=== PATIENT | male | born 2000 | race Caucasian/White ===

== ENCOUNTER 2020-05-10 04:38 | Emergency (ER) | payer SELFPAY ==
--- NOTE | ~2020-05-10 | XR_ITS ---
EXAMINATION: XR chest 2V 05/10/2020 06:08 INDICATION: Chest wall pain PROCEDURE: AP and lateral views of the chest COMPARISON: 11/05/2018 FINDINGS: The lungs are clear. The cardiomediastinal silhouette is within normal limits. There are no pleural effusions. There is no pneumothorax suspected. IMPRESSION: 1: NO ACUTE CARDIOPULMONARY DISEASE. Reviewed, dictated and finalized at location A.
--- NOTE | ~2020-05-10 | CT_ITS ---
EXAMINATION: CT brain wo con DATE: 05/10/2020 05:13 INDICATION: Sided weakness TECHNIQUE: Computed tomography (CT) of the head was performed without intravenous contrast. The dose- length product was 605.33 mGy-cm. The mA was adjusted according to patient size. Iterative reconstruc tion technique was employed. COMPARISON: None FINDINGS: Mild generalized atrophy. No acute intracranial hemorrhage, infarction, mass or mass effect . There are scattered mild periventricular and subcortical white matter changes, most likely related to small vessel ischemic disease (microangiopathy). No ventriculomegaly or midline shift. Mild mucosa l thickening of the ethmoid and right sphenoid sinus. Mastoids are pneumatized. IMPRESSION: 1. No acute intracranial abnormality. Reviewed, dictated and finalized at location A.
[2020-05-10 04:44] VITALS: BP 124/73; PULSE 86; RESP 16
--- NOTE | 2020-05-10 04:44 | ECG_ITS ---
Measurements Intervals [place] Rate: 90 P: 74 VA: 145 QRS: 177 QRSD: 120 T: 24 QT: 385 QTc: 473 Interpretive Statements SINUS RHYTHM RIGHT BUNDLE BRANCH BLOCK LEFT POSTERIOR FASCICULAR BLOCK CANNOT RULE OUT SEPTAL INFARCT, AGE INDETERMINATE BASELINE ARTIFACT- II, III, AVR, AVL, AVF, V3 ABNORMAL ECG Electronically Signed On 05-13-2020 15:54:20 CDT by Maged Sneed D.O.
--- NOTE | 2020-05-10 04:51 | ED.NEUROSD ---
HPI - Neuro Symptoms/Deficit General Chief Complaint: Neuro Symptoms/Deficit Stated Complaint: No feeling on R side Time Seen by Provider: 05/10/20 04:47 History of Present Illness HPI Narrative: Sudden onset of pain in the right chest wall, and numbness and weakness in the RUE. He has never had this before. He has a h/o hypoplastic left heart. Related Data Allergies Allergy/AdvReac Type Severity Reaction Status Date / Time No Known Drug Allergies Allergy Unknown Verified 11/05/18 11:07 Review of Systems Review of Systems: All systems reviewed & are unremarkable except as noted in HPI and below Constitutional: Constitutional: Denies fever(s) and Reports weakness Cardiovascular: Cardiovascular: Reports chest pain and Reports radiating jaw, neck or arm pain Respiratory: Respiratory: Denies dyspnea Musculoskeletal: Musculoskeletal: Denies back pain Neurologic: Reports dizziness, Reports numbness and Reports weakness PMFSH Past Medical History Medical History (Updated 05/11/20 @ 00:00 by Adriel Gibson) Hypoplastic left heart Social History Social History (Updated 05/10/20 @ 05:43 by Victor Manuel Moyer MD) Gender identity (if verbalized by the patient): Male Sexual Orientation (if Verbalized by the Patient): Straight or Heterosexual Exam Const: General: no acute distress and alert Orientation/consciousness: patient oriented x3 HENMT: Head: normal to inspection Chest: Other: Tenderness adjacent to the sternotomy scar on the right. No erythema or swelling Resp: Effort & Inspection: normal respiratory effort Auscultation: clear to auscultation bilaterally Cardio: Rate: regular rate Rhythm: regular rhythm GI: GI Palp: Yes Soft to palpation and No Tenderness to palpation present (GI) Skin: General skin exam: normal color Neuro: General: patient oriented x3, moves all extremities and CN's II-XI intact bilaterally Speech: normal speech Gait exam (Neuro): Normal gait present Other: Motor and sensory grossly intact. refusing to fully abduct right shoulder or make a fist with right hand. When the hand and arm are placed in any position he will hold it there. Says that he cannot feel his arm, but he can feel when you touch it. It is not clear what he means by this Extrem: General: normal to inspection Course Vital Signs Vital signs: Vital Signs Pulse Rate 86 05/10/20 04:44 Respiratory Rate 16 05/10/20 04:44 Blood Pressure 124/73 05/10/20 04:44 Pulse Rate 71 05/10/20 06:55 Respiratory Rate 16 05/10/20 06:55 Blood Pressure 117/79 05/10/20 06:55 Pulse Oximetry 98 05/10/20 06:55 MDM - Neuro Symptoms/Deficit MDM Narrative Medical decision making narrative: His compalints and exam do not seem to be concerning for any particular disease process. Medical Records Attestation: I reviewed the patient's medical records. Lab Data Attestation: I reviewed the patient's lab results. Result diagrams: 05/10/20 05:03 05/10/20 05:03 Labs: Lab Results 05/10/20 05/10/20 05/10/20 Range/Units 05:03 05:03 05:03 WBC 7.4 (4.5-10.0) K/mm3 RBC 5.71 (4.6-6.20) M/mm3 Hgb 17.1 (14.0-18.0) g/dL Hct 49.9 (42.0-52.0) % MCV 87.4 (80-100) fl MCH 29.9 (26-34) pg MCHC 34.3 (32-36) g/dl RDW 13.2 (11.5-14.5) % Plt Count 182 (150-375) k/mm3 MPV 12.0 H (7.4-10.4) fl Immature Gran % (Auto) 0.3 (0-0.5) % Neut % (Auto) 60.8 (45.5-73.1) % Lymph % (Auto) 28.0 (18.3-44.2) % Tripp % (Auto) 8.5 (2.6-8.5) % Eos % (Auto) 1.2 (0-4.4) % Baso % (Auto) 1.2 (0.2-1.2) % Lymph # (Auto) 2.08 (0.9-3.2) K/mm3 Tripp # (Auto) 0.6 (0.1-0.6) K/mm3 Eos # (Auto) 0.1 (0-0.3) K/mm3 Baso # (Auto) 0.1 (0.0-0.1) K/mm3 Abs Immat Gran (auto) 0.02 (0.00-0.031) K/mm3 Absolute Neuts (auto) 4.5 (1.3-6.7) K/mm3 Absolute Nucleated RBC 0.0 (0.0-0.012) K/mm3 Nucleated RBC % 0.0 (0.0-0.2
[2020-05-10 05:14] LABS: Basophils Absolute Auto 0.1 K/mm3 (0.0-0.1); Basophils Percent Auto 1.2 % (0.2-1.2); Eosinophils Absolute Auto 0.1 K/mm3 (0-0.3); Eosinophils Percent Auto 1.2 % (0-4.4); Hematocrit 49.9 % (42.0-52.0); Hemoglobin 17.1 g/dL (14.0-18.0); Immature Granulocyte Absolute 0.02 K/mm3 (0.00-0.031); Immature Granulocyte Percent A 0.3 % (0-0.5); Lymphocytes Absolute Auto 2.08 K/mm3 (0.9-3.2); Mean Corpuscular HGB Conc 34.3 g/dl (32-36); Mean Corpuscular Hemoglobin 29.9 pg (26-34); Mean Corpuscular Volume 87.4 fl (80-100); Monocytes Absolute Auto 0.6 K/mm3 (0.1-0.6); Monocytes Percent Auto 8.5 % (2.6-8.5); Neutrophils Absolute Auto 4.5 K/mm3 (1.3-6.7); Neutrophils Percent Auto 60.8 % (45.5-73.1); Platelet Count Result 182 k/mm3 (150-375); Red Blood Count 5.71 M/mm3 (4.6-6.20); Red Cell Distribution Width 13.2 % (11.5-14.5); White Blood Count 7.4 K/mm3 (4.5-10.0)
[2020-05-10 05:42] LABS: Anion Gap 12 mmol/L (8-16); Blood Urea Nitrogen 9 mg/dL (8-21); Calcium 9.8 mg/dL (8.9-10.7); Carbon Dioxide 26 mmol/L (22-30); Chloride 104 mmol/L (98-107); Estimated CRCL calculation 108 ml/min; Estimated Glomerular Filt Rate > 60; Glucose 86 mg/dL (75-110); Potassium 3.8 mmol/L (3.4-5.0); Sodium 142 mmol/L (134-143)
[2020-05-10 05:47] LABS: Troponin I < 0.012 ng/mL (0.000-0.034)
[2020-05-10 05:48] LABS: NT Pro B Type Natriuretic Pept 159 PG/ML (5-100)
[2020-05-10 06:08] VITALS: BP 118/74; PULSE 74; RESP 16; O2SAT 94
--- NOTE | 2020-05-10 06:37 | PC.NURSE ---
Patient continues to report numbness/unable to move right arm/shoulder and still having right sided pain---Dr Moyer aware
[2020-05-10] MEDS: KETOROLAC 30 MG/ML VIAL (*BKC) IV PUSH (06:49)
[2020-05-10 06:55] VITALS: BP 117/79; PULSE 71; RESP 16; O2SAT 98
== END 2020-05-10 06:55 | disposition home or self-care (01) ==
PROVIDERS: Emergency Provider Emergency Medicine
DX: R07.89 Other chest pain (principal); R20.2 Paresthesia of skin; Q23.4 Hypoplastic left heart syndrome; I45.2 Bifascicular block; R94.31 Abnormal electrocardiogram [ECG] [EKG]
CPT/HCPCS: 36415; 70450; 71046; 80048; 83880; 84484; 85025; 93005; 96374; 99284; J1885

== ENCOUNTER 2021-05-15 22:31 | Emergency (ER) | payer SELFPAY ==
--- NOTE | ~2021-05-15 | XR_ITS ---
XR shoulder LT min 2V 05/15/2021 22:58 INDICATION: Left shoulder pain post injury PROCEDURE: 4 views left shoulder COMPARISON: No prior studies for comparison. FINDINGS: Fracture, dislocation or subluxation is not identified. The soft tissues appear within norm al limits. No foreign bodies are identified. IMPRESSION: 1: NO ACUTE BONE OR JOINT ABNORMALITY IDENTIFIED. Reviewed, dictated and finalized at location A.
[2021-05-15 22:37] VITALS: BP 136/61; PULSE 100; RESP 18; TEMP 36.7; O2SAT 96
[2021-05-16 01:11] VITALS: BP 109/61; PULSE 84; RESP 16; O2SAT 99
--- NOTE | 2021-05-16 01:16 | ED.UPPEXIN ---
HPI - Extremity Injury (Upper) General Chief Complaint: Extremity Injury, Upper Stated Complaint: left shoulder dislocation Time Seen by Provider: 05/16/21 00:47 Source: patient and RN notes reviewed Mode of arrival: ambulatory Limitations: no limitations History of Present Illness HPI narrative: This is a 20 year old right hand dominant male who presents for evaluation of left shoulder pain. Patient states he was lifting a dresser when he felt of pop in his left shoulder. He has pain with movement. Someone thought his shoulder pain be dislocated. He has not taken any thing for pain. He states his entire all feels numb. Related Data Home Medications Medication Instructions Recorded Confirmed No Home Medications 05/15/21 05/15/21 Allergies Allergy/AdvReac Type Severity Reaction Status Date / Time No Known Drug Allergies Allergy Unknown Other Verified 05/16/21 01:42 Review of Systems Review of Systems: All systems reviewed & are unremarkable except as noted in HPI and below PMFSH Past Medical History Medical History (Updated 05/16/21 @ 01:21 by Nemo Rice MD) Hypoplastic left heart Surgical History Surgical History (Updated 05/16/21 @ 01:18 by Nemo Rice MD) H/O heart surgery Social History Social History (Updated 05/10/20 @ 05:43 by Victor Manuel Moyer MD) Gender identity (if verbalized by the patient): Male Sexual Orientation (if Verbalized by the Patient): Straight or Heterosexual Exam Const: General: alert Nutritional Appearance: thin Orientation/consciousness: patient oriented x3 Eyes: EOM: EOMs intact bilaterally Resp: Effort & Inspection: normal respiratory effort and no retractions Auscultation: clear to auscultation bilaterally Cardio: Rate: regular rate Heart sounds: no murmurs Skin: General skin exam: normal color Rashes: no rashes Neuro: General: patient oriented x3, moves all extremities and CN's II-XI intact bilaterally Extrem: Other: pain with abduction at left shoulder , full passive ROM. No deformity , no swelling, strong left radial pulse Psych: Mental Status: mental status grossly normal Affect: normal affect Course Reevaluation(s) Reevaluation #1: I Discussed wih patient that preliminary xray does not show fracture of dislocation. He will be given sling for comfort with ibuprofen. I have discussed discharge plan Date: 05/16/21 Time: 01:19 Vital Signs Vital signs: Vital Signs Temperature 98.1 F 05/15/21 22:37 Pulse Rate 100 05/15/21 22:37 Respiratory Rate 18 05/15/21 22:37 Blood Pressure 136/61 05/15/21 22:37 Pulse Oximetry 96 05/15/21 22:37 Temperature 98.1 F 05/15/21 22:37 Pulse Rate 85 05/16/21 01:36 Respiratory Rate 16 05/16/21 01:36 Blood Pressure 115/58 L 05/16/21 01:36 Pulse Oximetry 92 05/16/21 01:36 MDM - Extremity Injury (Upper) Imaging Data Attestation: I personally reviewed and interpreted this imaging study as follows: My impression: left shoulder xray- no dislocation, no fracture Discharge Plan Discharge Clinical Impression: Sprain of left shoulder Qualifiers: Encounter type: initial encounter Patient Disposition: Home, Self-Care Condition: Stable Instructions: How to Use a Sling (ED), Shoulder Sprain (ED), Shoulder Pain (ED) Additional Instructions: Take ibuprofen or aleve for your shoulder pain. wear sling for comfort. Follow up with your primary care physician if your pain does not resolve in 1 week. Prescriptions: No Action No Home Medications RF: 0 Follow-up/Referrals: UNKNOWN,DOCTOR [Primary Care Provider] -
[2021-05-16 01:36] VITALS: BP 115/58; PULSE 85; RESP 16; O2SAT 92
[2021-05-16] MEDS: IBUPROFEN 400 MG TABLET PO (01:43)
== END 2021-05-16 02:16 | disposition home or self-care (01) ==
PROVIDERS: Emergency Provider General Practice
DX: S43.402A Unspecified sprain of left shoulder joint, initial encounter (principal); X50.0XXA Overexertion from strenuous movement or load, initial encounter
CPT/HCPCS: 73030; 99283; A4565; A9270

== ENCOUNTER 2023-10-08 19:11 | Emergency (ER) | payer OTHER, SELFPAY ==
--- NOTE | ~2023-10-08 | XR_ITS ---
EXAMINATION: XR forearm LT 2V DATE: 10/08/2023 19:29 INDICATION: Left forearm pain. TECHNIQUE: 2 views of left forearm were obtained. COMPARISON: None. FINDINGS: Bone alignment is normal. No fracture. Joint spaces are normal. No elbow joint effusion. IMPRESSION: 1. No fracture. Reviewed, dictated and finalized at location E. IMPRESSION: 1. No fracture.
--- NOTE | 2023-10-08 19:17 | ED.GENADULT ---
HPI - General Adult General Chief complaint: Extremity Injury, Upper Stated complaint: Left Leg and L arm injury Time Seen by Provider: 10/08/23 19:14 History of Present Illness HPI narrative: Simba is a 23M with a PMH of hypoplastic left heart that presented to the ED with pain in his left arm. It started hurting after a motor cycle fell on it while he was working on it. He has no other injuries or concerns. Related Data Home Medications Medication Instructions Recorded Confirmed aspirin 81 mg tablet,delayed 81 mg PO DAILY 10/08/23 10/08/23 release digoxin 125 mcg (0.125 mg) tablet 125 mcg PO DAILY 10/08/23 10/08/23 enalapril maleate 10 mg tablet 10 mg PO DAILY 10/08/23 10/08/23 Allergies Allergy/AdvReac Type Severity Reaction Status Date / Time No Known Drug Allergies Allergy Unknown Other Verified 05/16/21 01:42 Review of Systems Review of Systems: All systems reviewed & are unremarkable except as noted in HPI and below [facility] Past Medical History Medical History Hypoplastic left heart Surgical History Surgical History H/O heart surgery Social History Social History Gender identity (if verbalized by the patient): Male Sexual Orientation (if Verbalized by the Patient): Straight or Heterosexual Exam Const: General: cooperative, healthy appearing, comfortable, no acute distress, well developed, alert, awake and Physically active Orientation/consciousness: oriented to person, oriented to place and oriented to time Other: Simba was laying in bed comfortably holding his left arm HENMT: Head: normal to inspection, normocephalic and atraumatic Ears: hearing grossly normal bilaterally and external ears normal Face/Nose/Sinus: Normal external nose present Eyes: General: appearance normal, both eyes and all related structures Periorbital: periorbital findings normal Sclera: sclerae normal Pupils: Equal, round and reactive pupils present Neck: Neck: normal visual inspection Chest: Chest palpation & inspection: normal inspection of the chest Resp: Effort & Inspection: normal respiratory effort, able to speak in complete sentences and no respiratory distress Cardio: Jugular venous distension: no JVD Skin: General skin exam: normal color and no rashes or lesions noted Neuro: General: oriented to person, oriented to place and oriented to time Cranial nerves: Yes Equal, round and reactive pupils present Extrem: General: normal to inspection Other: Able to move all finger of left hand, strong peripheral pulses. TTP and swelling from the mid forearm to the left elbow Course Course Emergency Course: Given toradol for the pain. EXAMINATION: XR forearm LT 2V DATE: 10/08/2023 19:29 INDICATION: Left forearm pain. TECHNIQUE: 2 views of left forearm were obtained. COMPARISON: None. FINDINGS: Bone alignment is normal. No fracture. Joint spaces are normal. No elbow joint effusion. IMPRESSION: 1. No fracture. Given normal radiographs it is likely just a contusion. Discharge Plan Discharge Clinical Impression: Contusion Patient Disposition: Home, Self-Care Condition: Stable Instructions: Contusion in Adults (ED) Prescriptions: No Action enalapril maleate 10 mg tablet 10 mg PO DAILY aspirin 81 mg Tablet,Delayed Release (Dr/Ec) 81 mg PO DAILY digoxin 125 mcg (0.125 mg) tablet 125 mcg PO DAILY Follow-up/Referrals: UNKNOWN,DOCTOR [Primary Care Provider] -
[2023-10-08 19:26] VITALS: BP 135/73; PULSE 91; RESP 18; TEMP 37.3; O2SAT 91
[2023-10-08] MEDS: KETOROLAC 30 MG/ML VIAL (*BKC) IM (19:38)
[2023-10-08 19:55] VITALS: BP 113/75; PULSE 85; RESP 18; O2SAT 98
== END 2023-10-08 19:55 | disposition home or self-care (01) ==
PROVIDERS: Emergency Provider Family Medicine
DX: S40.022A Contusion of left upper arm, initial encounter (principal); Z79.899 Other long term (current) drug therapy; W20.8XXA Other cause of strike by thrown, projected or falling object, initial encounter
CPT/HCPCS: 73090; 96372; 99283; J1885

== ENCOUNTER 2024-02-16 00:41 | Emergency (ER) | payer OTHER, SELFPAY ==
[2024-02-16] VITALS (10 sets, daily range): BP systolic 108–136; BP diastolic 60–81; PULSE 89–112; RESP 14–24; TEMP 36.4; O2SAT 89–94
--- NOTE | ~2024-02-16 | XR_ITS ---
Portable chest x-ray Comparison: 05/10/2020 Clinical History: Shortness of breath Findings: Lungs are clear, without focal consolidation or pleural effusion. Cardiomediastinal silho uette is stable. Surgical clips overlying the chest are unchanged. Bones and soft tissues are unremar kable. Impression: No acute abnormality. Reviewed, dictated and finalized at location . Impression: No acute abnormality.
--- NOTE | 2024-02-16 00:54 | PC.NURSE ---
xray at the bedside
--- NOTE | 2024-02-16 00:55 | ECG_ITS ---
Test Date: 2024-02-16 01:06:56 Measurements Intervals [place] Rate: 98 P: 58 MN: 210 QRS: 186 QRSD: 115 T: 19 QT: 383 QTc: 491 Interpretive Statements SINUS RHYTHM WITH FIRST DEGREE AV BLOCK LEFT ATRIAL ENLARGEMENT RIGHT BUNDLE BRANCH BLOCK LEFT POSTERIOR FASCICULAR BLOCK CANNOT R/O SEPTAL INFARCT, AGE INDETERMINATE ST-T WAVE ABNORMALITY IN ANTEROLATERAL LEADS- CONSIDER ISCHEMIA ABNORMAL ECG No previous ECG available for comparison Electronically Signed On 02-16-2024 05:59:45 CDT by Maged Sneed D.O.
--- NOTE | 2024-02-16 00:56 | ED.SOB ---
HPI - SOB/Dyspnea General Chief Complaint: Shortness of Breath/Dyspnea Stated Complaint: SOB Time Seen by Provider: 02/16/24 00:54 History of Present Illness HPI Narrative: 23-year-old white male presents with a history of hypoplastic left ventricle, reports multiple surgeries as an , reports several other surgeries or procedures as he was growing up, has been out of his medicines for the past year or 2 as he has not had the ability to drive to [facility] to any of his appointments. He did have some leftover medicines, and he has been taking his digoxin, his enalapril, but not the aspirin and not taking a 4th medication that he does not know the name. He restarted these because he started feeling tired, fatigued, and then over the past week or so he has been getting more and more short of breath, developing more dyspnea on exertion, but has not really noticed any swelling in his lower extremities. Denies any recent fever, chills, sinus drainage, sore throat, cough, chest pain, abdominal pain, nausea vomiting, diarrhea or constipation, dysuria urgency or frequency Related Data Home Medications Medication Instructions Recorded Confirmed aspirin 81 mg tablet,delayed 81 mg PO DAILY 10/08/23 02/16/24 release digoxin 125 mcg (0.125 mg) tablet 125 mcg PO DAILY 10/08/23 02/16/24 enalapril maleate 10 mg tablet 10 mg PO DAILY 10/08/23 02/16/24 albuterol sulfate 90 mcg/actuation 2 inh inhalation Q4H PRN Shortness 02/16/24 02/16/24 aerosol inhaler (Proventil HFA) Of Breath Or Wheezing Allergies Allergy/AdvReac Type Severity Reaction Status Date / Time No Known Drug Allergies Allergy Unknown Other Verified 05/16/21 01:42 Review of Systems Review of Systems: All systems reviewed & are unremarkable except as noted in HPI and below PMFSH Past Medical History Medical History Hypoplastic left heart Surgical History Surgical History H/O heart surgery Social History Social History Gender identity (if verbalized by the patient): Male Sexual Orientation (if Verbalized by the Patient): Straight or Heterosexual Exam Const: General: no acute distress, alert and well nourished Nutritional Appearance: well nourished Orientation/consciousness: patient oriented x3 Limitations: no limitations Other: slender, poor dentition, awake, alert, well oriented, pleasant, fair to good historian no acute distress, has mild tachypnea HENMT: Head: normal to inspection Ears: external ears normal Face/Nose/Sinus: Normal external nose present and normal facial exam Face and sinus: normal facial exam Mouth: Yes Normal oral and palatal mucosa present Teeth and gingiva: dentition normal Throat: posterior oropharynx normal Eyes: Conjunctivae: conjunctivae normal Pupils: Equal, round and reactive pupils present EOM: EOMs intact bilaterally Neck: Neck: normal visual inspection and no meningeal signs Chest: Chest palpation & inspection: normal inspection of the chest Resp: Effort & Inspection: normal respiratory effort Auscultation: clear to auscultation bilaterally Cardio: Rate: regular rate Rhythm: regular rhythm Heart sounds: Murmur heart sound present Other: patient has multiple murmurs KELI systolic and diastolic GI: GI Palp: Yes Soft to palpation and Yes Tenderness to palpation present (GI) Auscultation: normal bowel sounds Other: No mass, no organomegaly, no percussion or rebound tenderness : General: Yes bladder normal to palpation Skin: General skin exam: normal color Rashes: no rashes Wounds: no wounds Neuro: General: patient oriented x3, moves all extremities, no meningeal signs, no focal motor deficits and CN's II-XI intact bilaterally Cranial nerves: Yes Equal, round and reactive pupils present and Yes Nystagmus not present
--- NOTE | 2024-02-16 01:00 | PC.NURSE ---
see downtime paperwork for charting and medications.
[2024-02-16 01:07] LABS: Basophils Absolute Auto 0.08 K/mm3 (0.00-0.10); Eosinophils Absolute Auto 0.09 K/mm3 (0.02-0.50); Eosinophils Percent Auto 1.1 % (1.0-6.0); Hematocrit 49.6 % (40.0-54.0); Hemoglobin 16.8 g/dL (14.0-18.0); Immature Granulocyte Absolute 0.02 K/mm3 (0.00-0.00); Immature Granulocyte Percent A 0.2 % (0.0-0.0); Lymphocytes Absolute Auto 1.74 K/mm3 (1.10-4.50); Lymphocytes Percent Auto 21.7 % (18.0-42.0); Mean Corpuscular HGB Conc 33.9 g/dL (32-36); Mean Corpuscular Volume 85.5 fL (78.0-102.0); Mean Platelet Volume 10.7 fl (8.7-11.0); Monocytes Absolute Auto 0.69 K/mm3 (0.10-0.90); Monocytes Percent Auto 8.6 % (2.0-11.0); Neutrophils Absolute Auto 5.39 K/mm3 (1.70-7.20); Neutrophils Percent Auto 67.4 % (50.0-70.0); Platelet Count Result 218 K/mm3 (150-420); Red Cell Distribution Width 13.1 % (11.6-14.4)
[2024-02-16] MEDS: ALBUTEROL SULFATE NEB 2.5 MG/3 ML INH 5 MG INHALATION (01:07)
[2024-02-16] MEDS: methylPREDNISolone SOD SUCC 125 MG VIAL (01:22)
--- NOTE | 2024-02-16 03:16 | PC.NURSE ---
patient resting on stretcher. awaiting second trop draw at approx 0400. currently denies any needs. call light in reach
[2024-02-16 03:40] LABS: Appearance Urine Clear (Clear); Color Urine Yellow (Yellow); pH Urine 6.5 (5.0-8.0)
[2024-02-16 03:41] LABS: Add Urine Microscopic? YES; Bilirubin Urine Negative (Negative); Blood Urine Negative (Negative); Glucose Urine UA Negative (Negative); Ketones Urine Negative (Negative); Leukocyte Esterase Ur Negative LEU/UL (Negative); Nitrate Urine Negative (Negative); Protein Urine Negative (Negative); Specific Grav Ur <= 1.005 (1.010-1.020)
[2024-02-16 03:42] LABS: RBC Urine 0-2 /hpf (0-2); WBC Urine 0-3 /hpf (0-3)
[2024-02-16 03:42] LABS: Anion Gap 13 mmol/L (4-12); Blood Urea Nitrogen 10 mg/dL (7-18); Carbon Dioxide 26 mmol/L (21-32); Chloride 100 mmol/L (98-108); Estimated CRCL calculation 98 ml/min; Estimated Glomerular Filt Rate > 60; Glucose 106 mg/dL (70-99); Magnesium 2.1 mg/dL (1.8-2.4); Osmolality Calculated 287 mOsm/kg (285-295); Potassium 3.4 mmol/L (3.5-5.1); Sodium 139 mmol/L (136-145)
[2024-02-16 03:43] LABS: Alanine Aminotransferase 36 U/L (16-63); Albumin Level 4.7 g/dL (3.4-5.0); Alkaline Phosphatase 87 U/L (46-116); Aspartate Amino Transferase 27 U/L (15-37); Bilirubin,Total 2.3 mg/dL (0.00-1.00); NT Pro B Type Natriuretic Pept 132 pg/mL (0-125); Total Protein 7.9 g/dL (6.4-8.2)
--- NOTE | 2024-02-16 03:57 | PC.NURSE ---
lab at the bedside to draw second trop
[2024-02-16 03:59] LABS: Amphetamine Screen Urine Negative (Negative); Barbiturate Screen Urine Negative (Negative); Benzodiazepines Screen Urine Negative (Negative); Cannabinoid Screen Urine Negative (Negative); Cocaine Screen Urine Negative (Negative); Methadone Screen Urine Negative (Negative); Opiate Screen Urine Negative (Negative); Phencyclidine Screen Urine Negative (Negative)
--- NOTE | 2024-02-16 04:02 | PC.NURSE ---
resting on stretcher. waiting on second trop result. denies any needs. call light in reach
[2024-02-16 04:23] LABS: Troponin I 11.6 ng/L (0.00-60.4)
--- NOTE | 2024-02-16 04:30 | PC.NURSE ---
notified patient that blood work has resulted. patient asked for water to drink. given. asked patient if he needed second breathing treatment that was ordered. patient states no i am good. i am breathing much better now . call light in reach
--- NOTE | 2024-02-16 05:22 | PC.NURSE ---
asked patient if he had a spacer at home for his albuterol inhaler. patient reports that he does not have one. One was given to patient. Education was completed on how to use spacer. Patient did a return demonstration on how inhaler would be used with the spacer and how to breath in the medication from the spacer.
== END 2024-02-16 05:24 | disposition home or self-care (01) ==
PROVIDERS: Emergency Provider Emergency Medicine
DX: R06.02 Shortness of breath (principal); J98.01 Acute bronchospasm; Z79.899 Other long term (current) drug therapy; Z79.82 Long term (current) use of aspirin
CPT/HCPCS: 36415; 71045; 80053; 80307; 81001; 83735; 83880; 84484; 85025; 93005; 96374; 99284; J2919

== ENCOUNTER 2024-05-21 12:34 | Emergency (ER) | payer OTHER, SELFPAY ==
--- NOTE | ~2024-05-21 | XR_ITS ---
EXAMINATION: XR shoulder LT min 2V DATE: 05/21/2024 13:08 INDICATION: Left shoulder pain. TECHNIQUE: 4 views of left shoulder were obtained. COMPARISON: Left shoulder radiographs 05/15/2021 FINDINGS: Alignment is normal. No fracture. Joint spaces are normal. IMPRESSION: 1. Normal left shoulder. Reviewed, dictated and finalized at location A. IMPRESSION: 1. Normal left shoulder.
[2024-05-21 12:35] VITALS: BP 129/72; PULSE 116; RESP 16; TEMP 36.9; O2SAT 91
--- NOTE | 2024-05-21 12:57 | ED.UPPEXIN ---
HPI - Extremity Injury (Upper) General Chief Complaint: Extremity Injury, Upper Stated Complaint: SHOULDER INJURY, LEFT Time Seen by Provider: 05/21/24 12:57 Source: patient History of Present Illness HPI narrative: PATIENT WAKE UP WITH PAIN AT THE LEFT SHOULDER AFTER LIFTING TREE STUMPS LAST NIGHT BEFORE GOING TO BED. HE DENIES OTHER INJURIES. WORSE WITH MOVEMENT AND CERTAIN POSITIONS, Related Data Home Medications Medication Instructions Recorded Confirmed aspirin 81 mg tablet,delayed 81 mg PO DAILY 10/08/23 05/21/24 release digoxin 125 mcg (0.125 mg) tablet 125 mcg PO DAILY 10/08/23 05/21/24 enalapril maleate 10 mg tablet 10 mg PO DAILY 10/08/23 05/21/24 albuterol sulfate 90 mcg/actuation 2 inh inhalation Q4H PRN Shortness 02/16/24 05/21/24 aerosol inhaler (Proventil HFA) Of Breath Or Wheezing Allergies Allergy/AdvReac Type Severity Reaction Status Date / Time No Known Drug Allergies Allergy Unknown Other Verified 05/21/24 12:40 Review of Systems Review of Systems: All systems reviewed & are unremarkable except as noted in HPI and below PMFSH Past Medical History Medical History Hypoplastic left heart Surgical History Surgical History H/O heart surgery Social History Social History Gender identity (if verbalized by the patient): Male Sexual Orientation (if Verbalized by the Patient): Straight or Heterosexual Exam Narrative: GENERAL APPEARANCE: WELL-DEVELOPED, WELL-NOURISHED SKIN: NORMAL COLOR HEAD: NORMOCEPHALIC, NONTRAUMATIC EYES: CLEAR CONJUNCTIVA CHEST AND RESPIRATORY: AIRWAY PATENT, NO RESPIRATORY DISTRESS, NO ACCESSORY MUSCLE USE HEART: REGULAR RATE/RHYTHM VASCULAR: NORMAL PERIPHERAL PULSES, NORMAL CAPILLARY REFILL. MUSCULOSKELETAL: LEFT SHOULDER EXAMINATION SHOWED DIFFUSE TENDERNESS, NO DEFORMITY, SLIGHT LIMITED RANGE OF MOTION BECAUSE OF PAIN, NO SWELLING, NO BRUISES NEUROLOGIC: ALERT AND ORIENTED ?3, INSTRUCTOR EXTENSION WORK IS NORMAL TESTED, NO GROSS MOTOR DEFICIT Course Vital Signs Vital signs: Vital Signs Temperature 36.9 C 05/21/24 12:35 Pulse Rate 116 H 05/21/24 12:35 Respiratory Rate 16 05/21/24 12:35 Blood Pressure 129/72 05/21/24 12:35 Pulse Oximetry 91 05/21/24 12:35 Oxygen Delivery Room Air 05/21/24 12:35 Temperature 36.9 C 05/21/24 12:35 Pulse Rate 116 H 05/21/24 12:35 Respiratory Rate 16 05/21/24 12:35 Blood Pressure 129/72 05/21/24 12:35 Pulse Oximetry 91 05/21/24 12:35 Oxygen Delivery Room Air 05/21/24 12:35 MDM - Extremity Injury (Upper) Imaging Data Radiologist's impression: X-RAY LEFT SHOULDER SHOWED NO ACUTE OSSEOUS ABNORMALITY Discharge Plan Discharge Clinical Impression: Acute pain of left shoulder Patient Disposition: Home, Self-Care Condition: Stable Instructions: Shoulder Sprain (ED) Additional Instructions: RETURN IF SYMPTOMS ARE WORSENING , CALL YOUR FAMILY PHYSICIAN FOR APPOINTMENT, TAKE TYLENOL NEEDED FOR ACHES AND PAIN, CONTINUE HOME MEDICATIONS. Prescriptions: New naproxen [Naprosyn] 500 mg tablet 500 mg PO BID PRN (Reason: pain) Qty: 14 0RF cyclobenzaprine 10 mg tablet 10 mg PO TID PRN (Reason: muscle spasm) Qty: 14 0RF No Action enalapril maleate 10 mg tablet 10 mg PO DAILY aspirin 81 mg Tablet,Delayed Release (Dr/Ec) 81 mg PO DAILY digoxin 125 mcg (0.125 mg) tablet 125 mcg PO DAILY albuterol sulfate [Proventil HFA] 90 mcg/actuation HFA aerosol inhaler 2 inh INHALATION Q4H PRN (Reason: Shortness Of B
[2024-05-21] MEDS: IBUPROFEN 600 MG TABLET PO (13:17)
[2024-05-21] MEDS: ACETAMINOPHEN 500 MG TABLET 1000 MG PO (13:18)
[2024-05-21 13:38] VITALS: BP 125/75; PULSE 100; RESP 16; TEMP 36.7; O2SAT 92
== END 2024-05-21 13:38 | disposition home or self-care (01) ==
PROVIDERS: Emergency Provider Emergency Medicine
DX: M25.512 Pain in left shoulder (principal); Z79.899 Other long term (current) drug therapy; Z79.82 Long term (current) use of aspirin; X50.0XXA Overexertion from strenuous movement or load, initial encounter
CPT/HCPCS: 73030; 99283; A9270

== ENCOUNTER 2024-05-22 09:16 | Emergency (ER) | payer OTHER, SELFPAY ==
--- NOTE | ~2024-05-22 | CT_ITS ---
EXAMINATION: CT shoulder LT wo con DATE: 05/22/2024 10:10 INDICATION: Left shoulder injury and pain. TECHNIQUE: Computed tomography (CT) of the left shoulder was performed without intravenous contrast. Automated exposure control and iterative reconstruction technique were employed. The dose-length prod uct was 104.32 mGy-cm. COMPARISON: Left shoulder radiographs 05/21/2024 FINDINGS: Alignment is normal. No fracture. Joint spaces are normal. IMPRESSION: 1. Normal left shoulder. Reviewed, dictated and finalized at location A. IMPRESSION: 1. Normal left shoulder.
[2024-05-22 09:21] VITALS: BP 152/84; PULSE 107; RESP 17; TEMP 36.4; O2SAT 94
--- NOTE | 2024-05-22 09:48 | ED.UPPEXIN ---
HPI - Extremity Injury (Upper) General Chief Complaint: Extremity Injury, Upper Stated Complaint: left shoulder pain Time Seen by Provider: 05/22/24 09:19 Source: patient Mode of arrival: ambulatory Limitations: no limitations History of Present Illness HPI narrative: this is a 23-year-old male that presents to the emergency department for left shoulder pain. Reports he was lifting tree stumps prior to it starting. Was evaluated for this at another ER yesterday. Had negative x-rays. Is still having pain which prompted him to be seen. Denies decreased range of motion or numbness. Related Data Home Medications Medication Instructions Recorded Confirmed aspirin 81 mg tablet,delayed 81 mg PO DAILY 10/08/23 05/21/24 release digoxin 125 mcg (0.125 mg) tablet 125 mcg PO DAILY 10/08/23 05/21/24 enalapril maleate 10 mg tablet 10 mg PO DAILY 10/08/23 05/21/24 albuterol sulfate 90 mcg/actuation 2 inh inhalation Q4H PRN Shortness 02/16/24 05/21/24 aerosol inhaler (Proventil HFA) Of Breath Or Wheezing Allergies Allergy/AdvReac Type Severity Reaction Status Date / Time No Known Drug Allergies Allergy Unknown Other Verified 05/22/24 09:25 Review of Systems Review of Systems: CONSTITUTIONAL: Denies fever MUSCULOSKELETAL: Reports joint pain, and myalgia. NEUROLOGIC: Denies numbness, or weakness. All systems reviewed & are unremarkable except as noted in HPI and below PMFSH Past Medical History Medical History Hypoplastic left heart Surgical History Surgical History H/O heart surgery Social History Social History (Updated 05/22/24 @ 09:49 by Adri Brown PA-C) Substance use: never Gender identity (if verbalized by the patient): Male Sexual Orientation (if Verbalized by the Patient): Straight or Heterosexual Exam Narrative: GENERAL: Well-appearing, well-nourished, and in no acute distress. HEAD: Normocephalic, atraumatic. EYES: EOMI. CHEST: No respiratory distress. No wheezes rales or rhonchi HEART: Regular rate and rhythm. Normal peripheral pulses. EXTREMITIES: Normal range of motion. No edema or obvious deformity. Normal radial pulse. Normal sensation SKIN: Warm, dry, no rash. NEURO: No focal deficits. Alert and oriented x3. PSYCH: Normal mood and affect Course Vital Signs Vital signs: Vital Signs Temperature 97.6 F 05/22/24 09:21 Pulse Rate 107 H 05/22/24 09:21 Respiratory Rate 17 05/22/24 09:21 Blood Pressure 152/84 H 05/22/24 09:21 Pulse Oximetry 94 05/22/24 09:21 Oxygen Delivery Room Air 05/22/24 09:21 Temperature 97.6 F 05/22/24 09:21 Pulse Rate 107 H 05/22/24 09:21 Respiratory Rate 17 05/22/24 09:21 Blood Pressure 152/84 H 05/22/24 09:21 Pulse Oximetry 94 05/22/24 09:21 Oxygen Delivery Room Air 05/22/24 09:21 MDM - Extremity Injury (Upper) MDM Narrative Medical decision making narrative: Patient presents to the emergency department for left shoulder pain after a lifting injury. Patient is neurovascularly intact. X-rays yesterday were negative for acute findings. Patient presents today for further evaluation. CT obtained which is also without acute findings. Patient was updated on his workup, instructed on continue care of muscle strain. He is to follow up with primary provider. He was given warnings to return to the ER Differential Diagnosis Differential diagnosis: Likely dislocation of shoulder, fracture of clavicle and other (AC separation) Imaging Data Radiologist's impression: ITS Impressions Shoulder CT 05/22/24 10:13 IMPRESSION: 1. Normal left shoulder. Critical Care Time Critical Care Time Critical Care Time: No Discharge Plan Discharge Clinical Impression: Acute pain of left shoulder Patient Disposition: Home, Self-Care Condition: Stable Instructions: Shoulder Sprain (ED) Additional Instructions: Return to the ER if you experience fever, redness and swelling of your arm, weakness, numbness, or any other symptoms that are concerning to you Rest, use ice/heat, take anti-inflammatories (Aleve, Ibuprofen, Naproxen, etc) or Tylenol as needed for pain as well as muscle relaxer (Flexeril) as needed for pain. Muscle relaxers can make you drowsy, do not drive if you take this. Wear sling as needed for comfort. Do come out of the sling and of range of motion exercises so you don't get stiff Follow up with your primary care doctor Prescriptions: No Action enalapril maleate 10 mg tablet 10 mg PO DAILY aspirin 81 mg Tablet,Delayed Release (Dr/Ec) 81 mg PO DAILY digoxin 125 mcg (0.125 mg) tablet 125 mcg PO DAILY naproxen [Naprosyn] 500 mg tablet 500 mg PO BID PRN (Reason: pain) Qty: 14 0RF cyclobenzaprine 10 mg tablet 10 mg PO TID PRN (Reason: muscle spasm) Qty: 14 0RF albuterol sulfate [Proventil HFA] 90 mcg/actuation HFA aerosol inhaler 2 inh INHALATION Q4H PRN (Reason: Shortness Of Breath Or Wheezing) albuterol sulfate 90 mcg/actuation HFA aerosol inhaler 2 puff inhalation Q4-6H PRN (Reason: shortness of breath or wheezing) Qty: 18 0RF Follow-up/Referrals: Eddie Hughes MD [Physician] - UNKNOWN,DOCTOR [Primary Care Provider] -
[2024-05-22] MEDS: ACETAMINOPHEN 500 MG TABLET 1000 MG PO (09:53)
[2024-05-22] MEDS: KETOROLAC 30 MG/ML VIAL (*BKC) IM (09:54)
[2024-05-22 10:31] VITALS: BP 124/77; PULSE 99; RESP 14; O2SAT 95
[2024-05-22] MEDS: LIDOCAINE 5% PATCH 1 PATCH TRANSDERM (10:37)
== END 2024-05-22 10:56 | disposition home or self-care (01) ==
PROVIDERS: Emergency Provider Physician Assistant
DX: M25.512 Pain in left shoulder (principal); X50.0XXA Overexertion from strenuous movement or load, initial encounter; Z79.82 Long term (current) use of aspirin
CPT/HCPCS: 73200; 96372; 99284; A4565; A9270; J1885

== ENCOUNTER 2024-06-22 01:29 | Emergency (ER) | payer OTHER, SELFPAY ==
[2024-06-22] VITALS (46 sets, daily range): BP systolic 90–155; BP diastolic 39–87; PULSE 95–119; RESP 13–24; TEMP 36.3; O2SAT 83–95
--- NOTE | ~2024-06-22 | CT_ITS ---
EXAMINATION: CT abdomen pelvis w con DATE: 06/22/2024 04:37 INDICATION: 4-5 days of left lower quadrant abdominal pain TECHNIQUE: Computed tomography (CT) of the abdomen and pelvis was performed with 100 mL Omnipaque-350 intravenous contrast. Automated exposure control and iterative reconstruction technique were employe d. The dose-length product was 192.58 mGy-cm. COMPARISON: None FINDINGS: Lung bases are clear. Heart size is normal. No pericardial or pleural effusion. Diffuse mild intrahep atic ductal or ductal dilation. There is a nodular liver surface consistent with cirrhosis. Gallbladd er is normal. Common bile duct measures up to 6 mm diameter which remains within normal limits. Splee n, pancreas, bilateral adrenal glands and right kidney are normal. 5 mm left renal cyst. Bowels inclu ding the appendix are normal. Bladder is normal. No free intraperitoneal gas or fluid. No pathologica lly enlarged abdominal or pelvic lymphadenopathy. The bilateral external and common iliac veins are s mall in caliber, tortuous and with multiple pelvic collaterals. There is a fractured median sternotom y wire at the caudal-most aspect of the sternum. Mild thoracolumbar dextrocurvature. IMPRESSION: 1. Cirrhosis with mild diffuse intrahepatic biliary ductal dilation with normal caliber common bile d uct. Could consider further evaluation MRCP as clinically indicated. Reviewed, dictated and finalized at location A. GER TECHNICAL SUPPORT IMPRESSION: 1. Cirrhosis with mild diffuse intrahepatic biliary ductal dilation with normal caliber common bile duct. Could consider further evaluation MRCP as clinically indicated.
--- NOTE | ~2024-06-22 | XR_ITS ---
EXAMINATION: XR chest 1V portable DATE: 06/22/2024 01:56 INDICATION: Left-sided chest pain. Hypoplastic left heart. TECHNIQUE: frontal view of the chest was obtained. COMPARISON: Chest radiograph dated 02/16/2024 FINDINGS: The lungs remain clear with no focal airspace opacities, pulmonary edema, pleural effusion or pneumot horax. Heart size is normal. Postoperative change including fractured medial sternotomy wires at the caudal-most sternal and surgical clips and likely embolization coils projecting over the right-sided the superior mediastinum and right apex. Mild to moderate upper thoracic levoscoliosis. IMPRESSION: 1. No acute cardiopulmonary disease. Reviewed, dictated and finalized at location A. ATRIC UROLOGIST
--- NOTE | 2024-06-22 01:40 | ED_ITS ---
HPI - General Adult General Chief complaint: Chest Pain Stated complaint: chest pain Time Seen by Provider: 06/22/24 01:40 Source: patient and family Mode of arrival: ambulatory Limitations: no limitations History of Present Illness HPI narrative: 24-year-old white male with history of heart disease complaint of chest pain started 5 days ago. Patient has a history of hypoplastic left heart and has had many heart surgeries heart catheterizations and stents. He says he might have a history of congestive heart failure and liver failure. He says his doctors think he might need a liver transplant down the line . He has never had any myocardial infarction. Year ago he was seen for chest pain and shortne ss of breath was sent to [facility] he had weakness on 1 side and then he was transferred to [facility] where they said he did not have a stroke or a heart attack. Evidently he did not have a stroke or heart attack. He has had strokes in the past. He has not seen a doctor in the office for over a year. Was recently seen by doctor a month ago with some shoulder pain. His left chest pain started 5 days ago it has been constant it is worse now 03/09. He says it radiates to the left side of his abdomen. He is not taking anything for pain and he has also started having shortness of breath. 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 His fiancee says he can barely sit up in bed but he was able to go to his friend's house and have 2 or 3 beers and smoke marijuana cigarettes tonight. Had a little bit of nausea no vomiting no diaphoresis or diarrhea he is eating and drinking voiding and stooling fine without fever cough runny nose sore throat. Short of breath with walking. Denies any rash or itching bleeding or bruising swelling lumps or bumps. Complains of generalized weakness and fatigue he has no focal weakness numbness or tingling. His fiancee says he is feels warm but she has not checked it with a thermometer. Related Data Home Medications Medication Instructions Recorded Confirmed aspirin 81 mg tablet,delayed 81 mg PO DAILY 10/08/23 06/22/24 release digoxin 125 mcg (0.125 mg) tablet 125 mcg PO DAILY 10/08/23 06/22/24 enalapril maleate 10 mg tablet 10 mg PO DAILY 10/08/23 06/22/24 cyclobenzaprine 10 mg tablet 10 mg PO PRN 06/22/24 06/22/24 spironolactone 50 mg PO DAILY 06/22/24 06/22/24 Allergies Allergy/AdvReac Type Severity Reaction Status Date / Time No Known Drug Allergies Allergy Unknown Other Verified 05/22/24 09:25 Review of Systems Review of Systems: All systems reviewed & are unremarkable except as noted in HPI and below [facility] Past Medical History Medical History Hypoplastic left heart Surgical History Surgical History H/O heart surgery Social History Social History (Updated 05/22/24 @ 09:49 by Adri Brown PA-C) Substance use: never Gender identity (if verbalized by the patient): Male Sexual Orientation (if Verbalized by the Patient): Straight or Heterosexual Exam Narrative: White male patient with no apparent distress.? Head normocephalic, atraumatic.? Eyes conjunctiva pink sclera nonicteric.? Extraocular movements are intact.? Ears externally normal.? Oropharynx is clear with moist mucous membranes without exudates.? Neck is supple nontender no lymphadenopathy.? Back is nontender.? Lungs are clear.? Heart is regular With a tachycardic rate and normal rhythm without gallops or rubs.? he has a harsh 3/6 systolic murmur across the precordium. Chest wall Is tender across the left chest reproducing patient's chest pain. Abdomen is soft and nontender no hepatosplenomegaly or masses no CVA tenderness no abdominal bruits.? Extremities no cyanosis clubbing or edema.? Skin is warm and dry without rashes or lesions.? Neurological patient is alert and oriented x4.? Motor and sensory grossly intact.? Gait is normal. Course Vital Signs Vital signs: Vital Signs Pulse Rate 114 H 06/22/24 01:29 Oxygen Delivery Room Air 06/22/24 01:29 Temperature 36.3 C L 06/22/24 01:38 Pulse Rate 104 H 06/22/24 03:45 Respiratory Rate 18 06/22/24 03:45 Blood Pressure 117/59 L 06/22/24 03:45 Pulse Oximetry 94 06/22/24 03:45 Oxygen Delivery Nasal Cannula 06/22/24 03:45 Oxygen Flow Rate 2 06/22/24 03:45 Medical Decision Making [facility] Narrative Medical decision making narrative: ?Patient placed in room: 6 With his ankita Gruber ? History and physical was performed. chest x-ray showed no active disease as independently interpreted by me. CT abdomen and pelvis with IV contrast showed mildly distended loops of small bowel containing air and fluid level may be related to ileus nonspecific enteritis is not excluded normal appendix liver is enlarged is some periportal edema is noted within the liver WBCs 14.4 rest of CBC was normal. Coags were normal CMP: Sodium 133 chloride 97 Osmo 278, total bilirubin 1.2 rest of his CMP was normal. Normal troponin, lactic acid, and D-dimer, COVID flu RSV and alcohol, and urine drug screen. 2 hour troponin was normal. Magnesium 1.6, proBNP 161, digoxin 0.5 5:18 a.m. chest pain is gone will repeat EKG Independent Historian: ankita External Source Review: ED visit from month ago left shoulder injury lifting tree stumps Differential Dx includes but not limited to: acute coronary syndrome, PE Medications were Reviewed: home meds reviewed Medications given: 324 chewable aspirin, Zofran 4 mg IV morphine 2 mg IV, 2 mg morphine 2nd dose, magnesium 2 g IV Independently Interpreted by me: EKG shows sinus tachycardia at 1:18 a.m. left atrial enlargement right bundle branch block ST depressions in leads V3 through V6 T-wave inversion in lead V2 and 3 left posterior fascicular block septal infarction age undetermined with Q-waves in V1 and V2 impression : abnormal EKG Suggesting anterior lateral ischemia as independently interpreted by me. EKG done per 2 done at 5:23 a.m. shows sinus rhythm left atrial enlargement right axis deviation right bundle-branch block septal infarct age undetermined T-wave inversions in V 2 through V3 changes from previous EKG. Impression abnormal EKG as independently interpreted by me. Shared decision Making: evaluation was discussed all questions were asked and answered patient agreed with the plan. Social Situation Impacting Patients Care: patient has not followed up with his test engineer nuclear equipment in over a year Discussed with Dr. LIMA DIAGNOSIS: history of hypoplastic left heart, chest pain, hypomagnesemia, abdominal pain DISPOSITION : discharge home CONDITION AT DISCHARGE: stable Vital Signs Vital Signs: Vital Signs Pulse Rate 114 H 06/22/24 01:29 Oxygen Delivery Room Air 06/22/24 01:29 Temperature 36.3 C L 06/22/24 01:38 Pulse Rate 104 H 06/22/24 03:45 Respiratory Rate 18 06/22/24 03:45 Blood Pressure 117/59 L 06/22/24 03:45 Pulse Oximetry 94 06/22/24 03:45 Oxygen Delivery Nasal Cannula 06/22/24 03:45 Oxygen Flow Rate 2 06/22/24 03:45 Lab Data 06/22/24 01:56 06/22/24 01:56 Labs: Lab Results 06/22/24 06/22/24 06/22/24 Range/Units 01:56 02:39 04:06 WBC 14.4 H (4.8-10.8) K/mm3 RBC 5.96 (4.70-6.10) M/mm3 Hgb 17.6 (14.0-18.0) g/dL Hct 49.5 (40.0-54.0) % MCV 83.1 (78.0-102.0) fL MCH 29.5 (27.0-31.0) pg MCHC 35.6 (32-36) g/dL RDW 12.9 (11.6-14.4) % Plt Count 285 (150-420) K/mm3 MPV 10.1 (8.7-11.0) fl PT 12.3 H (9.50-12.1) Seconds INR 1.1 APTT 25.2 (23.9-30.70) Sec D-Dimer 0.19 (0.19-0.50) mg/L Sodium 133 L (136-145) mmol/L Potassium 4.1 (3.5-5.1) mmol/L Chloride 97 L (98-108) mmol/L Carbon Dioxide 27 (21-32) mmol/L Anion Gap 9 (4-12) mmol/L BUN 15 (7-18) mg/dL Creatinine 0.76 (0.70-1.30) mg/dL Estim Creat Clear Calc 102 ml/min Estimated GFR > 60 (59 - ) Glucose 130 H (70-99) mg/dL Calculated Osmolality 278 L (285-295) mOsm/kg Lactic Acid 1.8 (0.4-2.0) mmol/L Calcium 9.4 (8.5-10.1) mg/dL Magnesium 1.6 L (1.8-2.4) mg/dL Total Bilirubin 1.2 H (0.00-1.00) mg/dL AST 15 (15-37) U/L ALT 39 (16-63) U/L Alkaline Phosphatase 84 (46-116) U/L Troponin I 12.0 13.9 (0.00-60.4) ng/L NT-Pro-B Natriuret Pep 161 H (0-125) pg/mL Total Protein 7.5 (6.4-8.2) g/dL Albumin 4.4 (3.4-5.0) g/dL Digoxin 0.5 L (0.9-2.0) ng/mL Urine Opiates Screen Negative (Negative) Urine Methadone Screen Negative (Negative) Ur Barbiturates Screen Negative (Negative) Ur Phencyclidine Scrn Negative (Negative) Ur Amphetamine Screen Negative (Negative) U Benzodiazepines Scrn Negative (Negative) Urine Cocaine Screen Negative (Negative) U Cannabinoids Screen Negative (Negative) Ethyl Alcohol 4 (0-6) mg/dL Influenza A (RT-PCR) Negative (Negative) Influenza B (RT-PCR) Negative (Negative) RSV (RT-PCR) Negative (Negative) SARS-CoV-2 RNA (RT-PCR) Negative (Negative) Discharge Plan Discharge Clinical Impression: Atypical chest pain, History of hypoplastic left heart syndrome, Hypomagnesemia Abdominal pain Qualifiers: Abdominal location: left upper quadrant Qualified Code(s): R10.12 - Left upper quadrant pain Patient Disposition: Home, Self-Care Condition: Stable Instructions: Chest Pain (ED), Abdominal Pain (ED), Chest Wall Pain (ED) Additional Instructions: Tylenol as needed for pain. Mag-Ox 400 mg twice a day. With your primary care provider next week to have him recheck your magnesium again and follow-up with test engineer nuclear equipment as well Dr. Rodriguez at [facility] To discuss further evaluation treatment. Return if you get worse or develops any new symptoms. Prescriptions: New magnesium oxide 400 mg magnesium capsule 400 mg PO BID Qty: 20 0RF No Action enalapril maleate 10 mg tablet 10 mg PO DAILY aspirin 81 mg Tablet,Delayed Release (Dr/Ec) 81 mg PO DAILY digoxin 125 mcg (0.125 mg) tablet 125 mcg PO DAILY cyclobenzaprine 10 mg tablet 10 mg PO PRN spironolactone 50 mg PO DAILY Follow-up/Referrals: UNKNOWN,DOCTOR [Primary Care Provider] - Time of Disposition: 05:45
--- NOTE | 2024-06-22 01:41 | ECG_ITS ---
Test Date: 2024-06-22 01:36:13 Measurements Intervals [place] Rate: 118 P: 55 ND: 133 QRS: 178 QRSD: 112 T: 40 QT: 330 QTc: 463 Interpretive Statements SINUS TACHYCARDIA POSSIBLE LEFT ATRIAL ENLARGEMENT RIGHT BUNDLE BRANCH BLOCK LEFT POSTERIOR FASCICULAR BLOCK CANNOT R/O SEPTAL INFARCT, AGE INDETERMINATE ABNORMAL ECG Compared to ECG 02/16/2024 01:06:56 HEART RATE HAS INCREASED POSSIBLE ISCHEMIA NO LONGER PRESENT Electronically Signed On 06-22-2024 07:46:10 PLUMBING HARDWARE ASSEMBLER by Maged Sneed D.O.
[2024-06-22 02:00] LABS: Hematocrit 49.5 % (40.0-54.0); Hemoglobin 17.6 g/dL (14.0-18.0); Mean Corpuscular HGB Conc 35.6 g/dL (32-36); Mean Corpuscular Hemoglobin 29.5 pg (27.0-31.0); Mean Corpuscular Volume 83.1 fL (78.0-102.0); Mean Platelet Volume 10.1 fl (8.7-11.0); Platelet Count Result 285 K/mm3 (150-420); Red Blood Count 5.96 M/mm3 (4.70-6.10); Red Cell Distribution Width 12.9 % (11.6-14.4); White Blood Count 14.4 K/mm3 (4.8-10.8)
[2024-06-22 02:13] LABS: INR 1.1; Partial Thromboplastin Time 25.2 Sec (23.9-30.70); Prothrombin Time 12.3 Seconds (9.50-12.1)
[2024-06-22 02:16] LABS: D Dimer 0.19 mg/L (0.19-0.50)
[2024-06-22 02:20] LABS: Lactic Acid Reflex 1.8 mmol/L (0.4-2.0)
[2024-06-22 02:24] LABS: Alanine Aminotransferase 39 U/L (16-63); Albumin Level 4.4 g/dL (3.4-5.0); Alkaline Phosphatase 84 U/L (46-116); Anion Gap 9 mmol/L (4-12); Aspartate Amino Transferase 15 U/L (15-37); Bilirubin,Total 1.2 mg/dL (0.00-1.00); Blood Urea Nitrogen 15 mg/dL (7-18); Calcium 9.4 mg/dL (8.5-10.1); Carbon Dioxide 27 mmol/L (21-32); Chloride 97 mmol/L (98-108); Estimated CRCL calculation 102 ml/min; Estimated Glomerular Filt Rate > 60; Glucose 130 mg/dL (70-99); Osmolality Calculated 278 mOsm/kg (285-295); Potassium 4.1 mmol/L (3.5-5.1); Sodium 133 mmol/L (136-145); Total Protein 7.5 g/dL (6.4-8.2)
[2024-06-22 02:26] LABS: Magnesium 1.6 mg/dL (1.8-2.4)
[2024-06-22 02:27] LABS: NT Pro B Type Natriuretic Pept 161 pg/mL (0-125)
[2024-06-22] MEDS: ASPIRIN 81 MG CHEWABLE TABLET 324 MG PO (02:31)
[2024-06-22] MEDS: ONDANSETRON INJ 4 MG/2 ML VIAL IV PUSH (02:31)
[2024-06-22] MEDS: MORPHINE SULFATE (*CRX) 2 MG/ML INJ IV PUSH ×2 (02:32→04:08)
[2024-06-22 02:37] LABS: Influenza A QL RT-PCR Negative (Negative); Influenza B QL RT-PCR Negative (Negative); RSV RNA, RT-PCR Negative (Negative); SARS-CoV-2 RNA PCR Negative (Negative)
[2024-06-22 02:38] LABS: Ethanol 4 mg/dL (0-6)
[2024-06-22 02:49] LABS: Amphetamine Screen Urine Negative (Negative); Barbiturate Screen Urine Negative (Negative); Benzodiazepines Screen Urine Negative (Negative); Cannabinoid Screen Urine Negative (Negative); Cocaine Screen Urine Negative (Negative); Methadone Screen Urine Negative (Negative); Opiate Screen Urine Negative (Negative); Phencyclidine Screen Urine Negative (Negative)
[2024-06-22 02:51] LABS: Digoxin 0.5 ng/mL (0.9-2.0)
[2024-06-22] MEDS: MAGNESIUM SULF 2 GM/WATER 50ML 2 GM/50 ML BAG IVPB (04:08)
[2024-06-22 04:36] LABS: Troponin I 13.9 ng/L (0.00-60.4)
--- NOTE | 2024-06-22 05:16 | ECG_ITS ---
Test Date: 2024-06-22 05:23:01 Measurements Intervals [place] Rate: 97 P: 52 [place]: 154 QRS: 198 QRSD: 111 T: 24 QT: 374 QTc: 476 Interpretive Statements SINUS RHYTHM POSSIBLE LEFT ATRIAL ENLARGEMENT RIGHT BUNDLE BRANCH BLOCK LEFT POSTERIOR FASCICULAR BLOCK CANNOT R/O SEPTAL INFARCT, AGE INDETERMINATE BORDERLINE ST ABNORMALITY- LATERAL LEADS ABNORMAL ECG Compared to ECG 06/22/2024 01:36:13 HEART RATE HAS DECREASED Electronically Signed On 06-22-2024 07:47:45 AWNING CRAFTSPERSON by Maged Sneed D.O.
== END 2024-06-22 06:36 | disposition home or self-care (01) ==
PROVIDERS: Emergency Provider Emergency Medicine
DX: R07.89 Other chest pain (principal); Q23.4 Hypoplastic left heart syndrome; E83.42 Hypomagnesemia; R10.12 Left upper quadrant pain; Z20.822 Contact with and (suspected) exposure to COVID-19
CPT/HCPCS: 36415; 71045; 74177; 80053; 80162; 80307; 82077; 83605; 83735; 83880; 84484; 85027; 85380; 85610; 85730; 87637; 93005; 96365; 96366; 96375; 96376; 99284; A9270; J2270; J2405; J3475; Q9967

== ENCOUNTER 2024-10-06 13:57 | Emergency (ER) | payer OTHER, SELFPAY ==
--- NOTE | ~2024-10-06 | XR_ITS ---
EXAM: XR wrist RT w scaphoid DATE: 10/06/2024 14:12 HISTORY: Rt. wrist pain after a car zheng fell on it. . COMPARISON: None available. FINDINGS: Normal mineralization. No fracture or dislocation. No lytic or blastic lesion. Joint space s are maintained. No erosion or periosteal change. Soft tissues within normal limits. IMPRESSION: No acute osseous finding in the right wrist. Reviewed, dictated and finalized at location K.
[2024-10-06 13:57] VITALS: BP 129/75; PULSE 105; RESP 18; TEMP 36.7; O2SAT 90
--- OUTSIDE RECORDS SUMMARY | 2024-10-06 13:59 | XMS_ITS | Patient Health Summary ---
Author Organization [facility] [employer] Address [address] [place] [address] Care Team Providers Care Edge Burnisher Name Role Phone Nicolas Puentes MD Primary Care Provider [phone] [facility] [place],non-owned Affiliates and Associated Physician Practices is amultiple site organization consisting of ambulatory clinics and hospital sitesin [place], [place], [place] and [place]. This disclosure is being madepursuant to the Care Everywhere program and may not contain all information available regarding this patient. Last updated 18.[facility] [employer] Allergies No known active allergies Medications * Be aware that medications may not be up to date on this document. Alwaysverify current medications with the patient. * aspirin (Aspirin) 81 MG chew tablet(Started 12/02/2022) Take 1 (one) tablet by mouth once daily Reasons: hypoplastic left heart 3 refills by 12/02/2023 * triple antibiotic (Neosporin) 5-400-5000 ointment(Started 12/15/2022) Apply to wounds with dressing changes. May take triple antibiotic tube home with patient. * spironolactone (Aldactone) 50 MG tablet(Started 02/13/2023) Take 1 (one) tablet by mouth once daily 3 refills by 02/13/2024 * albuterol HFA (ProAir HFA) 108 (90 Base) MCG/ACT inhaler(Started 06/16/2023) Inhale 2 (two) puffs by mouth every 6 hours as needed for Shortness of Breath, Wheezing or Cough 5 refills by 06/15/2024 * enalapril (Vasotec) 10 MG tablet(Started 10/31/2023) Take 1 (one) tablet by mouth 2 times daily 3 refills by 10/30/2024 * digoxin (Lanoxin) 0.125 MG tablet(Started 10/31/2023) Take 1 (one) tablet by mouth once daily 3 refills by 10/30/2024 Active Problems Problem Noted Date Diagnosed Date 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 History of transient ischemic attack (TIA) 10/07 History of repair of coarctation of aorta 2021 VSD (ventricular septal defect and aortic arch h ypoplasia 10/07/2021 Aortic stenosis 10/07/2021 Head pain 10/07/2021 Blurred vision 10/07/2021 Weakness 10/06/2021 Left-sided weakness 10/06/2021 Chest pain 05/11/2020 Chest pain 12/18/2019 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 Airway obstruction 08/18/2017 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 Fatigue 07/17/2017 Prophylactic antibiotic for dental procedure indicated due to prior joint replacement 04/17/2017 Exercise intolerance 04/07/2017 Well child check 01/23/2015 Short stature 05/09/2013 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 GERD (gastroesophageal reflux disease) 2 Resolved Problems Problem Noted Date Diagnosed Date Resolved Date 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 18 Finger injury 04/17/2017 05/11/2020 Constipation 06/04/2014 05/28/2015 Constipation 06/04/2014 05/28/2015 Wound infection 04/30/2014 04/08/2017 Rt groin pain 03/13/2014 04/08/2017 Dizziness 03/13/2014 04/08/2017 H/O concussion 10/30/2012 05/11/2020 Emesis 08/21/2012 04/08/2017 Rectal bleeding 02/21/2011 04/08/2017 Oxygen desaturation 05/18/2010 02/27/20 12 Immunizations * DTaP VACCINE IM (6wk-6yrs)(Given 10/10/2010, 12/01/2005, 08/28/2001, 2000, 2000) * HEP A PEDS 2 DOSE(Given 01/23/2015, 03/21/2013) * HEP B VACCINE, PED/ADOL(Given 2000, 2000, 2000) * HIB-PRP-T 4 DOSE(Given 08/28/2001, 2000, 2000, 2000) * Human Papilloma Virus Quadrivalent Vaccine(Given 01/23/2015, 03/21/2013, 02/08/2012) * INFLUENZA VACCINE(Given 05/28/2013) * INFLUENZA VACCINE, QUADR. (FLUZONE; FLULAVAL; FLUARIX; AFLURIA QUADRIVALENT; 6MO+), 0.5 ML (IIV4)(Given 06/16/2017, 05/26/2015, 05/12/2014) * MENINGOCOCCAL CONJUGATE (MCV4P)(Given 06/16/2017, 02/08/2012) * MMR(Given 12/01/2005, 05/28/2001) * Meningococcal B Recombinant 2 Dose, IM(Given 06/16/2017) * POLIO IPV(Given 12/01/2005, 08/28/2001, 2000, 2000) * TDAP (7yrs+)(Given 02/08/2012) * VARICELLA(Given 03/21/2013, 05/28/2001) Social History Tobacco Use Types Packs/Day Years Used Date Smoking Tobacco: Never Passive Smoke Exposure: Yes Smokeless Tobacco: Current Chew Tobacco Cessation:Ready to Q uit: Not Asked; Counseling Given: Not Answered Comments: working on quitting Alcohol Use Standard Drinks/Week Comments Yes 0 (1 standard drink = 0.6 oz pur e alcohol) 1-2 beers 2x a week AUDIT-C Answer Date Recorded Q1: How often do you have a drink containing alc ohol? 2-4 times a month 09/25/2022 Q2: How many drinks containi ng alcohol do you have on a typical day when you are drinking? 1 or 2 09/25/2022 Q3: How often do you have si x or more drinks on one occasion? Less than monthly 09/25/2022 Overall Financial Resource Strain (CARDIA) Answe r Date Recorded How hard is it for you to pa y for the very basics like food, housing, medical care, and heating? Not hard at all 05/11/2020 PRAPARE - Transportation Answer Date Re corded In the past 12 months, has l ack of transportation kept you from medical appointments or from getting medications? Patient declined 05/11/2020 In the past 12 months, has l ack of transportation kept you from meetings, work, or from getting things needed for daily living? Patient declined 05/11/2020 Sex and Gender Information Value Date Recorded Sex Assigned at Not on file Gender Identity Not on file Sexual Orientation Not on file Last Filed Vital Signs Vital Sign Reading Time Taken Comments Blood Pressure 120/60 06/16/2023 9:48 AM [employer] Pulse 110 06/16/2023 9:48 AM [employer] Temperature 36.1 C (97 F) 12/15/2022 3:15 PM CDT Respiratory Rate 20 06/16/2023 9:48 AM [employer] Oxygen Saturation 85% 06/16/2023 9:48 AM [employer] Inhaled Oxygen Concentration - - Weight 55.2 kg (121 lb 11.1 oz) 06/16/2023 9:48 AM [employer] Height 168 cm (5' 6.14 ) 06/16/2023 9:48 AM [employer] Body Mass Index 19.56 06/16/2023 9:48 AM [employer] Medical Devices Implanted Type Area Fur Tinter Device Identifier Shelf Expiration Date Model / Serial / Lot Stent - Vascular-05/18 Implanted:04/30 (Quantity not on file) Stent - Vascular [id number] / / Procedures * HOLTER MONITOR(Performed 07/05/2023) Performed for HLHS (hypoplastic left heart syndrome) (HCC) * PULMONARY/RESPIRATORY REPORT ORDER(Performed 06/19/2023) * HEPATITIS A ANTIBODY(Performed 06/16/2023) Performed for Liver disease after Fontan procedure * HEPATITIS B CORE ANTIBODY TOTAL(Performed 06/16/2023) Performed for Liver disease after Fontan procedure * HEPATITIS B SURFACE ANTIBODY(Performed 06/16/2023) Performed for Liver disease after Fontan procedure * HEPATITIS B SURFACE ANTIGEN W RFLX CONFIRMATION(Performed 06/16/2023) Performed for Liver disease after Fontan procedure * HEPATITIS C ANTIBODY(Performed 06/16/2023) Performed for Liver disease after Fontan procedure * CBC W/O DIFFERENTIAL(Performed 06/16/2023) Performed for Liver disease after Fontan procedure * ALPHA FETOPROTEIN BLOOD TUMOR MARKER(Performed 06/16/2023) Performed for Liver disease after Fontan procedure * BASIC METABOLIC PANEL (CALCIUM TOTAL)(Performed 06/16/2023) Performed for Liver disease after Fontan procedure * HEPATIC FUNCTION PANEL(Performed 06/16/2023) Performed for Liver disease after Fontan procedure * GGT(Performed 06/16/2023) 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) * CYSTATIN C LEVEL(Performed 06/16/2023) 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) * VITAMIN D 25-HYDROXY(Performed 06/16/2023) 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) * T4 FREE(Performed 06/16/2023) 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) * TSH REFLEX FREE T4(Performed 06/16/2023) 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) * PT-INR SLH(Performed 06/16/2023) 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) * US ABDOMEN LTD W COMP DOPPLER(Performed 06/16/2023) 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) * XR CHEST 2VW(Performed 06/16/2023) 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) * EKG 12-LEAD(Performed 02/09/2023) 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) * CARDIAC PROCEDURE ORDER(Performed 12/22/2022) * CARDIAC CATH CONSULT(Performed 12/15/2022) Performed for S/P Fontan procedure * PREPARE RBC LEUKOREDUCED UNIT(Performed 12/15/2022) Performed for S/P Fontan procedure * CARDIAC CATH(Performed 12/15/2022) Performed for S/P Fontan procedure * BLOOD GAS COOX ART POC NOTIFICATION(Performed 12/15/2022) Performed for S/P Fontan procedure * CCL LEFT AND RIGHT HEART CATH(Performed 12/15/2022) Performed for HLHS (hypoplastic left heart syndrome) (HCC), S/P Fontan procedure * ISTAT ACT-C(Performed 12/15/2022) * ISTAT ACT-C(Performed 12/15/2022) * BLOOD GAS+COOX+LYTES+METAB ARTERIAL POCT(Performed 12/15/2022) * BLOOD GASES LEVY+COOX POCT(Performed 12/15/2022) * BLOOD GASES LEVY+COOX POCT(Performed 12/15/2022) * BLOOD GASES LEVY+COOX POCT(Performed 12/15/2022) * BLOOD GASES LEVY+COOX POCT(Performed 12/15/2022) * BLOOD GASES LEVY+COOX POCT(Performed 12/15/2022) * BLOOD GASES LEVY+COOX POCT(Performed 12/15/2022) * BLOOD GASES LEVY+COOX POCT(Performed 12/15/2022) * BLOOD GAS+COOX+LYTES+METAB ARTERIAL POCT(Performed 12/15/2022) * PERIPHERAL IV NOTE(Performed 12/15/2022) * ENDOTRACHEAL TUBE NOTE(Performed 12/15/2022) * CBC W AUTO DIFFERENTIAL(Performed 12/15/2022) Performed for S/P Fontan procedure * COMPREHENSIVE METABOLIC PANEL(Performed 12/15/2022) Performed for S/P Fontan procedure * VITAMIN D 25-HYDROXY(Performed 12/15/2022) Performed for S/P Fontan procedure * CYSTATIN C LEVEL(Performed 12/15/2022) Performed for S/P Fontan procedure * GGT(Performed 12/15/2022) Performed for S/P Fontan procedure * TYPE + SCREEN PANEL(Performed 12/15/2022) Performed for S/P Fontan procedure * CARDIAC STRESS TEST ORDER(Performed 12/06/2022) * PULMONARY/RESPIRATORY REPORT ORDER(Performed 12/06/2022) * ECHO CONGENITAL COMPLETE COLOR FLOW AND DOPPLER(Performed 12/02/2022) 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) * STRESS TEST TREADMILL (NO IMAGING)(Performed 12/02/2022) 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) * CARDIAC EKG ORDER(Performed 09/27/2022) * CBC W/O DIFFERENTIAL(Performed 09/26/2022) * BASIC METABOLIC PANEL (CALCIUM TOTAL)(Performed 09/26/2022) * MRI BRAIN WO CONTRAST(Performed 09/26/2022) Performed for Weakness * B-TYPE NATRIURETIC PEPTIDE(Performed 09/25/2022) * XR CHEST 1VW PORTABLE(Performed 09/25/2022) Performed for SOB (shortness of breath) * TROPONIN-I HIGH SENSITIVE REFLEX 1HOUR(Performed 09/25/2022) * EKG 12-LEAD(Performed 09/25/2022) Performed for Weakness * TYPE + SCREEN PANEL(Performed 09/25/2022) * HEMOGLOBIN A1C(Performed 09/25/2022) * LIPID PROFILE(Performed 09/25/2022) * TROPONIN-I HIGH SENSITIVE BASELINE + 1HR(Performed 09/25/2022) * PT-INR SLH(Performed 09/25/2022) * COMPREHENSIVE METABOLIC PANEL(Performed 09/25/2022) * CBC W AUTO DIFFERENTIAL(Performed 09/25/2022) * CT ANGIO AORTA FOR DISSECTION(Performed 09/25/2022) Performed for Weakness * CT ANGIO BRAIN NECK STROKE(Performed 09/25/2022) Performed for Weakness * PT EVAL AND TREAT(Performed 09/25/2022) * OT EVAL AND TREAT(Performed 09/25/2022) * INR WHOLE BLOOD - POINT OF CARE (IP) STROKE(Performed 09/25/2022) * CT BRAIN STROKE(Performed 09/25/2022) Performed for Weakness * GLUCOSE - POINT OF CARE(Performed 09/25/2022) * URINALYSIS W/MICROSCOPIC NO CULTURE(Performed 09/25/2022) * URINE DRUG SCREEN IMMUNOASSAY(Performed 09/25/2022) * ALCOHOL ETHYL BLOOD(Performed 09/25/2022) * PHOSPHORUS BLOOD(Performed 09/25/2022) * MAGNESIUM BLOOD(Performed 09/25/2022) * B-TYPE NATRIURETIC PEPTIDE(Performed 09/25/2022) * TROPONIN-I HIGH SENSITIVE(Performed 09/25/2022) * D-DIMER(Performed 09/25/2022) * PTT SLH(Performed 09/25/2022) * PT-INR SLH(Performed 09/25/2022) * COMPREHENSIVE METABOLIC PANEL(Performed 09/25/2022) * CBC W AUTO DIFFERENTIAL(Performed 09/25/2022) * CT HEAD WO CONTRAST(Performed 09/25/2022) Performed for Weakness * XR CHEST 2VW(Performed 09/25/2022) Performed for Chest pain, unspecified type * EKG 15-LEAD(Performed 09/25/2022) Performed for Chest pain, unspecified type * ED CRITICAL CARE(Performed 09/25/2022) Performed for Chest pain, unspecified type, Weakness * CARDIAC PROCEDURE ORDER(Performed 08/09/2022) * MRI ANGIO CHEST W CONTRAST(Performed 01/26/2022) Performed for S/P Fontan procedure * MRI CARDIAC STUDY WWO CONTRAST(Performed 01/26/2022) Performed for S/P Fontan procedure * HOLTER MONITOR(Performed 10/15/2021) Performed for Left-sided weakness * CARDIAC EKG ORDER(Performed 10/09/2021) * MRI BRAIN WO CONTRAST(Performed 10/07/2021) Performed for Weakness * TSH REFLEX FREE T4(Performed 10/07/2021) Performed for Left-sided weakness * PHOSPHORUS BLOOD(Performed 10/07/2021) Performed for Left-sided weakness * MAGNESIUM BLOOD(Performed 10/07/2021) Performed for Left-sided weakness * CBC W/O DIFFERENTIAL(Performed 10/07/2021) Performed for Left-sided weakness * BASIC METABOLIC PANEL (CALCIUM TOTAL)(Performed 10/07/2021) Performed for Left-sided weakness * TROPONIN I(Performed 10/06/2021) Performed for Chest pain, unspecified type * LIPID PROFILE(Performed 10/06/2021) Performed for Left-sided weakness * HEMOGLOBIN A1C(Performed 10/06/2021) Performed for Left-sided weakness * BLOOD TYPE VERIFICATION(Performed 10/06/2021) * EKG 12-LEAD(Performed 10/06/2021) Performed for Weakness * URINE DRUG SCREEN IMMUNOASSAY(Performed 10/06/2021) * URINALYSIS REFLEX TO MICROSCOPIC NO CULTURE(Performed 10/06/2021) * TYPE + SCREEN PANEL(Performed 10/06/2021) * TROPONIN I(Performed 10/06/2021) * PT-INR SLH(Performed 10/06/2021) * COMPREHENSIVE METABOLIC PANEL(Performed 10/06/2021) * CT ANGIO BRAIN NECK STROKE(Performed 10/06/2021) Performed for Weakness * INR WHOLE BLOOD - POINT OF CARE (IP) STROKE(Performed 10/06/2021) * CBC W AUTO DIFFERENTIAL(Performed 10/06/2021) * CREATININE - POCT INTERFACED(Performed 10/06/2021) * CT BRAIN STROKE(Performed 10/06/2021) Performed for Weakness * GLUCOSE - POINT OF CARE(Performed 10/06/2021) * CT HEAD WO CONTRAST(Performed 10/06/2021) Performed for Chest pain, unspecified type * XR CHEST 2VW(Performed 10/06/2021) Performed for Chest pain, unspecified type * D-DIMER(Performed 10/06/2021) * B-TYPE NATRIURETIC PEPTIDE(Performed 10/06/2021) * PTT SLH(Performed 10/06/2021) * PT-INR SLH(Performed 10/06/2021) * COMPREHENSIVE METABOLIC PANEL(Performed 10/06/2021) * CBC W AUTO DIFFERENTIAL(Performed 10/06/2021) * TROPONIN I(Performed 10/06/2021) * EKG 15-LEAD(Performed 10/06/2021) Performed for Chest pain, unspecified type * ECHO CONSULT - PEDIATRIC(Performed 08/06/2021) 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), S/P Fontan procedure * XR CHEST 2VW(Performed 07/28/2021) Performed for Chest pain, unspecified type * B-TYPE NATRIURETIC PEPTIDE(Performed 07/28/2021) * D-DIMER(Performed 07/28/2021) * TROPONIN I(Performed 07/28/2021) * COMPREHENSIVE METABOLIC PANEL(Performed 07/28/2021) * CBC W AUTO DIFFERENTIAL(Performed 07/28/2021) * EKG 15-LEAD(Performed 07/28/2021) Performed for Chest pain, unspecified type * MRI ANGIO NECK W CONTRAST(Performed 05/11/2020) Performed for Other chest pain * MRI ANGIO BRAIN ARTERIAL WO CONT(Performed 05/11/2020) Performed for Other chest pain * MRI BRAIN WO CONTRAST(Performed 05/11/2020) Performed for Other chest pain * ECHO CONSULT - PEDIATRIC(Performed 05/11/2020) * D-DIMER(Performed 05/11/2020) * SARS-COV-2 (COVID-19) IN HOUSE(Performed 05/11/2020) * EKG 15-LEAD(Performed 05/11/2020) Performed for Other chest pain * URINALYSIS W/MICROSCOPIC REFLEX TO CULTURE(Performed 05/11/2020) * ERYTHROCYTE SEDIMENTATION RATE(Performed 05/11/2020) * C-REACTIVE PROTEIN(Performed 05/11/2020) * TROPONIN I(Performed 05/11/2020) * PT-INR(Performed 05/11/2020) * LIPASE BLOOD(Performed 05/11/2020) * COMPREHENSIVE METABOLIC PANEL(Performed 05/11/2020) * CBC W AUTO DIFFERENTIAL(Performed 05/11/2020) * CT HEAD WO CONTRAST(Performed 05/10/2020) Performed for Other chest pain * XR CHEST 2VW(Performed 05/10/2020) Performed for Other chest pain * XR RIBS BILAT 3VW(Performed 12/17/2019) Performed for Chest pain, unspecified type * SARS-COV-2 (COVID-19) IN HOUSE(Performed 12/17/2019) Performed for Fever, unspecified fever cause * DIFFERENTIAL MANUAL(Performed 03/01/2019) 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) * GGT(Performed 03/01/2019) 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) * CBC W AUTO DIFFERENTIAL(Performed 03/01/2019) 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) * COMPREHENSIVE METABOLIC PANEL(Performed 03/01/2019) 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) * ECHO CONSULT - PEDIATRIC(Performed 03/01/2019) 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) * US ABDOMEN LIMITED(Performed 02/14/2019) 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) * METABOLIC STUDY(Performed 01/16/2019) Performed for S/P Fontan procedure * STRESS TEST TREADMILL (NO IMAGING)(Performed 01/16/2019) 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) * XR CHEST 2VW(Performed 07/05/2018) Performed for Chest pain, unspecified type * ECHO CONSULT - PEDIATRIC(Performed 07/05/2018) 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) * ERYTHROCYTE SEDIMENTATION RATE(Performed 05/15/2018) Performed for Rectal bleeding * C-REACTIVE PROTEIN(Performed 05/15/2018) Performed for Rectal bleeding * COMPREHENSIVE METABOLIC PANEL(Performed 05/15/2018) Performed for Rectal bleeding * CBC W AUTO DIFFERENTIAL(Performed 05/15/2018) Performed for Rectal bleeding * ME LARYNGOSCOPY,FLEX FIBER,DIAGNOSTIC(Performed 05/13/2018) Performed for Hoarseness * ECHO CONSULT - PEDIATRIC(Performed 02/27/2018) 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) * PATHOLOGY TISSUE EXAM (STL)(Performed 10/25/2017) Performed for Arytenoid anomaly, Airway obstruction, Unilateral vocal cord paralysis * LARYNGOSCOPY DIRECT WITH ARYTENOIDECTOMY(Performed 10/25/2017) Performed for Arytenoid anomaly, Airway obstruction, Unilateral vocal cord paralysis * LARYNGOSCOPY BRONCHOSCOPY(Performed 10/25/2017) Performed for Arytenoid anomaly, Airway obstruction, Unilateral vocal cord paralysis * LARYNGOSCOPY BRONCHOSCOPY(Performed 09/18/2017) Performed for Acquired subglottic stenosis in * CT HEAD WWO CONTRAST(Performed 09/15/2017) 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) * REDUCED MULTIPLE SLEEP LATENCY TEST(Performed 08/02/2017) Performed for ANJEL (obstructive sleep apnea), Hypersomnolence * HOLTER MONITOR(Performed 07/18/2017) Performed for Lethargy * TSH(Performed 06/29/2017) * ECHO CONSULT - PEDIATRIC(Performed 06/29/2017) Performed for Lethargy * DIFFERENTIAL MANUAL(Performed 06/29/2017) * HEPATIC FUNCTION PANEL(Performed 06/29/2017) * DIGOXIN LEVEL(Performed 06/29/2017) * MONONUCLEOSIS SCREEN(Performed 06/29/2017) * TROPONIN I(Performed 06/29/2017) * B-TYPE NATRIURETIC PEPTIDE(Performed 06/29/2017) * BASIC METABOLIC PANEL (CALCIUM TOTAL)(Performed 06/29/2017) * CBC W AUTO DIFFERENTIAL(Performed 06/29/2017) * EKG 15-LEAD(Performed 06/29/2017) Performed for Lethargy * XR CHEST 2VW(Performed 06/29/2017) Performed for Lethargy * IMAGING/RADIOLOGY/XRAY RESULTS ORDER(Performed 04/28/2017) * XR HAND RIGHT 2VW(Performed 04/17/2017) Performed for Finger injury, right, initial encounter * LAB RESULTS ORDER(Performed 04/04/2017) * CARDIAC PROCEDURE ORDER(Performed 04/04/2017) * CARDIAC CATH(Performed 03/31/2017) 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) * TYPE + SCREEN PANEL(Performed 03/31/2017) 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) * DIFFERENTIAL MANUAL(Performed 03/31/2017) 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) * BASIC METABOLIC PANEL (CALCIUM TOTAL)(Performed 03/31/2017) 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) * CBC W AUTO DIFFERENTIAL(Performed 03/31/2017) 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) * PREPARE RBC LEUKOREDUCED UNIT(Performed 03/31/2017) 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) * CATHETERIZATION CARDIAC (RIGHT/LEFT HEART)(Performed 03/31/2017) Performed for Coarctation of aorta (HCC) * XR CHEST 2VW(Performed 02/17/2017) 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) * ECHO CONSULT - PEDIATRIC(Performed 02/17/2017) 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) * ECHO CONSULT - PEDIATRIC(Performed 01/29/2016) 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) * OCCULT BLOOD FECES 1-3 DIAG IMMUNOASSAY(Performed 08/10/2015) * OCCULT BLOOD FECES 1-3 DIAG IMMUNOASSAY(Performed 08/07/2015) * OCCULT BLOOD FECES 1-3 DIAG IMMUNOASSAY(Performed 08/05/2015) * ECHO CONSULT - PEDIATRIC(Performed 11/24/2014) Performed for Chest pain * EKG 15-LEAD(Performed 11/24/2014) Performed for Chest pain * US LOWER EXT LEFT VENOUS DOPPL(Performed 11/24/2014) Performed for Chest pain * XR CHEST 2VW(Performed 11/24/2014) Performed for Chest pain * DIGOXIN LEVEL(Performed 11/24/2014) * TROPONIN I(Performed 11/24/2014) * CK + CKMB PANEL(Performed 11/24/2014) * BASIC METABOLIC PANEL (CALCIUM TOTAL)(Performed 11/24/2014) * CBC W AUTO DIFFERENTIAL(Performed 11/24/2014) * PT PTT PANEL(Performed 11/24/2014) * XR BONE AGE STUDY(Performed 09/18/2014) Performed for Short stature * ECHO CONSULT - PEDIATRIC(Performed 08/29/2014) 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) * CULTURE STOOL+ E COLI SHIGA-LIKE TOXIN(Performed 05/27/2014) * OCCULT BLOOD FECES(Performed 05/27/2014) * CBC W AUTO DIFFERENTIAL(Performed 05/27/2014) * PT PTT PANEL(Performed 05/27/2014) * OCCULT BLOOD FECES(Performed 05/27/2014) * XR ABD OBSTRUCTION SERIES 2VW(Performed 05/26/2014) Performed for Abdominal Pain, Left Lower Quadrant * US ABDOMEN LIMITED(Performed 03/14/2014) Performed for Rt groin pain * US LOWER EXT RIGHT VENOUS DOPPL(Performed 03/14/2014) Performed for Rt groin pain * ECHO CONSULT - PEDIATRIC(Performed 03/07/2014) 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) * DRUG ABUSE URINE PANEL(Performed 01/03/2014) * URINALYSIS REFLEX TO MICROSCOPIC NO CULTURE(Performed 01/03/2014) * URINE MICROSCOPIC ONLY(Performed 01/03/2014) * EKG 15-LEAD(Performed 01/03/2014) Performed for Trauma * CT FACIAL BONES WO CONTRAST(Performed 01/03/2014) Performed for Trauma * CT HEAD CERV SPINE WO CONTRAST(Performed 01/03/2014) Performed for Trauma * XR PELVIS 1 OR 2VW(Performed 01/03/2014) Performed for Trauma * XR SHOULDER LEFT 2VW OR MORE(Performed 01/03/2014) Performed for Trauma * XR CHEST 1VW(Performed 01/03/2014) Performed for Trauma * PT PTT PANEL(Performed 01/03/2014) * LIPASE BLOOD(Performed 01/03/2014) * AMYLASE BLOOD(Performed 01/03/2014) * COMPREHENSIVE METABOLIC PANEL(Performed 01/03/2014) * CBC W AUTO DIFFERENTIAL(Performed 01/03/2014) * DIFFERENTIAL MANUAL(Performed 01/03/2014) * IMAGING/RADIOLOGY/XRAY RESULTS ORDER(Performed 12/06/2013) * XR SHOULDER LEFT 2VW OR MORE(Performed 12/03/2013) Performed for Shoulder pain * EKG 15-LEAD(Performed 12/03/2013) Performed for Shoulder pain * ECHO CONSULT - PEDIATRIC(Performed 08/30/2013) 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) * IGF BINDING PROTEIN 3(Performed 07/25/2013) Performed for Pituitary dwarfism (HCC) * CARDIAC CATH CONSULT(Performed 05/31/2013) Performed for Rectal bleeding, GERD (gastroesophageal reflux disease), Hypoplastic left heart syndrome (HCC), Emesis, H/O concussion, Short stature * LAB RESULTS ORDER(Performed 05/29/2013) * CARDIAC PROCEDURE ORDER(Performed 05/29/2013) * GROWTH HORMONE TIMED OTHER(Performed 05/28/2013) Performed for Short stature * GROWTH HORMONE TIMED OTHER(Performed 05/28/2013) Performed for Short stature * GROWTH HORMONE 120 MINUTES(Performed 05/28/2013) Performed for Short stature * GROWTH HORMONE 90 MINUTES(Performed 05/28/2013) Performed for Short stature * GROWTH HORMONE 60 MINUTES(Performed 05/28/2013) Performed for Short stature * GROWTH HORMONE TIMED OTHER(Performed 05/28/2013) Performed for Short stature * GROWTH HORMONE TIMED OTHER(Performed 05/28/2013) Performed for Short stature * GROWTH HORMONE 0 MINUTES(Performed 05/28/2013) Performed for Short stature * ECHO CONSULT - PEDIATRIC(Performed 05/28/2013) 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) * XR CHEST 2VW(Performed 05/28/2013) 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) * CROSSMATCH RBC LEUKOREDUCED(Performed 05/27/2013) Performed for Rectal bleeding, GERD (gastroesophageal reflux disease), Hypoplastic left heart syndrome (HCC), Emesis, H/O concussion, Short stature * BASIC METABOLIC PANEL (CALCIUM TOTAL)(Performed 05/27/2013) Performed for Rectal bleeding, GERD (gastroesophageal reflux disease), Hypoplastic left heart syndrome (HCC), Emesis, H/O concussion, Short stature * CBC W AUTO DIFFERENTIAL(Performed 05/27/2013) Performed for Rectal bleeding, GERD (gastroesophageal reflux disease), Hypoplastic left heart syndrome (HCC), Emesis, H/O concussion, Short stature * ANTIBODY SCREEN(Performed 05/27/2013) Performed for Rectal bleeding, GERD (gastroesophageal reflux disease), Hypoplastic left heart syndrome (HCC), Emesis, H/O concussion, Short stature * BLOOD TYPE ABO+ RH PANEL(Performed 05/27/2013) Performed for Rectal bleeding, GERD (gastroesophageal reflux disease), Hypoplastic left heart syndrome (HCC), Emesis, H/O concussion, Short stature * DIFFERENTIAL MANUAL(Performed 05/27/2013) Performed for Rectal bleeding, GERD (gastroesophageal reflux disease), Hypoplastic left heart syndrome (HCC), Emesis, H/O concussion, Short stature * CATHETERIZATION CARDIAC (RIGHT/LEFT HEART)(Performed 05/27/2013) Performed for Coarctation Of Aorta * TISSUE TRANSGLUTAMINASE AB IGA(Performed 05/09/2013) Performed for Short stature * ERYTHROCYTE SEDIMENTATION RATE(Performed 05/09/2013) Performed for Short stature * IGA BLOOD(Performed 05/09/2013) Performed for Short stature * SOMATOMEDIN C (IGF-1)(Performed 05/09/2013) Performed for Short stature * T4 FREE DIRECT DIALYSIS(Performed 05/09/2013) Performed for Short stature * TSH(Performed 05/09/2013) Performed for Short stature * URINE MICROSCOPIC ONLY(Performed 05/09/2013) Performed for Short stature * URINALYSIS REFLEX TO MICROSCOPIC NO CULTURE(Performed 05/09/2013) Performed for Short stature * EKG 15-LEAD(Performed 04/19/2013) 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) * ECHO CONSULT - PEDIATRIC(Performed 04/19/2013) 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) * XR BONE AGE STUDY(Performed 03/21/2013) Performed for Small stature, Routine or child health check * ECHO CONSULT - PEDIATRIC(Performed 03/30/2012) 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) * CBC W/O DIFFERENTIAL(Performed 02/08/2012) 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) * XR CHEST 2VW(Performed 01/28/2011) Performed for HLHS (hypoplastic left heart syndrome) (HCC) * ECHO CONSULT - PEDIATRIC(Performed 01/28/2011) Performed for HLHS (hypoplastic left heart syndrome) (HCC) * EKG 15-LEAD(Performed 01/28/2011) Performed for HLHS (hypoplastic left heart syndrome) (HCC) * CT CHEST WWO CONTRAST(Performed 08/02/2010) Performed for Unspecified congenital anomaly of heart (HCC) * PEDIATRIC DIAGNOSTIC POLYSOMNOGRAM(Performed 07/27/2010) Performed for Hypoxia, Snoring * EKG 15-LEAD(Performed 07/07/2010) 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) * XR CHEST 2VW(Performed 07/06/2010) 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) * ECHO CONSULT - PEDIATRIC(Performed 07/06/2010) 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) * CARDIAC PROCEDURE ORDER(Performed 05/21/2010) * CARDIAC PROCEDURE ORDER(Performed 05/20/2010) * ECHO CONSULT - PEDIATRIC(Performed 05/19/2010) Performed for HLHS (hypoplastic left heart syndrome) (HCC), Coarctation of aorta, congenital (HCC) * XR CHEST 2VW(Performed 05/19/2010) Performed for HLHS (hypoplastic left heart syndrome) (HCC), Coarctation of aorta, congenital (HCC) * TYPE SCRN XMATCH RBC X1(Performed 05/18/2010) Performed for HLHS (hypoplastic left heart syndrome) (HCC) * DIFFERENTIAL MANUAL(Performed 05/18/2010) * CBC W AUTO DIFFERENTIAL(Performed 05/18/2010) Performed for [facility] (hypoplastic left heart syndrome) ([facility]) * BASIC METABOLIC PANEL (CALCIUM TOTAL)(Performed 05/18/2010) Performed for [facility] (hypoplastic left heart syndrome) ([facility]) * CARDIAC CATH CONSULT(Performed 05/18/2010) Performed for [facility]HS (hypoplastic left heart syndrome) ([facility]) * CARDIAC CATH ORDER(Performed 05/18/2010) * ECHO CONSULT - PEDIATRIC(Performed 04/16/2010) * AUDIOLOGY/TYMPANOMETRY ORDER(Performed 02/19/2010) * PT PTT PANEL(Performed 02/17/2010) * COMPREHENSIVE METABOLIC PANEL(Performed 02/17/2010) * CBC W AUTO DIFFERENTIAL(Performed 02/17/2010) * OCCULT BLOOD FECES(Performed 02/17/2010) * ECHO CONSULT - PEDIATRIC(Performed 10/23/2009) * DIGOXIN LEVEL(Performed 08/22/2009) * COMPREHENSIVE METABOLIC PANEL(Performed 08/22/2009) * BLOOD GASES ART + COOX PANEL(Performed 08/22/2009) * CALCIUM IONIZED BLOOD(Performed 08/22/2009) * CBC W MANUAL DIFFERENTIAL(Performed 08/22/2009) * GROSS + MICRO EXAM(Performed 07/28/2008) * GROSS + MICRO EXAM(Performed 01/21/2008) * GROSS EXAM PATHOLOGY(Performed 2000) * GROSS + MICRO EXAM(Performed 2000) Results * HOLTER MONITOR (07/05/2023 3:58 PM [employer]) Only the most recent of3 resultswithin the time period is included. Narrative Sharron Mendez MD - 07/05/2023 3:58 PM [employer] Sharron Mendez MD 07/05/2023 4:17 PM Attending Physician: No current attending provider for patient encounter.Office Phone: N/A Patient name: Simba Guerrero : 2000 Date of Holter: 06/16/2023 Duration of Holter: 24 hours Holter Interpretation: The predominant rhythm is sinus. The mean heart rate is normal for age (87 bpm). The heart rate range is normal for age (63-134 bpm); normal heart rate variability. The QRS morphology is normal. There are no abnormal pauses > 2.5 seconds. There is no AV block. There are rare supraventricular ectopic beats (<0.1%). There are no atrial couplets and no supraventricular tachycardia. There are rare ventricular ectopic beats (<0.1%). There are 4 ventricular couplets, and no ventricular tachycardia. The quality of the holter was good. There were 3 button pushes, correlating with NSR and a PAC. Summary: Normal Holter. Rhythm is sinus. Rare PACs (<0.1%). Rare PVCs (<0.1%). No sustained arrhythmias. Sharron Mendez MD Congenital Interventional Cardiology Tapan Esparza MD CARDIAC SERVICES ORD ERABLES * PULMONARY/RESPIRATORY REPORT ORDER (06/19/2023 6:59 PM [employer]) Narrative 06/19/2023 6:59 PM [employer] Ordered by an unspecified provider. Scanned Document RESPIRATORY THERAPY ORDERABLES * (ABNORMAL) PT-INR [facility] (06/16/2023 12:27 PM [employer]) Only the most recent of5 resultswithin the time period is included. PT 15.6(H) 12.1 - 14.8 Seconds 06/16/2023 1:11 PM [employer] [facility] INR 1.3 See Comment 06/16/2023 1:11 PM [employer] [facility] Comment:The suggested therap eutic range for standard coumadin (warfarin) therapy is an INR of 2.0-3.0. For high-risk patients (Mechanical Mitral Valve Prosthesis, etc.), the suggested prophylactic therapeutic range is an INR of 2.5-3.5. Blood BLOOD SPECIMEN / Unknown Lab Venipuncture / Unknown 06/16/2023 12:27 PM [employer] 06/16/2023 12:45 PM [employer] Tapan Esparza MD LAB - COAGULATION OR DERABLES [facility] [address] [place] [address], [facility] [phone] * CYSTATIN C LEVEL (06/16/2023 12:27 PM [employer]) Only the most recent of2 resultswithin the time period is included. Pathologist [facility] Cystatin C 0.63 0.60 - 1.00 mg/L 06/20/2023 6:10 AM [employer] [facility] ([facility]) Blood BLOOD SPECIMEN / Unknown Lab Venipuncture / Unknown 06/16/2023 12:27 PM [employer] 06/16/2023 12:35 PM [employer] Narrative [facility] ([facility]) - 06/20/2023 6:10 AM [employer] Performed at: 01 - [address] [id number] Property And Equipment Clerk: Stefano Godoy MD, Phone: [phone] Catherine White PA-C LAB - CHEMISTRY ALIDA GALLOWAY Performing Organization Address City/[facility]/ZIP Co de Phone Number [facility] ([facility]) [address] [place] [address] * TSH REFLEX FREE T4 (06/16/2023 12:27 PM [employer]) Only the most recent of2 resultswithin the time period is included. [facility] TSH 1.540 0.350 - 4.940 uIU/mL 06/16/2023 1:39 PM [employer] [facility] Blood BLOOD SPECIMEN / Unknown Lab Venipuncture / Unknown 06/16/2023 12:27 PM [employer] 06/16/2023 12:44 PM [employer] Tapan Esparza MD LAB - CHEMISTRY ALIDA GALLOWAY [address] [address] [phone] * (ABNORMAL) VITAMIN D (25-HYDROXY) (06/16/2023 12:27 PM [employer]) Only the most recent of2 resultswithin the time period is included. [facility] Vitamin D, 25 Hydroxy 19.0(L) 30.0 - 80.0 ng/mL 06/16/2023 1:39 PM [employer] [facility] Comment: The recommendations for 25-Hydroxy Vitamin D clinical decision points are as follows: Deficient: <20.0 ng/mL Insufficient: 20.0 - 29.9 ng/mL Sufficient: 30.0 - 100.0 ng/mL Potential Toxicity: >100 ng/mL Reference: The Endocrine Society Clinical Practice Guidelines. 2011 If the 25-Hydroxy Vitamin D results are inconsitent with clinical evidence, it is recommended that follow-up testing using a method such as LC/MS/MS be performed to confirm the result. Blood BLOOD SPECIMEN / Unknown Lab Venipuncture / Unknown 06/16/2023 12:27 PM [employer] 06/16/2023 12:44 PM [employer] Catherine White PA-C LAB - CHEMISTRY ALIDA GALLOWAY Performing Organization Address [facility]/ZIP Co de Phone Number [address] [address], [facility] [phone] * ALPHA FETOPROTEIN BLOOD TUMOR MARKER (06/16/2023 12:27 PM [employer]) Pathologist [facility] Alpha-Fetoprote in Tumor Marker 2.3 <=8.3 ng/mL 06/16/2023 1:54 PM [employer] [facility] Comment: AFP values will vary depending on testing procedure used. Results are not comparable across different methods. AFP values obtained by [facility] using an [employer] Alinity Immunoassay. Blood BLOOD SPECIMEN / Unknown Lab Venipuncture / Unknown 06/16/2023 12:27 PM [employer] 06/16/2023 12:45 PM [employer] Jaime Galvez MD LAB - CHEMISTRY ALDIA GALLOWAY Performing Organization Address City/[facility]/ZIP Co de Phone Number [address] [address], [place] [phone] * (ABNORMAL) CBC W/O DIFFERENTIAL (06/16/2023 12:27 PM [employer]) Only the most recent of4 resultswithin the time period is included. Pathologist [facility] WBC 6.5 3.5 - 10.5 10 3/uL 06/16/2023 12:55 PM [employer] [facility] RBC 5.75(H) 4.30 - 5.70 10 6/uL 06/16/2023 12:55 PM [facility] Hemoglobin 16.9 12.0 - 17.6 g/dL 06/16/2023 12:55 PM [facility] Hematocrit 49.6 35.2 - 51.7 % 06/16/2023 12:55 PM [facility] MCV 86.3 80.7 - 98.3 fL 06/16/2023 12:55 PM [facility] MCH 29.4 26.7 - 34.0 pg 06/16/2023 12:55 PM [facility] MCHC 34.1 30.8 - 35.9 g/dL 06/16/2023 12:55 PM [facility] RDW-SD 40.3 36.0 - 50.0 fL 06/16/2023 12:55 PM [facility] RDW-CV 13.0 11.2 - 14.8 % 06/16/2023 12:55 PM [facility] Platelet Count 210 150 - 400 10 3/uL 06/16/2023 12:55 PM [facility] MPV 11.3 9.4 - 12.9 fL 06/16/2023 12:55 PM [facility] nRBC Absolute 0.00 0 10 3/uL 06/16/2023 12:55 PM [facility] nRBC Auto 0.0 0 /100 WBC 06/16/2023 12:55 PM [facility] Blood BLOOD SPECIMEN / Unknown Lab Venipuncture / Unknown 06/16/2023 12:27 PM [employer] 06/16/2023 12:44 PM [employer] Jaime Galvez MD LAB - HEMATOLOGY ORD ERABLES [facility] [address] [place] [address], [facility] [phone] * (ABNORMAL) BASIC METABOLIC PANEL (CALCIUM TOTAL) (06/16/2023 12:27 PM [employer]) Only the most recent of8 resultswithin the time period is included. BUN 12 7 - 26 mg/dL 06/16/2023 1:27 PM [facility] Creatinine 0.68(L) 0.71 - 1.16 mg/dL 06/16/2023 1:27 PM [facility] Sodium 138 136 - 145 mmol/L 06/16/2023 1:27 PM [facility] Potassium 4.1 3.5 - 4.5 mmol/L 06/16/2023 1:27 PM [facility] Chloride 108(H) 98 - 107 mmol/L 06/16/2023 1:27 PM [facility] CO2 19(L) 22 - 29 mmol/L 06/16/2023 1:27 PM [facility] Glucose 68(L) 70 - 115 mg/dL 06/16/2023 1:27 PM [facility] Calcium 9.2 8.4 - 10.2 mg/dL 06/16/2023 1:27 PM [facility] Anion Gap 11 6 - 16 06/16/2023 1:27 PM [facility] BUN/Creatinine Ratio 18 7 - 23 06/16/2023 1:27 PM [facility] Osmolality Calculated 284 275 - 295 mOsm/kg 06/16/2023 1:27 PM [facility] eGFR by CKD-EPI >90 >=90 mL/min/1.7 3 m2 06/16/2023 1:27 PM [facility] Blood BLOOD SPECIMEN / Unknown Lab Venipuncture / Unknown 06/16/2023 12:27 PM [employer] 06/16/2023 12:44 PM [employer] Jaime Galvez MD LAB - CHEMISTRY ALIDA GALLOWAY [facility] Organization Address City/State/[facility] Co de Phone Number [address] [address], [facility] [phone] * HEPATIC FUNCTION PANEL (06/16/2023 12:27 PM [employer]) Only the most recent of2 resultswithin the time period is included. Protein Total 7.7 6.0 - 8.3 g/dL 023 1:38 PM [facility] Albumin 4.5 3.4 - 5.0 g/dL 06/16/2023 1:38 PM [facility] Bilirubin Total 1.1 0.2 - 1.2 mg/dL 05/31 1:38 PM [facility] Bilirubin Conjugated 0.4 0.1 - 0.5 mg/dL 06/16/2023 1:38 PM [facility] Bilirubin Unconjugated 0.7 Unconjugated Bilirubin is a calculated value: Reference ranges have not been established. mg/dL 06/16/2023 1:38 PM [facility] Alkaline Phosphatase 65 40 - 150 U/L 06/16/2023 1:38 PM [facility] ALT 31 5 - 55 U/L 06/16/2023 1:38 PM [facility] AST 26 5 - 34 U/L 06/16/2023 1:38 PM [facility] Albumin/Globulin Ratio 1.4 1.1 - 2.3 06/16/2023 1:38 PM [facility] Blood BLOOD SPECIMEN / Unknown Lab Venipuncture / Unknown 06/16/2023 12:27 PM [employer] 06/16/2023 12:44 PM [facility] Jaime Galvez MD LAB - CHEMISTRY ORDE [facility] Organization Address City/State/ZIP Co de Phone Number [address] [address], [facility] [phone] * HEPATITIS B SURFACE ANTIBODY (06/16/2023 12:27 PM [facility]) Hepatitis B Virus Surface Antibody Non-react matthew Non-react matthew 06/16/2023 1:18 PM [facility] Comment: < 8 mIU/mL Hepatitis B surface Antibody (HBsAb). Nonreactive for HBsAb - individual is considered not immune to Hepatitis B Virus infection. Hepatitis B Surface Antibody Quantitative 0.4 <8.0 mIU/mL 06/16/2023 1:18 PM [facility] Comment: Hepatitis B Surface Antibody Numeric Result Interpretation: Nonreactive: <8.0 mIU/mL Indeterminate: 8.0 - 12.0 mIU/mL Reactive: >12.0 mIU/mL Blood BLOOD SPECIMEN / Unknown Lab Venipuncture / Unknown 06/16/2023 12:27 PM [employer] 06/16/2023 12:35 PM [employer] Jaime Galvez MD LAB - CHEMISTRY ALIDA GALLOWAY Performing Organization Address City/[facility]/ZIP Co de Phone Number [address] [address], [place] [phone] * HEPATITIS B CORE ANTIBODY TOTAL (06/16/2023 12:27 PM [employer]) HBc Antibody Total Non-reacti ve Non-reacti ve 06/16/2023 1:18 PM [employer] [facility] Blood BLOOD SPECIMEN / Unknown Lab Venipuncture / Unknown 06/16/2023 12:27 PM [employer] 06/16/2023 12:35 PM [employer] Jaime Galvez MD LAB - CHEMISTRY ALIDA GALLOWAY Performing Organization Address City/[facility] Co de Phone Number [address] [address], [place] [phone] * HEPATITIS B SURFACE ANTIGEN W RFLX CONFIRMATION (06/16/2023 12:27 PM [employer]) Hepatitis B Virus Surface Antigen Non-reacti ve Non-reacti ve 06/16/2023 1:18 PM [employer] [facility] Blood BLOOD SPECIMEN / Unknown Lab Venipuncture / Unknown 06/16/2023 12:27 PM [employer] 06/16/2023 12:35 PM [employer] Jaime Galvez MD LAB - CHEMISTRY ALIDA GALLOWAY [address] [address], [place] [phone] * (ABNORMAL) GGT (06/16/2023 12:27 PM [employer]) Only the most recent of3 resultswithin the time period is included. GGT 92(H) 9 - 64 Units/L 06/16/2023 1:27 PM [employer] [facility] Blood BLOOD SPECIMEN / Unknown Lab Venipuncture / Unknown 06/16/2023 12:27 PM [employer] 06/16/2023 12:44 PM [employer] Catherine White PA-C LAB - CHEMISTRY ALIDA GALLOWAY [address] [address], [place] [phone] * T4 FREE (06/16/2023 12:27 PM [employer]) [facility] T4 Free 1.1 0.7 - 1.5 ng/dL 06/16/2023 1:39 PM [employer] [facility] Blood BLOOD SPECIMEN / Unknown Lab Venipuncture / Unknown 06/16/2023 12:27 PM [employer] 06/16/2023 12:44 PM [employer] Tapan Esparza MD LAB - CHEMISTRY ALIDA GALLOWAY Performing Organization Address [facility] Co de Phone Number [address] [address], [place] [phone] * HEPATITIS C ANTIBODY (06/16/2023 12:27 PM [employer]) [facility] Hepatitis C Antibody Non-react matthew Non-reac tive 06/16/2023 1:18 PM [employer] [facility] Comment:Hepatitis C Antibody screen indicates no serologic evidence of past or current infection with Hepatitis C Virus. Patients with unexplained liver disease who are immunocompromised or suspected of having acute Hepatitis C infection may benefit from Nucleic Acid Test (CROW) for Hepatitis C Viral RNA to confirm Hepatitis C status. Blood BLOOD SPECIMEN / Unknown Lab Venipuncture / Unknown 06/16/2023 12:27 PM [employer] 06/16/2023 12:35 PM [employer] Jaime Galvez MD LAB - CHEMISTRY ALIDA GALLOWAY [address] [address], [place] [phone] * (ABNORMAL) HEPATITIS A ANTIBODY (06/16/2023 12:27 PM [employer]) [facility] Hepatitis A Virus Antibody Total Positive( A) Negative 06/17/2023 6:36 PM [employer] [place] ([facility]) Comment: The positive anti-HAV is consistent with recent or remote Hepatitis A infection or antibody response to HAV vaccination. False positive anti-HAV can occur. Performed By: [facility] [address] [place] [address] Track Repair Supervisor: Niraj Haji MD, PhD CLIA Number: [id number] Blood BLOOD SPECIMEN / Unknown Lab Venipuncture / Unknown 06/16/2023 12:27 PM [employer] 06/16/2023 12:35 PM [employer] Jaime Galvez MD LAB - CHEMISTRY ORDE NILESH [place] ([facility]) [address] [place] [address], [facility] * US LIVER W DOPPLER (06/16/2023 9:45 AM [employer]) Anatomical Region Laterality Modality Abdomen Ultrasound 06/16/2023 10:4 4 AM [employer] Impressions 06/16/2023 10:51 AM [employer] IMPRESSION: Diffusely coarsened micronodular appearance of the liver again consistent with diffuse fibrosis/hepatocellular disease. Similar mild right central pelviectasis. Normal Doppler assessment. > Interpreting Provider: David Arroyo MD on 06/16/2023 10:51 AM Narrative 06/16/2023 10:51 AM [employer] PROCEDURE: US ABDOMEN LTD W COMP DOPPLER DATE/TIME OF EXAM: 06/16/2023 9:46 AM CLINICAL INFORMATION: None relevant/not provided if blank. 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 FINDINGS: Liver: Liver parenchyma is diffusely coarse with micronodular contour. No focal lesion is seen. No intrahepatic biliary ductal dilation is seen. Portal venous flow is hepatopetal. Gallbladder: Nonshadowing sludge in the lumen without wall thickening. There is no dilation of the common bile duct. Pancreas: The echotexture of the head and body are normal; the tail is obscured by bowel contents. No ductal dilation or peripancreatic fluid is seen. Spleen: The spleen is normal in size and echotexture. Kidneys: The right kidney is 11.6 cm. The cortical thickness and echotexture are normal. Mild central pelviectasis is again present and measures 1 cm in diameter. Vascular: Splenic artery and vein are patent with normal directionality and waveforms. Portal venous flow is hepatopedal. Velocity 34.5 cm/s. Main hepatic artery is patent with low resistance flow and peak systolic velocity 59 cm/s. Intrahepatic arteries and portal veins are patent and low resistance as seen. Hepatic veins are patent. Peak systolic aortic velocity is 172.3 cm/s. Aorta and IVC are normal as seen. Other: No fluid or mass is present. Procedure Note David Arroyo MD - 06/16/2023 PROCEDURE: US ABDOMEN LTD W COMP DOPPLER DATE/TIME OF EXAM: 06/16/2023 9:46 AM CLINICAL INFORMATION: None relevant/not provided if blank. 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 FINDINGS: Liver: Liver parenchyma is diffusely coarse with micronodular contour.No focal lesion is seen. No intrahepatic biliary ductal dilation is seen. Portal venous flow is hepatopetal. Gallbladder: Nonshadowing sludge in the lumen without wall thickening. There is no dilation of the common bile duct. Pancreas: The echotexture of the head and body are normal; the tail is obscured by bowel contents. No ductal dilation or peripancreatic fluidis seen. Spleen: The spleen is normal in size and echotexture. Kidneys: The right kidney is 11.6 cm. The cortical thickness and echotexture are normal. Mild central pelviectasis is again present and measures 1 cm in diameter. Vascular: Splenic artery and vein are patent with normal directionalityand waveforms. Portal venous flow is hepatopedal. Velocity 34.5 cm/s. Main hepaticartery is patent with low resistance flow and peak systolic velocity 59 cm/s. Intrahepatic arteries and portal veins are patent and low resistance as seen. Hepatic veins are patent. Peak systolic aortic velocity is 172.3 cm/s. Aorta and IVC are normal as seen. Other: No fluid or mass is present. IMPRESSION: Diffusely coarsened micronodular appearance of the liver againconsistent with diffuse fibrosis/hepatocellular disease. Similar mild right central pelviectasis. Normal Doppler assessment. > Interpreting Provider: David Arroyo MD on 06/16/2023 10:51 AM Tapan Esparza MD US ORDERABLES * XR CHEST 2VW (06/16/2023 8:57 AM [employer]) Only the most recent of13 resultswithin the time period is included. Anatomical Region Laterality Modality Chest Radiographic Deann ging 06/16/2023 8:40 AM [employer] Impressions 06/16/2023 10:21 AM [employer] Stable appearance of postsurgical changes of the chest. No acute cardiopulmonary findings. Reading Radiologist: Adri Burroughs on 06/16/2023 at 10:21 AM Narrative 06/16/2023 10:21 AM [employer] INDICATION: Hypoplastic left heart syndrome COMPARISON: 09/25/2022 TECHNIQUE: Frontal and lateral radiographs of the chest. FINDINGS: Stable appearance of postsurgical changes of the chest/mediastinum. The heart is unchanged in size and configuration. The lungs are clear. There is no pneumothorax or pleural effusion. The upper abdomen is normal. No acute osseous abnormality is seen. Procedure Note Adri Burroughs MD - 06/16/2023 INDICATION: Hypoplastic left heart syndrome COMPARISON: 09/25/2022 TECHNIQUE: Frontal and lateral radiographs of the chest. FINDINGS: Stable appearance of postsurgical changes of the chest/mediastinum. The heart is unchanged in size and configuration. The lungs are clear. There is no pneumothorax or pleural effusion. The upper abdomen is normal. No acute osseous abnormality is seen. IMPRESSION Stable appearance of postsurgical changes of the chest. No acutecardiopulmonary findings. Reading Radiologist: Adri Burroughs on 06/16/2023 at 10:21 AM Tapan Esparza MD DIAGNOSTIC IMAGING O RDERABLES * EKG 12-LEAD (02/09/2023 11:55 AM CDT) Only the most recent of3 resultswithin the time period is included. Ventricular Rate 85 BPM [facility] Atrial Rate 85 BPM [facility] P-R Interval 134 ms [facility] QRS Duration ms 110 ms [facility] Q-T Interval ms 410 ms [facility] QTC Calculation (Bezet) 487 ms [facility] Calculated P Minto 54 degrees [facility] Calculated R Minto -172 degrees [facility] Calculated T Minto 1 degrees [facility] Interpretation EKG NORMAL SINUS RHYTHM INCOMPLETE RIGHT BUNDLE BRANCH BLOCK RIGHT VENTRICULAR HYPERTROPHY ABNORMAL RIGHT SUPERIOR AXIS DEVIATION NONSPECIFIC ST AND T WAVE ABNORMALITY ABNORMAL ECG WHEN COMPARED WITH ECG OF 25-SEP-2022 22:06, NO SIGNIFICANT CHANGE WAS FOUND Confirmed by fellow JOHN BERGMAN MD ([id number]) on 08/22/2023 1:35:15 PM Confirmed by JACINTO BARBOSA MD ([id number]) on 08/26/2023 12:14:08 PM [facility] 02/09/2023 11:5 5 AM CDT 08/26/2023 12:14 PM [employer] Felicity Brennan MD ECG ORDERABLES [facility] * CARDIAC PROCEDURE ORDER (12/22/2022 12:55 AM CDT) Only the most recent of6 resultswithin the time period is included. Narrative 12/22/2022 12:55 AM CDT Ordered by an unspecified provider. Scanned Document CARDIAC SERVICES ORD ERABLES * CARDIAC CATH CONSULT - For Epic Reporting (12/15/2022 3:55 PM CDT) Only the most recent of2 resultswithin the time period is included. 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 He developed recoarctation of the aorta which is status post stenting with a Roxanne stent on 05/18/2010, s/p repeat dilation in 2012. He is extremely symptomatic with chest pain, shortness of breath and dizziness and a recent stress test demonstrating severe decreased VO2 and desaturation to 81% during exercise. Echocardiogram demonstrates possible reversal of flow in the RPA and a small atrial septal communication in the setting of a restrictive VSD. He presents for cardiac catheterization and possible intervention. Description of Procedure: The procedure included a left and right heart catheterization with oximetry and hemodynamics. Interventional components included N/A. Simba was brought to the cardiac catheterization lab. After all consents were checked and the hold points completed, he was placed in the usual position and was placed under general anethesia by the anesthesia team. The access site was prepared in the usual sterile manner. Vascular ultrasound imaging was utilized to define selected vessel patency. Real-time imaging was used during vascular access attempts, including visualization of needle passage into the vessel lumen, due to need minimize vascular complications. Ultrasound imaging was captured and placed in the medical record. Access was obtained using the Seldinger technique in the right internal jugular vein with a 6 Kitt[place] sheath and the left femoral artery with a 4 Kitt[place] sheath. After access was obtained and sheaths were placed, a 6 Kitt[place] wedge catheter and a 4F pigtail catheter were utilized to perform hemodynamic measurements. Power angiograms were then obtained in the right ventricle, aortic root and thoracic aorta with the 4F pigtail, and in the IVC, hepatic vein, Fontan conduit/PA and SVC. There was no evidence of any significant stenoses or collaterals (venous or arterial), so the procedure was then completed. After completion of the procedure, local anesthesia was given at the access site. The RIJ sheath was removed and hemostasis was obtained; the arterial access site was exchanged for a 5F radial sheath (4F external diameter) and closed with a 5F MynxGrip device. Simba was awakened/extubated and transferred to the [facility] in stable condition. The estimated blood loss was 5 mL. The total fluoroscopy was DAP 64.1 Gycm2 and Air Kerma 368.88 mgy. 117 ml of contrast were given in total. A total of 5000 units of IV heparin were given throughout the case. There were no complications. Catheterization Findings: Baseline Qp = 2.40 L/min (1.49 L/min/m ) Qs = 2.98 L/min (1.85 L/min/m ) Rp = 1.67 units (2.68 units x m ) Rs = 16.12 units (25.95 units x m ) Qp/Qs = 0.81 : 1 Rp/Rs = 0.10 Heart Rate: 60 bpm VO2: 115 ml/min/m Hemoglobin: 16.0 gm/dL Inspired O2: 21% pH: 7.41 pCO2: 34.0 pO2: 58.0 HCO3: 21.6 Angiography 1. Aortic root (4F Wiggins, AP/Lat Projections): Siting hand angiogram in the [place] aortic root. 2. Right ventricle (4F Pigtail, AP/Lat projections): There is trace tricuspid regurgitation. Mildly dilated right ventricular size with normal systolic function. No RVOT obstruction with unobstructed flow across the neoaortic valve. Patent DKS without aneurysm or dilation of the ascending aorta. The coronaries are not well visualized. 3. [place] aortic root (4F Pigtail, AP/Lat projections): There is no [place] aortic insufficiency. The [place] aortic valve is stenotic with restricted movement of the valve leaflets. The coronary artery origins are normal with a prominent conal branch; there is no stenosis or bridging. There is left dominant coronary circulation. 4. Thoracic aorta (4F Pigtail, AP/Lat projections): The transverse aortic arch is dilated. There is a patent aortic isthmus stent with unobstructed flow. There is a stent fracture noted.There are no significant aortopulmonary collaterals. 5. Hepatic vein (6F Ruiz, AP/Lat projections): A large right sided hepatic vein is draining unobstructed to the IVC. 6. IVC (6F Ruiz, AP/Lat projections): There is an unobstructed suprarenal IVC draining to the Fontan conduit. 7. Fontan conduit (6F Ruiz, AP/Lat projections): There is an unobstructed Fontan conduit with equal flow into the branch pulmonary arteries. There is no Fontan fenestration. There are no venovenous collaterals. 8. SVC (6F Ruiz, AP/Lat projections): There is an unobstructed Oswald anastamosis with unobstructed flow to the bilateral branch pulmonary arteries with normal arborization bilaterally. There is normal pulmonary venous return during the levophase with normal left ventricle systolic function. There is left to right shunting of contrast across the atrial septum. 9. IVC (4F Wiggins, AP/Lat projections): There is occlusion of the IVC just distal to the iliac bifurcation. 10. RIJ (6F Sheath, AP/Lat projections): The RIJ drains unobstructed to the SVC. There is retrograde flow of contrast into the hemiazygous system, which drains via paracervical veins in to the RIJ. 11. Left SVC (18G Left forearm IV, AP projection only): The L subclavian vein drains to the L SVC which drains directly to the right atrium via a dilated coronary sinus. Impression: Simba Guerrero is a 22 year old male with: Cardiac Diagnoses: 1. 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 [place] procedure with 3.5 mm right BTT shunt, atrial septectomy, PDA ligation (2000, Fernando) 2. Removal of protruding sternal wires (05/01/2001, Fernando) 3. Bidirectional Oswald with patch arterioplasty of right and left pulmonary arteries (2000, Fernando) 4. Cardiac catheterization with coil embolization of the BLADIMIR (05/17/2004, Ann) 5. Extracardiac fenestrated Fontan with 20 mm conduit and 6 mm [place] tube fenestration (12/22/2004, Fernando) 6. Sternotomy with ligation of chylous leak (01/17/2005, Fernando) 7. Right thoracotomy with thoracic duct ligation and chemical/mechanical pleurodeisis 8. Cardiac catheterization with stenting of aortic coarctation with a 21 mm Roxanne (05/18/2010, Ann) 9. Cardiac catheterization with aortic stent dilation with 14 mm XXL balloon (05/31/2013, Ann) 10. Diagnostic cardiac catheterization (04/09/2017Ann) Noncardiac Diagnoses: 1. GERD 2. Noncardiac chest pain 3. Subglottic stenosis 4. 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 Occluded L innominate vein 7. Occluded L internal jugular vein 8. Suspected TIA 05/11/2020 Today 1. High normal RVEDP (10 mmHg) 2. Normal mean Fontan pressure (13-14 mmHg) and PVR (1.67 MORAN) 3. Severely decreased cardiac index (1.85 L/min/m2) 4. Qp/Qs: 0.81:1 5. No significant AP or venovenous collaterals 6. Patent coarctation stent with stent fracture but no gradient Sharron Mendez MD Congenital Interventional Cardiology Sharron Mendez MD ECHO OR DERABLES * PREPARE (CROSSMATCH) RBC UNIT(S), 4 Units (12/15/2022 3:48 PM CDT) Only the most recent of2 resultswithin the time period is included. Unit Description AS1 LR PRBC IRR [facility] B[facility] Unit ABO A [facility] B[facility] Unit POS [facility] Product Number R04 [facility] B LOOD BANK LAB Unit Donor # [id number] [facility] Unit Status [facility] Product [facility] [id number] [facility] OD [facility] Blood Type Barcode 6200 [facility] Expiration Date [id number] S BLOOD BANK LAB Unit Description AS1 LR PRBC IRR [facility] B[facility] Unit ABO A [facility] Unit Rh POS [facility] Product Number R04 [facility] B LOOD BANK LAB Unit Donor # [id number] [facility] B[facility] Unit Status released [facility] BLOO D BANK LAB Product Code [id number] [facility] OD BANK LAB Blood Type Barcode 6200 [facility] B[facility] Expiration Date [id number] S BLOOD BANK LAB Unit Description AS1 LR PRBC IRR [facility] B[facility] Unit ABO A [facility] Unit Rh POS [facility] Product Number R04 [facility] B LOOD BANK LAB Unit Donor # [id number] [facility] B[facility]OD [facility] Unit Status released [facility] BLOO D BANK LAB Product Code [id number] [facility] BLO OD BANK LAB Blood Type Barcode 6200 [facility] B[facility] Expiration Date [id number] S BLOOD BANK LAB Unit Description AS1 LR PRBC IRR [facility] Unit ABO A [facility] Unit Rh POS [facility] B[facility] Product [facility] R04 [facility] B LOOD BANK LAB Unit Donor # [id number] [facility] B[facility]OD [facility] Unit Status released [facility] BLOO D BANK LAB Product Code [id number] [facility] BLO OD BANK LAB Blood Type Barcode 6200 [facility] B[facility] LAB Expiration Date S BLOOD BANK LAB Blood Bank BLOOD SPECIMEN / Unknown 12/15/2022 10:10 AM CDT Sharron Mendez MD LAB - B LOOD BANK ORDERABLES [facility] [address] [place] [address], [facility] [phone] * CARDIAC CATH - For Physician Documentation (12/15/2022 2:51 PM CDT) Only the most recent of2 resultswithin the time period is included. Narrative [facility] - 12/15/2022 2:51 PM CDT Sharron Mendez MD 12/15/2022 2:54 PM PRELIMINARY CARDIAC CATHETERIZATION REPORT (Final report to follow) Name: Simba Guerrero Date Performed: 12/15/2022 Attending: Sharron Mendez MD Windows Laptop Technician(s): April Porter RN Procedure: R/LHC, Angiography Access: RIJ: 6F, LFA: 4F upgraded to 5F Indications: Shone's complex, HLHS s/p Fontan with cyanosis and severe exercise intolerance Consent: This procedure has been fully reviewed with the patient and written informed consent has been obtained. Procedure: Please see complete catheterization report. Right and retrograde left heart catheterization. Angiography of Fontan, IVC, SVC, RV and aorta. Limited findings: See cath diagram and report for details. No significant venovenous collaterals or aortopulmonary collaterals. Patent coarctation stent without gradient. Complications: None. EBL: 5 ml Disposition: Transfer to recovery for observation. Patient will be discharged home after 2 hour bedrest if he is doing well. Further follow up with me in 4 weeks. Continue home medications. Patient will be discussed at cardiac cath conference on Monday. Sharron Mendez MD 12/15/2022 2:51 PM Sharron Mendez MD CARDIAC SERVICES ORDERABLES [facility] * BLOOD GAS COOX ART POC NOTIFICATION (12/15/2022 2:37 PM CDT) Comment Notification Label Only - See Separate Report 12/15/2022 4:01 PM CDT [facility] Other MISCELLANEOUS SAMPLES / Unknown Collection / Unknown 12/15/2022 2:37 PM CDT 12/15/2022 2:37 PM CDT Sharron Mendez MD LAB - B LOOD GASES ORDERABLES Performing Organization Address City/[facility]/ZIP Co de Phone Number [facility] [address] [place] [phone] * CCL LEFT AND RIGHT HEART CATH (12/15/2022 2:34 PM CDT) Anatomical Region Laterality Modality X-Ray Angiograph y Narrative 12/19/2022 7:37 AM CDT Please see procedure note under the notes tab for complete details. Procedure Details Estimated Blood Loss: 5 mL Sharron Mendez MD CV CARD IAC CATH CUPID PROCS * (ABNORMAL) ISTAT ACT-C (12/15/2022 2:28 PM CDT) Only the most recent of2 resultswithin the time period is included. ACT-C iSTAT 250(H) 74 - 125 sec 12/15/2022 2:34 PM CDT [facility] Site Art Line 12/15/2022 2:34 PM CDT [facility] Sample iSTAT ART 12/15/2022 2:34 PM CDT [facility] Blood BLOOD SPECIMEN / Unknown 12/15/2022 2:28 PM CDT 12/15/2022 2:34 PM CDT Sharron Purnima Mendez MD LAB - P OINT OF CARE ORDERABLES [facility] [address] [place], [place] [id number] * (ABNORMAL) BLOOD GAS+COOX+LYTES+METAB ARTERIAL POCT (12/15/2022 2:09 PM CDT) Only the most recent of2 resultswithin the time period is included. pH Arterial 7.31(L) 7.35 - 7.45 pH 12/15/2022 2:09 PM [facility] pO2 Arterial 58(L) 80 - 100 mmHg 12/15/2022 2:09 PM T [facility] pCO2 Arterial 39 35 - 45 mmHg 2:09 PM [facility] HCO3 Arterial 19.6(L) 20.0 - 30.0 mmol/L 12/15/2022 2:09 PM [facility] BE Arterial -6.2(L) -2.0 - 2.0 mmol/L 12/15/2022 2:09 PM [facility] Oxyhemoglobin Arterial 85.8 % 12/15/2022 2:09 PM T [facility] Dexoyhemoglobin (HHB) % 11.6 % 12/15/2022 2:09 PM T [facility] Methemoglobin 1.2 0.0 - 2.0 % 12/15/2022 2:09 PM T [facility] Carboxyhemoglobin 1.4 0.0 - 2.0 % 2022 2:09 PM [facility] Comment:Carboxyhemoglobin No rmal Concentration: Non-smokers: 0-2%; Smokers: 0- 9%; Toxic: >20% O2 Content Arterial 17.1 Interpret within clinical context ml/dL 12/15/2022 2:09 PM [facility] Hemoglobin by COOX 14.2 12.0 - 17.6 g/dL 12/15/2022 2:09 PM CDT [facility] O2 Saturation Arterial 88(L) 90 - 100 % 12/15/2022 2:09 PM CDT [facility] Sodium Whole Blood 127(L) 135 - 145 mmol/L 12/15/2022 2:09 PM CDT [facility] Potassium Whole Blood 3.9 3.5 - 5.5 mmol/L 12/15/2022 2:09 PM CDT [facility] Chloride WB 90(L) 101 - 111 mmol/L 12/15/2022 2:09 PM CDT [facility] Calcium Ionized 1.15 mmol/L 2:09 PM T [facility] Ionized Calcium pH Adjusted 1.11(L) 1.19 - 1.34 mmol/L 12/15/2022 2:09 PM T [facility] Anion Gap (AG) Arterial 21(H) 8 - 18 mmol/L 12/15/2022 2:09 PM CDT [facility] Glucose WB 230(H) 70 - 105 mg/dL 12/15/2022 2:09 PM T [facility] Lactic Acid Whole Blood 0.6 <=2.0 mmol/L 12/15/2022 2:09 PM T [facility] Blood, arterial ARTERIAL BLOOD SPECIMEN / Unknown 12/15/2022 2:09 PM CDT 12/15/2022 2:10 PM CDT Narrative [facility] - 12/15/2022 2:09 PM CDT DSAO Sharron Mendez MD LAB - P OINT OF CARE ORDERABLES [facility] [address] [place] [address] * (ABNORMAL) BLOOD GASES LEVY+COOX POCT (12/15/2022 1:44 PM CDT) Only the most recent of7 resultswithin the time period is included. pH Venous 7.38 7.32 - 7.42 pH 12/15/2022 1:44 PM CDT [facility] pO2 Venous 52(H) 35 - 40 mmHg 12/15/2022 1:44 PM CDT [facility] pCO2 Venous 37(L) 40 - 50 mmHg 12/15/2022 1:44 PM CDT [facility] HCO3 Venous 21.9 20 - 30 mmol/L 12/15/2022 1:44 PM CDT [facility] Base Excess Venous -2.8(L) -2.0 - 2.0 mmol/L 12/15/2022 1:44 PM CDT [facility] Oxyhemoglobin Venous 82.5 % 11/28 1:44 PM CDT [facility] Deoxyhemoglobin (HHB) Venous % 15.2 % 12/15/2022 1:44 PM CDT [facility] Methemoglobin <0.8 0.0 - 2.0 % 12/15/2022 1:44 PM CDT [facility] Carboxyhemoglobin 1.6 0.0 - 2.0 % 2022 1:44 PM CDT [facility] Comment:Carboxyhemoglobin No rmal Concentration: Non-smokers: 0-2%; Smokers: 0- 9%; Toxic: >20% O2 Content Venous 16.8 Interpret within clinical context ml/dL 12/15/2022 1:44 PM CDT [facility] Hemoglobin by COOX 14.5 12.0 - 17.6 g/dL 12/15/2022 1:44 PM CDT [facility] O2 Saturation Venous 84 >=70 % 11/28 1:44 PM CDT [facility] Blood BLOOD SPECIMEN / Unknown 12/15/2022 1:44 PM CDT 12/16/2022 6:40 AM CDT Narrative [facility] - 12/15/2022 1:44 PM CDT RV Sharron Mendez MD LAB - P OINT OF CARE ORDERABLES [facility] [address] [place] [address] * IV PLACEMENT PERFORMABLE (12/15/2022 12:34 PM CDT) Pina Bryant Anes Asst - 12/15/2022 12:34 PM CDT Pina Morrison Anes Asst 12/15/2022 12:34 PM Peripheral IV Line Placement: Patient Location: OR Procedure: IV start ([id number]). Procedure Section: Orientation: right Location: forearm Catheter Gauge: 16 Number of Attempts: 2. Procedure Tolerance: performed while patient under general anesthesia. Procedure Start Time: 12/15/2022 11:58 AM. Staff Section Anesthesia Provider: Amanda Crockett MD, Performed the procedure Amanda Crockett MD GENERAL ANESTHESIA ORDERABLES * ETT LINE PERFORMABLE (12/15/2022 12:33 PM CDT) Narrative Pina Morrison Anes Asst - 12/15/2022 12:33 PM CDT Pina Morrison Anes Asst 12/15/2022 12:34 PM Endotracheal Tube Placement: Patient Location: OR. Intubation Event Date/Time: 12/15/2022 11:54 AM Procedure: intubation ([id number]). Procedure Section: Sedation: under general anesthesia. Indications for Airway Management: anesthesia Induction: standard IV Patient Position: supine and sniffing Mask Ventilation: easy. Blade Type: Ramirez Blade Size: 2 Laryngoscopy View: grade 1 (full cords) Tube: endotracheal tube Placement: oral Tube type: cuff - inflated Tube Size (MM): 6.5 Depth of Insertion (CM): 21 Measured From: gums Cuff volume (mL): 4 Cuff Inflated With: air Number of Attempts: 1. Ventilation between attempts: No. Placement Verified By: direct visualization, bilateral breath sounds, chest auscultation and CO2 monitor CXR Findings: ETT in proper place. Tube secured with: adhesive tape. Dentition unchanged? Yes Difficult Airway? No. Procedure Start Time: 12/15/2022 11:54 AM. Staff Section Anesthesia Provider: Pina Morrison Anes Asst, Performed the procedure Amanda Crockett MD GENERAL ANESTHESIA ORDERABLES * (ABNORMAL) CBC W AUTO DIFFERENTIAL (12/15/2022 9:49 AM CDT) Only the most recent of17 resultswithin the time period is included. WBC 6.1 3.5 - 10.5 10 3/uL 12/15/2022 10:12 AM [facility] RBC 5.56 4.30 - 5.70 10 6/uL 12/15/2022 10:12 AM [facility] Hemoglobin 16.0 12.0 - 17.6 g/dL 12/15/2022 10:12 AM [facility] Hematocrit 46.6 35.2 - 51.7 % 12/15/2022 10:12 AM [facility] MCV 83.8 80.7 - 98.3 fL 12/15/2022 10:12 AM [facility] MCH 28.8 26.7 - 34.0 pg 12/15/2022 10:12 AM [facility] MCHC 34.3 30.8 - 35.9 g/dL 12/15/2022 10:12 AM [facility] RDW-SD 40.4 36.0 - 50.0 fL 12/15/2022 10:12 AM [facility] RDW-CV 13.2 11.2 - 14.8 % 12/15/2022 10:12 AM [facility] Platelet Count 181 150 - 400 10 3/uL 12/15/2022 10:12 AM [facility] MPV 11.2 9.4 - 12.9 fL 12/15/2022 10:12 AM [facility] nRBC Absolute 0.00 0 10 3/uL 12/15/2022 10:12 AM [facility] nRBC Auto 0.0 0 /100 WBC 12/15/2022 10:12 AM [facility] Neutrophils % 73.5(H) 35.0 - 70.0 % 12/15/2022 10:12 AM [facility] Lymphocytes % 17.8(L) 20.0 - 43.0 % 12/15/2022 10:12 AM [facility] Monocytes % 6.1 5.0 - 13.0 % 12/15/2022 10:12 AM [facility] Eosinophils % 0.8 0.0 - 6.0 % 12/15/2022 10:12 AM [facility] Basophil % 1.5 0.0 - 2.0 % 12/15/2022 10:12 AM [facility] Neutrophils Absolute 4.47 1.60 - 7.00 10 3/uL 12/15/2022 10:12 AM [facility] Lymphocyte Absolute 1.08(L) 1.10 - 3.90 10 3/uL 12/15/2022 10:12 AM [facility] Monocytes Absolute 0.37 0.26 - 1.07 10 3/uL 12/15/2022 10:12 AM [facility] Eosinophils Absolute 0.05 0.00 - 0.47 10 3/uL 12/15/2022 10:12 AM [facility] Basophils Absolute 0.09(H) 0.00 - 0.08 10 3/uL 12/15/2022 10:12 AM [facility] Immature Granulocytes % 0.3 0.0 - 1.0 % 12/15/2022 10:12 AM [facility] Immature Granulocytes Absolute 0.02 12/15/2022 10:12 AM [facility] Blood BLOOD SPECIMEN / Unknown Venipuncture / Unknown 12/15/2022 9:49 AM CDT 12/15/2022 10:08 AM CDT Sharron Mendez MD LAB - H EMATOLOGY ORDERABLES [facility] [address] [place] [address], [facility] [phone] * (ABNORMAL) COMPREHENSIVE METABOLIC PANEL (12/15/2022 9:49 AM CDT) Only the most recent of12 resultswithin the time period is included. BUN 12 7 - 26 mg/dL 12/15/2022 10:38 AM [facility] Creatinine 0.78 0.71 - 1.16 mg/dL 12/15/2022 10:38 AM [facility] Sodium 137 136 - 145 mmol/L 12/15/2022 10:38 AM [facility] Potassium 4.3 3.5 - 4.5 mmol/L 12/15/2022 10:38 AM [facility] Chloride 108(H) 98 - 107 mmol/L 12/15/2022 10:38 AM [facility] CO2 18(L) 22 - 29 mmol/L 12/15/2022 10:38 AM [facility] Glucose 82 70 - 115 mg/dL 12/15/2022 10:38 AM [facility] Calcium 9.3 8.4 - 10.2 mg/dL 12/15/2022 10:38 AM [facility] Protein Total 6.8 6.0 - 8.3 g/dL 12/15/2022 10:38 AM [facility] Albumin 4.2 3.4 - 5.0 g/dL 12/15/2022 10:38 AM [facility] Bilirubin Total 0.9 0.2 - 1.2 mg/dL 12/15/2022 10:38 AM [facility] Alkaline Phosphatase 65 40 - 150 U/L 12/15/2022 10:38 AM [facility] ALT 16 5 - 55 U/L 12/15/2022 10:38 AM [facility] AST 18 5 - 34 U/L 12/15/2022 10:38 AM [facility] Anion Gap 15 8 - 18 12/15/2022 10:38 AM [facility] BUN/Creatinine Ratio 15 7 - 23 12/15/2022 10:38 AM [facility] Osmolality Calculated 283 270 - 300 mOsm/kg 12/15/2022 10:38 AM [facility] Albumin/Globulin Ratio 1.6 1.1 - 2.3 12/15/2022 10:38 AM [facility] eGFR by CKD-EPI >90 >=90 mL/min/1.7 3 m2 12/15/2022 10:38 AM [facility] Blood BLOOD SPECIMEN / Unknown Venipuncture / Unknown 12/15/2022 9:49 AM [facility] 12/15/2022 10:23 AM [facility] Sharron Mendez MD LAB - C HEMISTRY ORDERABLES [facility] [address] [place] [address], [facility] [phone] * TYPE + SCREEN PANEL (12/15/2022 9:45 AM CDT) Only the most recent of4 resultswithin the time period is included. Pathologist [facility] Antibody Screen NEG 11:22 AM CDT [facility] ABO Rh A POS 12/15/2022 11:22 AM CDT [facility] Blood Bank BLOOD SPECIMEN / Unknown Venipuncture / Unknown 12/15/2022 9:45 AM CDT 12/15/2022 10:10 AM CDT Sharron Mendez MD LAB - B LOOD BANK ORDERABLES [facility] [address] [place] [address], [facility] [phone] * PULMONARY/RESPIRATORY REPORT ORDER (12/06/2022 12:45 PM CDT) Narrative 12/06/2022 12:45 PM CDT Ordered by an unspecified provider. Scanned Document RESPIRATORY THERAPY ORDERABLES * CARDIAC STRESS TEST ORDER (12/06/2022 12:45 PM CDT) Narrative 12/06/2022 12:45 PM CDT Ordered by an unspecified provider. Scanned Document CARDIAC SERVICES ORD ERABLES * ECHO CONGENITAL COMPLETE COLOR FLOW AND DOPPLER (12/02/2022 1:38 PM CDT) Pathologist [facility] MV VTI 21.611 cm [facility] CV FUJ I PACS DESCAOPEAKVEL 197.415 cm/s [facility] CV FUJI PACS MV mn grad 2.732 mmHg [facility] CV FU JI PACS Anatomical Region Laterality Modality Ultrasound 12/02/2022 1:08 PM CDT Narrative 12/04/2022 3:53 PM CDT Patient Exam Info Name: Simba Guerrero Age: 22 years Gender: Male BSA: 1.56 m2 BP: 124 / 62 mmHg Exam Date/Time: 12/02/2022 1:08 PM Admit Date: 12/02/2022 Site: [facility] Patient Status: O/P 2000 Ht: 163.0 cm Study Info Technical Quality: Diagnostic quality Study Type: ECHO CONGENITAL COMPLETE COLOR FLOW AND DOPPLER 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 * Patent Fontan with unobstructed flow. There is no fenestration. * Patent right Oswald with unobstructed flow demonstrated into bilateral branch pulmonary arteries. * The right pulmonary artery is normal in diameter. There appears to be reversal of flow in the RPA. * The left pulmonary artery is not well visualized in 2D. There is flow proximally with Color Doppler. * Madhuri-aortic valve with no significant stenosis and no insufficiency. * The aortic arch is s/p stent. There is no residual coarctation of the aorta. * Physiologic tricuspid regurgitation. * Normal right ventricular systolic function. * Small atrial septal communication with restrictive left to right shunting by Color Doppler. Anatomic Relationships Abdominal situs solitus. Levocardia. Atrial situs solitus. Atrioventricular concordance. Ventriculoarterial concordance. D-ventricular looping. Great vessel relationship is normal (solitus). Systemic Veins Oswald anastomosis appears widely patent. Fontan pathway appears widely patent. No fenestration is seen in the Fontan conduit. Pulmonary Veins Pulmonary venous return not well visualized. Right Atrium The right atrium is normal in size. Left Atrium The left atrium is normal in size. Atrial Septum Small atrial septal communication with restrictive left to right shunting by Color Doppler. Tricuspid Valve The tricuspid valve is structurally normal. There is normal tricuspid inflow. There is physiologic tricuspid regurgitation. Mitral Valve The mitral valve is mildly hypoplastic. There is no mitral stenosis. There is no mitral regurgitation. Outflow Tracts The right ventricular outflow tract is normal. The left ventricular outflow tract is normal. Ventricular Septum The septal motion is with systolic flattening. There is a small perimembranous defect. There is bidirectional shunting. Left Ventricle Left ventricular chamber is normal in size. Left ventricular wall thickness is moderately increased. Left ventricular systolic function is normal. Right Ventricle Right ventricular chamber is normal in size. Right ventricular wall thickness is mildly increased. Right ventricular systolic function is normal. Pulmonary Valve The pulmonary valve is now the neoaortic valve. There is no neoaortic valve stenosis. There is no neoaortic valve regurgitation. Aortic Valve The aortic valve is not well visualized. There is no forward flow across the aortic valve. Pulmonary Arteries The main pulmonary artery is oversewn. The right pulmonary artery is normal in diameter. There appears to be reversal of flow in the RPA. The left pulmonary artery is not well visualized in 2D. There is flow proximally with Color Doppler. Aorta The ascending aorta is s/p DKS. The aortic arch is s/p stent. There is no residual coarctation of the aorta. Arch sidedness is not well visualized. Coronary Arteries Coronaries are not well visualized. Pericardial/Pleural Effusion No pericardial effusion. Doppler Measurements Mitral Valve Name Value Normal Z-Score Percentile Forward Flow MV Mean Gradient 3 mmHg Aorta Name Value Normal Z-Score Percentile Aorta Desc Ao Peak Velocity 1.97 m/s Desc Ao Peak Gradient 16 mmHg Report Signatures Finalized by Sharron Mendez MD on 12/04/2022 03:52 PM Procedure Note Sharron Mendez MD - 12/04/2022 Patient Exam Info Name: Simba Guerrero Age: 22 years Gender: Male BSA: 1.56 m2 BP: 124 / 62 mmHg Exam Date/Time: 12/02/2022 1:08 PM Admit Date: 12/02/2022 Site: [facility] Patient Status: O/P 2000 Ht: 163.0 cm Study Info Technical Quality: Diagnostic quality Study Type: ECHO CONGENITAL COMPLETE COLOR FLOW AND DOPPLER 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 * Patent Fontan with unobstructed flow. There is no fenestration. * Patent right Oswald with unobstructed flow demonstrated intobilateral branch pulmonary arteries. * The right pulmonary artery is normal in diameter. There appears stewart reversal of flow in the RPA. * The left pulmonary artery is not well visualized in 2D. There isflow proximally with Color Doppler. * Madhuri-aortic valve with no significant stenosis and no insufficiency. * The aortic arch is s/p stent. There is no residual coarctation ofthe aorta. * Physiologic tricuspid regurgitation. * Normal right ventricular systolic function. * Small atrial septal communication with restrictive left to rightshunting by Color Doppler. Anatomic Relationships Abdominal situs solitus. Levocardia. Atrial situs solitus.Atrioventricular concordance. Ventriculoarterial concordance. D-ventricular looping.Great vessel relationship is normal (solitus). Systemic Veins Oswald anastomosis appears widely patent. Fontan pathway appears widely patent. No fenestration is seen in the Fontan conduit. Pulmonary Veins Pulmonary venous return not well visualized. Right Atrium The right atrium is normal in size. Left Atrium The left atrium is normal in size. Atrial Septum Small atrial septal communication with restrictive left to rightshunting by Color Doppler. Tricuspid Valve The tricuspid valve is structurally normal. There is normal tricuspid inflow. There is physiologic tricuspid regurgitation. Mitral Valve The mitral valve is mildly hypoplastic. There is no mitral stenosis.There is no mitral regurgitation. Outflow Tracts The right ventricular outflow tract is normal. The left ventricularoutflow tract is normal. Ventricular Septum The septal motion is with systolic flattening. There is a small perimembranous defect. There is bidirectional shunting. Left Ventricle Left ventricular chamber is normal in size. Left ventricular wallthickness is moderately increased. Left ventricular systolic function is normal. Right Ventricle Right ventricular chamber is normal in size. Right ventricular wall thickness is mildly increased. Right ventricular systolic function isnormal. Pulmonary Valve The pulmonary valve is now the neoaortic valve. There is no neoaorticvalve stenosis. There is no neoaortic valve regurgitation. Aortic Valve The aortic valve is not well visualized. There is no forward flow acrossthe aortic valve. Pulmonary Arteries The main pulmonary artery is oversewn. The right pulmonary artery isnormal in diameter. There appears to be reversal of flow in the RPA. The left pulmonary artery is not well visualized in 2D. There is flow proximallywith Color Doppler. Aorta The ascending aorta is s/p DKS. The aortic arch is s/p stent. There isno residual coarctation of the aorta. Arch sidedness is not wellvisualized. Coronary Arteries Coronaries are not well visualized. Pericardial/Pleural Effusion No pericardial effusion. Doppler Measurements Mitral Valve Name Value Normal Z-ScorePercentile Forward Flow MV Mean Gradient 3 mmHg Aorta Name Value Normal Z-ScorePercentile Aorta Desc Ao Peak Velocity 1.97 m/s Desc Ao Peak Gradient 16 mmHg Report Signatures Finalized by Sharron Mendez MD on 12/04/2022 03:52 PM Sharron Mendez MD ECHO CU PID * STRESS TEST TREADMILL (NO IMAGING) (12/02/2022 11:19 AM CDT) Only the most recent of2 resultswithin the time period is included. 12/02/2022 11:1 9 AM CDT Narrative Procedure Note Sharron Mendez MD - 12/02/2022 1:33 PM CDT PROCEDURE DATE: 12/02/22 PROCEDURE: Exercise stress test with metabolics. MEDICATIONS: Current Outpatient Medications on File Prior to Encounter Medication Sig Dispense Refill acetaminophen (TYLENOL) 500 MG tablet Take 1 tablet by mouth every 4hours as needed for Fever or Pain Maximum allowable Acetaminophen amount =4 Grams (4000 mg) / 24 hours. 30 tablet 0 aspirin (ASPIRIN) 81 MG chew tablet Take 1 (one) tablet by mouth oncedaily Reasons: hypoplastic left heart digoxin (LANOXIN) 0.125 MG tablet Take 1 (one) tablet by mouth oncedaily 90 tablet 3 enalapril (VASOTEC) 10 MG tablet Take 1 (one) tablet by mouth once daily90 tablet 3 hydrOXYzine hcl (ATARAX) 10 MG tablet Take 1 tablet by mouth 3 timesdaily as needed for Itching (Patient not taking: Reported on 01/26/2022) 90tablet 2 No current facility-administered medications on file prior to encounter. REASON FOR EXERCISE STRESS TEST: HLHS status post Fontan palliation FINDINGS: After consent was signed, the patient underwent 20 ramp protocolbicycle testing with metabolics. The patient's resting ECG showed sinus rhythm with RBBB and resting bloodpressure was 135/85. 20 ramp protocol bicycle testing was then performed. The patient completed4 minutes and 37 seconds. The peak heart rate was 123 bpm (62% predicted). The peak blood pressure was 152/70. The baseline rhythm was sinus which appropriately progressed to sinustachycardia. Max VO2: 17.5 ml/kg/min (37% predicted) O2 pulse: 81 ml/beat (69% predicted) VE/VCO2: 38 RR: 1.03 FVC 3.47 liters (80% predicted) FEV1 2.83 liters (76% predicted) FEV1/FVC 82% QGT31-47% 2.79 L/sec (66% predicted) There were no sustained arrhythmias or signs of ischemia. The test wasstopped due to leg fatigue IMPRESSION: 1. Sub-maximal exercise test based upon RER and heart rate. 2. Severely decreased functional capacity with maximal VO2 index of 17.5ml/kg/minute, 37% of predicted. 3. Blunted heart rate and blood pressure response to exercise, likely dueto poor exercise tolerance. 4. Decreased oxygen pulse suggestive of decreased cardiac function. 5. RER of 1.03 at peak exercise indicative of poor to marginal effort. 6. Significant pulmonary restriction to exercise. 7. No sustained arrhythmias or ST segment changes. SHARRON MENDEZ MD Sharron Mendez MD CARDIAC SERVICES ORDERABLES [facility] STRESS * CARDIAC EKG ORDER (09/27/2022 12:55 PM [employer]) Only the most recent of2 resultswithin the time period is included. Narrative 09/27/2022 12:55 PM [employer] Ordered by an unspecified provider. Scanned Document CARDIAC SERVICES ORD ERABLES * MRI BRAIN WO CONTRAST (09/26/2022 12:53 AM [employer]) Only the most recent of3 resultswithin the time period is included. Anatomical Region Laterality Modality Head Magnetic Resonan ce 09/26/2022 9:06 AM [employer] Impressions 09/26/2022 9:49 AM [employer] IMPRESSION: 1. No evidence of restricted diffusion to suggest an acute infarction. The report was drafted by Otis Lama MD (president/gm production & live experiences) IPeter MD have personally reviewed and interpreted this examination/study. > Interpreting Provider: Peter Fuller MD on 09/26/2022 9:49 AM Narrative 09/26/2022 9:49 AM [employer] PROCEDURE: MRI BRAIN WO CONTRAST, DATE/TIME OF EXAM: 09/26/2022 12:54 AM, LOCATION [facility] INDICATION: R53.1: Weakness ADDITIONAL CLINICAL INFORMATION: Ordering Provider Reason For Exam: Stroke Technologist Note: None. Additional: None. EXAMINATION: Magnetic resonance imaging (MRI) of the brain without contrast TECHNIQUE: MRI of the brain was performed without contrast according to standard protocol. COMPARISON: MRI of the brain from 10/07/2021. CT of the head and CT angiogram of the head and neck from 09/25/2022. FINDINGS: There is a small focus of susceptibility artifacts in the medial parasagittal left parietal lobe, (series 7, image 20), likely representing prior microhemorrhage and appears grossly unchanged compared to the prior study from 10/07/2021. Otherwise, no evidence of acute or chronic hemorrhage is identified. No evidence of acute cerebral infarction is seen. There is mild cerebral volume loss with associated ex vacuo ventricular dilatation. No mass effect or midline shift is seen. Mild periventricular white matter FLAIR hyperintensities are nonspecific, but can be seen in the setting of chronic small vessel ischemic disease. The corpus callosum and sella appear grossly stable. The posterior fossa, brainstem, and craniocervical junction appear grossly stable. The visualized portions of the orbits appear grossly unremarkable. There are mild calcifications in the left maxillary sinus. Minimal mucosal thickening in the ethmoid air cells. The imaged mastoid air cells appear grossly clear. Normal flow voids are demonstrated in the carotid arteries and basilar artery. The calvarium and visualized cervical spine appear grossly unremarkable. Procedure Note Peter Fuller MD - 09/26/2022 PROCEDURE: MRI BRAIN WO CONTRAST, DATE/TIME OF EXAM: 09/26/2022 12:54AM, LOCATION [facility] INDICATION: R53.1: Weakness ADDITIONAL CLINICAL INFORMATION: Ordering Provider Reason For Exam: Stroke Technologist Note: None. Additional: None. EXAMINATION: Magnetic resonance imaging (MRI) of the brain withoutcontrast TECHNIQUE: MRI of the brain was performed without contrast according to standard protocol. COMPARISON: MRI of the brain from 10/07/2021. CT of the head and CT angiogram of the head and neck from 09/25/2022. FINDINGS: There is a small focus of susceptibility artifacts in the medial parasagittal left parietal lobe, (series 7, image 20), likelyrepresenting prior microhemorrhage and appears grossly unchanged compared to theprior study from 10/07/2021. Otherwise, no evidence of acute or chronichemorrhage is identified. No evidence of acute cerebral infarction is seen. Thereis mild cerebral volume loss with associated ex vacuo ventriculardilatation. No mass effect or midline shift is seen. Mild periventricular whitematter FLAIR hyperintensities are nonspecific, but can be seen in the settingof chronic small vessel ischemic disease. The corpus callosum and sellaappear grossly stable. The posterior fossa, brainstem, and craniocervicaljunction appear grossly stable. The visualized portions of the orbits appear grossly unremarkable. There are mild calcifications in the left maxillary sinus. Minimal mucosal thickening in the ethmoid air cells. The imaged mastoid air cells appear grossly clear. Normal flow voids are demonstrated in the carotidarteries and basilar artery. The calvarium and visualized cervical spine appear grossly unremarkable. IMPRESSION: 1. No evidence of restricted diffusion to suggest an acute infarction. The report was drafted by Otis Lama MD (president/gm production & live experiences) I, Peter Fuller MD have personally reviewed and interpretedthis examination/study. > Interpreting Provider: Peter Fuller MD on 09/26/2022 9:49 AM Jamee Roberts MD MR ORDERABLES * B-TYPE NATRIURETIC PEPTIDE (09/25/2022 11:59 PM [employer]) Only the most recent of5 resultswithin the time period is included. BNP 11 <100 pg/mL 09/26/2022 12:49 AM [employer] [facility] Comment: A decision threshold of 100 pg/mL has been demonstrated to provide the maximal combination of sensitivity, specificity and predictive value for the diagnosis of congestive heart failure (CHF). Virtually all patients with no evidence of CHF have BNP values less than 100 pg/mL. A BNP value greater than 100 pg/mL is consistent with the diagnosis of CHF in the appropriate clinical setting. In a study of 693 patients (male and female) with diagnosed CHF, the following values were determined based on the NYHA functional classification system: NYHA Functional Class Mean Valule (pg/mL) % >100 pg/mL I 320 58.1 II 432 73.0 III 656 79.0 IV 1635 98.3 Blood BLOOD SPECIMEN / Unknown Venipuncture / Unknown 09/25/2022 11:59 PM [employer] 09/26/2022 12:04 AM [employer] Jamee Roberts MD LAB - CHEMISTRY [facility] [place] [address] [place] [address], [facility] [phone] * XR CHEST 1VW PORTABLE (09/25/2022 11:20 PM [employer]) Anatomical Region Laterality Modality Chest Radiographic Deann ging 09/25/2022 11:4 4 PM [employer] Narrative 09/26/2022 4:07 PM [employer] PROCEDURE: XR CHEST 1VW PORTABLE, DATE/TIME OF EXAM: 09/25/2022 11:20 PM, LOCATION [facility] INDICATION: R06.02: SOB (shortness of breath) ADDITIONAL CLINICAL INFORMATION: Ordering Provider Reason For Exam: hypoxic COMPARISON: None. FINDINGS/IMPRESSION: Multiple radiopaque clips and wires are seen superimposing the right upper lung and the heart. There is no focal consolidation, pleural effusion, or pneumothorax. The heart size is normal. Mediastinal widening corresponds to congenital heart disease further delineated on concurrent CT and prior MRI. The visible bony thorax is intact. Levoscoliosis is seen. Report dictated by Jose Roberto Ambrose MD, (radiology services manager). Elva Sanon MD have personally reviewed and interpreted this examination/study. > Interpreting Provider: Elva Weston MD on 09/26/2022 4:07 PM Procedure Note Elva Weston MD - 09/26/2022 PROCEDURE: XR CHEST 1VW PORTABLE, DATE/TIME OF EXAM: 09/25/2022 11:20PM, LOCATION [facility] INDICATION: R06.02: SOB (shortness of breath) ADDITIONAL CLINICAL INFORMATION: Ordering Provider Reason For Exam: hypoxic COMPARISON: None. FINDINGS/IMPRESSION: Multiple radiopaque clips and wires are seen superimposing the rightupper lung and the heart. There is no focal consolidation, pleural effusion, or pneumothorax. The heart size is normal. Mediastinal widening corresponds to congenitalheart disease further delineated on concurrent CT and prior MRI. The visiblebony thorax is intact. Levoscoliosis is seen. Report dictated by Jose Roberto Ambrose MD, (radiology services manager). Elva Sanon MD have personally reviewed and interpreted this examination/study. > Interpreting Provider: Elva Weston MD on 09/26/2022 4:07 PM Jamee Roberts MD DIAGNOSTIC IMAGING O RDERABLES * TROPONIN-I HIGH SENSITIVE REFLEX 1HOUR (09/25/2022 11:02 PM [employer]) Pathologist [facility] Troponin I High Sensitive 5 <=35 ng/L 09/25/2022 11:36 PM [employer] [facility] Delta Troponin I HS 1 <6 ng/L 09/25/2022 11:36 PM [employer] [facility] Blood BLOOD SPECIMEN / Unknown Venipuncture / Unknown 09/25/2022 11:02 PM [employer] 09/25/2022 11:06 PM [employer] Jamee Roberts MD LAB - CHEMISTRY [place] [address] [address], [facility] [phone] * TROPONIN-I HIGH SENSITIVE BASELINE + 1HR (09/25/2022 10:02 PM [employer]) [facility] Troponin I High Sensitive 4 <=35 ng/L 09/25/2022 10:43 PM [employer] [facility] Blood BLOOD SPECIMEN / Unknown Venipuncture / Unknown 09/25/2022 10:02 PM [employer] 09/25/2022 10:08 PM [employer] Jamee Roberts MD LAB - CHEMISTRY [place] [address] [address], [facility] [phone] * (ABNORMAL) HEMOGLOBIN A1C (09/25/2022 10:02 PM [employer]) Only the most recent of2 resultswithin the time period is included. Hemoglobin A1c 5.7(H) <=5.6 % 09/26/2022 12:33 PM [facility] Estimated Average Glucose 117 mg/dL 09/26/2022 12:33 PM [facility] Comment: HbA1c Interpretation: Normal : < 5.7% Pre-diabetes: 5.7-6.4% Diabetes: Equal to or greater than 6.5% Test results diagnostic of diabetes should be repeated for confirmation. Treatment target values recommended by ADA and other clinical organizations should be used to evaluate metabolic control in patients. Reference: [place] [employer], Standards of Care in Diabetes -2020 In patients 70 years and older consider HbA1c target range of 7.0-7.5% (Reference: Salvatore Otero et al. JESSIEDA. 2012) The Sebia assay for the measurement of HbA1c is a National Glycohemoglobin Standardization Program (NGSP) certified method. Blood BLOOD SPECIMEN / Unknown Venipuncture / Unknown 09/25/2022 10:02 PM [employer] 09/25/2022 10:08 PM [facility] Jamee Roberts MD LAB - CHEMISTRY [place] [address] [address], [facility] [phone] * (ABNORMAL) LIPID PROFILE (09/25/2022 10:02 PM [facility]) Only the most recent of2 resultswithin the time period is included. Cholesterol Total 92 <200 mg/dL 09/25/2022 10:38 PM [facility] HDL 39(L) >40 mg/dL 09/25/2022 10:38 PM [facility] Comment: ATP III Classification of HDL Cholesterol: <40 mg/dL: Considered a major risk factor. >60 mg/dL: Considered a negative risk factor. LDL Calculated 45 <100 mg/dL 09/25/2022 10:38 PM [facility] Comment: ATP III Classification of LDL Cholesterol: <100 mg/dL: Optimal 100 - 129 mg/dL: Near Optimal/Above Optimal 130 - 159 mg/dL: Borderline High 160 - 189 mg/dL: High >190 mg/dL: Very High Triglycerides 38 <150 mg/dL 09/25/2022 10:38 PM [facility] Comment: ATP III Classification of Triglycerides: <150 mg/dL: Normal 150 - 199 mg/dL: Borderline High 200 - 400 mg/dL: High >500 mg/dL: Very High Blood BLOOD SPECIMEN / Unknown Venipuncture / Unknown 09/25/2022 10:02 PM [employer] 09/25/2022 10:08 PM [employer] Jamee Roberts MD LAB - CHEMISTRY [place] [facility] [address] [place] [address], [facility] [phone] * CT ANGIO BRAIN NECK STROKE (09/25/2022 9:20 PM [employer]) Only the most recent of2 resultswithin the time period is included. Anatomical Region Laterality Modality Head Computed Tomogra phy 09/25/2022 9:34 PM [employer] Impressions 09/25/2022 11:03 PM [employer] IMPRESSION: 1. No occlusion, hemodynamically significant stenosis, or aneurysm of the major intracranial arteries. 2. No occlusion, hemodynamically significant stenosis, or dissection of the major neck arteries. > Dictated by Jose Roberto Ambrose MD (president/gm production & live experiences) I, Stephen Aguilar MD have personally reviewed and interpreted this examination/study. > Interpreting Provider: Stephen Aguilar MD on 09/25/2022 11:03 PM Narrative 09/25/2022 11:03 PM [employer] PROCEDURE: CT ANGIO BRAIN NECK STROKE, DATE/TIME OF EXAM: 09/25/2022 9:13 PM, LOCATION [facility] INDICATION: Code Stroke COMPARISON: CTA head and neck dated 10/06/2021 EXAMINATION: CT angiogram images of the head and neck acquired with intravenous contrast. Multiplanar reformations acquired. TECHNIQUE: CT angiography of the head and neck was obtained after administration of intravenous contrast. Three dimensional postprocessing was performed by the technologist and sent to the workstation for review. NASCET criteria was utilized for evaluation of carotid stenosis. CT dose reduction technique was used, including Automated Exposure Control. CONTRAST: 100 mL of Isovue-370 FINDINGS: Congenital aortic abnormality partially visualized, with a partially visualized stent in the descending aorta. Subclavian arteries are unremarkable. The common and cervical internal carotid arteries are unremarkable. The right vertebral artery is dominant. The cervical vertebral arteries are unremarkable. Intracranial internal carotid arteries are normal. Anterior and middle cerebral arteries are normal. Intracranial vertebral, basilar, and posterior cerebral arteries are unremarkable. No cerebral aneurysm is seen. Partially imaged lung apices are clear. No neck mass or suspicious lymph nodes. Bones demonstrate no significant abnormality. . Procedure Note Stephen Aguilar MD - 09/25/2022 PROCEDURE: CT ANGIO BRAIN NECK STROKE, DATE/TIME OF EXAM: 39:13 PM, LOCATION [facility] INDICATION: Code Stroke COMPARISON: CTA head and neck dated 10/06/2021 EXAMINATION: CT angiogram images of the head and neck acquired with intravenous contrast. Multiplanar reformations acquired. TECHNIQUE: CT angiography of the head and neck was obtained after administration of intravenous contrast. Three dimensional postprocessing was performed by the technologist and sent to the workstation forNascent Surgical. NASCET criteria was utilized for evaluation of carotid stenosis. CT dose reduction technique was used, including Automated Exposure Control. CONTRAST: 100 mL of Isovue-370 FINDINGS: Congenital aortic abnormality partially visualized, with a partially visualized stent in the descending aorta. Subclavian arteries are unremarkable. The common and cervical internal carotid arteries are unremarkable. The right vertebral artery is dominant. The cervical vertebral arteries are unremarkable. Intracranial internal carotidarteries are normal. Anterior and middle cerebral arteries are normal.Intracranial vertebral, basilar, and posterior cerebral arteries are unremarkable. No cerebral aneurysm is seen. Partially imaged lung apices are clear. No neck mass or suspicious lymph nodes. Bones demonstrate no significant abnormality. . IMPRESSION: 1. No occlusion, hemodynamically significant stenosis, or aneurysm ofthe major intracranial arteries. 2. No occlusion, hemodynamically significant stenosis, or dissection ofthe major neck arteries. > Dictated by Jose Roberto Ambrose MD (president/gm production & live experiences) I, Stephen Aguilar MD have personally reviewed and interpreted this examination/study. > Interpreting Provider: Stephen Aguilar MD on 09/25/2022 11:03 PM Jamee Roberst MD CT ORDERABLES * CT ANGIO AORTA FOR DISSECTION (09/25/2022 9:20 PM [employer]) Anatomical Region Laterality Modality Abdomen Computed Tomogra phy 09/25/2022 9:34 PM [employer] Impressions 09/26/2022 9:48 AM [employer] Impression: 1.No aortic dissection. 2.Congenital heart disease with post operative changes, better evaluated on prior cardiac MRI. 3.Heterogeneous enhancement pattern of the liver, consistent with hepatic venous congestion secondary to heart disease. > Dictated by Mari Benoit DO (radiology services manager). Maura Sanon MD have personally reviewed and interpreted this examination/study. > Interpreting Provider: Maura Unger MD on 09/26/2022 9:48 AM Narrative 09/26/2022 9:48 AM [employer] PROCEDURE: CT ANGIO AORTA FOR DISSECTION, DATE/TIME OF EXAM: 09/25/2022 9:13 PM, LOCATION [facility] INDICATION: R53.1: Weakness ADDITIONAL CLINICAL INFORMATION: Ordering Provider Reason For Exam: chest pain, s/p fontan COMPARISON: MRI cardiac exam dated 01/28/2022. TECHNIQUE: CT of the chest, abdomen, and pelvis was performed prior to and following the uneventful administration of 100 mL of Isovue 370 intravenous contrast according to an angiogram dissection protocol. Three dimensional postprocessing was performed by the technologist and sent to the workstation for review. Findings: Chest: Postoperative changes for hypoplastic left heart syndrome are seen, including s/p [place], s/p Oswald, and s/p nonfenestrated Fontan. The heart position is levocardiac. Also s/p aortic stent for recoarctation of the aorta. The aortic arch is left-sided. There is post stent dilation of the aortic arch/ascending aorta, grossly similar to prior outside cardiac MRI. An atrial septal defect is present. The thoracic aorta is small in caliber but patent without evidence of dissection. The right heart is enlarged with increased trabeculations. No acute findings in the lungs which are clear. No pleural effusion or pneumothorax. No lymphadenopathy. Abdomen/pelvis: There is no aortic dissection. All branches of the abdominal aorta are patent. Liver: Diffuse nutmeg appearance of the liver likely secondary to venous congestion. Gallbladder and Bile Ducts: Normal. Spleen: Normal. Pancreas: Normal. Adrenals: Normal. Kidneys: The kidneys are normal. A linear filling defect in the left renal vein (image 133, series 8) is likely secondary to flow artifact. Gastrointestinal: The stomach and visualized loops of large and small bowel are unremarkable. Mesentery/Peritoneum/Retroperitoneum: No free intraperitoneal air. No free fluid in the abdomen or pelvis. Bladder: Normal. Reproductive Organs: The prostate is normal. Bones: Scoliosis is present. Soft tissues: Normal. Procedure Note Allison Unger MD - 09/26/2022 PROCEDURE: CT ANGIO AORTA FOR DISSECTION, DATE/TIME OF EXAM: 09/25/2022 9:13 PM, LOCATION [facility] INDICATION: R53.1: Weakness ADDITIONAL CLINICAL INFORMATION: Ordering Provider Reason For Exam: chest pain, s/p fontan COMPARISON: MRI cardiac exam dated 01/28/2022. TECHNIQUE: CT of the chest, abdomen, and pelvis was performed prior toand following the uneventful administration of 100 mL of Isovue 370intravenous contrast according to an angiogram dissection protocol. Threedimensional postprocessing was performed by the technologist and sent to the workstation for review. 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 Theheart position is levocardiac. Also s/p aortic stent for recoarctation of the aorta. The aortic arch is left-sided. There is post stent dilation ofthe aortic arch/ascending aorta, grossly similar to prior outside cardiacMRI. An atrial septal defect is present. The thoracic aorta is small incaliber but patent without evidence of dissection. The right heart is enlargedwith increased trabeculations. No acute findings in the lungs which are clear. No pleural effusion or pneumothorax. No lymphadenopathy. Abdomen/pelvis: There is no aortic dissection. All branches of the abdominal aorta are patent. Liver: Diffuse nutmeg appearance of the liver likely secondary to venous congestion. Gallbladder and Bile Ducts: Normal. Spleen: Normal. Pancreas: Normal. Adrenals: Normal. Kidneys: The kidneys are normal. A linear filling defect in the left renal vein (image 133, series 8) is likely secondary to flow artifact. Gastrointestinal: The stomach and visualized loops of large and small bowel areunremarkable. Mesentery/Peritoneum/Retroperitoneum: No free intraperitoneal air. No free fluid in the abdomen or pelvis. Bladder: Normal. Reproductive Organs: The prostate is normal. Bones: Scoliosis is present. Soft tissues: Normal. Impression: 1.No aortic dissection. 2.Congenital heart disease with post operative changes, better evaluatedon prior cardiac MRI. 3.Heterogeneous enhancement pattern of the liver, consistent withhepatic venous congestion secondary to heart disease. > Dictated by Mari Benoit DO (radiology services manager). IMaura MD have personally reviewed and interpreted this examination/study. > Interpreting Provider: Maura Unger MD on 09/26/2022 9:48 AM Jamee Roberts MD CT ORDERABLES * INR WHOLE BLOOD - POINT OF CARE (IP) STROKE (09/25/2022 9:12 PM [employer]) Only the most recent of2 resultswithin the time period is included. INR 1.2 0.9 - 1.2 09/25/2022 9:17 PM [employer] [facility] Device [id number] 09/25/2022 9:17 PM [employer] [facility] Scrap Drop Operator ID [id number] 09/25/2022 9:17 PM [employer] [facility] Blood BLOOD SPECIMEN / Unknown 09/25/2022 9:12 PM [employer] 09/25/2022 9:16 PM [employer] Jamee Roberts MD LAB - POINT OF CARE ORDERABLES [facility] [address] [place] [id number], [facility] [phone] * CT BRAIN - Stroke (09/25/2022 9:07 PM [employer]) Only the most recent of2 resultswithin the time period is included. Anatomical Region Laterality Modality Head Computed Tomogra phy 09/25/2022 9:10 PM [employer] Impressions 09/25/2022 10:07 PM [employer] IMPRESSION: No intracranial hemorrhage or other acute intracranial abnormality by CT Results of this exam were verbally discussed by Dr. Ambrose with Dr. Lorenz on 09/25/2022 9:11 PM for a Critical Stroke Protocol with readback confirmation and verification. The images were reviewed by attending physician Dr. Stephen Aguilar prior to this communication. IStephen MD have personally reviewed and interpreted this examination/study. > Interpreting Provider: Stephen Aguilar MD on 09/25/2022 10:07 PM Narrative 09/25/2022 10:07 PM [employer] PROCEDURE: CT BRAIN STROKE, DATE/TIME OF EXAM: 09/25/2022 9:13 PM, LOCATION [facility] INDICATION: Code Stroke EXAMINATION: CT scan of the head without intravenous contrast TECHNIQUE: CT of the head was performed without intravenous contrast according to standard protocol. CT dose reduction technique was used, including Automated Exposure Control. COMPARISON: CT head dated 10/06/2021 MRI brain without contrast dated 10/07/2021 FINDINGS: BRAIN PARENCHYMA: No acute hemorrhage, large vascular territory infarct, or mass effect. Mild cerebral volume loss, greater than expected for age. VENTRICLES/EXTRA-AXIAL SPACES: No ventriculomegaly or extra-axial collection. EXTRACRANIAL STRUCTURES: There is polypoid mucosal thickening in the left maxillary sinus. Normal bones and soft tissues. Visualized mastoids demonstrate no significant abnormality. Procedure Note Stephen Aguilar MD - 09/25/2022 PROCEDURE: CT BRAIN STROKE, DATE/TIME OF EXAM: 09/25/2022 9:13 PM, LOCATION [facility] INDICATION: Code Stroke EXAMINATION: CT scan of the head without intravenous contrast TECHNIQUE: CT of the head was performed without intravenous contrast according to standard protocol. CT dose reduction technique was used, including Automated Exposure Control. COMPARISON: CT head dated 10/06/2021 MRI brain without contrast dated 10/07/2021 FINDINGS: BRAIN PARENCHYMA: No acute hemorrhage, large vascular territory infarct,or mass effect. Mild cerebral volume loss, greater than expected for age. VENTRICLES/EXTRA-AXIAL SPACES: No ventriculomegaly or extra-axial collection. EXTRACRANIAL STRUCTURES: There is polypoid mucosal thickening in theleft maxillary sinus. Normal bones and soft tissues. Visualized mastoids demonstrate no significant abnormality. IMPRESSION: No intracranial hemorrhage or other acute intracranial abnormality by CT Results of this exam were verbally discussed by Dr. Ambrose with Dr. Lorenz on 09/25/2022 9:11 PM for a Critical Stroke Protocol with readback confirmation and verification. The images were reviewed by attending physician Dr. Stephen Aguilar prior to this communication. IStephen MD have personally reviewed and interpreted this examination/study. > Interpreting Provider: Stephen Aguilar MD on 09/25/2022 10:07 PM Jamee C Bitter MD CT ORDERABLES * GLUCOSE - POINT OF CARE (09/25/2022 9:06 PM [employer]) Only the most recent of2 resultswithin the time period is included. Glucose WB/POC 90 70 - 115 mg/dL 09/25/2022 9:07 PM [facility] Specimen Type Venous 09/25/2022 9:07 PM [facility] Blood BLOOD SPECIMEN / Unknown 09/25/2022 9:06 PM [employer] 09/25/2022 9:07 PM [employer] Provider Unknown LAB - POINT OF CARE ORDERABLES [address] [address], [facility] [phone] * (ABNORMAL) URINALYSIS W/MICROSCOPIC NO CULTURE (09/25/2022 6:17 PM [employer]) Color UA Yellow Straw, Yellow 09/25/2022 6:34 PM [facility] Clarity UA Clear Clear 09/25/2022 6:34 PM [facility] Specific [place] UA 1.018 1.005 - 1.030 09/25/2022 6:34 PM [facility] pH UA 6.0 5.0 - 8.0 pH 09/25/2022 6:34 PM [facility] Protein UA Negative Negative 09/25/2022 6:34 PM [facility] Glucose UA Negative Negative 09/25/2022 6:34 PM [facility] Ketone UA Negative Negative 09/25/2022 6:34 PM [facility] Bilirubin UA Negative Negative 09/25/2022 6:34 PM [facility] Blood UA Negative Negative 09/25/2022 6:34 PM [facility] Nitrite UA Negative Negative 09/25/2022 6:34 PM [facility] Leukocyte Esterase Negative Negative 09/25/2022 6:34 PM [facility] Urobilinogen UA 4.0(A) Negative mg/dL 09/25/2022 6:34 PM [facility] RBC UA 0-2 None Seen, 0-2, 3-5 /HPF 09/25/2022 6:34 PM [facility] WBC UA 0-5 None Seen, 0-5 /HPF 09/25/2022 6:34 PM [facility] Squamous Epithelial Cells UA 0-2 None Seen, 0-2, 3-5 /HPF 09/25/2022 6:34 PM [facility] Urine URINE SPECIMEN OBTAINED BY CLEAN CATCH PROCEDURE / Unknown Collection / Unknown 09/25/2022 6:17 PM [employer] 09/25/2022 6:22 PM [employer] [place] - 09/25/2022 6:34 PM [employer] Danica Arriaza MD LAB - URINALYSI S ORDERABLES [facility] [address] [place] [phone], [facility] [phone] * URINE DRUG SCREEN IMMUNOASSAY (09/25/2022 6:17 PM [employer]) Only the most recent of2 resultswithin the time period is included. Pathologist [facility] Amphetamines Screen Urine Negative Negative: < 1000 ng/mL 09/25/2022 6:48 PM [facility] Barbiturates Screen Urine Negative Negative: < 200 ng/mL 09/25/2022 6:48 PM [facility] Benzodiazepine Screen Urine Negative Negative: < 200 ng/mL 09/25/2022 6:48 PM [facility] Opiates Urine Negative Negative: < 300 ng/mL 09/25/2022 6:48 PM [facility] Cocaine Metabolites Urine Negative Negative: < 300 ng/mL 09/25/2022 6:48 PM [facility] Phencyclidine Screen Urine Negative Negative: < 25 ng/ml 09/25/2022 6:48 PM [facility] Cannabinoids Screen Urine Negative Negative: <50 ng/mL 09/25/2022 6:48 PM [facility] Methadone Screen Urine Negative Negative: < 300 ng/mL 09/25/2022 6:48 PM [facility] Fentanyl Screen Urine Negative Negative: <1.5 ng/mL 09/25/2022 6:48 PM [facility] Urine URINE / Unknown Collection / Unknown 09/25/2022 6:17 PM [employer] 09/25/2022 6:22 PM [employer] Narrative [facility] - 09/25/2022 6:48 PM [employer] The Urine Toxicology Screening Panel does not screen for Propoxyphene, Meprobamate, Carisoprodol, Trazodone, [id number] medications and/or volatiles (Acetone, Isopropanol, Methanol or Ethylene Glycol). Ethanol, Salicylate, Acetaminophen, Tricyclic Antidepressants and several therapeutic drugs may be individually assayed in serum or plasma specimen. Toxicology testing by the [facility] is an aid to medical diagnosis and treatment of patients. No documented chain of custody was maintained. Results are intended to be used for clinical purposes only. Danica Arriaza MD LAB - URINE ROBB BALA ORDERABLES Performing Organization Address City/[facility]/ZIP Co de Phone Number [address] [address], [facility] [phone] * TROPONIN-I HIGH SENSITIVE (09/25/2022 5:46 PM [employer]) Troponin I High Sensitive 3 <=35 ng/L 09/25/2022 6:27 PM [employer] [facility] Blood BLOOD SPECIMEN / Unknown Venipuncture / Unknown 09/25/2022 5:46 PM [employer] 09/25/2022 5:57 PM [employer] Danica Arriaza MD LAB - CHEMISTRY ORDERABLES Performing Organization Address City/[facility]/ZIP Co de Phone Number [address] [address], [facility] [phone] * PTT [facility] (09/25/2022 5:46 PM [employer]) Only the most recent of2 resultswithin the time period is included. APTT 30.7 23.0 - 38.4 Seconds 09/25/2022 6:10 PM [facility] Comment:Suggested therapeuti c range for full dose I.V. unfractionated heparin therapy for venous thromboembolism is 71 to 109 seconds. Blood BLOOD SPECIMEN / Unknown Venipuncture / Unknown 09/25/2022 5:46 PM [employer] 09/25/2022 6:00 PM [employer] Danica Arriaza MD LAB - COAGULATI ON ORDERABLES [facility] [address] [place] [address], [facility] [phone] * D-DIMER (09/25/2022 5:46 PM [employer]) Only the most recent of4 resultswithin the time period is included. D-Dimer Quantitative <0.27 <=0.50 mcg/mL FEU 09/25/2022 6:12 PM [employer] [facility] Comment: In the absence of clinical symptoms, a value less than or equal to 0.5 mcg/mL FEU significantly decreases the probability of PE/DVT (negative predictive value >95%). 1 mcg/mL FEU = 1 Fibrinogen Equivalent Unit (approximates 0.5 mcg/ml of D- Dimer). ISTH DIAGNOSTIC SCORING SYSTEM FOR DIC Score 0 1 2 3 Platelet Count(x10^3/uL) > 100 < 100 < 50 N/A PT Prolongation above upper limit of normal 0-3 3-6 > 6 N/A range (seconds) Fibrinogen (mg/dL) > 100 < 100 N/A N/A D-Dimer (mcg/mL FEU) < 0.50 N/A 0.50-5.0 > 5 Calculate Cumulative Score: > or = 5 :compatible with overt DIC < 5 :suggestive for non-overt DIC N/A = Non applicable Reference: Br. J. Haematol. 145:24-33,2009. Blood BLOOD SPECIMEN / Unknown Venipuncture / Unknown 09/25/2022 5:46 PM [employer] 09/25/2022 6:00 PM [employer] Danica Arriaza MD LAB - COAGULATI ON ORDERABLES Performing Organization Address City/[facility]/ZIP Co de Phone Number [address] [address], [facility] [phone] * PHOSPHORUS BLOOD (09/25/2022 5:46 PM [employer]) Only the most recent of2 resultswithin the time period is included. Phosphorus 2.9 2.8 - 5.1 mg/dL 09/25/2022 6:14 PM [employer] [facility] Blood BLOOD SPECIMEN / Unknown Venipuncture / Unknown 09/25/2022 5:46 PM [employer] 09/25/2022 6:01 PM [employer] Danica Arriaza MD LAB - CHEMISTRY ORDERABLES [address] [address], [facility] [phone] * MAGNESIUM BLOOD (09/25/2022 5:46 PM [employer]) Only the most recent of2 resultswithin the time period is included. Magnesium 2.0 1.6 - 2.6 mg/dL 09/25/2022 6:14 PM [employer] [facility] Blood BLOOD SPECIMEN / Unknown Venipuncture / Unknown 09/25/2022 5:46 PM [employer] 09/25/2022 6:01 PM [employer] Danica Arriaza MD LAB - CHEMISTRY ORDERABLES Performing Organization Address [facility] Co de Phone Number [address] [address], [facility] [phone] * ALCOHOL ETHYL BLOOD (09/25/2022 5:46 PM [employer]) Ethanol (mg/dL) <10 <=10 mg/dL 6:14 PM [employer] [facility] Ethanol Calculated (g/dL) <0.010 <0.010 g/dL 09/25/2022 6:14 PM [facility] Blood BLOOD SPECIMEN / Unknown Venipuncture / Unknown 09/25/2022 5:46 PM [employer] 09/25/2022 6:01 PM [employer] Narrative [facility] - 09/25/2022 6:14 PM [employer] Ethanol Interp <10: None Detected. Depression of EMPLOYMENT SERVICE SPECIALIST: >100 mg/dl Potentially Critical: >250 mg/dl Potentially Fatal >400 mg/dl Ethanol in the patient's blood will contribute to the osmolar gap. Ethanol's contribution to the osmolar gap can be estimated by dividing the concentration of ethanol in mg/dL by 4.6. This test is for clinical use only and does not equal a FIDEL for legal purposes. Danica Arriaza MD LAB - CHEMISTRY ORDERABLES Performing Organization Address City/[facility]/ZIP Co de Phone Number [address] [address], [facility] [phone] * CT HEAD WO CONTRAST (09/25/2022 5:38 PM [employer]) Only the most recent of3 resultswithin the time period is included. Anatomical Region Laterality Modality Head Computed Tomogra phy 09/26/2022 7:25 AM [employer] Impressions 09/26/2022 8:26 AM [employer] IMPRESSION: Diffuse cerebral volume loss, increased since 10/06/2021. A small area of hyperdensity within the inferior right lobe is likely artifactual. Frothy secretions in the right sphenoid sinus and scattered mucous retention cyst and mild mucosal thickening, can be seen in setting of acute sinusitis in the appropriate clinical setting. Preliminary results by Dr. Tammy Mukherjee discussed with Dr. Mandy Arriaza on 09/25/2022 at 1810 hours. > Dictated by aSlomon Armas (Certified Energy Manager) 09/26/2022 7:37 AM I, Damaris Quezada MD have personally reviewed and interpreted this examination/study. > Interpreting Provider: Damaris Quezada MD on 09/26/2022 8:26 AM Narrative 09/26/2022 8:26 AM [employer] PROCEDURE: CT HEAD WO CONTRAST, DATE/TIME OF EXAM: 09/25/2022 5:38 PM, LOCATION [facility] INDICATION: R53.1: Weakness ADDITIONAL CLINICAL INFORMATION: Additional: Patient presents to ED with chest pain, LUE weakness, and numbness. Patient has extensive cardiac history. COMPARISON: CT head without contrast 10/06/2021. TECHNICAL: Contiguous axial images obtained through the head without the administration of IV contrast. Coronal and sagittal images were post processed. DOSE: CTDI: 80.37 mGy, DLP: 1613.01 mGy-cm The reported CTDIvol (mGy) and DLP (mGy-cm) values are generated from scan acquisition factors based on 32 cm (body) or 16 cm (head) phantoms and may underestimate or overestimate the actual patient dose based on patient size and other factors. FINDINGS: Prominence of the ventricles and sulci, increased since 10/06/2021, compatible with cerebral volume loss. There is a small area of hyperdensity within the inferior right frontal lobe (series 2 image 11) that is only seen on one axial slice and not at all on the sagittal or coronal images. There is no intracranial mass effect. The ventricles are normal in size and configuration. No extra-axial fluid collection is evident. There is a mucous retention cyst within the left maxillary sinus and frothy secretions within the right sphenoid sinus. The remaining paranasal sinuses and mastoids are well aerated. The orbits, calvarium and soft tissues of the scalp are grossly unremarkable. Procedure Note Damaris Quezada MD - 09/26/2022 PROCEDURE: CT HEAD WO CONTRAST, DATE/TIME OF EXAM: 09/25/2022 5:38 PM, LOCATION [facility] INDICATION: R53.1: Weakness ADDITIONAL CLINICAL INFORMATION: Additional: Patient presents to ED with chest pain, LUE weakness, and numbness. Patient has extensive cardiac history. COMPARISON: CT head without contrast 10/06/2021. TECHNICAL: Contiguous axial images obtained through the head without the administration of IV contrast. Coronal and sagittal images were post processed. DOSE: CTDI: 80.37 mGy, DLP: 1613.01 mGy-cm The reported CTDIvol (mGy) and DLP (mGy-cm) values are generated fromscan acquisition factors based on 32 cm (body) or 16 cm (head) phantoms andmay underestimate or overestimate the actual patient dose based on patientsize and other factors. FINDINGS: Prominence of the ventricles and sulci, increased since 10/06/2021, compatible with cerebral volume loss. There is a small area ofhyperdensity within the inferior right frontal lobe (series 2 image 11) that is only seen on one axial slice and not at all on the sagittal or coronalimages. There is no intracranial mass effect. The ventricles are normal in sizeand configuration. No extra-axial fluid collection is evident. There is a mucous retention cyst within the left maxillary sinus andfrothy secretions within the right sphenoid sinus. The remaining paranasalsinuses and mastoids are well aerated. The orbits, calvarium and soft tissues of the scalp are grossly unremarkable. IMPRESSION: Diffuse cerebral volume loss, increased since 10/06/2021. A small area of hyperdensity within the inferior right lobe is likely artifactual. Frothy secretions in the right sphenoid sinus and scattered mucous retention cyst and mild mucosal thickening, can be seen in setting ofacute sinusitis in the appropriate clinical setting. Preliminary results by Dr. Tammy Mukherjee discussed with Dr.Kate Arriaza on 09/25/2022 at 1810 hours. > Dictated by Salomon Armas (Certified Energy Manager) 09/26/2022 7:37 AM IDamaris MD have personally reviewed and interpreted this examination/study. > Interpreting Provider: Damaris Quezada MD on 09/26/2022 8:26 AM Danica Arriaza MD CT ORDERABLES * EKG 15-LEAD (09/25/2022 5:18 PM [employer]) Only the most recent of11 resultswithin the time period is included. Ventricular Rate 102 BPM CG MUSE Atrial Rate 102 BPM CG MUSE P-R Interval 128 ms CG MUSE QRS Duration ms 110 ms CG MUSE Q-T Interval ms 362 ms CG MUSE QTC Calculation (Bezet) 471 ms CG MUSE Calculated P Minto 45 degrees CG MUSE Calculated R Minto 179 degrees CG MUSE Calculated T Minto 14 degrees CG MUSE Interpretation EKG Sinus tachycardia Right axis deviation Right bundle branch block When compared with ECG of 06-OCT-2021 14:40, No significant change was found Confirmed by MD Ramón, [facility] ([id number]) on 09/27/2022 4:19:32 PM CG MUSE 09/25/2022 5:18 PM [employer] 09/27/2022 4:19 PM [employer] Danica Arriaza MD ECG ORDERABLES CG MUSE * Critical Care (09/25/2022 5:04 PM [employer]) Narrative Danica Arriaza MD - 09/25/2022 5:04 PM [employer] Danica Arriaza MD 09/25/2022 8:26 PM Critical Care Performed by: Danica Arriaza MD Authorized by: Danica Arriaza MD Critical care provider statement: Critical care time (minutes): 45 Critical care was necessary to treat or prevent imminent or life-threatening deterioration of the following conditions: stroke evaluation. Critical care was time spent personally by me on the following activities: Development of treatment plan with patient or surrogate, discussions with consultants, evaluation of patient's response to treatment, examination of patient, obtaining history from patient or surrogate, ordering and review of laboratory studies, ordering and performing treatments and interventions, ordering and review of radiographic studies, pulse oximetry, re-evaluation of patient's condition and review of old charts Danica Arriaza MD PROCEDURE/MINOR SURGICAL ORDERABLES * MRA CHEST WITH CONTRAST (01/26/2022 9:22 AM CDT) Anatomical Region Laterality Modality Chest Magnetic Resonan ce 01/28/2022 5:27 PM CDT Impressions 01/28/2022 5:40 PM CDT Impression 1. Hypoplastic left heart syndrome (mitral stenosis, aortic stenosis) s/p Odilon with DKS anastomosis, s/p Oswald, s/p nonfenestrated Fontan. S/p aortic stent for recoarctation of the aorta. 2. SVC-RPA anastomosis (Oswald shunt) is widely patent. 3. The left and right pulmonary artery measure normal in size. 4. Proximal inferior vena cava is dilated. The extracardiac Fontan conduit is patent (Proximal inferior vena cava: 31 x 32 mm) (Extracardiac nonfenestrated Fontan conduit: 16 x 17 mm) (Descending aorta at the diaphragm: 13 x 14 mm) 5. The neoaortic root is normal in size. The ascending aorta is mildly dilated. The aortic arch narrows at the stented area to 1.1 x 1.2 cm. The area distal to the stent measures 1.5 x 1.5 cm. 6. Unobstructed aortopulmonary anastomosis ([id number]-[id number]-Btadlqy). 7. Mild neoaortic insufficiency. 8. The left superior vena cava is narrowed at the entrance to the coronary sinus. There are collaterals off of the left superior vena cava that course towards the paravertebral arteries. 9. Normal right ventricular size with normal right ventricular systolic function (RVEDV: 120 mL, RVEDVi: 74.5 mL/m2, RVEF: 61%) 10. Hypoplastic left ventricle with normal left ventricular systolic function (LVEDV: 32 mL, LVEDVi: 20 mL/m2, LVEF: 71%) Study was reviewed by Bc Maher MD and Argenis Payton MD > Interpreting Provider: Argenis Payton on 01/28/2022 5:40 PM Narrative 01/28/2022 5:40 PM CDT PROCEDURE: MRI CARDIAC STUDY WWO CONTRAST, MRI ANGIO CHEST W CONTRAST, DATE/TIME OF EXAM: 01/26/2022 9:22 AM, LOCATION [facility] INDICATION: Z98.890: Other specified postprocedural states ADDITIONAL CLINICAL INFORMATION: Ordering Provider Reason For Exam: Technologist Note: Additional: COMPARISON: None. Date of Study: 01/26/22 Name: Simba Guerrero Date of : 00 Weight: 55.1 kg Height: 167 cm BSA: 1.61 m2 Type of examination Cardiac MRI morphology and function, Chest MRA with contrast, flow quantification, 3D rendering with interpretation and reporting of MRI, requiring image postprocessing on an independent workstation. Weight: 55.1 kg, Height: 167 cm, BSA: 1.61 m2 History: 21.7 year [age] male with history of hypoplastic left heart syndrome (mitral stenosis, aortic stenosis) s/p three stage palliation with Odilon, Oswald, and extracardiac non-fenestrated Fontan procedure. S/p a 21 mm Roxanne stent in the aorta for re-coarctation of the aorta. 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 He had a suspected TIA. Indication: MRI was performed to evaluate collateral vessels. Sedation: No sedation was required. There were no adverse reactions. Comparison: None Technique: Using a 8 channel body coil on a 1.5 T [employer], the following sequences were performed: Three plane localizer. Cine IR, 3D whole heart FGRE IR during diastole. SSFP single shot axial stack, SSFP cine: 2 chamber left, 4 chamber, left ventricular outflow tract, right ventricular outflow tract, sagittal. 170 mg of ferumoxytol (3.09 mg/kg) (8 mg/mL dilution, 21.25 mL total) was administered as a slow infusion over 15 minutes. MRA information was acquired afterwards, and MIP, MPR, and 3D surface rendering, post-processing techniques were performed later. Findings: The heart position is levocardic. The stomach is on the left. The liver is on the right. The right superior vena cava is connected to the Oswald anastomosis without obstruction. Left sided superior vena cava is narrowed at the entrance to the coronary sinus. There are collaterals off of the left superior vena cava that course towards the paravertebral arteries. The inferior vena cava is on the right. There is a patent Fontan conduit without a fenestration.The inferior vena cava measures 3.1 x 3.2 cm. The Fontan conduit measures 1.7 x 1.6 cm. The right superior vena cava measures 1.3 x 1.3 cm. There is a large secundum atrial septal defect. The right atrium is normal in size. The left atrium is small. The tricuspid valve is normal. The right ventricle is normal in size and function. Right ventricular outflow tract is widely patent. The neoaortic valve has mild neoaortic insufficiency. The neoaortic root is mildly dilated, measuring 3.1 x 3.2 x 3.3 cm in diameter. The ascending neoaorta proximal to the aortopulmonary anastomosis is mildly dilated, measuring 2.9 x 3.2 cm. The [place] aortic valve measures normal in size, and the [place] aortic root measures 2.7 x 2.7x 2.6 cm in diameter. The aortopulmonary anastomosis is widely patent. The ascending aorta distal to the aortopulmonary anastomosis is dilated 3.1 x 3.5 cm. There is metallic artifact that obscures part of the ascending aorta and first head and neck branch. The aortic arch is left-sided with normal branching. The distal transverse measures normal in size. The aortic arch isthmus is stented with a borderline small in-stent area of 1.1 x 1.2 cm (MRI can overestimate in-stent stenosis due to Faraday cage). There is post stent dilation measuring 1.5 x 1.5 cm. No aneurysm or dissection of the aortic arch is seen. Four pulmonary veins are seen. The pulmonary veins return to the left atrium. The left atrium is normal. The left ventricle is near apex forming and mild to moderately hypoplastic. There is normal left ventricular systolic function. The left ventricular outflow tract is narrowed. The coronary arteries have normal origins. Patent ductus arteriosus is not present. Pericardial effusion is not present. There is artifact present at the level of the innominate vein. There is scoliosis. Madhuri-aortic Root measurements: Sinus of Valsalva: 2.7 x 2.7 x 2.6cm (z-score: 0.3; normal range: 2.06 - 3.19 cm) ST Junction: 1.9 x 1.9cm (z-score: -1.4; normal range: 1.76 - 2.77 cm) Arch Measurements: Ascending aorta at the level of the branch pulmonary arteries: 3.1 x 3.5cm (z-score: 3.2; normal range: 1.83 - 2.94 cm) Distal Transverse Arch: 1.7 x 1.7cm (z-score: -1; normal range: 1.48 - 2.4 cm) In stent aortic arch: 1.1 x 1.2cm (z-score: -1.8; normal range: 1.06 - 2.08 cm) Descending aorta post stent: 1.5 x 1.5 cm Aorta at the diaphragm: 1.4 x 1.3cm Pulmonary Measurements: Neoaortic valve: 2.9 x 2.3cm (z-score: 2; normal range: 1.74 - 2.9 cm) Neoaortic ascending aorta prior to the DKS anastomosis: 2.9 x 3.2cm Left pulmonary artery: 1.5 x 1.3cm (z-score: 0.8; normal range: 0.89 - 1.76 cm) Right pulmonary artery: 1.4 x 1.3cm (z-score: 0; normal range: 0.99 - 1.83 cm) Atrioventricular Valve Measurements: Mitral annulus 2.2 cm (z-score: -1.1; normal range: 1.82 - 3.51 cm) Tricuspid annulus 3.3 cm (z-score: 1.4; normal range: 2.04 - 3.5 cm) Left Ventricular Functional Analysis: LV end diastolic volume: 32.16 mL LVEDV/BSA: 20 ml/m2 (z-score: -4.2, normal range: 53 - 112 ml/m2) LV end systolic volume: 9.4 mL LV end systolic volume/BSA: 5.8 mL/m2 LV Stroke volume: 22.8 mL LV ejection fraction:70.9% (normal: 55-73%) LV end diastolic mass: 78g LV Mass/BSA: 48.4 g/m2 (z-score: -1.8, normal range: 46 - 83 g/m2) Right Ventricular Functional Analysis: RV end diastolic volume: 120 mL RVEDV/BSA: 74.5 ml/m2 (z-score: -0.8, normal range: 58 - 114 ml/m2) RV end systolic volume: 47 mL RV end systolic volume/BSA: 29.2 mL/m2 RV Stroke volume: 73 mL Right Ventricular ejection fraction: 60.8% (normal: 48-63%) Phase Contrast: pulmonary valve Velocity: 1.3 m/s Net flow: 63 mL/beat Antegrade Flow: 70 mL/beat Retrograde Flow: 7 mL/beat Regurgitant Fraction: 10% Procedure Note Argenis Payton MD - 01/28/2022 PROCEDURE: MRI CARDIAC STUDY WWO CONTRAST, MRI ANGIO CHEST W CONTRAST, DATE/TIME OF EXAM: 01/26/2022 9:22 AM, [facility] INDICATION: Z98.890: Other specified postprocedural states ADDITIONAL CLINICAL INFORMATION: Ordering Provider Reason For Exam: Technologist Note: Additional: COMPARISON: None. Date of Study: 01/26/22 Name: Simba Guerrero Date of : 00 Weight: 55.1 kg Height: 167 cm BSA: 1.61 m2 Type of examination Cardiac MRI morphology and function, Chest MRA with contrast, flow quantification, 3D rendering with interpretation and reporting of MRI, requiring image postprocessing on an independent workstation. Weight: 55.1 kg, Height: 167 cm, BSA: 1.61 m2 History: 21.7 year old male with history of hypoplastic left heart syndrome(mitral stenosis, aortic stenosis) s/p three stage palliation with [place],Oswald, and extracardiac non-fenestrated Fontan procedure. S/p a 21 mm Roxanne stent in the aorta for re-coarctation of the aorta. 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 He had a suspected TIA. Indication: MRI was performed to evaluate collateral vessels. Sedation: No sedation was required. There were no adverse reactions. Comparison: None Technique: Using a 8 channel body coil on a 1.5 T [employer], the following sequences were performed: Three plane localizer. Cine IR, 3D whole heart FGRE IR during diastole. SSFP single shot axial stack, SSFP cine: 2 chamber left, 4 chamber, left ventricular outflow tract, right ventricularoutflow tract, sagittal. 170 mg of ferumoxytol (3.09 mg/kg) (8 mg/mL dilution, 21.25 mL total) was administered as a slow infusion over 15 minutes.MRA information was acquired afterwards, and MIP, MPR, and 3D surface rendering, post-processing techniques were performed later. Findings: The heart position is levocardic. The stomach is on the left. Theliver is on the right. The right superior vena cava is connected to theGlenn anastomosis without obstruction. Left sided superior vena cava isnarrowed at the entrance to the coronary sinus. There are collaterals off of the left superior vena cava that course towards the paravertebral arteries. The inferior vena cava is on the right. There is a patent Fontan conduit without a fenestration.The inferior vena cava measures 3.1 x 3.2 cm. The Fontan conduit measures 1.7 x 1.6 cm. The right superior vena cavameasures 1.3 x 1.3 cm. There is a large secundum atrial septal defect. The right atrium is normal in size. The left atrium is small. The tricuspid valveis normal. The right ventricle is normal in size and function. Right ventricular outflow tract is widely patent. The neoaortic valve has mild neoaortic insufficiency. The neoaorticroot is mildly dilated, measuring 3.1 x 3.2 x 3.3 cm in diameter. Theascending neoaorta proximal to the aortopulmonary anastomosis is mildly dilated, measuring 2.9 x 3.2 cm. The [place] aortic valve measures normal insize, and the [place] aortic root measures 2.7 x 2.7x 2.6 cm in diameter. The aortopulmonary anastomosis is widely patent. The ascending aorta distalto the aortopulmonary anastomosis is dilated 3.1 x 3.5 cm. There ismetallic artifact that obscures part of the ascending aorta and first head andneck branch. The aortic arch is left-sided with normal branching. The distal transverse measures normal in size. The aortic arch isthmus is stentedwith a borderline small in-stent area of 1.1 x 1.2 cm (MRI can overestimate in-stent stenosis due to Faraday cage). There is post stent dilation measuring 1.5 x 1.5 cm. No aneurysm or dissection of the aortic arch is seen. Four pulmonary veins are seen. The pulmonary veins return to the left atrium. The left atrium is normal. The left ventricle is near apex forming and mild to moderately hypoplastic. There is normal left ventricular systolic function. The left ventricular outflow tract is narrowed. The coronary arteries have normal origins. Patent ductus arteriosus is not present. Pericardial effusion is not present. Thereis artifact present at the level of the innominate vein. There is scoliosis. Madhuri-aortic Root measurements: Sinus of Valsalva: 2.7 x 2.7 x 2.6cm (z-score: 0.3; normal range:2.06 - 3.19 cm) ST Junction: 1.9 x 1.9cm (z-score: -1.4; normal range: 1.76 - 2.77cm) Arch Measurements: Ascending aorta at the level of the branch pulmonary arteries: 3.1 x 3.5cm (z-score: 3.2; normal range: 1.83 - 2.94 cm) Distal Transverse Arch: 1.7 x 1.7cm (z-score: -1; normal range: 1.48- 2.4 cm) In stent aortic arch: 1.1 x 1.2cm (z-score: -1.8; normal range: 1.06- 2.08 cm) Descending aorta post stent: 1.5 x 1.5 cm Aorta at the diaphragm: 1.4 x 1.3cm Pulmonary Measurements: Neoaortic valve: 2.9 x 2.3cm (z-score: 2; normal range: 1.74 - 2.9cm) Neoaortic ascending aorta prior to the DKS anastomosis: 2.9 x 3.2cm Left pulmonary artery: 1.5 x 1.3cm (z-score: 0.8; normal range: 0.89- 1.76 cm) Right pulmonary artery: 1.4 x 1.3cm (z-score: 0; normal range: 0.99- 1.83 cm) Atrioventricular Valve Measurements: Mitral annulus 2.2 cm (z-score: -1.1; normal range: 1.82 - 3.51 cm) Tricuspid annulus 3.3 cm (z-score: 1.4; normal range: 2.04 - 3.5cm) Left Ventricular Functional Analysis: LV end diastolic volume: 32.16 mL LVEDV/BSA: 20 ml/m2 (z-score: -4.2, normal range: 53 - 112 ml/m2) LV end systolic volume: 9.4 mL LV end systolic volume/BSA: 5.8 mL/m2 LV Stroke volume: 22.8 mL LV ejection fraction:70.9% (normal: 55-73%) LV end diastolic mass: 78g LV Mass/BSA: 48.4 g/m2 (z-score: -1.8, normal range: 46 - 83 g/m2) Right Ventricular Functional Analysis: RV end diastolic volume: 120 mL RVEDV/BSA: 74.5 ml/m2 (z-score: -0.8, normal range: 58 - 114 ml/m2) RV end systolic volume: 47 mL RV end systolic volume/BSA: 29.2 mL/m2 RV Stroke volume: 73 mL Right Ventricular ejection fraction: 60.8% (normal: 48-63%) Phase Contrast: pulmonary valve Velocity: 1.3 m/s Net flow: 63 mL/beat Antegrade Flow: 70 mL/beat Retrograde Flow: 7 mL/beat Regurgitant Fraction: 10% Impression 1. Hypoplastic left heart syndrome (mitral stenosis, aortic stenosis)s/p Odilon with DKS anastomosis, s/p Oswald, s/p nonfenestrated Fontan. S/p aortic stent for recoarctation of the aorta. 2. SVC-RPA anastomosis (Oswald shunt) is widely patent. 3. The left and right pulmonary artery measure normal in size. 4. Proximal inferior vena cava is dilated. The extracardiac Fontanconduit is patent (Proximal inferior vena cava: 31 x 32 mm) (Extracardiac nonfenestrated Fontan conduit: 16 x 17 mm) (Descending aorta at the diaphragm: 13 x 14 mm) 5. The neoaortic root is normal in size. The ascending aorta is mildly dilated. The aortic arch narrows at the stented area to 1.1 x 1.2 cm.The area distal to the stent measures 1.5 x 1.5 cm. 6. Unobstructed aortopulmonary anastomosis (Aenrq-Uvjq-Qhfzjmh). 7. Mild neoaortic insufficiency. 8. The left superior vena cava is narrowed at the entrance to thecoronary sinus. There are collaterals off of the left superior vena cava thatcourse towards the paravertebral arteries. 9. Normal right ventricular size with normal right ventricular systolic function (RVEDV: 120 mL, RVEDVi: 74.5 mL/m2, RVEF: 61%) 10. Hypoplastic left ventricle with normal left ventricular systolic function (LVEDV: 32 mL, LVEDVi: 20 mL/m2, LVEF: 71%) Study was reviewed by Bc Maher MD and Argenis Payton MD > Interpreting Provider: Argenis Payton on 01/28/2022 5:40 PM Sharron Mendez MD MR [facility] * MRI CARDIAC STUDY WWO CONTRAST (01/26/2022 9:21 AM CDT) Anatomical Region Laterality Modality Chest Magnetic Resonan ce 01/28/2022 5:27 PM CDT Impressions 01/28/2022 5:40 PM CDT Impression 1. Hypoplastic left heart syndrome (mitral stenosis, aortic stenosis) s/p Odilon with DKS anastomosis, s/p Oswald, s/p nonfenestrated Fontan. S/p aortic stent for recoarctation of the aorta. 2. SVC-RPA anastomosis (Oswald shunt) is widely patent. 3. The left and right pulmonary artery measure normal in size. 4. Proximal inferior vena cava is dilated. The extracardiac Fontan conduit is patent (Proximal inferior vena cava: 31 x 32 mm) (Extracardiac nonfenestrated Fontan conduit: 16 x 17 mm) (Descending aorta at the diaphragm: 13 x 14 mm) 5. The neoaortic root is normal in size. The ascending aorta is mildly dilated. The aortic arch narrows at the stented area to 1.1 x 1.2 cm. The area distal to the stent measures 1.5 x 1.5 cm. 6. Unobstructed aortopulmonary anastomosis (Smtae-Hixu-Xnudpqm). 7. Mild neoaortic insufficiency. 8. The left superior vena cava is narrowed at the entrance to the coronary sinus. There are collaterals off of the left superior vena cava that course towards the paravertebral arteries. 9. Normal right ventricular size with normal right ventricular systolic function (RVEDV: 120 mL, RVEDVi: 74.5 mL/m2, RVEF: 61%) 10. Hypoplastic left ventricle with normal left ventricular systolic function (LVEDV: 32 mL, LVEDVi: 20 mL/m2, LVEF: 71%) Study was reviewed by Bc Maher MD and Argenis Payton MD > Interpreting Provider: Argenis Payton on 01/28/2022 5:40 PM Narrative 01/28/2022 5:40 PM CDT PROCEDURE: MRI CARDIAC STUDY WWO CONTRAST, MRI ANGIO CHEST W CONTRAST, DATE/TIME OF EXAM: 01/26/2022 9:22 AM, LOCATION [facility] INDICATION: Z98.890: Other specified postprocedural states ADDITIONAL CLINICAL INFORMATION: Ordering Provider Reason For Exam: Technologist Note: Additional: COMPARISON: None. Date of Study: 01/26/22 Name: Simba Guerrero Date of : 00 Weight: 55.1 kg Height: 167 cm BSA: 1.61 m2 Type of examination Cardiac MRI morphology and function, Chest MRA with contrast, flow quantification, 3D rendering with interpretation and reporting of MRI, requiring image postprocessing on an independent workstation. Weight: 55.1 kg, Height: 167 cm, BSA: 1.61 m2 History: 21.7 year old male with history of hypoplastic left heart syndrome (mitral stenosis, aortic stenosis) s/p three stage palliation with Odilon, Oswald, and extracardiac non-fenestrated Fontan procedure. S/p a 21 mm Roxanne stent in the aorta for re-coarctation of the aorta. 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 He had a suspected TIA. Indication: MRI was performed to evaluate collateral vessels. Sedation: No sedation was required. There were no adverse reactions. Comparison: None Technique: Using a 8 channel body coil on a 1.5 T [employer], the following sequences were performed: Three plane localizer. Cine IR, 3D whole heart FGRE IR during diastole. SSFP single shot axial stack, SSFP cine: 2 chamber left, 4 chamber, left ventricular outflow tract, right ventricular outflow tract, sagittal. 170 mg of ferumoxytol (3.09 mg/kg) (8 mg/mL dilution, 21.25 mL total) was administered as a slow infusion over 15 minutes. MRA information was acquired afterwards, and MIP, MPR, and 3D surface rendering, post-processing techniques were performed later. Findings: The heart position is levocardic. The stomach is on the left. The liver is on the right. The right superior vena cava is connected to the Oswald anastomosis without obstruction. Left sided superior vena cava is narrowed at the entrance to the coronary sinus. There are collaterals off of the left superior vena cava that course towards the paravertebral arteries. The inferior vena cava is on the right. There is a patent Fontan conduit without a fenestration.The inferior vena cava measures 3.1 x 3.2 cm. The Fontan conduit measures 1.7 x 1.6 cm. The right superior vena cava measures 1.3 x 1.3 cm. There is a large secundum atrial septal defect. The right atrium is normal in size. The left atrium is small. The tricuspid valve is normal. The right ventricle is normal in size and function. Right ventricular outflow tract is widely patent. The neoaortic valve has mild neoaortic insufficiency. The neoaortic root is mildly dilated, measuring 3.1 x 3.2 x 3.3 cm in diameter. The ascending neoaorta proximal to the aortopulmonary anastomosis is mildly dilated, measuring 2.9 x 3.2 cm. The [place] nation aortic valve measures normal in size, and the [place] aortic root measures 2.7 x 2.7x 2.6 cm in diameter. The aortopulmonary anastomosis is widely patent. The ascending aorta distal to the aortopulmonary anastomosis is dilated 3.1 x 3.5 cm. There is metallic artifact that obscures part of the ascending aorta and first head and neck branch. The aortic arch is left-sided with normal branching. The distal transverse measures normal in size. The aortic arch isthmus is stented with a borderline small in-stent area of 1.1 x 1.2 cm (MRI can overestimate in-stent stenosis due to Faraday cage). There is post stent dilation measuring 1.5 x 1.5 cm. No aneurysm or dissection of the aortic arch is seen. Four pulmonary veins are seen. The pulmonary veins return to the left atrium. The left atrium is normal. The left ventricle is near apex forming and mild to moderately hypoplastic. There is normal left ventricular systolic function. The left ventricular outflow tract is narrowed. The coronary arteries have normal origins. Patent ductus arteriosus is not present. Pericardial effusion is not present. There is artifact present at the level of the innominate vein. There is scoliosis. Madhuri-aortic Root measurements: Sinus of Valsalva: 2.7 x 2.7 x 2.6cm (z-score: 0.3; normal range: 2.06 - 3.19 cm) ST Junction: 1.9 x 1.9cm (z-score: -1.4; normal range: 1.76 - 2.77 cm) Arch Measurements: Ascending aorta at the level of the branch pulmonary arteries: 3.1 x 3.5cm (z-score: 3.2; normal range: 1.83 - 2.94 cm) Distal Transverse Arch: 1.7 x 1.7cm (z-score: -1; normal range: 1.48 - 2.4 cm) In stent aortic arch: 1.1 x 1.2cm (z-score: -1.8; normal range: 1.06 - 2.08 cm) Descending aorta post stent: 1.5 x 1.5 cm Aorta at the diaphragm: 1.4 x 1.3cm Pulmonary Measurements: Neoaortic valve: 2.9 x 2.3cm (z-score: 2; normal range: 1.74 - 2.9 cm) Neoaortic ascending aorta prior to the DKS anastomosis: 2.9 x 3.2cm Left pulmonary artery: 1.5 x 1.3cm (z-score: 0.8; normal range: 0.89 - 1.76 cm) Right pulmonary artery: 1.4 x 1.3cm (z-score: 0; normal range: 0.99 - 1.83 cm) Atrioventricular Valve Measurements: Mitral annulus 2.2 cm (z-score: -1.1; normal range: 1.82 - 3.51 cm) Tricuspid annulus 3.3 cm (z-score: 1.4; normal range: 2.04 - 3.5 cm) Left Ventricular Functional Analysis: LV end diastolic volume: 32.16 mL LVEDV/BSA: 20 ml/m2 (z-score: -4.2, normal range: 53 - 112 ml/m2) LV end systolic volume: 9.4 mL LV end systolic volume/BSA: 5.8 mL/m2 LV Stroke volume: 22.8 mL LV ejection fraction:70.9% (normal: 55-73%) LV end diastolic mass: 78g LV Mass/BSA: 48.4 g/m2 (z-score: -1.8, normal range: 46 - 83 g/m2) Right Ventricular Functional Analysis: RV end diastolic volume: 120 mL RVEDV/BSA: 74.5 ml/m2 (z-score: -0.8, normal range: 58 - 114 ml/m2) RV end systolic volume: 47 mL RV end systolic volume/BSA: 29.2 mL/m2 RV Stroke volume: 73 mL Right Ventricular ejection fraction: 60.8% (normal: 48-63%) Phase Contrast: pulmonary valve Velocity: 1.3 m/s Net flow: 63 mL/beat Antegrade Flow: 70 mL/beat Retrograde Flow: 7 mL/beat Regurgitant Fraction: 10% Procedure Note Argenis Payton MD - 01/28/2022 PROCEDURE: MRI CARDIAC STUDY WWO CONTRAST, MRI ANGIO CHEST W CONTRAST, DATE/TIME OF EXAM: 01/26/2022 9:22 AM, LOCATION [facility] INDICATION: Z98.890: Other specified postprocedural states ADDITIONAL CLINICAL INFORMATION: Ordering Provider Reason For Exam: Technologist Note: Additional: COMPARISON: None. Date of Study: 01/26/22 Name: Simba Guerrero Date of : [birth year] Weight: 55.1 kg Height: 167 cm BSA: 1.61 m2 Type of examination Cardiac MRI morphology and function, Chest MRA with contrast, flow quantification, 3D rendering with interpretation and reporting of MRI, requiring image postprocessing on an independent workstation. Weight: 55.1 kg, Height: 167 cm, BSA: 1.61 m2 History: 21.7 year old male with history of hypoplastic left heart syndrome(mitral stenosis, aortic stenosis) s/p three stage palliation with [place],Oswald, and extracardiac non-fenestrated Fontan procedure. S/p a 21 mm Roxanne stent in the aorta for re-coarctation of the aorta. 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 He had a suspected TIA. Indication: MRI was performed to evaluate collateral vessels. Sedation: No sedation was required. There were no adverse reactions. Comparison: None Technique: Using a 8 channel body coil on a 1.5 T [employer], the following sequences were performed: Three plane localizer. Cine IR, 3D whole heart FGRE IR during diastole. SSFP single shot axial stack, SSFP cine: 2 chamber left, 4 chamber, left ventricular outflow tract, right ventricularoutflow tract, sagittal. 170 mg of ferumoxytol (3.09 mg/kg) (8 mg/mL dilution, 21.25 mL total) was administered as a slow infusion over 15 minutes.MRA information was acquired afterwards, and MIP, MPR, and 3D surface rendering, post-processing techniques were performed later. Findings: The heart position is levocardic. The stomach is on the left. Theliver is on the right. The right superior vena cava is connected to theGlenn anastomosis without obstruction. Left sided superior vena cava isnarrowed at the entrance to the coronary sinus. There are collaterals off of the left superior vena cava that course towards the paravertebral arteries. The inferior vena cava is on the right. There is a patent Fontan conduit without a fenestration.The inferior vena cava measures 3.1 x 3.2 cm. The Fontan conduit measures 1.7 x 1.6 cm. The right superior vena cavameasures 1.3 x 1.3 cm. There is a large secundum atrial septal defect. The right atrium is normal in size. The left atrium is small. The tricuspid valveis normal. The right ventricle is normal in size and function. Right ventricular outflow tract is widely patent. The neoaortic valve has mild neoaortic insufficiency. The neoaorticroot is mildly dilated, measuring 3.1 x 3.2 x 3.3 cm in diameter. Theascending neoaorta proximal to the aortopulmonary anastomosis is mildly dilated, measuring 2.9 x 3.2 cm. The [place] aortic valve measures normal insize, and the [place] aortic root measures 2.7 x 2.7x 2.6 cm in diameter. The aortopulmonary anastomosis is widely patent. The ascending aorta distalto the aortopulmonary anastomosis is dilated 3.1 x 3.5 cm. There ismetallic artifact that obscures part of the ascending aorta and first head andneck branch. The aortic arch is left-sided with normal branching. The distal transverse measures normal in size. The aortic arch isthmus is stentedwith a borderline small in-stent area of 1.1 x 1.2 cm (MRI can overestimate in-stent stenosis due to Faraday cage). There is post stent dilation measuring 1.5 x 1.5 cm. No aneurysm or dissection of the aortic arch is seen. Four pulmonary veins are seen. The pulmonary veins return to the left atrium. The left atrium is normal. The left ventricle is near apex forming and mild to moderately hypoplastic. There is normal left ventricular systolic function. The left ventricular outflow tract is narrowed. The coronary arteries have normal origins. Patent ductus arteriosus is not present. Pericardial effusion is not present. Thereis artifact present at the level of the innominate vein. There is scoliosis. Madhuri-aortic Root measurements: Sinus of Valsalva: 2.7 x 2.7 x 2.6cm (z-score: 0.3; normal range:2.06 - 3.19 cm) ST Junction: 1.9 x 1.9cm (z-score: -1.4; normal range: 1.76 - 2.77cm) Arch Measurements: Ascending aorta at the level of the branch pulmonary arteries: 3.1 x 3.5cm (z-score: 3.2; normal range: 1.83 - 2.94 cm) Distal Transverse Arch: 1.7 x 1.7cm (z-score: -1; normal range: 1.48- 2.4 cm) In stent aortic arch: 1.1 x 1.2cm (z-score: -1.8; normal range: 1.06- 2.08 cm) Descending aorta post stent: 1.5 x 1.5 cm Aorta at the diaphragm: 1.4 x 1.3cm Pulmonary Measurements: Neoaortic valve: 2.9 x 2.3cm (z-score: 2; normal range: 1.74 - 2.9cm) Neoaortic ascending aorta prior to the DKS anastomosis: 2.9 x 3.2cm Left pulmonary artery: 1.5 x 1.3cm (z-score: 0.8; normal range: 0.89- 1.76 cm) Right pulmonary artery: 1.4 x 1.3cm (z-score: 0; normal range: 0.99- 1.83 cm) Atrioventricular Valve Measurements: Mitral annulus 2.2 cm (z-score: -1.1; normal range: 1.82 - 3.51 cm) Tricuspid annulus 3.3 cm (z-score: 1.4; normal range: 2.04 - 3.5cm) Left Ventricular Functional Analysis: LV end diastolic volume: 32.16 mL LVEDV/BSA: 20 ml/m2 (z-score: -4.2, normal range: 53 - 112 ml/m2) LV end systolic volume: 9.4 mL LV end systolic volume/BSA: 5.8 mL/m2 LV Stroke volume: 22.8 mL LV ejection fraction:70.9% (normal: 55-73%) LV end diastolic mass: 78g LV Mass/BSA: 48.4 g/m2 (z-score: -1.8, normal range: 46 - 83 g/m2) Right Ventricular Functional Analysis: RV end diastolic volume: 120 mL RVEDV/BSA: 74.5 ml/m2 (z-score: -0.8, normal range: 58 - 114 ml/m2) RV end systolic volume: 47 mL RV end systolic volume/BSA: 29.2 mL/m2 RV Stroke volume: 73 mL Right Ventricular ejection fraction: 60.8% (normal: 48-63%) Phase Contrast: pulmonary valve Velocity: 1.3 m/s Net flow: 63 mL/beat Antegrade Flow: 70 mL/beat Retrograde Flow: 7 mL/beat Regurgitant Fraction: 10% Impression 1. 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 S/p aortic stent for recoarctation of the aorta. 2. SVC-RPA anastomosis (Oswald shunt) is widely patent. 3. The left and right pulmonary artery measure normal in size. 4. Proximal inferior vena cava is dilated. The extracardiac Fontanconduit is patent (Proximal inferior vena cava: 31 x 32 mm) (Extracardiac nonfenestrated Fontan conduit: 16 x 17 mm) (Descending aorta at the diaphragm: 13 x 14 mm) 5. The neoaortic root is normal in size. The ascending aorta is mildly dilated. The aortic arch narrows at the stented area to 1.1 x 1.2 cm.The area distal to the stent measures 1.5 x 1.5 cm. 6. Unobstructed aortopulmonary anastomosis ([place]). 7. Mild neoaortic insufficiency. 8. The left superior vena cava is narrowed at the entrance to thecoronary sinus. There are collaterals off of the left superior vena cava thatcourse towards the paravertebral arteries. 9. Normal right ventricular size with normal right ventricular systolic function (RVEDV: 120 mL, RVEDVi: 74.5 mL/m2, RVEF: 61%) 10. Hypoplastic left ventricle with normal left ventricular systolic function (LVEDV: 32 mL, LVEDVi: 20 mL/m2, LVEF: 71%) Study was reviewed by Bc Maher MD and Argenis Payton MD > Interpreting Provider: Argenis Payton on 01/28/2022 5:40 PM Sharron BLACKMON [facility] * TROPONIN I (10/06/2021 11:51 PM [employer]) Only the most recent of7 resultswithin the time period is included. Troponin I <0.010 <0.032 ng/mL 10/07/2021 2:01 AM [employer] [facility] Blood BLOOD SPECIMEN / Unknown Lab Venipuncture / Unknown 10/06/2021 11:51 PM [employer] 10/07/2021 1:32 AM [employer] Sarah Schaefer PA-C LAB - CHEMISTRY [facility] [address] [address], [facility] [phone] * BLOOD TYPE VERIFICATION (10/06/2021 5:18 PM [employer]) ABO Rh A POS 10/06/2021 6:4 3 PM [employer] [facility] Blood Bank BLOOD SPECIMEN / Unknown Lab Venipuncture / Unknown 10/06/2021 5:18 PM [employer] 10/06/2021 5:34 PM [employer] Provider Unknown LAB - BLOOD BANK ORD ERAGRACIELA [facility] [address] [place] [address], [facility] [phone] * (ABNORMAL) URINALYSIS REFLEX TO MICROSCOPIC NO CULTURE (10/06/2021 4:49 PM [employer]) Only the most recent of3 resultswithin the time period is included. Color UA Yellow Straw, Yellow 10/06/2021 5:08 PM [facility] Clarity UA Slt Cloudy(A) Clear 10/06/2021 5:08 PM [facility] Specific [place] UA 1.031(H) 1.005 - 1.030 10/06/2021 5:08 PM [facility] pH UA 7.0 5.0 - 8.0 pH 10/06/2021 5:08 PM [facility] Protein UA Negative Negative 10/06/2021 5:08 PM [facility] Glucose UA Negative Negative 10/06/2021 5:08 PM [facility] Ketone UA Negative Negative 10/06/2021 5:08 PM [facility] Bilirubin UA Negative Negative 10/06/2021 5:08 PM [facility] Blood UA Negative Negative 10/06/2021 5:08 PM [facility] Nitrite UA Negative Negative 10/06/2021 5:08 PM [facility] Leukocyte Esterase Negative Negative 10/06/2021 5:08 PM [facility] Urobilinogen UA 4.0(A) Negative mg/dL 10/06/2021 5:08 PM [facility] RBC UA 0-2 None Seen, 0-2, 3-5 /HPF 10/06/2021 5:08 PM [facility] WBC UA 0-5 None Seen, 0-5 /HPF 10/06/2021 5:08 PM [facility] Squamous Epithelial Cells UA None Seen None Seen, 0-2, 3-5 /HPF 10/06/2021 5:08 PM [facility] Mucus UA 1+ /LPF 10/06/2021 5:08 PM [facility] Urine URINE SPECIMEN OBTAINED BY CLEAN CATCH PROCEDURE / Unknown Collection / Unknown 10/06/2021 4:49 PM [employer] 10/06/2021 4:53 PM [employer] Narrative [facility] - 10/06/2021 5:08 PM [employer] Danny Goel MD LAB - URINALYSIS ORD ERABLES Performing Organization Address [facility]/ZIP Co de Phone Number [address] [address], [facility] [phone] * CREATININE - POCT INTERFACED (10/06/2021 4:13 PM [employer]) Creatinine POCT 0.90 0.30 - 1.30 mg/dL 10/07/2021 6:40 AM [employer] [facility] eGFR >90 >90 mL/min/1.7 3 m2 10/07/2021 6:40 AM [employer] [facility] Blood BLOOD SPECIMEN / Unknown 10/06/2021 4:13 PM [employer] 10/07/2021 6:40 AM [employer] Danny Goel MD LAB - POINT OF CARE ORDERABLES Performing Organization Address [facility] Co de Phone Number [address] [address], [facility] [phone] * ECHO CONSULT - PEDIATRIC (08/06/2021 2:27 PM [employer]) Only the most recent of19 resultswithin the time period is included. 08/06/2021 2:27 PM [employer] Narrative Procedure Note Sharron Mendez MD - 08/07/2021 [facility] [place] [address] Fax Congenital Transthoracic Report Pat.Name: ARTHUR SIMBAArias Bee.ID: [id number] St.Date: 08/06/2021 Refer.MD: Sharron Mendez Exam Time: 2:27:00 PM Study Type:Congenital TTE Height: 166.8cm Weight: 55.9kg BSA: 1.62 m2 Age: 10 2000,21Y Sex: MALE BP: 102/74 Sonogrphr: Jade Flores [facility] Pat. 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 Re-coarctation of the aorta s/p stenting. 1. Unobstructed IVC and Fontan conduit. 2. Central pulmonary artery patent. Superior vena cava, Oswald shunt, right pulmonary artery and left pulmonary artery were not well seen. 3. Small atrial septal defect with [id number] flow. 4. Small perimembranous VSD with jgub-kh-[id number] flow. 5. Narrowed [place] left ventricular outflow tract 6. No neoaortic stenosis or insufficiency. 7. Trace tricuspid insufficiency. 8. Hypertrophied right ventricle with normal right ventricular systolic function. 9. Mildly to moderately hypoplastic left ventricle with subjectively normal left ventricular systolic function. 10. No re-coarctation of the aorta Compared with prior exam from 05/11/2020, there has been no significant change. Findings: Anatomic Relationships: Abdominal situs solitus. There is levocardia. Atrial situs solitus. The AV alignment is concordant. The ventricular looping is D-looped. The VA connection is concordant. The arterial relationships are normal. Systemic Veins: Oswald shunt and branch pulmonary arteries not well visualized.. Patent Fontan conduit . Pulmonary Veins: At least two pulmonary veins drain to the left atrium. Right Atrium: The right atrial size is normal. Left Atrium: The left atrial size is normal. Atrial Septum: Small atrial septal defect. Left to right atrial shunt, mildly restrictive. Tricuspid Valve: The tricuspid valve is structurally normal. There is no stenosis. There is trivial regurgitation present. Mitral Valve: The mitral valve is mildly hypoplastic. There is antegrade flow across the valve. There is no regurgitation present. Right Ventricle: The cavity size is mildly dilated. The wall thickness is mildly increased. The systolic function is normal. RV Outflow Tract: The outflow tract is normal. Left Ventricle: The cavity size is mildly hypoplastic. Ventricular Septum: There is small perimembranous VSD defect with fjqt-[id number] flow shunting. Pulmonary Valve: This is the neoaortic valve and is structurally normal. There is no stenosis. There is no significant regurgitation present. Aortic Valve: The aortic valve is mildly hypoplastic. There is forward flow across the valve. There is no regurgitation present. Pulmonary Artery: The MPA is oversewn. The LPA is not well visualized. The RPA is not well visualized. Aorta: The aortic arch is s/p [place], stent in aorta. Normal Doppler velocities across the aortic arch. Coronary Arteries: Not visualized. Pericardium: No pericardial effusion. Signed 08/07/2021 07:16 PM Sharron Mendez MD Sharron Mendez MD [facility] [address] [phone] * MRI ANGIO NECK W CONTRAST (05/11/2020 4:15 PM CDT) Anatomical Region Laterality Modality Head Magnetic Resonan ce 05/12/2020 7:55 AM CDT Impressions 05/12/2020 10:41 AM CDT 1. No evidence of acute ischemia, hemorrhage, mass or midline shift. 2. A few punctate foci of T2/FLAIR hyperintensity of the left frontal lobe which are nonspecific but favored to represent tiny areas of gliosis from a prior insult. Punctate focus of gradient blooming within the left posterior frontal lobe likely represents hemosiderin deposition from a remote microhemorrhage. 3. Normal MRA of the head. 4. Normal MRA of the neck, where visualized. 5. These findings were discussed by Dr. Vazquez with Dr. Giordano at 5:53 PM on 05/11/2020. Dictated by Reddy Aguero on 05/12/2020 8:35 AM I, Ilia Reyes, have personally reviewed the images and I agree with this report. *Reading Radiologist: Ilia Reyes on 05/12/2020 at 10:41 AM Narrative 05/12/2020 10:41 AM CDT INDICATION: Weakness and numbness of the right upper and lower extremity. History of hypoplastic left heart status post repair. COMPARISON: Correlation with head CT dated 05/10/2020. TECHNIQUE: BRAIN MRI: Multiplanar, multisequence imaging of the brain was performed without IV contrast as per departmental protocol. HEAD MRA: A 3D time of flight MRA of the head was obtained. 3D reconstructions were performed of the anterior and posterior circulations using a separate workstation. NECK MRA: A 3D time of flight MRA of the neck was obtained. 3D reconstructions were performed using a separate workstation. FINDINGS: The brain parenchymal signal and morphology are normal. The myelination pattern is normal for patient age. Diffusion weighted imaging is normal. There is no intracranial mass or midline shift. There are a few tiny punctate foci of T2/FLAIR hyperintensity of the periventricular and subcortical white matter of the left frontal lobe (series 7 image 16). These demonstrate no additional signal abnormality. On GRE, there is a punctate area of gradient blooming artifact within the left posterior frontal lobe adjacent to the falx (series 9, image 16). On the prior CT, there are no abnormal calcifications or densities appreciated in this location. The corpus callosum is normal. The pineal and pituitary glands are normal. The posterior fossa is normal, including no tonsillar herniation. The ventricles and extra-axial spaces are normal in size and shape. The flow voids of the major intracranial vessels are patent. A time of flight MRA of the head demonstrates normal flow related enhancement within the major vessels of the [place]. Within limits of MRA, there is no evidence for aneurysm. The left A1 segment is hypoplastic with the right carotid artery providing dominant circulation the bilateral ACAs. Susceptibility artifact at the right lung apex and right lower neck obscures visualization of the origins of the right brachiocephalic artery, common carotid artery, subclavian artery and vertebral artery. The visualized portions of these vessels are patent and normal caliber. A time of flight MRA of the neck otherwise demonstrates normal flow related enhancement within the visualized major vessels. Within limits of MRA, there is no evidence for aneurysm or stenosis. The orbital structures are normal. There is mild scattered mucosal thickening/fluid signal within the paranasal sinuses. The middle ear cavities and mastoid air cells are clear. The imaged soft tissues of the face, neck and upper cervical spine are normal in signal and morphology. Procedure Note Ilia Reyes, DO - 05/12/2020 INDICATION: Weakness and numbness of the right upper and lower extremity. History of hypoplastic left heart status post repair. COMPARISON: Correlation with head CT dated 05/10/2020. TECHNIQUE: BRAIN MRI: Multiplanar, multisequence imaging of the brain was performed without IV contrast as per departmental protocol. HEAD MRA: A 3D time of flight MRA of the head was obtained. 3D reconstructions were performed of the anterior and posterior circulations using a separate workstation. NECK MRA: A 3D time of flight MRA of the neck was obtained. 3D reconstructions were performed using a separate workstation. FINDINGS: The brain parenchymal signal and morphology are normal. The myelination pattern is normal for patient age. Diffusion weighted imaging is normal. There is no intracranial mass or midline shift. There are a few tiny punctate foci of T2/FLAIR hyperintensity of the periventricular and subcortical white matter of the left frontal lobe (series 7 image 16). These demonstrate no additional signal abnormality. On GRE, there is a punctate area of gradient blooming artifact within the left posterior frontal lobe adjacent to the falx (series 9, image 16). On the prior CT, there are no abnormal calcifications or densities appreciated in this location. The corpus callosum is normal. The pineal and pituitary glands are normal. The posterior fossa is normal, including no tonsillar herniation. The ventricles and extra-axial spaces are normal in size and shape. The flow voids of the major intracranial vessels are patent. A time of flight MRA of the head demonstrates normal flow related enhancement within the major vessels of the [place]. Within limits of MRA, there is no evidence for aneurysm. The left A1 segment is hypoplastic with the right carotid artery providing dominant circulation the bilateral ACAs. Susceptibility artifact at the right lung apex and right lower neck obscures visualization of the origins of the right brachiocephalic artery, common carotid artery, subclavian artery and vertebral artery. The visualized portions of these vessels are patent and normal caliber. A time of flight MRA of the neck otherwise demonstrates normal flow related enhancement within the visualized major vessels. Within limits of MRA, there is no evidence for aneurysm or stenosis. The orbital structures are normal. There is mild scattered mucosal thickening/fluid signal within the paranasal sinuses. The middle ear cavities and mastoid air cells are clear. The imaged soft tissues of the face, neck and upper cervical spine are normal in signal and morphology. IMPRESSION 1. No evidence of acute ischemia, hemorrhage, mass or midline shift. 2. A few punctate foci of T2/FLAIR hyperintensity of the left frontal lobe which are nonspecific but favored to represent tiny areas of gliosis from a prior insult. Punctate focus of gradient blooming within the left posterior frontal lobe likely represents hemosiderin deposition from a remote microhemorrhage. 3. Normal MRA of the head. 4. Normal MRA of the neck, where visualized. 5. These findings were discussed by Dr. Vazquez with Dr. Giordano at 5:53 PM on 05/11/2020. Dictated by Reddy Aguero on 05/12/2020 8:35 AM I, Ilia Reyes, have personally reviewed the images and I agree with this report. *Reading Radiologist: Ilia Reyes on 05/12/2020 at 10:41 AM Noelle Wilburn MD MR ORDERABLES * MRI ANGIO BRAIN ARTERIAL WO CONT (05/11/2020 4:15 PM CDT) Anatomical Region Laterality Modality Head Magnetic Resonan ce 05/12/2020 7:55 AM CDT Impressions 05/12/2020 10:41 AM CDT 1. No evidence of acute ischemia, hemorrhage, mass or midline shift. 2. A few punctate foci of T2/FLAIR hyperintensity of the left frontal lobe which are nonspecific but favored to represent tiny areas of gliosis from a prior insult. Punctate focus of gradient blooming within the left posterior frontal lobe likely represents hemosiderin deposition from a remote microhemorrhage. 3. Normal MRA of the head. 4. Normal MRA of the neck, where visualized. 5. These findings were discussed by Dr. Vazquez with Dr. Giordano at 5:53 PM on 05/11/2020. Dictated by Reddy Aguero on 05/12/2020 8:35 AM I, Ilia Reyes, have personally reviewed the images and I agree with this report. *Reading Radiologist: Ilia Reyes on 05/12/2020 at 10:41 AM Narrative 05/12/2020 10:41 AM CDT INDICATION: Weakness and numbness of the right upper and lower extremity. History of hypoplastic left heart status post repair. COMPARISON: Correlation with head CT dated 05/10/2020. TECHNIQUE: BRAIN MRI: Multiplanar, multisequence imaging of the brain was performed without IV contrast as per departmental protocol. HEAD MRA: A 3D time of flight MRA of the head was obtained. 3D reconstructions were performed of the anterior and posterior circulations using a separate workstation. NECK MRA: A 3D time of flight MRA of the neck was obtained. 3D reconstructions were performed using a separate workstation. FINDINGS: The brain parenchymal signal and morphology are normal. The myelination pattern is normal for patient age. Diffusion weighted imaging is normal. There is no intracranial mass or midline shift. There are a few tiny punctate foci of T2/FLAIR hyperintensity of the periventricular and subcortical white matter of the left frontal lobe (series 7 image 16). These demonstrate no additional signal abnormality. On GRE, there is a punctate area of gradient blooming artifact within the left posterior frontal lobe adjacent to the falx (series 9, image 16). On the prior CT, there are no abnormal calcifications or densities appreciated in this location. The corpus callosum is normal. The pineal and pituitary glands are normal. The posterior fossa is normal, including no tonsillar herniation. The ventricles and extra-axial spaces are normal in size and shape. The flow voids of the major intracranial vessels are patent. A time of flight MRA of the head demonstrates normal flow related enhancement within the major vessels of the [place]. Within limits of MRA, there is no evidence for aneurysm. The left A1 segment is hypoplastic with the right carotid artery providing dominant circulation the bilateral ACAs. Susceptibility artifact at the right lung apex and right lower neck obscures visualization of the origins of the right brachiocephalic artery, common carotid artery, subclavian artery and vertebral artery. The visualized portions of these vessels are patent and normal caliber. A time of flight MRA of the neck otherwise demonstrates normal flow related enhancement within the visualized major vessels. Within limits of MRA, there is no evidence for aneurysm or stenosis. The orbital structures are normal. There is mild scattered mucosal thickening/fluid signal within the paranasal sinuses. The middle ear cavities and mastoid air cells are clear. The imaged soft tissues of the face, neck and upper cervical spine are normal in signal and morphology. Procedure Note Ilia Reyes, DO - 05/12/2020 INDICATION: Weakness and numbness of the right upper and lower extremity. History of hypoplastic left heart status post repair. COMPARISON: Correlation with head CT dated 05/10/2020. TECHNIQUE: BRAIN MRI: Multiplanar, multisequence imaging of the brain was performed without IV contrast as per departmental protocol. HEAD MRA: A 3D time of flight MRA of the head was obtained. 3D reconstructions were performed of the anterior and posterior circulations using a separate workstation. NECK MRA: A 3D time of flight MRA of the neck was obtained. 3D reconstructions were performed using a separate workstation. FINDINGS: The brain parenchymal signal and morphology are normal. The myelination pattern is normal for patient age. Diffusion weighted imaging is normal. There is no intracranial mass or midline shift. There are a few tiny punctate foci of T2/FLAIR hyperintensity of the periventricular and subcortical white matter of the left frontal lobe (series 7 image 16). These demonstrate no additional signal abnormality. On GRE, there is a punctate area of gradient blooming artifact within the left posterior frontal lobe adjacent to the falx (series 9, image 16). On the prior CT, there are no abnormal calcifications or densities appreciated in this location. The corpus callosum is normal. The pineal and pituitary glands are normal. The posterior fossa is normal, including no tonsillar herniation. The ventricles and extra-axial spaces are normal in size and shape. The flow voids of the major intracranial vessels are patent. A time of flight MRA of the head demonstrates normal flow related enhancement within the major vessels of the [place]. Within limits of MRA, there is no evidence for aneurysm. The left A1 segment is hypoplastic with the right carotid artery providing dominant circulation the bilateral ACAs. Susceptibility artifact at the right lung apex and right lower neck obscures visualization of the origins of the right brachiocephalic artery, common carotid artery, subclavian artery and vertebral artery. The visualized portions of these vessels are patent and normal caliber. A time of flight MRA of the neck otherwise demonstrates normal flow related enhancement within the visualized major vessels. Within limits of MRA, there is no evidence for aneurysm or stenosis. The orbital structures are normal. There is mild scattered mucosal thickening/fluid signal within the paranasal sinuses. The middle ear cavities and mastoid air cells are clear. The imaged soft tissues of the face, neck and upper cervical spine are normal in signal and morphology. IMPRESSION 1. No evidence of acute ischemia, hemorrhage, mass or midline shift. 2. A few punctate foci of T2/FLAIR hyperintensity of the left frontal lobe which are nonspecific but favored to represent tiny areas of gliosis from a prior insult. Punctate focus of gradient blooming within the left posterior frontal lobe likely represents hemosiderin deposition from a remote microhemorrhage. 3. Normal MRA of the head. 4. Normal MRA of the neck, where visualized. 5. These findings were discussed by Dr. Vazquez with Dr. Giordano at 5:53 PM on 05/11/2020. Dictated by Reddy Agueor on 05/12/2020 8:35 AM I, Ilia Reyes, have personally reviewed the images and I agree with this report. *Reading Radiologist: Ilia Reyes on 05/12/2020 at 10:41 AM Noelle Wilburn MD MR ORDERABLES * SARS-COV-2 (COVID-19) IN HOUSE (05/11/2020 12:09 AM CDT) Only the most recent of2 resultswithin the time period is included. COVID-19 PCR Not detected Not detected 05/11/2020 8:03 PM CDT [facility] Microbiology SPECIMEN FROM NASOPHARYNGEAL STRUCTURE / Unknown Collection / Unknown 05/11/2020 12:09 AM CDT 05/11/2020 12:14 AM CDT Narrative [facility] - 05/11/2020 8:03 PM CDT This nucleic acid amplification assay performance was validated by [facility]. This test has been authorized by the Food and Drug administration (FDA)under an Emergency Use Authorization (EUA). This test has been validated in accordance with the FDA's guidance document Policy for Diagnostic Testing in Laboratories Certified to perform High Complexity Testing under CLIA prior to Emergency Use Authorization for Coronavirus Disease-2019 during the Public Health Emergency issued on September 28, 2019. FDA independent review of this validation is pending. This test is only authorized for the duration of time the declaration that circumstances exist justifying the authorization of emergency use of in vitro diagnostic tests for detection of SARS-CoV-2 virus and/or diagnosis of COVID-19 infection under section 564(b)(1) of the Act, 21 U.S.C 360bbb-3 (b)(1), unless the authorization is terminated or revoked sooner. Fact Sheets for this EUA assay are available upon request. Galileo Rendon DO LAB - MICROBIOL OGY ORDERABLES [facility] [address] [place] [address], [facility] [phone] * (ABNORMAL) URINALYSIS W/MICROSCOPIC REFLEX TO CULTURE (05/11/2020 12:00 AM T) Color UA Yellow Straw, Yellow 05/11/2020 12:22 AM [facility] Clarity UA Clear Clear 05/11/2020 12:22 AM [facility] Glucose UA Negative Negative 05/11/2020 12:22 AM [facility] Bilirubin UA Negative Negative 05/11/2020 12:22 AM [facility] Ketone UA Negative Negative 05/11/2020 12:22 AM [facility] Specific [place] UA 1.012 1.005 - 1.030 05/11/2020 12:22 AM [facility] Blood UA 2+(A) Negative 05/11/2020 12:22 AM [facility] pH UA 5.0 5.0 - 8.0 pH 05/11/2020 12:22 AM [facility] Protein UA 2+(A) Negative 05/11/2020 12:22 AM [facility] Urobilinogen UA 2.0(A) Negative mg/dL 05/11/2020 12:22 AM [facility] Nitrite UA Negative Negative 05/11/2020 12:22 AM [facility] Leukocyte UA Negative Negative 05/11/2020 12:22 AM [facility] RBC UA 0-2 None Seen, 0-2, 3-5 # /hpf 05/11/2020 12:22 AM [facility] WBC UA 0-5 None Seen, 0-5 # /hpf 05/11/2020 12:22 AM [facility] Bacteria UA None Seen None Seen 05/11/2020 12:22 AM T [facility] Squamous Epithelial Cells None Seen None Seen, 0-2, 3-5 /hpf 05/11/2020 12:22 AM T [facility] Mucus UA 1+ /LPF 05/11/2020 12:22 AM T [facility] Reflex Status Culture not indicated 05/11/2020 12:22 AM T [facility] Urine URINE SPECIMEN OBTAINED BY CLEAN CATCH PROCEDURE / Unknown Collection / Unknown 05/11/2020 12:00 AM CDT 05/11/2020 12:08 AM CDT Narrative [facility] - 05/11/2020 12:22 AM CDT Kristin Nicholson DO LAB - URINALYSIS ORD ERABLES Performing Organization Address [facility] Co de Phone Number [facility] [address] [place] [phone] * C-REACTIVE PROTEIN (05/11/2020 12:00 AM CDT) Only the most recent of2 resultswithin the time period is included. C-Reactive Protein <0.20 <=0.50 mg/dL 05/11/2020 12:33 AM T [facility] Blood BLOOD SPECIMEN / Unknown Venipuncture / Unknown 05/11/2020 12:00 AM CDT 05/11/2020 12:08 AM CDT Galileo Rendon DO LAB - CHEMISTRY ORDERABLES Performing Organization Address [facility] de Phone Number [facility] [address] [place] [phone] * (ABNORMAL) PT-INR (05/11/2020 12:00 AM CDT) PT 15.5(H) 12.1 - 14.8 sec 05/11/2020 12:40 AM T [facility] INR 1.2(H) 0.9 - 1.1 05/11/2020 12:40 AM T [facility] Blood BLOOD SPECIMEN / Unknown Venipuncture / Unknown 05/11/2020 12:00 AM CDT 05/11/2020 12:08 AM CDT Narrative [facility] - 05/11/2020 12:40 AM CDT Conventional Warfarin Anticoagulant Therapy: INR Reference Range: 2.0-3.0 Intensive Warfarin Anticoagulant Therapy: INR Reference Range: 2.5-3.5 Galileo Rendon DO LAB - COAGULATI ON ORDERABLES Performing Organization Address City/[facility]/ZIP Co de Phone Number [facility] [address] [place] [phone] * ERYTHROCYTE SEDIMENTATION RATE (05/11/2020 12:00 AM CDT) Only the most recent of3 resultswithin the time period is included. Erythrocyte Sedimentation Rate Automated <1 0 - 15 MM/HR 05/11/2020 12:23 AM CDT [facility] Blood BLOOD SPECIMEN / Unknown Venipuncture / Unknown 05/11/2020 12:00 AM CDT 05/11/2020 12:08 AM CDT Galileo Rendon DO LAB - HEMATOLOG Y ORDERABLES Performing Organization Address [facility] Co de Phone Number [facility] [address] [place] [phone] * LIPASE BLOOD (05/11/2020 12:00 AM CDT) Only the most recent of2 resultswithin the time period is included. Lipase 14 10 - 220 U/L 05/11/2020 12:33 AM CDT [facility] Blood BLOOD SPECIMEN / Unknown Venipuncture / Unknown 05/11/2020 12:00 AM CDT 05/11/2020 12:08 AM CDT Galileo Rendon DO LAB - CHEMISTRY ORDERABLES Performing Organization Address [facility] Co de Phone Number [facility] [address] [place] [phone] * XR RIBS BILAT 3VW (12/17/2019 2:25 PM CDT) Anatomical Region Laterality Modality Chest Radiographic Deann ging 12/17/2019 2:34 PM CDT Impressions 12/17/2019 2:36 PM CDT No rib fractures are seen. *Reading Radiologist: Cristopher Pretty on 12/17/2019 at 2:36 PM Narrative 12/17/2019 2:36 PM CDT INDICATION: Pain COMPARISON: 05 July 2018 TECHNIQUE: Frontal and oblique views of the ribs FINDINGS: Postsurgical changes are again noted within the chest which are stable. No rib fractures are seen. A scoliotic curvature is again noted. Procedure Note Cristopher Pretty MD - 12/17/2019 INDICATION: Pain COMPARISON: 05 July 2018 TECHNIQUE: Frontal and oblique views of the ribs FINDINGS: Postsurgical changes are again noted within the chest which are stable. No rib fractures are seen. A scoliotic curvature is again noted. IMPRESSION No rib fractures are seen. *Reading Radiologist: Cristopher Pretty on 12/17/2019 at 2:36 PM Randal Gibson MD DIAGNOSTIC IMAGING O RDERABLES * (ABNORMAL) DIFFERENTIAL MANUAL (03/01/2019 10:37 AM CDT) Only the most recent of6 resultswithin the time period is included. WBC Auto 7.0 x10E9/L 03/01/2019 11:20 AM [facility] WBC Corrected 4.5 - 11.0 x10E9/L 03/01/2019 11:20 AM [facility] nRBC /100 WBC 03/01/2019 11:20 AM [facility] Neutrophil % Manual 71 31 - 78 % 03/01/2019 11:20 AM [facility] Lymphocytes % Manual 12(L) 13 - 54 % 03/01/2019 11:20 AM [facility] Monocytes % Manual 12 4 - 13 % 03/01/2019 11:20 AM [facility] Eosinophils % Manual 1 0 - 8 % 03/01/2019 11:20 AM [facility] Basophils % Manual 1 % 03/01/2019 11:20 AM [facility] Band % Manual 1 % 03/01/2019 11:20 AM [facility] Perry Manual 1(H) <=0 % 03/01/2019 11:20 AM CDT [facility] Myelocytes % Manual 1(H) <=0 % 03/01/2019 11:20 AM T [facility] Cells Counted 100 # cells 03/01/2019 11:20 AM CDT [facility] RBC Morphology Normal 03/01/2019 11:20 AM CDT [facility] WBC Morph Normal 03/01/2019 11:20 AM T [facility] Platelet Estimation Normal 03/01/2019 11:20 AM CDT [facility] Blood BLOOD SPECIMEN / Unknown Lab Venipuncture / Unknown 03/01/2019 10:37 AM CDT 03/01/2019 10:47 AM CDT Tavon Sandoval MD LAB - HEMATOLOG Y ORDERABLES Performing Organization Address City/State/[facility] Co de Phone Number [facility] [address] [place] [address] * US ABDOMEN LIMITED (02/14/2019 9:16 AM CDT) Only the most recent of2 resultswithin the time period is included. Anatomical Region Laterality Modality Abdomen Ultrasound Impressions 02/14/2019 10:15 AM CDT Coarsened hepatic echotexture with mild liver surface nodularity, consistent with hepatic fibrosis and cirrhosis. Mild pelviectasis in the right kidney. IFlorence, have personally reviewed the images and I agree with this report. 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 FINDINGS: The liver demonstrates coarsened echotexture with mild liver surface nodularity. No focal hepatic lesion is identified. There is no intrahepatic duct dilation. The gallbladder is normal in size without wall thickening, cholelithiasis, or pericholecystic fluid. The common duct measures 1 mm in diameter, which is within normal limits. The spleen is normal in appearance without focal lesion and measures 10.0 cm in length, normal in size. The visible portions of the pancreas are normal. The partially imaged right kidney measures 11.4 cm in length with mild pelviectasis. No ascites is present. The visible portions of the intrahepatic inferior vena cava and upper abdominal aorta are normal. Tavon Sandoval MD ORDERABLES * METABOLIC STUDY (01/16/2019 3:59 PM CDT) Narrative Taye Richardson MD - 01/16/2019 3:59 PM CDT Taye Richardson MD 03/12/2019 11:20 AM Attending Physician: Taye Richardson MD Office 01/16/2019 3:59 PM Pediatric Cardiology Exercise Test Report Patient Name: Simba Guerrero Patient : 2000 Primary or Referring Physician: Nicolas Puentes MD Primary Railway Signal Technician: Dr. Sandoval Supervising Railway Signal Technician: Taye Richardson MD Date of study: 01/16/2019 Height: Height: 165 cm Weight: Weight: 55.6 kg (122 lb 9.2 oz) Body surface area: Body surface area is 1.6 meters squared. BMI: Body mass index is 20.42 kg/(m^2). Diagnosis: HLHS s/p Fontan, spontaneous fenestration closure Indications: test of baseline exercise tolerance Medication(s): aspirin, tadalafil, digoxin, enalapril Technique: The patient was exercised on the cycle ergometer using a 10 watt ramp protocol. Quantitative data (note: percent predicted values obtained for a Fontan cohort as per Cocke et al, Pediatric Cardiology, 2015, 36:[id number]): Work: Total exercise time of 6:45 was acheived. Test was terminated due to test intolerance. A maximum of 65 herrera was achieved (52% predicted). Oxygen Consumption: 0.947 L/min (58% of predicted L/min) Anaerobic Threshold: not obtained Peak Respiratory Quotient: 1.09 O2 Pulse: 9.0 ml/beat (102% predicted) Heart rate and blood pressure response: Peak heart rate 105 bpm (55% maximum predicted value). Saturation data: Low oxygen saturation at peak exercise of 89% on room air. Electrocardiographic data: Sinus rhythm present throughout the study, with right axis deviation and incomplete right bundle branch block. No ectopy seen. No pathologic ST segement or T wave changes. ECG strips available in MUSE. Spirometry data: Pre exercise spirometry demonstrated low function with a FVC of 2.75 L (66% predicted), FEV1 of 2.47L (69% predicted) a FEV1/FVC of 0.89. Maximal voluntary ventillation was 52L (47% predicted). Ventilatory reserve at peak exercise 21. Symptoms: none Graphs: Impression: Submaximal exercise test terminated early by the subject. Low peak VO2 and peak work for a Fontan patient; however, this is difficult to interpret given submaximal test and anaerobic threshold not achieved. Desaturation noted with exercise, with a saturation of 89% at peak exercise. No ectopy or ischemic changes noted. Taye Richardson MD Pediatric Electrophysiology Tavon Sandoval MD [facility] ORDERABLES * ME LARYNGOSCOPY,FLEX FIBER,DIAGNOSTIC (05/13/2018 9:08 PM CDT) Narrative Jose Armando Yi MD - 05/13/2018 9:08 PM CDT Jose Armando Yi MD 05/13/2018 9:08 PM Procedure Note Endoscopy Type: Laryngoscopy without stroboscopy Endoscope: Flexible 4mm Scope Anesthesia: Lidocaine 2% and Neosynephrine 1/2% (nasal) Procedure Details: The patient was sitting upright in a chair with the head in a slightly anterior sniffing position. The topical anesthesia was administered and then adequate time was allowed for an anesthetic effect. The endoscope was passed thru the nasal cavity with the tongue retracted anteriorly. The tip of the endoscope was positioned in the oropharynx which allowed a complete view of the base of tongue, vallecula, pyriform recesses, epiglottis, bilateraltrue and false vocal folds, the interarytenoid and post cricoid region, and the immediate subglottis. Findings: left cord immobile, the arytenoid on the left has been excised, the left cord is immobile the right cord moves well, minimal webbing anteriorly, the right cord has a stiff cover with diminished mucosal wave. Condition: Stable. Patient tolerated procedure well. Complications: None I was present for the entirety of the procedure. Jose Armando Yi MD PROCEDURE/MINOR SURG ICAL ORDERABLES * GROSS + MICRO EXAM (STL) (10/25/2017 4:33 PM CDT) Case Report Surgical Pathology Report Case: [id number] Authorizing Provider: Lin Mcginnis V., Collected: 10/25/2017 04:33 PM Ordering Location: [facility] Received: 10/26/2017 07:23 AM Pathologist: Alexandra Montoya MD Specimen: Cartilage, laryngeal cartilage 10/27/2017 11:45 AM [facility] Final Diagnosis LARYNGEAL CARTILAGE FROM ARYTENOIDECTOMY. 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 At surgery the supraglottis was normal with a severely prolapsed and fixed left arytenoid and extensive scar tissue of posterior glottis and immediate subglottis Cartilage, fibrotic scar, and posterior cricoid musculature were removed. 10/27/2017 11:45 AM [facility] Gross Description Submitted fixed in formalin in one container for gross and microscopic examination labeled with the patient's name, Simba Guerrero, and laryngeal cartilage, are three irregularly-shaped fragments of purvis-johansen cartilage with an aggregate measurement of 1 x 0.3 x 0.3 cm. The specimen is submitted in toto as A1. (CT/me) 10/27/2017 11:45 AM [facility] Microscopic Description 1 HE Sections show mature cartilage and a small amount of adjacent connective tissue with no significant inflammation. 10/27/2017 11:45 AM [facility] Disclaimer The performance characteristics of all immunohistochemical and indirect immunofluorescence stains (if any) cited in this report were determined by the Histopathology Laboratory of [facility]. Some of these tests were developed by our own laboratory and have not been cleared or approved by the US Food and Drug Administration (FDA). The FDA does not require this test to go through premarket FDA review. These tests are used for clinical purposes. They should not be regarded as investigational or for research. This laboratory is certified under the Clinical Laboratory Improvement Amendments (CLIA) as qualified to perform high complexity clinical laboratory testing. This case has been personally reviewed and interpreted by the attending (teaching) pathologist. 10/27/2017 11:45 AM CDT [facility] Embedded Images 10/27/2017 11:45 AM CDT [facility] Pathology/Cytolo gy CARTILAGE SPECIMEN / Unknown 10/25/2017 4:33 PM CDT 10/26/2017 7:23 AM CDT Lin Mcginnis MD LAB - PATHOLOG Y/CYTOLOGY ORDERABLES [facility] [address] [place] [place] [address] * CT HEAD WWO CONTRAST (09/15/2017 8:39 AM [employer]) Anatomical Region Laterality Modality Head Computed Tomogra phy 09/15/2017 9:05 AM [employer] Impressions 09/15/2017 10:23 AM [employer] 1. No acute intracranial process or significant interval changes. 2. Suspected mild generalized cerebral atrophy for the patient's age and possible leukomalacia in the peritrigonal region. Low attenuating appearance of posterior limb of left internal capsule is suspected. However, these suspected changes are stable from the prior study and may not be contradictory to the presenting symptom of narcolepsy. Further evaluation with MRI of the brain without intravenous contrast is suggested. I, Morgan Christensen, have personally reviewed the images and I agree with this report. 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 FINDINGS: Comparison is made with a CT head study from January 03, 2014 which was obtained for trauma. No acute intra- or extra-axial fluid collections or hemorrhage are identified. There is no sequela of previous intracranial hemorrhage or contusion. The ventricles are of normal size, shape, and morphology. The basilar cisterns are patent. No mass, mass effect, midline shift or an enhancing lesion is seen. The purvis-white matter differentiation is normal. The sulci are mildly widened, similar to the previous examination and more than what is expected for the patient's age. Mild generalized cerebral atrophy is possibly present. Although the white matter in bilateral figueroa radiata and centrum semiovale has unremarkable density for a CT examination, there is possibly focal hypoattenuation of the posterior limb of left internal capsule, on axial image #19 of series 400, similar to the prior study. Leukomalacia in the peritrigonal region is not excluded, on each side. There are no ex vacuo changes of the ventricles. A small mucus retention cyst of the right maxillary sinus is borderline larger than before. The visualized portions of the intraorbital structures, the remainder of the paranasal sinuses, and mastoids appear normal. No acute fracture is identified. The visualized portions of internal carotid arteries, middle cerebral artery, anterior cerebral artery, vertebral arteries, basilar artery and posterior cerebral arteries as well as the dural sinuses are opacified and appear patent. No vascular malformation is identified. 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 FINDINGS: Comparison is made with a CT head study from January 03, 2014 which was obtained for trauma. No acute intra- or extra-axial fluid collections or hemorrhage are identified. There is no sequela of previous intracranial hemorrhage or contusion. The ventricles are of normal size, shape, and morphology. The basilar cisterns are patent. No mass, mass effect, midline shift or an enhancing lesion is seen. The purvis-white matter differentiation is normal. The sulci are mildly widened, similar to the previous examination and more than what is expected for the patient's age. Mild generalized cerebral atrophy is possibly present. Although the white matter in bilateral figueroa radiata and centrum semiovale has unremarkable density for a CT examination, there is possibly focal hypoattenuation of the posterior limb of left internal capsule, on axial image #19 of series 400, similar to the prior study. Leukomalacia in the peritrigonal region is not excluded, on each side. There are no ex vacuo changes of the ventricles. A small mucus retention cyst of the right maxillary sinus is borderline larger than before. The visualized portions of the intraorbital structures, the remainder of the paranasal sinuses, and mastoids appear normal. No acute fracture is identified. The visualized portions of internal carotid arteries, middle cerebral artery, anterior cerebral artery, vertebral arteries, basilar artery and posterior cerebral arteries as well as the dural sinuses are opacified and appear patent. No vascular malformation is identified. IMPRESSION 1. No acute intracranial process or significant interval changes. 2. Suspected mild generalized cerebral atrophy for the patient's age and possible leukomalacia in the peritrigonal region. Low attenuating appearance of posterior limb of left internal capsule is suspected. However, these suspected changes are stable from the prior study and may not be contradictory to the presenting symptom of narcolepsy. Further evaluation with MRI of the brain without intravenous contrast is suggested. I, Morgan Christensen, have personally reviewed the images and I agree with this report. Sussy Starks MD CT ORDERABLES * POLYSOMNOGRAM W/MULTIPLE SLEEP LATENCY TEST (08/02/2017) Linked Results See Linked Results SLEEP [facility]ENTER 08/02/2017 Bettina Ocasio MD SLEEP CENTER ORDERAB [facility] * TSH (06/29/2017 5:08 PM [employer]) Only the most recent of2 resultswithin the time period is included. TSH 1.23 0.35 - 4.95 uIU/mL 06/29/2017 6:26 PM [employer] [facility] Blood BLOOD SPECIMEN / Unknown Venipuncture / Unknown 06/29/2017 5:08 PM [employer] 06/29/2017 5:43 PM [employer] Trent Pearson MD LAB - MARZIPAN MOLDER RY ORDERABLES [facility] [place] [address] * MONONUCLEOSIS SCREEN (06/29/2017 3:01 PM [employer]) Pathologist [facility] Mononucleosis Screen Negative Negative 06/29/2017 3:28 PM [employer] [facility] Blood BLOOD SPECIMEN / Unknown Venipuncture / Unknown 06/29/2017 3:01 PM [employer] 06/29/2017 3:18 PM [employer] Trent Pearson MD LAB - MARZIPAN MOLDER RY ORDERABLES Performing Organization Address [facility] de Phone Number [facility] [address] [place] [phone] * (ABNORMAL) DIGOXIN LEVEL (06/29/2017 3:01 PM [employer]) Only the most recent of3 resultswithin the time period is included. [facility] Digoxin <0.3(L) 0.8 - 2.0 ng/mL 06/29/2017 4:12 PM [employer] [facility] Blood BLOOD SPECIMEN / Unknown Venipuncture / Unknown 06/29/2017 3:01 PM [employer] 06/29/2017 3:38 PM [employer] Trent Pearson MD LAB - MARZIPAN MOLDER RY ORDERABLES Performing Organization Address [facility] de Phone Number [facility] [address] [place] [phone] * IMAGING/RADIOLOGY/XRAY RESULTS ORDER (04/28/2017 5:49 PM CDT) Only the most recent of2 resultswithin the time period is included. Anatomical Region Laterality Modality Other Narrative 04/28/2017 5:49 PM CDT Ordered by an unspecified provider. Scanned Document IMAGING * XR HAND 2 VW RIGHT (04/17/2017 5:44 PM CDT) Anatomical Region Laterality Modality Wrist / Hand Radiographic Deann ging 04/18/2017 7:42 AM CDT Impressions 04/18/2017 7:44 AM CDT No evidence of fracture or dislocation. Premature closure of the medial portion of the distal radial physis. Narrative 04/18/2017 7:44 AM CDT Exam: Right hand, 2 views HISTORY: Injury COMPARISON: None FINDINGS: The osseous structures are intact and well aligned. The bone mineralization is normal. There appears to be premature closure of the medial aspect of the distal radial physis. Procedure Note Jovita Green MD - 04/18/2017 Exam: Right hand, 2 views HISTORY: Injury COMPARISON: None FINDINGS: The osseous structures are intact and well aligned. The bone mineralization is normal. There appears to be premature closure of the medial aspect of the distal radial physis. IMPRESSION No evidence of fracture or dislocation. Premature closure of the medial portion of the distal radial physis. Adriana Velazco MD DIAGNOSTIC IMAGING O RDERABLES * LAB RESULTS ORDER (04/04/2017 10:38 PM CDT) Only the most recent of2 resultswithin the time period is included. Narrative 04/04/2017 10:38 PM CDT Ordered by an unspecified provider. Scanned Document LAB - THERAPEUTIC DR ZAMARRIPA MONITORING ORDERABLES * OCCULT BLOOD FECES 1-3 DIAG IMMUNO (PO REF) (08/10/2015) Only the most recent of3 resultswithin the time period is included. Result [facility] Comment: FECAL GLOBIN BY IMMUNOCHEMISTRY MICRO NUMBER: [id number] TEST STATUS: FINAL SPECIMEN SOURCE: INSURE () FOBT TEST CARD SPECIMEN QUALITY: ADEQUATE RESULT: Not Detected REPORT COMMENT: DOC #2:08/15/15 Test Performed at: [facility] [address] [place] [address] JOHN CAUSEY DO,MPH 08/10/2015 08/19/2015 11: 46 PM [employer] Purnima Inman MD LAB - BODY FLUID ORD ERABLES [facility] [address] [place] [address] * US LEVY DOPPLER LOWER EXTR LTD LEFT (11/24/2014 3:08 PM CDT) Anatomical Region Laterality Modality Ultrasound 11/24/2014 3:13 PM CDT Impressions 11/24/2014 3:19 PM CDT Heterogeneous material present in the lateral lumen of the left external iliac vein most likely representing thrombus of indeterminate age. It may reflect a prior cardiac catheterizations the patient has undergone. Certainly no new perivascular fluid is identified surrounding left external iliac vein and the venous structures distal to this point are widely patent. These findings were discussed with Dr. TEIXEIRA at the time of this dictation. Narrative 11/24/2014 3:19 PM CDT Left lower extremity venous DOPPLER performed November 24, 2014. History: Chest pain. Left calf pain. Utilizing simultaneous real-time, pulse, and color-flow DOPPLER imaging the venous structures of the left lower extremity were evaluated. Heterogeneous predominantly hypoechoic but septated material is seen along the lateral aspect of the left external iliac vein at its junction with the left common femoral vein. There is no flow in the area of this material suggesting prior thrombus in this region. The lumen of the left external iliac vein medial to this tissue is widely patent. The left common femoral, superficial femoral, popliteal veins are widely patent, fully compressible, and free of intraluminal thrombus. Procedure Note Virginia Coronel MD - 11/24/2014 Left lower extremity venous DOPPLER performed November 24, 2014. History: Chest pain. Left calf pain. Utilizing simultaneous real-time, pulse, and color-flow DOPPLER imaging the venous structures of the left lower extremity were evaluated. Heterogeneous predominantly hypoechoic but septated material is seen along the lateral aspect of the left external iliac vein at its junction with the left common femoral vein. There is no flow in the area of this material suggesting prior thrombus in this region. The lumen of the left external iliac vein medial to this tissue is widely patent. The left common femoral, superficial femoral, popliteal veins are widely patent, fully compressible, and free of intraluminal thrombus. IMPRESSION Heterogeneous material present in the lateral lumen of the left external iliac vein most likely representing thrombus of indeterminate age. It may reflect a prior cardiac catheterizations the patient has undergone. Certainly no new perivascular fluid is identified surrounding left external iliac vein and the venous structures distal to this point are widely patent. These findings were discussed with Dr. TEIXEIRA at the time of this dictation. Allison Herrera MD US ORDERABLE S * (ABNORMAL) PT PTT PANEL (11/24/2014 2:36 PM CDT) Only the most recent of4 resultswithin the time period is included. PT 12.2(H) 9.5 - 11.6 sec 11/24/2014 3:07 PM CDT [facility] INR 1.2(H) 0.9 - 1.1 11/24/2014 3:07 PM CDT [facility] PTT 27.4 21.0 - 32.0 sec 11/24/2014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 IGF BINDING PROTEIN 3 (07/25/2013 2:43 PM [employer]) [facility] Insulin-Like Growth Factor Binding Protein 3 3890 2134 - 6598 ng/mL 07/27/2013 8:03 AM [employer] [facility] Comment: Kuldeep Stage Reference Intervals Kuldeep Stage Male Female I 3018-9510 ng/mL 2657-4206 ng/mL II 4912-6744 ng/mL 8247-6866 ng/mL III 8417-4721 ng/mL 4456-0033 ng/mL IV-V 9004-9233 ng/mL 2840-9024 ng/mL Blood specimen (specimen) BLOOD SPECIMEN / Unknown Lab Venipuncture / Unknown 07/25/2013 2:43 PM [employer] 07/25/2013 2:53 PM [employer] Theo Amos MD LAB - CHEMISTRY ALIDA GALLOWAY [facility] [address] [place] [address] * GROWTH HORMONE TIMED OTHER (05/28/2013 12:09 PM CDT) Only the most recent of4 resultswithin the time period is included. [facility] Growth Hormone Other 2.54 ng/mL 05/29/2013 7:00 PM CDT [facility] Comment: INTERPRETIVE INFORMATION: Growth Hormone, Other Growth Hormone Stimulation tests should induce a peak of greater than 5 ng/mL in children and greater than 4 ng/mL in adults; lower values suggest growth hormone deficiency. For children, some experts consider values of 5-8 ng/mL equivocal and only peak values of greater than 8 ng/mL truly normal. For suppression testing, normal subjects have growth hormone concentrations of less than 0.8 ng/mL within 2 hours of ingestion of a 75 or 100 gram glucose dose. Patients with acromegaly fail to show normal suppression. Growth Hormone Time 160 05/29/2013 7:00 PM CDT [id number] Blood specimen (specimen) BLOOD SPECIMEN / Unknown Venipuncture / Unknown 05/28/2013 12:09 PM CDT 05/28/2013 12:33 PM CDT Theo Amos MD LAB - CHEMISTRY ALIDA GALLOWAY Performing Organization Address [facility] de Phone Number [facility] [employer] [facility] [address] [place] [address] * GROWTH HORMONE 120 MINUTES (05/28/2013 11:27 AM CDT) Growth Hormone 120 Min 0.95 ng/mL 05/29/2013 7:00 PM CDT [facility] Comment: INTERPRETIVE INFORMATION: Growth Hormone 120 Minutes Growth Hormone Stimulation tests should induce a peak of greater than 5 ng/mL in children and greater than 4 ng/mL in adults; lower values suggest growth hormone deficiency. For children, some experts consider values of 5-8 ng/mL equivocal and only peak values of greater than 8 ng/mL as truly normal. For suppression testing, normal subjects have growth hormone concentrations of less than 0.8 ng/mL within 2 hours of ingestion of a 75 or 100 gram glucose dose. Patients with acromegaly fail to show normal suppression. Blood specimen (specimen) BLOOD SPECIMEN / Unknown Venipuncture / Unknown 05/28/2013 11:27 AM CDT 05/28/2013 12:33 PM CDT Theo Amos MD LAB - CHEMISTRY ALIDA GALLOWAY Performing Organization Address [facility] de Phone Number [facility] [employer] [address] [place] [address] * GROWTH HORMONE 90 MINUTES (05/28/2013 10:58 AM CDT) Growth Hormone 90 Min 3.21 ng/mL 05/29/2013 6:59 PM CDT [facility] Comment: INTERPRETIVE INFORMATION: Growth Hormone 90 Minutes Growth Hormone Stimulation tests should induce a peak of greater than 5 ng/mL in children and greater than 4 ng/mL in adults; lower values suggest growth hormone deficiency. For children, some experts consider values of 5-8 ng/mL equivocal and only peak values of greater than 8 ng/mL as truly normal. For suppression testing, normal subjects have growth hormone concentrations of less than 0.8 ng/mL within 2 hours of ingestion of a 75 or 100 gram glucose dose. Patients with acromegaly fail to show normal suppression. Blood specimen (specimen) BLOOD SPECIMEN / Unknown Venipuncture / Unknown 05/28/2013 10:58 AM CDT 05/28/2013 12:34 PM CDT Theo Amos MD LAB - CHEMISTRY ALIDA GALLOWAY Performing Organization Address [facility] de Phone Number [facility] [address] [place] [id number] * GROWTH HORMONE 60 MINUTES (05/28/2013 10:30 AM CDT) Growth Hormone 60 Min 1.92 ng/mL 05/29/2013 7:00 PM CDT [facility] Comment: INTERPRETIVE INFORMATION: Growth Hormone 60 Minutes Growth Hormone Stimulation tests should induce a peak of greater than 5 ng/mL in children and greater than 4 ng/mL in adults; lower values suggest growth hormone deficiency. For children, some experts consider values of 5-8 ng/mL equivocal and only peak values of greater than 8 ng/mL as truly normal. For suppression testing, normal subjects have growth hormone concentrations of less than 0.8 ng/mL within 2 hours of ingestion of a 75 or 100 gram glucose dose. Patients with acromegaly fail to show normal suppression. Blood specimen (specimen) BLOOD SPECIMEN / Unknown Venipuncture / Unknown 05/28/2013 10:30 AM CDT 05/28/2013 12:34 PM CDT Theo Amos MD LAB - CHEMISTRY ALIDA GALLOWAY Performing Organization Address [facility] de Phone Number [facility] [address] [place] [address] * GROWTH HORMONE 0 MINUTES (05/28/2013 9:28 AM CDT) Growth Hormone 0 Min 6.58 0.05 - 11.00 ng/mL 05/29/2013 7:00 PM CDT [facility] [employer] Comment: INTERPRETIVE INFORMATION: Growth Hormone 0 Minutes Growth Hormone Stimulation tests should induce a peak of greater than 5 ng/mL in children and greater than 4 ng/mL in adults; lower values suggest growth hormone deficiency. For children, some experts consider values of 5-8 ng/mL equivocal and only peak values of greater than 8 ng/mL as truly normal. For suppression testing, normal subjects have growth hormone concentrations of less than 0.8 ng/mL within 2 hours of ingestion of a 75 or 100 gram glucose dose. Patients with acromegaly fail to show normal suppression. Access complete set of age- and/or gender-specific reference intervals for this test in the [facility] Laboratory Test Directory ([employer]). Blood specimen (specimen) BLOOD SPECIMEN / Unknown Venipuncture / Unknown 05/28/2013 9:28 AM CDT 05/28/2013 12:34 PM CDT Theo Amos MD LAB - CHEMISTRY ALIDA GALLOW[facility] Organization Address City/State/ZIP Co de Phone Number [facility] [employer] [address] [place] [address] * CROSSMATCH RBC (05/27/2013 1:07 PM CDT) Unit Donor # [id number] -I 05/29/2013 3:52 PM CDT [facility] Product Code E0420 05/29/2013 3:52 PM CDT [facility] Unit Description E0420 RBC, IRR, LR, -5 05/29/2013 3:52 PM CDT [facility] ABO Donor Type A 05/29/2013 3:52 PM CDT [facility] Rh Type Unit POS 05/29/2013 3:52 PM CDT [facility] Crossmatch Interpretation Compatible 05/29/2013 3:52 PM CDT [facility] Unit Status Returned 05/29/2013 3:52 PM CDT [facility] Blood Bank BLOOD SPECIMEN / Unknown 05/27/2013 1:07 PM CDT 05/27/2013 1:17 PM CDT Sydnie Renteria MD LAB - BLOOD BANK ORDERABLES [facility] * BLOOD TYPE ABO+ RH PANEL (05/27/2013 1:07 PM CDT) ABO A 05/27/2013 1:52 PM CDT [facility] Rh Type Positive 05/27/2013 1:52 PM CDT [facility] Blood Bank BLOOD SPECIMEN / Unknown 05/27/2013 1:07 PM CDT 05/27/2013 1:17 PM CDT Sydnie Renteria MD LAB - BLOOD BANK ORDERABLES [facility] * ANTIBODY SCREEN (05/27/2013 1:07 PM CDT) Antibody Screen Negative 05/27/2013 2:13 PM CDT [facility] Blood Bank BLOOD SPECIMEN / Unknown 05/27/2013 1:07 PM CDT 05/27/2013 1:17 PM CDT Sydnie Renteria MD LAB - BLOOD BANK ORDERABLES Performing Organization Address City/[facility]/ZIP Co de Phone Number [facility] * TISSUE TRANSGLUTAMINASE AB IGA (05/09/2013 12:47 PM CDT) Tissue Transglutaminase (tTG) Ab, IgA 4 0 - 19 Units 05/11/2013 2:57 PM CDT [facility] [employer] Comment: INTERPRETIVE INFORMATION: Tissue Transglutaminase (tTG) Antibody, IgA 19 Units or less: Negative 20-30 Units: Weak Positive 31 Units or greater: Moderate to Strong Positive Presence of the tissue transglutaminase (tTG) IgA antibody is associated with gluten-sensitive enteropathies such as celiac disease and dermatitis herpetiformis. tTG IgA antibody concentrations greater than or equal to 100 Units usually correlate with results of duodenal biopsies consistent with a diagnosis of celiac disease. For antibody concentrations greater than 20 Units but less than 100 Units, additional testing for endomysial (LAURA) IgA concentrations may improve the positive predictive value for disease. Blood specimen (specimen) BLOOD SPECIMEN / Unknown Lab Venipuncture / Unknown 05/09/2013 12:47 PM CDT 05/09/2013 12:57 PM CDT Narrative Authorizing Provider Result Dian Amos MD LAB - SEROLOGY ORDER DUNIA Performing Organization Address [facility] Co de Phone Number [employer] [facility] [address] [place] [address] * T4 FREE DIRECT DIALYSIS (05/09/2013 12:47 PM CDT) Pathologist [facility] T4 Free Direct Dialysis 1.8 1.1 - 2.0 ng/dL 05/15/2013 10:51 AM CDT [facility] Comment: INTERPRETIVE INFORMATION: FT4 ED-TMS Test developed and characteristics determined by [employer]. See Compliance Statement B: [employer] Blood specimen (specimen) BLOOD SPECIMEN / Unknown Lab Venipuncture / Unknown 05/09/2013 12:47 PM CDT 05/09/2013 12:58 PM CDT Theo Amos MD LAB - CHEMISTRY ORDE RABLES Performing Organization Address [facility] Co de Phone Number [facility] [address] [place] [address] * SOMATOMEDIN C (IGF-1) (05/09/2013 12:47 PM CDT) [facility] Insulin-Like Growth Factor-1 82 ng/mL 05/11/2013 8:30 AM CDT [place] Comment: Kuldeep Stages I (8-15 yrs): 52-391 ng/mL II and III (8-16 yrs): 39-648 ng/mL IV and V (11-18 yrs): 277-434 ng/mL REFERENCE INTERVAL: IGF-1 (Insulin-Like Growth I) IGF-1 values well above the age and gender matched reference interval indicate a possible pituitary tumor secreting growth hormone. IGF-1 values below the reference interval indicate a possible GH deficiency. Access complete set of age- and/or gender-specific reference intervals for this test in the [facility] ([employer]). Blood specimen (specimen) BLOOD SPECIMEN / Unknown Lab Venipuncture / Unknown 05/09/2013 12:47 PM CDT 05/09/2013 12:58 PM CDT Theo Amos MD LAB - CHEMISTRY ALIDA GALLOWAY [facility] [address] [place] [address] * IGA BLOOD (05/09/2013 12:47 PM CDT) IgA 137 63 - 484 mg/dL 05/09/2013 1:32 PM CDT [facility] Blood BLOOD SPECIMEN / Unknown Lab Venipuncture / Unknown 05/09/2013 12:47 PM CDT 05/09/2013 12:55 PM CDT Theo Amos MD LAB - CHEMISTRY ALIDA GALLOWAY [facility] [address] [place] [address] * CT CHEST WITH AND WITHOUT CONTRAST (08/02/2010 1:04 PM PRESSROOM FOREMAN) Anatomical Region Laterality Modality Chest Computed Tomogra phy 08/02/2010 2:19 PM [employer]RO[employer] FOREMAN Impressions 08/02/2010 4:15 PM [employer]EM[employer] 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 Additional images were obtained in the expiratory phase. Findings: The heart size is normal. No mediastinal lymphadenopathy is present. The lungs are clear. No pleural or pericardial effusion is seen. Sternotomy wires, vascular clips, and surgical clips are present. A prosthetic mitral valve is present. A vascular stent in the descending aorta is present. The enhancing vessels are intact. Procedure Note Patricia Jones MD - 08/02/2010 Exam: CT scan Chest with and without contrast Comparison: None Technique: Multislice helical. Additional images were obtained in the expiratory phase. Findings: The heart size is normal. No mediastinal lymphadenopathy is present. The lungs are clear. No pleural or pericardial effusion is seen. Sternotomy wires, vascular clips, and surgical clips are present. A prosthetic mitral valve is present. A vascular stent in the descending aorta is present. The enhancing vessels are intact. 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, otherwise unremarkable CT chest Jason Olivarez MD Tal Barrera MD CT ORDERABLES * PEDIATRIC DIAGNOSTIC POLYSOMNOGRAM (07/27/2010) Tal Barrera MD [facility] ORDERAB LES * TYPE SCRN XMATCH RBC X1 (05/18/2010 7:30 AM CDT) ABO Rh A POS [facility] Antibody Screen NEG Negative [facility] Products Ready 1 [facility] BLOOD SPECIMEN / Unknown 05/18/2010 7:30 AM CDT 05/18/2010 7:46 AM CDT Margarito Fountain GLASS MOLD REPAIRER-COMPUTER TRAINER LAB - BLOOD BANK ORDERABLES Performing Organization Address City/State/[facility] Co de Phone Number [facility] [address] [place] [address] * CARDIAC CATH ORDER (05/18/2010) 05/18/2010 Narrative Procedure Note Sydnie Renteria MD - 05/18/2010 1:40 PM [facility]: PROCEDURE: Cardiac catheterization and stent placement for coarctation. 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 He is known to have had spontaneous closure of afenestration by cardiac catheterization and possibly a mild coarctation.Because of recently discover that he has evidence of venous collateralsdraining into a re-opened left SVC to the coronary sinus as the cause ofhis cyanosis. We decided to cath him, evaluate his hemodynamics to see ifhe is a good candidate for either balloon intervention for coarctation,stent placement, and also possible occlusion of the left SVC which is nowthe cause of his cyanosis. I explained the procedure in detail to theparents, explained the risks and benefits, and obtained an informedconsent. Of interest, he is symptomatic with easy fatigability and is notable to keep up with his peers as before, according to Ismba and hismother. PROCEDURE: The patient was brought to the laborer yard where time out was taken toensure we are performing the right procedure on the right patient from theright side. He underwent general anesthesia, endotracheal intubation andventilation on room-air. The right side of the neck was prepared anddraped in the usual fashion and also the right groin. We cannulated theright IJ and right femoral artery. He is known to have occlusion of theright and left legs, and also the lower portion of the IVC. Each vesselentered was pre-dilated to 1F up size before placing the appropriatesheath. In the IJ we placed a 5F sheath, and in the artery initially weplaced a 4F sheath, later increased after pre-dilating to a 7 dilator and10 dilator to a 9F sheath for placement of the stent in the aorta. Heparinand antibiotics were given. ACT was checked every hour. In the venoussites we advanced a Ruiz angiographic catheter, 5F, a 5F end-holeballoon catheter and a 4F glide catheter to enter the right pulmonaryartery. These catheters were advanced to the SVC, right and left pulmonaryartery, and both are to the left wedge position. The arterial catheterswere a pigtail with and without 1 cm markers advanced to the descendingaorta, [place] ascending aorta, and to the LV, and to the madhuri ascendingaorta, and to the RV. We also used a multi-A2, 5F after placing the stentto measure pressure simultaneously from the ascending aorta and thedescending aorta via the side arm of the sheath. The followingcineangiograms were obtained: 1. SVC in AP and lateral projection. 2. High SVC with partial balloon occlusion to demonstrate the innominatevein. 3. Conduit angiogram in slight [place] and lateral projection. 4. LV in [place] and lateral projection. 5. RV in AP and lateral projection. 6. Ascending aorta in [place] and lateral projection. 7. Injection via the long sheath after four positions of stentassessment. 8. Repeat ascending aorta angiogram in [place] and lateral projection afterplacement of the stent. INTERVENTIONAL P;PROCEDURE: Stent placement: This patient does have increase into the pulmonaryarterial pressure compared to a year ago by about 3 to 4 mm Hg. The wedgepressure was similar to the LVEDP and was a little bit higher than theRVEDP. Nevertheless, both LVEDP and RVEDP were increased to about 14 and13 mmHg respectively. Therefore, the only possibility that as a cause forelevation of the PA pressure is the elevation of the wedge pressure whichdoes not seem to be due to pulmonary venous stenosis angiographically andby echo we know the ASD is acceptable. Therefore, the residual mildcoarctation with a gradient about 6 to 10 mmHg may have effected the LVEDPand RVEDP adversely. Therefore, I decided to place a stent in thisangiographic long segment coarctation of mild degree with a mild gradient.Therefore, we placed an exchange wire into the ascending aorta and tookthe existing sheath out into the artery and pre-dilated the artery to a 7and then 10F easily. We then advanced a long 75 mm sheath and dilator, 9Fall the way to the area above the coarctation. The dilator was removed andthe sheath was deaired properly. Agenesis 21 mm stent was mounted on a BIBballoon and crimped appropriately with contrast and umbilical tape andhand. The BIB balloon measured 12 mm, for the outside balloon x 3 cm. Thecoarctation area measured 8.5 mm and the descending aorta measured [id number] to 13 mm. Therefore, I decided to use a 12 mm balloon stentcombination. The balloon stent combination was advanced over the wire tothe level of pre-existing markers by surgical clips. The sheath was pulleddown to below the coarctation and below the level of the proximal end ofthe balloon. The inner balloon and the outer balloon were inflatedsequentially, demonstrated rapid disappearance of the waist. The balloonwas advanced and pulled, and subsequent inflation were performed along theentire length of the stent. The stent appeared to be uniform and in goodplacement. Therefore, the balloon was taken out leaving the wire in place.Over the wire we advanced a 5F multi-A2 catheter to the ascending aortaand pulled the wire out and performed simultaneous pressure from theascending and descending aorta, from the catheter and from the long sheathside arm. This demonstrated 1 to 2 mm gradients. However, I decided to usethe pigtail now to measure these pressures accurately and replace over awire the multi-A2 with the pigtail catheter and I performed simultaneouspressures and these demonstrated no gradient whatsoever. There wasidentical pressure in the ascending and descending aorta. An angiogram wasperformed into the ascending aorta showing excellent placement of thestent and no residual coarctation. There was no extravasation of contrastor complication from placement of the sent. The pigtail catheter wasstraightened before pulling it out of the stent. The catheter and thesheath were removed after adequate hemostasis was obtained by manualpressure and pressure dressing. The kidneys were fluoroscoped and theywere normal. The patient underwent reversal of anesthesia extubation andwas transferred to the recovery room in a stable condition. 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 Therefore, this condition isnot suitable for transcatheter closure of the left SVC since it is theonly drainage of the brain. RESULTS: Saturations: The systemic venous saturation was lower rang normal butacceptable in the mixed venous saturation of 65 into the left pulmonaryartery and 61 into the right pulmonary artery. The aortic saturationranged between 88 and 91 percent due to the presence of [id number] across the left SVC to the coronary sinus. LV saturation was normalas expected. The waist saturation was 99 percent. Pressures: The pulmonary arterial pressures were increased by about 3 to4 mm more than a year ago. They were in the range of 17 to 18 throughoutbut without any gradients. The wedge pressure was elevated to about 14mean coinciding precisely to the left ventricular end diastolic pressure,but a little bit higher than the RVED by about 1 mm. Both LVEDP and RVEDPwere elevated. There was a significant gradient between the LV and the LVoutflow tract across a subaortic ridge demonstrated angiographically. TheLV pressure was about 100 mm higher than the ascending aortic pressure.There was no gradient between the LV outflow tract and the ascendingaorta. Between the RV and ascending aorta there is no gradient, however,between the ascending and descending aorta there was about 7 to 10 mmgradient, an average of 9. After stent placement there was identicalpressure between the ascending and descending aorta. Calculations: Assuming the oxygen consumption is 140 ml/minute/meter2 thecardiac index was acceptable. The pulmonary index was slightly reduced andthe QP:QS ratio was about .6:1. ANGIOGRAPHY: 1. SVC in AP and lateral projection. 2. High SVC with partial balloon occlusion in AP and lateral projection.From the above two cineangiograms its clear that the SVC Oswald anastomosisis wide open with adequate right and left pulmonary arteries. However, theinnominate vein was not visualized even with partial occlusion of the SVCdistally with the balloon. Clearly there was collateral arising from theupper portions of the external jugular and internal jugular that connectedwith the left SVC that entered the coronary sinus. We also performedangiogram into the left vein. 3. Injection into the left arm vein via a cannula placed for IV. Weinjected 3cc of contrast and waited for a long time for these contrasts toappear into the proximal arm veins. Clearly the subclavian vein isoccluded with collaterals draining to the left SVC. 4. Pulmonary conduit angiogram. This injection demonstrated wide openconnections with the conduit, with the IVC, and the SVC. The right andleft pulmonary arteries were without any obstructions. The levophasedemonstrated that the pulmonary veins are normal entering the left atriumwhich was small and goes to the LV through a small mitral valve andthrough the ASD to the right atrium. 5. LV angiogram in slight [place] and lateral projection. The LV was smallbut adequate and contracted well. There was a severe sub valve aorticstenosis with a VSD opening into the right ventricle. There was somemitral regurgitation, probably catheter induced. The mitral valve orificewas small. The Damus Tesha or Odilon anastomosis was wide open. Thecoronary arteries were wide open. 6. RV angiogram in AP and lateral projection. The RV contracted verywell. It was slightly dilated. There was no TR. Again the madhuri aorta waswide open with good anastomosis between the [place] and the ascendingaorta. 7. Aortic root angiogram. This injection demonstrated a left aortic archwith not only mismatch between the aortic arch and the descending aorta atthe site of previously dilated coarctation, but a long segment mildcoarctation; it was distal to the left subclavian. The head and neckbranches were normal. There was no madhuri AI seen. 8. Injection from the long sheath forced placement of stent. Thisinjection demonstrated that the stent is properly placed and may beadvanced a mm or so which we did. 9. Injection into the ascending aorta after placement of the stent. Thisinjection demonstrated that the stent is properly placed and there is noresidual coarctation. The stent did not impinge on the origin of the leftsubclavian. The proximal end of the stent was at the site of thecoarctation. There was no residual coarctation. There was no extravasationor complication. DIAGNOSES: Status post [place] and total cavopulmonary anastomosis for a form ofhypoplastic left heart, consistent of small LV, VSD, and severecoarctation with aortic stenosis. 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 No residual gradient. The cause of mild cyanosis is the left SVCto the coronary sinus. It should not be occluded at the present. RECOMMENDATIONS: I will discuss the finding at the cardiology/cardiothoracic conference. Iplan to increase enalapril to 5 mg bid and follow him withechocardiography. Clearly the stent should be re-dilated in the nextseveral years to adjust for growth. Dictated By: SYDNIE DANIELSON MD YVONNE/real JOB ID: [id number] cc: YASSINE BROCK MD Sydnie Renteria MD CARDIAC DIRECTOR REVENUE ORDERABLES * AUDIOLOGY/TYMPANOMETRY ORDER (02/19/2010 2:03 PM CDT) Narrative 02/19/2010 2:03 PM CDT Ordered by an unspecified provider. Transcriptions Document, Scanned - 11/20/2009 12:00 AM CDT Scanned Document AUDIOLOGY SERVICES O RDERABLES * (ABNORMAL) CBC W MANUAL DIFFERENTIAL (08/22/2009 4:00 PM PRESSROOM FOREMAN) WBC 14.26 4.5 - 14.5 K/cumm [facility] RBC 5.09 4.00 - 5.20 mill/cumm [facility] Hemoglobin 14.4 11.5 - 15.5 gm/dl [facility] Hematocrit 41.5 35.0 - 45.0 % [facility] MCV 81.5 77.0 - 95.0 cu microns [facility] MCH 28.3 25.0 - 33.0 uug [facility] MCHC 34.7 31.0 - 37.0 % [facility] RDW 13.3 % [facility] MPV 10.3 fl [facility] Platelet Count 242 100 - 400 K/cumm [facility] Comment Manual Diff Done [facility] Band % Manual 11 % [facility] Neutrophils % Manual 79(H) 24 - 66 % [facility] Lymphocytes % Manual 3(L) 22 - 61 % [facility] Monocytes % Manual 5 3 - 15 % [facility] Basophils % Manual 2(H) 0 - 1 % [facility] RBC Morphology Slight Anisocytosis, Poikylocytosis, Schistocytes [facility] BLOOD SPECIMEN / Unknown 08/22/2009 4:00 PM [employer]EM[employer] Jemima Wolf MD LAB - HEMATOLOGY ORDERABLES [facility] * (ABNORMAL) CALCIUM IONIZED BLOOD (08/22/2009 4:00 PM PRESSROOM FOREMAN) pH 7.311(L) 7.35-7.45 (art) [facility] Calcium Ionized 1.29 mmol/L [facility] Calcium Ionized Adjusted 1.23 1.15 - 1.29 mmol/L [facility] Specimen Type/Condition Blood Gas Art/ABL [facility] BLOOD SPECIMEN / Unknown 08/22/2009 4:00 PM [employer]EM[employer] Jemima Wolf MD LAB - CHEMISTRY ORDERABLES [facility] * (ABNORMAL) BLOOD GASES + COOX ARTERIAL PANEL (08/22/2009 4:00 PM [employer]OM FOREMAN) pH 7.311(L) 7.35-7.45 (art) [facility] pCO2 iSTAT 37.5 35-48 (art) mm Hg [facility] pO2 iSTAT 39.2(L) 83-108 (art) mm Hg [facility] Hemoglobin Blood Gas 14.6 11.5 - 15.5 gm/dl [facility] O2 Saturation iSTAT 63.7(L) 95 - 99 % [facility] Oxyhemoglobin Coox 63.1(L) 94 - 98 % C [facility] Carboxyhemoglobin 0.4 0.0 - 0.8 % [facility] Methemoglobin 0.6 0.2 - 0.6 % [facility] O2 Content 12.9(L) 15 - 23 % [facility] Base Excess -6.7 -2.0 - 2.0 mmol/L [facility] P50 Blood 32.04(H) 25.3 - 26.8 mm Hg [facility] Specimen Type/Condition Blood Gas Art/ABL [facility] BLOOD SPECIMEN / Unknown 08/22/2009 4:00 PM [employer]EMAN Jemima Wolf MD LAB - BLOOD GASE S ORDERABLES [facility] * GROSS + MICRO EXAM (07/28/2008 3:12 PM [employer]ESSROOM FOREMAN) Only the most recent of3 resultswithin the time period is included. Result CASE NUMBER [id number] [facility] REPORT Comment: ORDERING PHYSICIAN PURNIMA INMAN SPECIMEN TYPE Stomach CLINICAL HISTORY The patient is an 8-year-old boy with rectal bleeding who underwent colonoscopy and upper endoscopy. The finding was a sigmoid polyp. The rapid urease test is negative. GROSS DESCRIPTION The specimens are received fixed in formalin in 6 containers for gross and microscopic examination. All containers are labeled with the patient's name, Simba Guerrero. Specimen A, stomach, consists of two, 3.0 mm, soft yellow-johansen tissue fragments submitted in toto as A . Specimen B, esophagus, consists of a 3.0 mm, soft, purvis-pink tissue fragment submitted in toto as B . Specimen C, polyp, consists of a 1.5 x 1 x 0.7 cm arcos-johansen polyp with a 0.5 x 0.5 cm stalk. The base of the stalk is painted with black ink. The specimen is bisected and cut surface reveals variegated red-johansen firm tissue with a cystic component. The specimen is serially sectioned, and promotional representative sections are submitted in cassette C. Specimen D, descending, consists of two 5 mm soft, yellow-johansen tissue fragments submitted in toto as D. Specimen E, cecum, consists of two 5 mm soft, yellow-johansen tissue fragments submitted in toto as E. Specimen F, rectum, consists of two 2 mm soft, arcos-johansen tissue fragments submitted in toto as F. (CT/CAV/nab/lw) MICROSCOPIC DESCRIPTION A) 3 H/E, B) 3 H/E, C) 1 H/E, D) 3 H/E, E) 3 H/E, F) 3 H/E Sections of the stomach biopsy show it to consist of several small fragments of gastric mucosa with disruption. Lamina propria cellularity does not appear to be increased. Sections of the esophageal biopsy show it to consist of squamous mucosa with intact architecture and only rare intraepithelial lymphocytes. Sections of the specimen submitted as polyp show the typical histologic features of a juvenile polyp. Sections of the descending colon biopsy show it to consist of an adequate sample of colonic mucosa with normal architecture. Superficial to deep inflammatory cell gradient is preserved. A lymphoid aggregate is present. Sections of the cecum show colonic mucosa, with intact architecture. Lamina propria cellularity is slightly increased with loss of the normal superficial to deep inflammatory cell gradient. Sections of the rectum show large intestinal mucosa with intact architecture. Lamina propria cellularity is normal, with occasional foamy macrophages. (CAV/lw) DIAGNOSIS DIAGNOSIS A) STOMACH, BIOPSY -NO DIAGNOSTIC ALTERATION. B) ESOPHAGUS, BIOPSY -NO DIAGNOSTIC ALTERATION. C) LARGE INTESTINE, SIGMOID POLYP -JUVENILE POLYP. D/F) LARGE INTESTINE, DESCENDING, AND RECTUM -NO DIAGNOSTIC ALTERATION. E) LARGE INTESTINE, CECUM, BIOPSY -MILD ALTERATIONS, SEE DESCRIPTION. This case has been personally reviewed and interpreted by the attending (teaching) pathologist. Physician Office Secretary PINA MORRISON PATHOLOGIST Alexandra Montoya M.D. 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 GROSS DESCRIPTION The specimen labeled with the patient's name and sternal wire is received in a single container and consists of two metallic wires measuring 2.9 x 0.1 x 0.1 cm. and 0.6 x 0.1 x 0.1 cm. (CT/lw) GROSS DIAGNOSIS GROSS DIAGNOSIS WIRES. Physician Office Secretary Calin Carson PATHOLOGIST Paola Pelayo M.D. ELECTRONICALLY PAOLA MILLER MISCELLANEOUS SAMPLES / Unknown 2000 10:50 AM [employer]ROOM FOREMAN 2000 12:14 PM [employer] FOREMAN Historical Provider LAB - PATHOLOGY/C YTOLOGY ORDERABLES [facility] REPORT Care Teams Edge Burnisher Relationship Specialty Start Date End Date Labarge, Nicolas Delcid MD [address] [place] [address] PCP - General 11/18/21
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
--- OUTSIDE RECORDS SUMMARY | 2024-10-06 13:59 | XMS_ITS | Clinical Summary ---
Author Organization [facility] Address [address] [place] [address] Care Team Providers Care Demo Specialist Name Role Phone Nicolas Puentes MD Primary Care Provider [phone] Source Comments [facility],non-owned Affiliates and Associated Physician Practices is amultiple site organization consisting of ambulatory clinics and hospital sitesin [place], [place], [place] and [place]. This disclosure is being madepursuant to the Care Everywhere program and may not contain all information available regarding this patient. Last updated 18.[facility] Allergies No known active allergies Medications * [...] complex cardiac history s/p palliative repair with [place], Leo, and Fontan who presents with an acute onset of chest pain, right-sided weakness, numbness and tingling. Initial exam was significant for right sided weakness and sensation loss in the UE and LE. Comprehensive evaluation by the Neurology team identified no focal deficits and NIHSS of 0. Given his cardiac history, there is concern for a cardiopulmonary process, such as PE, [place] and angina, especially in the setting of [...] complex cardiac history s/p palliative repair with [place], Leo, and Fontan who presents with an acute onset of chest pain, right-sided weakness, numbness and tingling. Initial exam was significant for right sided weakness and sensation loss in the UE and LE. Comprehensive evaluation by the Neurology team identified no focal deficits and NIHSS of 0. Given his cardiac history, there is concern for a cardiopulmonary process, such as PE, HI and angina, especially in the setting of [...] 07/17/2017 Assessment & Plan (07/17/2017 3:50 PM FIRST SAMPLER): Increased fatigue, unclear if mood related or [...] 01/23/2015 Assessment & Plan (07/17/2017 3:49 PM FIRST SAMPLER): Simba Guerrero is here for his adolescent [...] months. Assessment & Plan (09/19/2014 12:53 PM FIRST SAMPLER): Growth hormone treatment of short stature; interrupted therapy, as noted in this note. Family desires to restart therapy. 1. Growth hormone 1.6 mg subq daily (0.30 mg/kg/week). 2. Bone age radiograph. 3. Return appointment in four months. Assessment & Plan (06/05/2014 5:35 PM FIRST SAMPLER): Growth hormone treatment of short stature; interrupted [...] PRN for several days as prescribed by [facility] - Return to clinic for [id number] scheduled 05/23/2017 or sooner if worsening symptoms Constipation 06/04/2014 05/28/2015 Overview (04/30/2015): Constipation 06/04/2014 05/28/2015 Overview (04/30/2015): Assessment & Plan (06/04/2014 6:03 PM FIRST SAMPLER): Seen in ED on 05/26 for constipation/abdominal pain. Treated with Miralax. Re-presented 05/27 with concern for blood in stools. Occult blood test negative. Attributed to red dye in popcorn eaten that day. Stools normal. No sign of anal fissure on exam. -F/u scheduled with GI on Monday. Wound infection 04/30/2014 04/08/2017 Assessment & Plan (06/04/2014 2:33 PM FIRST SAMPLER): Simba had a large sternal wound from [...] Plan: -close his left SVC in the laboratory chemical assistant Immunizations Name Administration Dates Next Due DTaP [...] 12/01/2005, 2,2000,08/15 TDAP (7yrs+) 02/08/2012 VARICELLA 03/21/2013,05/28/2001 Family History Medical History Relation Name Comments Asthma Brother [place]<55(male) Paternal Grandfather Asthma Sister Cancer - Colon Neg Hx Celiac Disease Neg Hx Colon polyps Neg Hx Crohn's Disease Neg Hx Ulcerative Colitis Neg Hx Relation Name Status Comments Brother Paternal Grandfather Sister Social History Tobacco Use Types Packs/Day Years [...] Comments Blood Pressure 120/60 06/16/2023 9:48 AM FIRST SAMPLER Pulse 110 06/16/2023 9:48 AM FIRST SAMPLER Temperature 36.1 C (97 F) 12/15/2022 3:15 PM CDT Respiratory Rate 20 06/16/2023 9:48 AM FIRST SAMPLER Oxygen Saturation 85% 06/16/2023 9:48 AM FIRST SAMPLER Inhaled Oxygen Concentration - - Weight 55.2 kg (121 lb 11.1 oz) 06/16/2023 9:48 AM FIRST SAMPLER Height 168 cm (5' 6.14 ) 06/16/2023 9:48 AM FIRST SAMPLER Body Mass Index 19.56 06/16/2023 9:48 AM FIRST SAMPLER Plan of Treatment Health Maintenance Due Date Last Done Comments HIV SCREENING 2015 MENINGOCOCCAL (Group B) VACCINE (2 of 2 - Bexsero SCDM 2-dose series) 12/14/2017 06/16/2017 DTAP/TDAP/TD VACCINES (7 - Td or Tdap) 02/07/2022 02/08/2012, 10/10/2010, 12/01/2005, Additional history exists COVID-19 VACCINE ( - season) 2024 INFLUENZA VACCINE (#1) 2024 7, 05/26/2015, 05/12/2014, Additional history exists DEPRESSION SCREENING 07/31/2024 ZOSTER VACCINE (1 of 2) 2050 HEPATITIS B VACCINE Completed 2000, 2000, 2000 HIB VACCINE Completed 08/28/2001, 11/28, 2000, Additional history exists HPV VACCINE Completed 01/23/2015, 03/01, 02/08/2012 MENINGOCOCCAL VACCINE Completed 06/16/2017, 012 HEPATITIS C SCREENING Completed 06/16/2023 PNEUMOCOCCAL VACCINE Aged Out No long er eligible based on patient's age to complete this topic Medical Devices Implanted Type Area Cyber Defense Incident Responder Device Identifier Shelf Expiration Date Model / Serial / Lot Stent - Vascular-05/18 Implanted:04/30 (Quantity not on file) Stent - Vascular [id number] / / Procedures Procedure Name Priority Date/Time Associated Diagnosis Comments HEPATITIS C ANTIBODY Routine 06/16/2023 12:27 PM FIRST SAMPLER 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 Patients with unexplained liver disease who are immunocompromised or suspected of having acute Hepatitis C infection may benefit from Nucleic Acid Test (CROW) for Hepatitis C Viral RNA to confirm Hepatitis C status. 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
--- NOTE | 2024-10-06 14:04 | ED.GENADULT ---
HPI - General Adult General Chief complaint: Extremity Injury, Upper Stated complaint: right arm injury and head injury Time Seen by Provider: 10/06/24 13:59 History of Present Illness HPI narrative: Simba is a 24M with a PMH of hypoplastic left heart that presented to the ED after a car zheng fell on his right forearm/wrist. No other concerns reported. Related Data Home Medications ?Medication ?Instructions ?Recorded ?Confirmed ?Last Taken ?Type aspirin 81 mg tablet,delayed 81 mg PO DAILY 10/08/23 06/22/24 06/21/24 History release digoxin 125 mcg (0.125 mg) tablet 125 mcg PO DAILY 10/08/23 06/22/24 06/21/24 History enalapril maleate 10 mg tablet 10 mg PO DAILY 10/08/23 06/22/24 06/21/24 History cyclobenzaprine 10 mg tablet 10 mg PO PRN 06/22/24 06/22/24 Unknown History spironolactone 50 mg PO DAILY 06/22/24 06/22/24 Unknown History Allergies Allergy/AdvReac Type Severity Reaction Status Date / Time No Known Drug Allergies Allergy Unknown Other Verified 10/06/24 14:04 Review of Systems Review of Systems: All systems reviewed & are unremarkable except as noted in HPI and below PMFSH Past Medical History Medical History Hypoplastic left heart Surgical History Surgical History H/O heart surgery Social History Social History (Updated 05/22/24 @ 09:49 by Adri Brown PA-C) Substance use: never Gender identity (if verbalized by the patient): Male Sexual Orientation (if Verbalized by the Patient): Straight or Heterosexual Exam Const: General: cooperative, healthy appearing, comfortable, no acute distress, well developed, alert, awake and Physically active Orientation/consciousness: oriented to person, oriented to place and oriented to time HENMT: Head: normal to inspection, normocephalic and atraumatic Ears: hearing grossly normal bilaterally and external ears normal Face/Nose/Sinus: Normal external nose present Eyes: General: appearance normal, both eyes and all related structures Periorbital: periorbital findings normal Sclera: sclerae normal Pupils: Equal, round and reactive pupils present Neck: Neck: normal visual inspection Chest: Chest palpation & inspection: normal inspection of the chest Resp: Effort & Inspection: normal respiratory effort, able to speak in complete sentences and no respiratory distress Cardio: Jugular venous distension: no JVD Skin: General skin exam: normal color and no rashes or lesions noted Neuro: General: oriented to person, oriented to place and oriented to time Cranial nerves: Yes Equal, round and reactive pupils present Extrem: General: normal to inspection Other: right wrist was TTP Course Course Emergency Course: Declined pain meds. Ordered radiographs. EXAM: XR wrist RT w scaphoid DATE: 10/06/2024 14:12 HISTORY: Rt. wrist pain after a car zheng fell on it. . COMPARISON: None available. FINDINGS: Normal mineralization. No fracture or dislocation. No lytic or blastic lesion. Joint spaces are maintained. No erosion or periosteal change. Soft tissues within normal limits. IMPRESSION: No acute osseous finding in the right wrist. He declined a TDAP Vital Signs Vital signs: Vital Signs Temperature 98.0 F 10/06/24 13:57 Pulse Rate 105 H 10/06/24 13:57 Respiratory Rate 18 10/06/24 13:57 Blood Pressure 129/75 10/06/24 13:57 Pulse Oximetry 90 10/06/24 13:57 Oxygen Delivery Room Air 10/06/24 13:57 Temperature 98.0 F 10/06/24 13:57 Pulse Rate 105 H 10/06/24 13:57 Respiratory Rate 18 10/06/24 13:57 Blood Pressure 129/75 10/06/24 13:57 Pulse Oximetry 90 10/06/24 13:57 Oxygen Delivery Room Air 10/06/24 13:57 Medical Decision Making Vital Signs Vital Signs: Vital Signs Temperature 98.0 F 10/06/24 13:57 Pulse Rate 105 H 10/06/24 13:57 Respiratory Rate 18 10/06/24 13:57 Blood Pressure 129/75 10/06/24 13:57 Pulse Oximetry 90 10/06/24 13:57 Oxygen Delivery Room Air 10/06/24 13:57 Temperature 98.0 F 10/06/24 13:57 Pulse Rate 105 H 10/06/24 13:57 Respiratory Rate 18 10/06/24 13:57 Blood Pressure 129/75 10/06/24 13:57 Pulse Oximetry 90 10/06/24 13:57 Oxygen Delivery Room Air 10/06/24 13:57 Discharge Plan Discharge Clinical Impression: Contusion of upper limb, right Patient Disposition: Home, Self-Care Condition: Stable Instructions: Antibiotic Form Patient Language: Upper Sorbian Prescriptions: No Action enalapril maleate 10 mg tablet 10 mg PO DAILY aspirin 81 mg Tablet,Delayed Release (Dr/Ec) 81 mg PO DAILY digoxin 125 mcg (0.125 mg) tablet 125 mcg PO DAILY cyclobenzaprine 10 mg tablet 10 mg PO PRN spironolactone 50 mg PO DAILY magnesium oxide 400 mg magnesium capsule 400 mg PO BID Qty: 20 0RF Follow-up/Referrals: UNKNOWN,DOCTOR [Non-Staff] -
--- OUTSIDE RECORDS SUMMARY | 2024-10-06 14:23 | XMS_ITS | Clinical Summary ---
Author Organization [employer] [facility] Address [address] [place] [address] Care Team Providers Care Pheresis Specialist Name Role Phone Nicolas Puentes MD Primary Care Provider [phone] Source Comments [facility],non-owned Affiliates and Associated Physician Practices is amultiple site organization consisting of ambulatory clinics and hospital sitesin [place], [place], [place] and [place]. This disclosure is being madepursuant to the Care Everywhere program and may not contain all information available regarding this patient. Last updated 18.[facility] Allergies No known active allergies Medications * [...] complex cardiac history s/p palliative repair with [place], Leo, and Fontan who presents with an acute onset of chest pain, right-sided weakness, numbness and tingling. Initial exam was significant for right sided weakness and sensation loss in the UE and LE. Comprehensive evaluation by the Neurology team identified no focal deficits and NIHSS of 0. Given his cardiac history, there is concern for a cardiopulmonary process, such as PE, [place] and angina, especially in the setting of [...] complex cardiac history s/p palliative repair with [place], Leo, and Fontan who presents with an acute onset of chest pain, right-sided weakness, numbness and tingling. Initial exam was significant for right sided weakness and sensation loss in the UE and LE. Comprehensive evaluation by the Neurology team identified no focal deficits and NIHSS of 0. Given his cardiac history, there is concern for a cardiopulmonary process, such as PE, [place] and angina, especially in the setting of [...] 07/17/2017 Assessment & Plan (07/17/2017 3:50 PM BENCH WORKER): Increased fatigue, unclear if mood related or [...] 01/23/2015 Assessment & Plan (07/17/2017 3:49 PM BENCH WORKER): Simba Guerrero is here for his adolescent [...] months. Assessment & Plan (09/19/2014 12:53 PM BENCH WORKER): Growth hormone treatment of short stature; interrupted therapy, as noted in this note. Family desires to restart therapy. 1. Growth hormone 1.6 mg subq daily (0.30 mg/kg/week). 2. Bone age radiograph. 3. Return appointment in four months. Assessment & Plan (06/05/2014 5:35 PM BENCH WORKER): Growth hormone treatment of short stature; interrupted [...] PRN for several days as prescribed by [facility] - Return to clinic for [id number] scheduled 05/23/2017 or sooner if worsening symptoms Constipation 06/04/2014 05/28/2015 Overview (04/30/2015): Constipation 06/04/2014 05/28/2015 Overview (04/30/2015): Assessment & Plan (06/04/2014 6:03 PM BENCH WORKER): Seen in ED on 05/26 for constipation/abdominal pain. Treated with Miralax. Re-presented 05/27 with concern for blood in stools. Occult blood test negative. Attributed to red dye in popcorn eaten that day. Stools normal. No sign of anal fissure on exam. -F/u scheduled with GI on Monday. Wound infection 04/30/2014 04/08/2017 Assessment & Plan (06/04/2014 2:33 PM BENCH WORKER): Simba had a large sternal wound from [...] Plan: -close his left SVC in the pathology laboratory technologist Immunizations Name Administration Dates Next Due DTaP [...] Medical History Relation Name Comments Asthma Brother [place]<55(male) Paternal Grandfather Asthma Sister Cancer - Colon [...] Comments Blood Pressure 120/60 06/16/2023 9:48 AM BENCH WORKER Pulse 110 06/16/2023 9:48 AM BENCH WORKER Temperature 36.1 C (97 F) 12/15/2022 3:15 PM CDT Respiratory Rate 20 06/16/2023 9:48 AM BENCH WORKER Oxygen Saturation 85% 06/16/2023 9:48 AM BENCH WORKER Inhaled Oxygen Concentration - - Weight 55.2 kg (121 lb 11.1 oz) 06/16/2023 9:48 AM BENCH WORKER Height 168 cm (5' 6.14 ) 06/16/2023 9:48 AM BENCH WORKER Body Mass Index 19.56 06/16/2023 9:48 AM BENCH WORKER Plan of Treatment Health Maintenance Due Date [...] this topic Medical Devices Implanted Type Area Hardscape Foreman Device Identifier Shelf Expiration Date Model / Serial / Lot Stent - Vascular-05/18 Implanted:04/30 (Quantity not on file) Stent - Vascular [id number] / / Procedures Procedure Name Priority Date/Time Associated Diagnosis Comments HEPATITIS C ANTIBODY Routine 06/16/2023 12:27 PM BENCH WORKER 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 Patients with unexplained liver disease who are immunocompromised or suspected of having acute Hepatitis C infection may benefit from Nucleic Acid Test (CROW) for Hepatitis C Viral RNA to confirm Hepatitis C status. 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
--- OUTSIDE RECORDS SUMMARY | 2024-10-06 14:23 | XMS_ITS | Referral Summary ---
Author Organization [facility] Address [address] [place] [address] Care Team Providers Care Public Relations Associate Name Role Phone Nicolas Puentes MD Primary Care Provider [phone] Source Comments [facility],non-owned Affiliates and Associated Physician Practices is amultiple site organization consisting of ambulatory clinics and hospital sitesin [place], [place], [place] and [place]. This disclosure is being madepursuant to the Care Everywhere program and may not contain all information available regarding this patient. Last updated 18.[facility] [facility] Allergies No known active allergies Medications * [...] complex cardiac history s/p palliative repair with [place], Leo, and Fontan who presents with an acute onset of chest pain, right-sided weakness, numbness and tingling. Initial exam was significant for right sided weakness and sensation loss in the UE and LE. Comprehensive evaluation by the Neurology team identified no focal deficits and NIHSS of 0. Given his cardiac history, there is concern for a cardiopulmonary process, such as PE, [place] and angina, especially in the setting of [...] complex cardiac history s/p palliative repair with [place], Leo, and Fontan who presents with an acute onset of chest pain, right-sided weakness, numbness and tingling. Initial exam was significant for right sided weakness and sensation loss in the UE and LE. Comprehensive evaluation by the Neurology team identified no focal deficits and NIHSS of 0. Given his cardiac history, there is concern for a cardiopulmonary process, such as PE, [place] and angina, especially in the setting of [...] 07/17/2017 Assessment & Plan (07/17/2017 3:50 PM TERMINAL SUPERVISOR): Increased fatigue, unclear if mood related or [...] 01/23/2015 Assessment & Plan (07/17/2017 3:49 PM TERMINAL SUPERVISOR): Simba Guerrero is here for his adolescent [...] months. Assessment & Plan (09/19/2014 12:53 PM TERMINAL SUPERVISOR): Growth hormone treatment of short stature; interrupted therapy, as noted in this note. Family desires to restart therapy. 1. Growth hormone 1.6 mg subq daily (0.30 mg/kg/week). 2. Bone age radiograph. 3. Return appointment in four months. Assessment & Plan (06/05/2014 5:35 PM TERMINAL SUPERVISOR): Growth hormone treatment of short stature; interrupted [...] PRN for several days as prescribed by [facility] - Return to clinic for [id number] scheduled 05/23/2017 or sooner if worsening symptoms Constipation 06/04/2014 05/28/2015 Overview (04/30/2015): Constipation 06/04/2014 05/28/2015 Overview (04/30/2015): Assessment & Plan (06/04/2014 6:03 PM TERMINAL SUPERVISOR): Seen in ED on 05/26 for constipation/abdominal pain. Treated with Miralax. Re-presented 05/27 with concern for blood in stools. Occult blood test negative. Attributed to red dye in popcorn eaten that day. Stools normal. No sign of anal fissure on exam. -F/u scheduled with GI on Monday. Wound infection 04/30/2014 04/08/2017 Assessment & Plan (06/04/2014 2:33 PM TERMINAL SUPERVISOR): Simba had a large sternal wound from [...] Plan: -close his left SVC in the collaborating supervising physician Immunizations Name Administration Dates Next Due DTaP [...] Comments Blood Pressure 120/60 06/16/2023 9:48 AM TERMINAL SUPERVISOR Pulse 110 06/16/2023 9:48 AM TERMINAL SUPERVISOR Temperature 36.1 C (97 F) 12/15/2022 3:15 PM CDT Respiratory Rate 20 06/16/2023 9:48 AM TERMINAL SUPERVISOR Oxygen Saturation 85% 06/16/2023 9:48 AM TERMINAL SUPERVISOR Inhaled Oxygen Concentration - - Weight 55.2 kg (121 lb 11.1 oz) 06/16/2023 9:48 AM TERMINAL SUPERVISOR Height 168 cm (5' 6.14 ) 06/16/2023 9:48 AM TERMINAL SUPERVISOR Body Mass Index 19.56 06/16/2023 9:48 AM TERMINAL SUPERVISOR Functional Status Functional Status Response Date of [...] on file Medical Devices Implanted Type Area Resources Representative Device Identifier Shelf Expiration Date Model / Serial / Lot Stent - Vascular-05/18 Implanted:04/30 (Quantity not on file) Stent - Vascular [id number] / / Procedures Procedure Name Priority Date/Time Associated Diagnosis Comments HEPATITIS C ANTIBODY Routine 06/16/2023 12:27 PM TERMINAL SUPERVISOR 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
--- OUTSIDE RECORDS SUMMARY | 2024-10-06 14:24 | XMS_ITS | Patient Health Summary ---
Author Organization [facility] [employer] Address [address] [place] [address] Care Team Providers Care Tobacco Feeder Catcher Name Role Phone Nicolas Puentes MD Primary Care Provider [phone] Note from [facility],non-owned Affiliates and Associated Physician Practices is amultiple site organization consisting of ambulatory clinics and hospital sitesin [place], [place], [place] and [place]. This disclosure is being madepursuant to the Care Everywhere program and may not contain all information available regarding this patient. Last updated 18.[facility] [employer] Allergies No known active allergies Medications * [...] Comments Blood Pressure 120/60 06/16/2023 9:48 AM PSYCHOLOGICAL AIDE Pulse 110 06/16/2023 9:48 AM PSYCHOLOGICAL AIDE Temperature 36.1 C (97 F) 12/15/2022 3:15 PM CDT Respiratory Rate 20 06/16/2023 9:48 AM PSYCHOLOGICAL AIDE Oxygen Saturation 85% 06/16/2023 9:48 AM PSYCHOLOGICAL AIDE Inhaled Oxygen Concentration - - Weight 55.2 kg (121 lb 11.1 oz) 06/16/2023 9:48 AM PSYCHOLOGICAL AIDE Height 168 cm (5' 6.14 ) 06/16/2023 9:48 AM PSYCHOLOGICAL AIDE Body Mass Index 19.56 06/16/2023 9:48 AM PSYCHOLOGICAL AIDE Medical Devices Implanted Type Area Optical Glass Inspector Device Identifier Shelf Expiration Date Model / Serial / Lot Stent - Vascular-05/18 Implanted:04/30 (Quantity not on file) Stent - Vascular [id number] / / Procedures * HOLTER MONITOR(Performed 07/05/2023) [...] DIFFERENTIAL(Performed 05/15/2018) Performed for Rectal bleeding * FL LARYNGOSCOPY,FLEX FIBER,DIAGNOSTIC(Performed 05/13/2018) Performed for Hoarseness * [...] 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 Narrative Sharron Mendez MD - 07/05/2023 3:58 PM PSYCHOLOGICAL AIDE Sharron Mendez MD 07/05/2023 4:17 PM Attending [...] * PULMONARY/RESPIRATORY REPORT ORDER (06/19/2023 6:59 PM PSYCHOLOGICAL AIDE) Narrative 06/19/2023 6:59 PM PSYCHOLOGICAL AIDE Ordered by an unspecified provider. Scanned Document RESPIRATORY THERAPY ORDERABLES * (ABNORMAL) PT-INR [facility] (06/16/2023 12:27 PM PSYCHOLOGICAL AIDE) Only the most recent of5 resultswithin the time period is included. PT 15.6(H) 12.1 - 14.8 Seconds 06/16/2023 1:11 PM PSYCHOLOGICAL AIDE [facility] INR 1.3 See Comment 06/16/2023 1:11 PM PSYCHOLOGICAL AIDE [facility] Comment:The suggested therap eutic range for standard coumadin (warfarin) therapy is an INR of 2.0-3.0. For high-risk patients (Mechanical Mitral Valve Prosthesis, etc.), the suggested prophylactic therapeutic range is an INR of 2.5-3.5. Blood BLOOD SPECIMEN / Unknown Lab Venipuncture / Unknown 06/16/2023 12:27 PM PSYCHOLOGICAL AIDE 06/16/2023 12:45 PM PSYCHOLOGICAL AIDE Tapan Esparza MD LAB - COAGULATION OR DERABLES [facility] [address] [place] [address], [facility] [phone] * CYSTATIN C LEVEL (06/16/2023 12:27 PM PSYCHOLOGICAL AIDE) Only the most recent of2 resultswithin the time period is included. Pathologist [facility] Cystatin C 0.63 0.60 - 1.00 mg/L 06/20/2023 6:10 AM PSYCHOLOGICAL AIDE [facility] ([facility]) Blood BLOOD SPECIMEN / Unknown Lab Venipuncture / Unknown 06/16/2023 12:27 PM PSYCHOLOGICAL AIDE 06/16/2023 12:35 PM PSYCHOLOGICAL AIDE Narrative [facility] ([facility]) - 06/20/2023 6:10 AM PSYCHOLOGICAL AIDE Performed at: 01 - [address] [id number] Lithographic Printing Machinist: Stefano Godoy MD, Phone: [phone] Catherine White PA-C LAB - CHEMISTRY [place] Performing Organization Address City/[facility]/ZIP Co de Phone Number [facility] ([facility]) [address] [place] [address] * TSH REFLEX FREE T4 (06/16/2023 12:27 PM PSYCHOLOGICAL AIDE) Only the most recent of2 resultswithin the time period is included. [facility] TSH 1.540 0.350 - 4.940 uIU/mL 06/16/2023 1:39 PM PSYCHOLOGICAL AIDE [facility] Blood BLOOD SPECIMEN / Unknown Lab Venipuncture / Unknown 06/16/2023 12:27 PM PSYCHOLOGICAL AIDE 06/16/2023 12:44 PM PSYCHOLOGICAL AIDE Tapan Esparza MD LAB - CHEMISTRY [place] [address] [address] [phone] * (ABNORMAL) VITAMIN D (25-HYDROXY) (06/16/2023 12:27 PM PSYCHOLOGICAL AIDE) Only the most recent of2 resultswithin the time period is included. [facility] Vitamin D, 25 Hydroxy 19.0(L) 30.0 - 80.0 ng/mL 06/16/2023 1:39 PM PSYCHOLOGICAL AIDE [facility] Comment: The recommendations for 25-Hydroxy Vitamin D [...] Lab Venipuncture / Unknown 06/16/2023 12:27 PM PSYCHOLOGICAL AIDE 06/16/2023 12:44 PM PSYCHOLOGICAL AIDE Catherine White PA-C LAB - CHEMISTRY [place] Performing Organization Address [facility]/ZIP Co de Phone Number [address] [address], [facility] [phone] * ALPHA FETOPROTEIN BLOOD TUMOR MARKER (06/16/2023 12:27 PM PSYCHOLOGICAL AIDE) Pathologist [facility] Alpha-Fetoprote in Tumor Marker 2.3 <=8.3 ng/mL 06/16/2023 1:54 PM PSYCHOLOGICAL AIDE [facility] Comment: AFP values will vary depending on testing procedure used. Results are not comparable across different methods. AFP values obtained by [facility] using an Call Loop Alinity Immunoassay. Blood BLOOD SPECIMEN / Unknown Lab Venipuncture / Unknown 06/16/2023 12:27 PM PSYCHOLOGICAL AIDE 06/16/2023 12:45 PM PSYCHOLOGICAL AIDE Jaime Galvez MD LAB - CHEMISTRY [place] Performing Organization Address City/[facility]/ZIP Co de Phone Number [address] [address], [place] [phone] * (ABNORMAL) CBC W/O DIFFERENTIAL (06/16/2023 12:27 PM PSYCHOLOGICAL AIDE) Only the most recent of4 resultswithin the time period is included. Pathologist [facility] WBC 6.5 3.5 - 10.5 10 3/uL 06/16/2023 12:55 PM PSYCHOLOGICAL AIDE [facility] RBC 5.75(H) 4.30 - 5.70 10 6/uL 06/16/2023 12:55 PM [facility] Hemoglobin 16.9 12.0 - 17.6 g/dL 06/16/2023 12:55 PM [facility] Hematocrit 49.6 35.2 - 51.7 % 06/16/2023 12:55 PM [facility] MCV 86.3 80.7 - 98.3 fL 06/16/2023 12:55 PM [facility] MCH 29.4 26.7 - 34.0 pg 06/16/2023 12:55 PM [facility] MCHC 34.1 30.8 - 35.9 g/dL 06/16/2023 12:55 PM [facility] RDW-SD 40.3 36.0 - 50.0 fL 06/16/2023 12:55 PM [facility] RDW-CV 13.0 11.2 - 14.8 % 06/16/2023 12:55 PM [facility] Platelet Count 210 150 - 400 10 3/uL 06/16/2023 12:55 PM [facility] MPV 11.3 9.4 - 12.9 fL 06/16/2023 12:55 PM [facility] nRBC Absolute 0.00 0 10 3/uL 06/16/2023 12:55 PM [facility] nRBC Auto 0.0 0 /100 WBC 06/16/2023 12:55 PM [facility] Blood BLOOD SPECIMEN / Unknown Lab Venipuncture / Unknown 06/16/2023 12:27 PM PSYCHOLOGICAL AIDE 06/16/2023 12:44 PM PSYCHOLOGICAL AIDE Jaime Galvez MD LAB - HEMATOLOGY ORD ERABLES [facility] [address] [place] [address], [facility] [phone] * (ABNORMAL) BASIC METABOLIC PANEL (CALCIUM TOTAL) (06/16/2023 12:27 PM PSYCHOLOGICAL AIDE) Only the most recent of8 resultswithin the time period is included. BUN 12 7 - 26 mg/dL 06/16/2023 1:27 PM [facility] Creatinine 0.68(L) 0.71 - 1.16 mg/dL 06/16/2023 1:27 PM [facility] Sodium 138 136 - 145 mmol/L 06/16/2023 1:27 PM [facility] Potassium 4.1 3.5 - 4.5 mmol/L 06/16/2023 1:27 PM [facility] Chloride 108(H) 98 - 107 mmol/L 06/16/2023 1:27 PM [facility] CO2 19(L) 22 - 29 mmol/L 06/16/2023 1:27 PM [facility] Glucose 68(L) 70 - 115 mg/dL 06/16/2023 1:27 PM [facility] Calcium 9.2 8.4 - 10.2 mg/dL 06/16/2023 1:27 PM [facility] Anion Gap 11 6 - 16 06/16/2023 1:27 PM [facility] BUN/Creatinine Ratio 18 7 - 23 06/16/2023 1:27 PM [facility] Osmolality Calculated 284 275 - 295 mOsm/kg 06/16/2023 1:27 PM [facility] eGFR by CKD-EPI >90 >=90 mL/min/1.7 3 m2 06/16/2023 1:27 PM [facility] Blood BLOOD SPECIMEN / Unknown Lab Venipuncture / Unknown 06/16/2023 12:27 PM PSYCHOLOGICAL AIDE 06/16/2023 12:44 PM PSYCHOLOGICAL AIDE Jiame Galvez MD LAB - CHEMISTRY [place] [facility] Organization Address City/State/[facility] Co de Phone Number [address] [address], [facility] [phone] * HEPATIC FUNCTION PANEL (06/16/2023 12:27 PM PSYCHOLOGICAL AIDE) Only the most recent of2 resultswithin the time period is included. Protein Total 7.7 6.0 - 8.3 g/dL 023 1:38 PM [facility] Albumin 4.5 3.4 - 5.0 g/dL 06/16/2023 1:38 PM [facility] Bilirubin Total 1.1 0.2 - 1.2 mg/dL 05/31 1:38 PM [facility] Bilirubin Conjugated 0.4 0.1 - 0.5 mg/dL 06/16/2023 1:38 PM [facility] Bilirubin Unconjugated 0.7 Unconjugated Bilirubin is a calculated value: Reference ranges have not been established. mg/dL 06/16/2023 1:38 PM [facility] Alkaline Phosphatase 65 40 - 150 U/L 06/16/2023 1:38 PM [facility] ALT 31 5 - 55 U/L 06/16/2023 1:38 PM [facility] AST 26 5 - 34 U/L 06/16/2023 1:38 PM [facility] Albumin/Globulin Ratio 1.4 1.1 - 2.3 06/16/2023 1:38 PM [facility] Blood BLOOD SPECIMEN / Unknown Lab Venipuncture / Unknown 06/16/2023 12:27 PM PSYCHOLOGICAL AIDE 06/16/2023 12:[address] [facility] Jaime Galvez MD LAB - CHEMISTRY ORDE [facility] Organization Address City/State/ZIP Co de Phone Number [address] [address], [facility] [phone] * HEPATITIS B SURFACE ANTIBODY (06/16/2023 12:[address] [facility]) Hepatitis B Virus Surface Antibody Non-react matthew Non-react matthew 06/16/2023 1:18 PM [facility] Comment: < 8 mIU/mL Hepatitis B surface Antibody (HBsAb). Nonreactive for HBsAb - individual is considered not immune to Hepatitis B Virus infection. Hepatitis B Surface Antibody Quantitative 0.4 <8.0 mIU/mL 06/16/2023 1:18 PM [facility] Comment: Hepatitis B Surface Antibody Numeric Result Interpretation: Nonreactive: <8.0 mIU/mL Indeterminate: 8.0 - 12.0 mIU/mL Reactive: >12.0 mIU/mL Blood BLOOD SPECIMEN / Unknown Lab Venipuncture / Unknown 06/16/2023 12:27 PM PSYCHOLOGICAL AIDE 06/16/2023 12:35 PM PSYCHOLOGICAL AIDE Jaime Galvez MD LAB - CHEMISTRY [place] Performing Organization Address City/[facility]/ZIP Co de Phone Number [address] [address], [place] [phone] * HEPATITIS B CORE ANTIBODY TOTAL (06/16/2023 12:27 PM PSYCHOLOGICAL AIDE) HBc Antibody Total Non-reacti ve Non-reacti ve 06/16/2023 1:18 PM PSYCHOLOGICAL AIDE [facility] Blood BLOOD SPECIMEN / Unknown Lab Venipuncture / Unknown 06/16/2023 12:27 PM PSYCHOLOGICAL AIDE 06/16/2023 12:35 PM PSYCHOLOGICAL AIDE Jaime Galvez MD LAB - CHEMISTRY [place] Performing Organization Address City/[facility] Co de Phone Number [address] [address], [place] [phone] * HEPATITIS B SURFACE ANTIGEN W RFLX CONFIRMATION (06/16/2023 12:27 PM PSYCHOLOGICAL AIDE) Hepatitis B Virus Surface Antigen Non-reacti ve Non-reacti ve 06/16/2023 1:18 PM PSYCHOLOGICAL AIDE [facility] Blood BLOOD SPECIMEN / Unknown Lab Venipuncture / Unknown 06/16/2023 12:27 PM PSYCHOLOGICAL AIDE 06/16/2023 12:35 PM PSYCHOLOGICAL AIDE Jaime Galvez MD LAB - CHEMISTRY [place] [address] [address], [place] [phone] * (ABNORMAL) GGT (06/16/2023 12:27 PM PSYCHOLOGICAL AIDE) Only the most recent of3 resultswithin the time period is included. GGT 92(H) 9 - 64 Units/L 06/16/2023 1:27 PM PSYCHOLOGICAL AIDE [facility] Blood BLOOD SPECIMEN / Unknown Lab Venipuncture / Unknown 06/16/2023 12:27 PM PSYCHOLOGICAL AIDE 06/16/2023 12:44 PM PSYCHOLOGICAL AIDE Catherine White PA-C LAB - CHEMISTRY [place] [address] [address], [place] [phone] * T4 FREE (06/16/2023 12:27 PM PSYCHOLOGICAL AIDE) [facility] T4 Free 1.1 0.7 - 1.5 ng/dL 06/16/2023 1:39 PM PSYCHOLOGICAL AIDE [facility] Blood BLOOD SPECIMEN / Unknown Lab Venipuncture / Unknown 06/16/2023 12:27 PM PSYCHOLOGICAL AIDE 06/16/2023 12:44 PM PSYCHOLOGICAL AIDE Tapan Esparza MD LAB - CHEMISTRY [place] Performing Organization Address [facility] Co de Phone Number [address] [address], [place] [phone] * HEPATITIS C ANTIBODY (06/16/2023 12:27 PM PSYCHOLOGICAL AIDE) [facility] Hepatitis C Antibody Non-react matthew Non-reac tive 06/16/2023 1:18 PM PSYCHOLOGICAL AIDE [facility] Comment:Hepatitis C Antibody screen indicates no serologic evidence of past or current infection with Hepatitis C Virus. Patients with unexplained liver disease who are immunocompromised or suspected of having acute Hepatitis C infection may benefit from Nucleic Acid Test (CROW) for Hepatitis C Viral RNA to confirm Hepatitis C status. Blood BLOOD SPECIMEN / Unknown Lab Venipuncture / Unknown 06/16/2023 12:27 PM PSYCHOLOGICAL AIDE 06/16/2023 12:35 PM PSYCHOLOGICAL AIDE Jaime Galvez MD LAB - CHEMISTRY [place] [address] [address], [place] [phone] * (ABNORMAL) HEPATITIS A ANTIBODY (06/16/2023 12:27 PM PSYCHOLOGICAL AIDE) [facility] Hepatitis A Virus Antibody Total Positive( A) Negative 06/17/2023 6:36 PM PSYCHOLOGICAL AIDE [facility] ([facility]) Comment: The positive anti-HAV is consistent with recent or remote Hepatitis A infection or antibody response to HAV vaccination. False positive anti-HAV can occur. Performed By: [employer] [address] [place] [address] Wooden Frame Builder: Niraj Haji MD, PhD CLIA Number: [id number] Blood BLOOD SPECIMEN / Unknown Lab Venipuncture / Unknown 06/16/2023 12:27 PM PSYCHOLOGICAL AIDE 06/16/2023 12:35 PM PSYCHOLOGICAL AIDE Jaime Galvez MD LAB - CHEMISTRY ORDE NILESH [facility] ([facility]) [address] [place] [address], [facility] * US LIVER W DOPPLER (06/16/2023 9:45 AM PSYCHOLOGICAL AIDE) Anatomical Region Laterality Modality Abdomen Ultrasound 06/16/2023 10:4 4 AM PSYCHOLOGICAL AIDE Impressions 06/16/2023 10:51 AM PSYCHOLOGICAL AIDE IMPRESSION: Diffusely coarsened micronodular appearance of the liver again consistent with diffuse fibrosis/hepatocellular disease. Similar mild right central pelviectasis. Normal Doppler assessment. > Interpreting Provider: David Arroyo MD on 06/16/2023 10:51 AM Narrative 06/16/2023 10:51 AM PSYCHOLOGICAL AIDE PROCEDURE: US ABDOMEN LTD W COMP DOPPLER [...] * XR CHEST 2VW (06/16/2023 8:57 AM PSYCHOLOGICAL AIDE) Only the most recent of13 resultswithin the time period is included. Anatomical Region Laterality Modality Chest Radiographic Deann ging 06/16/2023 8:40 AM PSYCHOLOGICAL AIDE Impressions 06/16/2023 10:21 AM PSYCHOLOGICAL AIDE Stable appearance of postsurgical changes of the chest. No acute cardiopulmonary findings. Reading Radiologist: Adri Burroughs on 06/16/2023 at 10:21 AM Narrative 06/16/2023 10:21 AM PSYCHOLOGICAL AIDE INDICATION: Hypoplastic left heart syndrome COMPARISON: 09/25/2022 [...] (Bezet) 487 ms [facility] MUSE Calculated P [place] 54 degrees SL [facility] MUSE Calculated R [place] -172 degrees SL [facility] MUSE Calculated T [place] 1 degrees SL [facility] MUSE Interpretation EKG NORMAL SINUS RHYTHM INCOMPLETE RIGHT BUNDLE BRANCH BLOCK RIGHT VENTRICULAR HYPERTROPHY ABNORMAL RIGHT SUPERIOR AXIS DEVIATION NONSPECIFIC ST AND T WAVE ABNORMALITY ABNORMAL ECG WHEN COMPARED WITH ECG OF 25-SEP-2022 22:06, NO SIGNIFICANT CHANGE WAS FOUND Confirmed by fellow JOHN BERGMAN MD ([id number]) on 08/22/2023 1:35:15 PM Confirmed by JACINTO BARBOSA MD ([id number]) on 08/26/2023 12:14:08 PM [facility] 02/09/2023 11:5 5 AM CDT 08/26/2023 12:14 PM PSYCHOLOGICAL AIDE Felicity Brennan MD ECG ORDERABLES [facility] MUSE [...] of Procedure: 12/15/22 Attending: Sharron Mendez MD Channel Worker(s): April Porter RN Historical Background and Indications: [...] right internal jugular vein with a 6 Vincentian sheath and the left femoral artery with a 4 Vincentian sheath. After access was obtained and sheaths were placed, a 6 Vincentian wedge catheter and a 4F pigtail catheter [...] HCO3: 21.6 Angiography 1. Aortic root (4F [place], AP/Lat Projections): Siting hand angiogram in the [place] aortic root. 2. Right ventricle (4F Pigtail, AP/Lat projections): There is trace tricuspid regurgitation. Mildly dilated right ventricular size with normal systolic function. No RVOT obstruction with unobstructed flow across the neoaortic valve. Patent DKS without aneurysm or dilation of the ascending aorta. The coronaries are not well visualized. 3. [place] aortic root (4F Pigtail, AP/Lat projections): There is no [place] aortic insufficiency. The [place] aortic valve is stenotic with restricted movement [...] across the atrial septum. 9. IVC (4F [place], AP/Lat projections): There is occlusion of the [...] to the coronary sinus Cardiac Surgeries/Procedures: 1. Donnellson procedure with 3.5 mm right BTT shunt, atrial septectomy, PDA ligation (2000, Fernando) 2. Removal of protruding sternal wires (05/01/2001, Fernando) 3. Bidirectional Oswald with patch arterioplasty of right and left pulmonary arteries (2000, Fernando) 4. Cardiac catheterization with coil embolization of the BLADIMIR (05/17/2004, Ann) 5. Extracardiac fenestrated Fontan with 20 mm conduit and 6 mm Seward-Charles tube fenestration (12/22/2004, Fernando) 6. Sternotomy with [...] included. Unit Description AS1 LR PRBC IRR [facility] Unit ABO A [facility] Unit POS [facility] Product Number R[address] [facility] B LOOD BANK LAB Unit Donor # [id number] [facility] Unit Status [facility] [id number] [facility] Blood Type Barcode [address] [facility] LAB Expiration Date [id number] S BLOOD BANK LAB Unit Description AS1 LR PRBC IRR [facility] Unit ABO A [facility] Unit Rh POS [facility] Product Number R[address] [facility] B LOOD BANK LAB Unit Donor # [id number] [facility] Unit Status released [facility] BLOO D BANK LAB Product Code [id number] [facility] Blood Type Barcode [address] [facility] Expiration Date [id number] S BLOOD BANK LAB Unit Description AS1 LR PRBC IRR [facility] Unit ABO A [facility] Unit Rh POS [facility] Product Number R[address] [facility] B LOOD BANK LAB Unit Donor # [id number] [facility] Unit Status released [facility] BL[facility] D BANK [facility] Product Code [id number] [facility] BLO OD BANK LAB Blood Type Barcode [address] [facility] Expiration Date [id number] S BLOOD BANK LAB Unit Description AS1 LR PRBC IRR [facility] Unit ABO A [facility] Unit Rh POS [facility] Product Number R[address] [facility] B LOOD BANK LAB Unit Donor # [id number] [facility] Unit Status released [facility] BL[facility] D [facility] Product Code [id number] [facility] BLO OD BANK LAB Blood Type Barcode [address] [facility] B[facility] LAB Expiration Date S BLOOD BANK LAB Blood Bank BLOOD SPECIMEN / Unknown 12/15/2022 10:10 AM CDT Sharron Mendez MD LAB - B LOOD BANK ORDERABLES [facility] [address] [place] [address], [facility] [phone] * CARDIAC CATH - For Physician Documentation (12/15/2022 2:51 PM CDT) Only the most recent of2 resultswithin the time period is included. Narrative [facility] - 12/15/2022 2:51 PM CDT Sharron Mendez MD 12/15/2022 2:54 PM PRELIMINARY CARDIAC CATHETERIZATION REPORT (Final report to follow) Name: Simba Guerrero Date Performed: 12/15/2022 Attending: Sharron eMndez MD Channel Worker(s): April Porter RN Procedure: R/LHC, Angiography Access: [...] PM Sharron Mendez MD CARDIAC SERVICES ORDERABLES [facility] * BLOOD GAS COOX ART POC NOTIFICATION (12/15/2022 2:37 PM CDT) Comment Notification Label Only - See Separate Report 12/15/2022 4:01 PM CDT [facility] Other MISCELLANEOUS SAMPLES / Unknown Collection / Unknown 12/15/2022 2:37 PM CDT 12/15/2022 2:37 PM CDT Sharron Mendez MD LAB - B LOOD GASES ORDERABLES Performing Organization Address City/[facility]/ZIP Co de Phone Number [facility] [address] [place] [phone] * CCL LEFT AND RIGHT HEART CATH [...] - 125 sec 12/15/2022 2:34 PM CDT [facility] Site Art Line 12/15/2022 2:34 PM CDT [facility] Sample iSTAT ART 12/15/2022 2:34 PM CDT [facility] Blood BLOOD SPECIMEN / Unknown 12/15/2022 2:28 PM CDT 12/15/2022 2:34 PM CDT Sharron Purnima Mendez MD LAB - P OINT OF CARE ORDERABLES [facility] [address] [place], [place] [id number] * (ABNORMAL) BLOOD GAS+COOX+LYTES+METAB ARTERIAL POCT (12/15/2022 2:09 PM CDT) Only the most recent of2 resultswithin the time period is included. pH Arterial 7.31(L) 7.35 - 7.45 pH 12/15/2022 2:09 PM [facility] pO2 Arterial 58(L) 80 - 100 mmHg 12/15/2022 2:09 PM T [facility] pCO2 Arterial 39 35 - 45 mmHg 2:09 PM [facility] HCO3 Arterial 19.6(L) 20.0 - 30.0 mmol/L 12/15/2022 2:09 PM [facility] BE Arterial -6.2(L) -2.0 - 2.0 mmol/L 12/15/2022 2:09 PM [facility] Oxyhemoglobin Arterial 85.8 % 12/15/2022 2:09 PM T [facility] Dexoyhemoglobin (HHB) % 11.6 % 12/15/2022 2:09 PM T [facility] Methemoglobin 1.2 0.0 - 2.0 % 12/15/2022 2:09 PM T [facility] Carboxyhemoglobin 1.4 0.0 - 2.0 % 2022 2:09 PM [facility] Comment:Carboxyhemoglobin No rmal Concentration: Non-smokers: 0-2%; Smokers: 0- 9%; Toxic: >20% O2 Content Arterial 17.1 Interpret within clinical context ml/dL 12/15/2022 2:09 PM [facility] Hemoglobin by COOX 14.2 12.0 - 17.6 g/dL 12/15/2022 2:09 PM CDT [facility] O2 Saturation Arterial 88(L) 90 - 100 % 12/15/2022 2:09 PM CDT [facility] Sodium Whole Blood 127(L) 135 - 145 mmol/L 12/15/2022 2:09 PM CDT [facility] Potassium Whole Blood 3.9 3.5 - 5.5 mmol/L 12/15/2022 2:09 PM CDT [facility] Chloride WB 90(L) 101 - 111 mmol/L 12/15/2022 2:09 PM CDT [facility] Calcium Ionized 1.15 mmol/L 2:09 PM T [facility] Ionized Calcium pH Adjusted 1.11(L) 1.19 - 1.34 mmol/L 12/15/2022 2:09 PM T [facility] Anion Gap (AG) Arterial 21(H) 8 - 18 mmol/L 12/15/2022 2:09 PM CDT [facility] Glucose WB 230(H) 70 - 105 mg/dL 12/15/2022 2:09 PM T [facility] Lactic Acid Whole Blood 0.6 <=2.0 mmol/L 12/15/2022 2:09 PM T [facility] LABORATORY Blood, arterial ARTERIAL BLOOD SPECIMEN / Unknown 12/15/2022 2:09 PM CDT 12/15/2022 2:10 PM CDT Narrative [facility] - 12/15/2022 2:09 PM CDT DSAO Sharron Mendez MD LAB - P OINT OF CARE ORDERABLES [facility] [address] [place] [address] * (ABNORMAL) BLOOD GASES LEVY+COOX POCT (12/15/2022 1:44 PM CDT) Only the most recent of7 resultswithin the time period is included. pH Venous 7.38 7.32 - 7.42 pH 12/15/2022 1:44 PM CDT [facility] pO2 Venous 52(H) 35 - 40 mmHg 12/15/2022 1:44 PM CDT [facility] pCO2 Venous 37(L) 40 - 50 mmHg 12/15/2022 1:44 PM CDT [facility] HCO3 Venous 21.9 20 - 30 mmol/L 12/15/2022 1:44 PM CDT [facility] Base Excess Venous -2.8(L) -2.0 - 2.0 mmol/L 12/15/2022 1:44 PM CDT [facility] Oxyhemoglobin Venous 82.5 % 11/28 1:44 PM CDT [facility] Deoxyhemoglobin (HHB) Venous % 15.2 % 12/15/2022 1:44 PM CDT [facility] Methemoglobin <0.8 0.0 - 2.0 % 12/15/2022 1:44 PM CDT [facility] Carboxyhemoglobin 1.6 0.0 - 2.0 % 2022 1:44 PM CDT [facility] Comment:Carboxyhemoglobin No rmal Concentration: Non-smokers: 0-2%; Smokers: 0- 9%; Toxic: >20% O2 Content Venous 16.8 Interpret within clinical context ml/dL 12/15/2022 1:44 PM CDT [facility] Hemoglobin by COOX 14.5 12.0 - 17.6 g/dL 12/15/2022 1:44 PM CDT [facility] O2 Saturation Venous 84 >=70 % 11/28 1:44 PM CDT [facility] Blood BLOOD SPECIMEN / Unknown 12/15/2022 1:44 PM CDT 12/16/2022 6:40 AM CDT Narrative [facility] - 12/15/2022 1:44 PM CDT RV Sharron Mendez MD LAB - P OINT OF CARE ORDERABLES [facility] [address] [place] [address] * IV PLACEMENT PERFORMABLE (12/15/2022 12:34 PM CDT) Pina Bryant Anes Asst - 12/15/2022 12:34 PM CDT Pina Morrison Anes Asst 12/15/2022 12:34 PM Peripheral IV Line Placement: Patient Location: OR Procedure: IV start ([id number]). Procedure Section: Orientation: right Location: forearm Catheter [...] Event Date/Time: 12/15/2022 11:54 AM Procedure: intubation ([id number]). Procedure Section: Sedation: under general anesthesia. Indications [...] - 10.5 10 3/uL 12/15/2022 10:12 AM [facility] RBC 5.56 4.30 - 5.70 10 6/uL 12/15/2022 10:12 AM [facility] Hemoglobin 16.0 12.0 - 17.6 g/dL 12/15/2022 10:12 AM [facility] Hematocrit 46.6 35.2 - 51.7 % 12/15/2022 10:12 AM [facility] MCV 83.8 80.7 - 98.3 fL 12/15/2022 10:12 AM [facility] MCH 28.8 26.7 - 34.0 pg 12/15/2022 10:12 AM [facility] MCHC 34.3 30.8 - 35.9 g/dL 12/15/2022 10:12 AM [facility] RDW-SD 40.4 36.0 - 50.0 fL 12/15/2022 10:12 AM [facility] RDW-CV 13.2 11.2 - 14.8 % 12/15/2022 10:12 AM [facility] Platelet Count 181 150 - 400 10 3/uL 12/15/2022 10:12 AM [facility] MPV 11.2 9.4 - 12.9 fL 12/15/2022 10:12 AM [facility] nRBC Absolute 0.00 0 10 3/uL 12/15/2022 10:12 AM [facility] nRBC Auto 0.0 0 /100 WBC 12/15/2022 10:12 AM [facility] Neutrophils % 73.5(H) 35.0 - 70.0 % 12/15/2022 10:12 AM [facility] Lymphocytes % 17.8(L) 20.0 - 43.0 % 12/15/2022 10:12 AM [facility] Monocytes % 6.1 5.0 - 13.0 % 12/15/2022 10:12 AM [facility] Eosinophils % 0.8 0.0 - 6.0 % 12/15/2022 10:12 AM [facility] Basophil % 1.5 0.0 - 2.0 % 12/15/2022 10:12 AM [facility] Neutrophils Absolute 4.47 1.60 - 7.00 10 3/uL 12/15/2022 10:12 AM [facility] Lymphocyte Absolute 1.08(L) 1.10 - 3.90 10 3/uL 12/15/2022 10:12 AM [facility] Monocytes Absolute 0.37 0.26 - 1.07 10 3/uL 12/15/2022 10:12 AM [facility] Eosinophils Absolute 0.05 0.00 - 0.47 10 3/uL 12/15/2022 10:12 AM [facility] Basophils Absolute 0.09(H) 0.00 - 0.08 10 3/uL 12/15/2022 10:12 AM [facility] Immature Granulocytes % 0.3 0.0 - 1.0 % 12/15/2022 10:12 AM [facility] Immature Granulocytes Absolute 0.02 12/15/2022 10:12 AM [facility] Blood BLOOD SPECIMEN / Unknown Venipuncture / Unknown 12/15/2022 9:49 AM CDT 12/15/2022 10:08 AM CDT Sharron Mendez MD LAB - H EMATOLOGY ORDERABLES [facility] [address] [place] [address], [facility] [phone] * (ABNORMAL) COMPREHENSIVE METABOLIC PANEL (12/15/2022 9:49 AM CDT) Only the most recent of12 resultswithin the time period is included. BUN 12 7 - 26 mg/dL 12/15/2022 10:38 AM [facility] Creatinine 0.78 0.71 - 1.16 mg/dL 12/15/2022 10:38 AM [facility] Sodium 137 136 - 145 mmol/L 12/15/2022 10:38 AM [facility] Potassium 4.3 3.5 - 4.5 mmol/L 12/15/2022 10:38 AM [facility] Chloride 108(H) 98 - 107 mmol/L 12/15/2022 10:38 AM [facility] CO2 18(L) 22 - 29 mmol/L 12/15/2022 10:38 AM [facility] Glucose 82 70 - 115 mg/dL 12/15/2022 10:38 AM [facility] Calcium 9.3 8.4 - 10.2 mg/dL 12/15/2022 10:38 AM [facility] Protein Total 6.8 6.0 - 8.3 g/dL 12/15/2022 10:38 AM [facility] Albumin 4.2 3.4 - 5.0 g/dL 12/15/2022 10:38 AM [facility] Bilirubin Total 0.9 0.2 - 1.2 mg/dL 12/15/2022 10:38 AM [facility] Alkaline Phosphatase 65 40 - 150 U/L 12/15/2022 10:38 AM [facility] ALT 16 5 - 55 U/L 12/15/2022 10:38 AM [facility] AST 18 5 - 34 U/L 12/15/2022 10:38 AM [facility] Anion Gap 15 8 - 18 12/15/2022 10:38 AM [facility] BUN/Creatinine Ratio 15 7 - 23 12/15/2022 10:38 AM [facility] Osmolality Calculated 283 270 - 300 mOsm/kg 12/15/2022 10:38 AM [facility] Albumin/Globulin Ratio 1.6 1.1 - 2.3 12/15/2022 10:38 AM [facility] eGFR by CKD-EPI >90 >=90 mL/min/1.7 3 m2 12/15/2022 10:38 AM [facility] Blood BLOOD SPECIMEN / Unknown Venipuncture / Unknown 12/15/2022 9:49 AM [facility] 12/15/2022 10:[address] [facility] Sharron Mendez MD LAB - C HEMISTRY ORDERABLES [facility] [address] [place] [address], [facility] [phone] * TYPE + SCREEN PANEL (12/15/2022 9:45 AM CDT) Only the most recent of4 resultswithin the time period is included. Pathologist [facility] Antibody Screen NEG 11:[address] [facility] ABO Rh A POS 12/15/2022 11:[address] [facility] Blood Bank BLOOD SPECIMEN / Unknown Venipuncture / Unknown 12/15/2022 9:45 AM CDT 12/15/2022 10:10 AM CDT Sharron Mendez MD LAB - B LOOD BANK ORDERABLES [facility] [address] [place] [address], [facility] [phone] * PULMONARY/RESPIRATORY REPORT ORDER (12/06/2022 12:45 PM CDT) Narrative 12/06/2022 12:45 PM CDT Ordered by an unspecified provider. Scanned Document RESPIRATORY THERAPY ORDERABLES * CARDIAC STRESS TEST ORDER (12/06/2022 12:45 PM CDT) Narrative 12/06/2022 12:45 PM CDT Ordered by an unspecified provider. 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 Staff Ordering Provider: Sharron Mendez MD Hide Spreader: Juju Flores [facility] Summary * Hypoplastic left heart syndrome, mitral [...] 12/02/2022 1:08 PM Admit Date: 12/02/2022 Site: [facility] Patient Status: O/P 2000 Ht: 163.0 cm Study Info Technical Quality: Diagnostic quality Study Type: ECHO CONGENITAL COMPLETE COLOR FLOW AND DOPPLER 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 Narrative 09/27/2022 12:55 PM PSYCHOLOGICAL AIDE Ordered by an unspecified provider. Scanned Document CARDIAC SERVICES ORD ERABLES * MRI BRAIN WO CONTRAST (09/26/2022 12:53 AM PSYCHOLOGICAL AIDE) Only the most recent of3 resultswithin the time period is included. Anatomical Region Laterality Modality Head Magnetic Resonan ce 09/26/2022 9:06 AM PSYCHOLOGICAL AIDE Impressions 09/26/2022 9:49 AM PSYCHOLOGICAL AIDE IMPRESSION: 1. No evidence of restricted diffusion to suggest an acute infarction. The report was drafted by Otis Lama MD (residential support worker) IPeter MD have personally reviewed and interpreted this examination/study. > Interpreting Provider: Peter Fuller MD on 09/26/2022 9:49 AM Narrative 09/26/2022 9:49 AM PSYCHOLOGICAL AIDE PROCEDURE: MRI BRAIN WO CONTRAST, DATE/TIME OF EXAM: 09/26/2022 12:54 AM, LOCATION [facility] INDICATION: R53.1: Weakness ADDITIONAL CLINICAL [...] CONTRAST, DATE/TIME OF EXAM: 09/26/2022 12:54AM, LOCATION [facility] INDICATION: R53.1: Weakness ADDITIONAL CLINICAL [...] report was drafted by Otis Lama MD (residential support worker) I, Pteer Fuller MD have personally reviewed and interpretedthis examination/study. > Interpreting Provider: Peter Fuller MD on 09/26/2022 9:49 AM Jamee Roberts MD MR ORDERABLES * B-TYPE NATRIURETIC PEPTIDE (09/25/2022 11:59 PM PSYCHOLOGICAL AIDE) Only the most recent of5 resultswithin the time period is included. BNP 11 <100 pg/mL 09/26/2022 12:49 AM PSYCHOLOGICAL AIDE [facility] Comment: A decision threshold of 100 pg/mL [...] Unknown Venipuncture / Unknown 09/25/2022 11:59 PM PSYCHOLOGICAL AIDE 09/26/2022 12:04 AM PSYCHOLOGICAL AIDE Jamee Roberts MD LAB - CHEMISTRY ALIDA [place] [facility] [address] [place] [address], [facility] [phone] * XR CHEST 1VW PORTABLE (09/25/2022 11:20 PM PSYCHOLOGICAL AIDE) Anatomical Region Laterality Modality Chest Radiographic Deann ging 09/25/2022 11:4 4 PM PSYCHOLOGICAL AIDE Narrative 09/26/2022 4:07 PM PSYCHOLOGICAL AIDE PROCEDURE: XR CHEST 1VW PORTABLE, DATE/TIME OF EXAM: 09/25/2022 11:20 PM, LOCATION [facility] INDICATION: R06.02: SOB (shortness of [...] Report dictated by Jose Roberto Ambrose MD, (vice president of consulting services). Elva Sanon MD have personally reviewed and interpreted this examination/study. > Interpreting Provider: Elva Weston MD on 09/26/2022 4:07 PM Procedure Note Elva Weston MD - 09/26/2022 PROCEDURE: XR CHEST 1VW PORTABLE, DATE/TIME OF EXAM: 09/25/2022 11:20PM, LOCATION [facility] INDICATION: R06.02: SOB (shortness of [...] Report dictated by Jose Roberto Ambrose MD, (vice president of consulting services). Elva Sanon MD have personally reviewed and interpreted this examination/study. > Interpreting Provider: Elva Wesotn MD on 09/26/2022 4:07 PM Jamee Roberts MD DIAGNOSTIC IMAGING O RDERABLES * TROPONIN-I HIGH SENSITIVE REFLEX 1HOUR (09/25/2022 11:02 PM PSYCHOLOGICAL AIDE) Pathologist [facility] Troponin I High Sensitive 5 <=35 ng/L 09/25/2022 11:36 PM PSYCHOLOGICAL AIDE [facility] Delta Troponin I HS 1 <6 ng/L 09/25/2022 11:36 PM PSYCHOLOGICAL AIDE [facility] Blood BLOOD SPECIMEN / Unknown Venipuncture / Unknown 09/25/2022 11:02 PM PSYCHOLOGICAL AIDE 09/25/2022 11:06 PM PSYCHOLOGICAL AIDE Jamee Roberts MD LAB - CHEMISTRY [place]IDA [place] [address] [address], [facility] [phone] * TROPONIN-I HIGH SENSITIVE BASELINE + 1HR (09/25/2022 10:02 PM PSYCHOLOGICAL AIDE) [facility] Troponin I High Sensitive 4 <=35 ng/L 09/25/2022 10:43 PM PSYCHOLOGICAL AIDE [facility] Blood BLOOD SPECIMEN / Unknown Venipuncture / Unknown 09/25/2022 10:02 PM PSYCHOLOGICAL AIDE 09/25/2022 10:08 PM PSYCHOLOGICAL AIDE Jamee Roberts MD LAB - CHEMISTRY [place] [address] [address], [facility] [phone] * (ABNORMAL) HEMOGLOBIN A1C (09/25/2022 10:02 PM PSYCHOLOGICAL AIDE) Only the most recent of2 resultswithin the time period is included. Hemoglobin A1c 5.7(H) <=5.6 % 09/26/2022 12:33 PM [facility] Estimated Average Glucose 117 mg/dL 09/26/2022 12:33 PM [facility] Comment: HbA1c Interpretation: Normal : < 5.7% Pre-diabetes: 5.7-6.4% Diabetes: Equal to or greater than 6.5% Test results diagnostic of diabetes should be repeated for confirmation. Treatment target values recommended by ADA and other clinical organizations should be used to evaluate metabolic control in patients. Reference: [place] [employer], Standards of Care in Diabetes -2020 In patients 70 years and older consider HbA1c target range of 7.0-7.5% (Reference: Salvatore Otero et al. JESSIEDA. 2012) The Sebia assay for the measurement of HbA1c is a National Glycohemoglobin Standardization Program (NGSP) certified method. Blood BLOOD SPECIMEN / Unknown Venipuncture / Unknown 09/25/2022 10:02 PM PSYCHOLOGICAL AIDE 09/25/2022 10:[address] [facility] Jamee Roberts MD LAB - CHEMISTRY ALIDA [place]ALL[place] [address] [address], [facility] [phone] * (ABNORMAL) LIPID PROFILE (09/25/2022 10:[address] [facility]) Only the most recent of2 resultswithin the time period is included. Cholesterol Total 92 <200 mg/dL 09/25/2022 10:38 PM [facility] HDL 39(L) >40 mg/dL 09/25/2022 10:38 PM [facility] Comment: ATP III Classification of HDL Cholesterol: <40 mg/dL: Considered a major risk factor. >60 mg/dL: Considered a negative risk factor. LDL Calculated 45 <100 mg/dL 09/25/2022 10:38 PM [facility] Comment: ATP III Classification of LDL Cholesterol: <100 mg/dL: Optimal 100 - 129 mg/dL: Near Optimal/Above Optimal 130 - 159 mg/dL: Borderline High 160 - 189 mg/dL: High >190 mg/dL: Very High Triglycerides 38 <150 mg/dL 09/25/2022 10:38 PM [facility] Comment: ATP III Classification of Triglycerides: <150 mg/dL: Normal 150 - 199 mg/dL: Borderline High 200 - 400 mg/dL: High >500 mg/dL: Very High Blood BLOOD SPECIMEN / Unknown Venipuncture / Unknown 09/25/2022 10:02 PM PSYCHOLOGICAL AIDE 09/25/2022 10:08 PM PSYCHOLOGICAL AIDE Jamee Roberts MD LAB - CHEMISTRY ALIDA GALL[place]AY [facility] [address] [place] [address], [facility] [phone] * CT ANGIO BRAIN NECK STROKE (09/25/2022 9:20 PM PSYCHOLOGICAL AIDE) Only the most recent of2 resultswithin the time period is included. Anatomical Region Laterality Modality Head Computed Tomogra phy 09/25/2022 9:34 PM PSYCHOLOGICAL AIDE Impressions 09/25/2022 11:03 PM PSYCHOLOGICAL AIDE IMPRESSION: 1. No occlusion, hemodynamically significant stenosis, or aneurysm of the major intracranial arteries. 2. No occlusion, hemodynamically significant stenosis, or dissection of the major neck arteries. > Dictated by Jose Roberto Ambrose MD (residential support worker) I, Stephen Aguilar MD have personally reviewed and interpreted this examination/study. > Interpreting Provider: Stephen Aguilar MD on 09/25/2022 11:03 PM Narrative 09/25/2022 11:03 PM PSYCHOLOGICAL AIDE PROCEDURE: CT ANGIO BRAIN NECK STROKE, DATE/TIME OF EXAM: 09/25/2022 9:13 PM, LOCATION [facility] INDICATION: Code Stroke COMPARISON: CTA [...] STROKE, DATE/TIME OF EXAM: 39:13 PM, LOCATION [facility] INDICATION: Code Stroke COMPARISON: CTA head and neck dated 10/06/2021 EXAMINATION: CT angiogram images of the head and neck acquired with intravenous contrast. Multiplanar reformations acquired. TECHNIQUE: CT angiography of the head and neck was obtained after administration of intravenous contrast. Three dimensional postprocessing was performed by the technologist and sent to the workstation for[employer]. NASCET criteria was utilized for evaluation of [...] > Dictated by Jose Roberto Ambrose MD (residential support worker) I, Stephen Aguilar MD have personally reviewed and interpreted this examination/study. > Interpreting Provider: Stephen Aguilar MD on 09/25/2022 11:03 PM Jamee Roberts MD CT ORDERABLES * CT ANGIO AORTA FOR DISSECTION (09/25/2022 9:20 PM PSYCHOLOGICAL AIDE) Anatomical Region Laterality Modality Abdomen Computed Tomogra phy 09/25/2022 9:34 PM PSYCHOLOGICAL AIDE Impressions 09/26/2022 9:48 AM PSYCHOLOGICAL AIDE Impression: 1.No aortic dissection. 2.Congenital heart disease with post operative changes, better evaluated on prior cardiac MRI. 3.Heterogeneous enhancement pattern of the liver, consistent with hepatic venous congestion secondary to heart disease. > Dictated by Mari Benoit DO (vice president of consulting services). Maura Sanon MD have personally reviewed and interpreted this examination/study. > Interpreting Provider: Maura Unger MD on 09/26/2022 9:48 AM Narrative 09/26/2022 9:48 AM PSYCHOLOGICAL AIDE PROCEDURE: CT ANGIO AORTA FOR DISSECTION, DATE/TIME OF EXAM: 09/25/2022 9:13 PM, LOCATION [facility] INDICATION: R53.1: Weakness ADDITIONAL CLINICAL [...] DATE/TIME OF EXAM: 09/25/2022 9:13 PM, LOCATION [facility] INDICATION: R53.1: Weakness ADDITIONAL CLINICAL [...] left heart syndrome are seen, including s/p Donnellson, s/p Oswald, and s/p nonfenestrated Fontan. Theheart [...] to heart disease. > Dictated by Mari Bneoit DO (vice president of consulting services). IMaura MD have personally reviewed and interpreted this examination/study. > Interpreting Provider: Maura Unger MD on 09/26/2022 9:48 AM Jamee Roberts MD CT ORDERABLES * INR WHOLE BLOOD - POINT OF CARE (IP) STROKE (09/25/2022 9:12 PM PSYCHOLOGICAL AIDE) Only the most recent of2 resultswithin the time period is included. INR 1.2 0.9 - 1.2 09/25/2022 9:17 PM PSYCHOLOGICAL AIDE [facility] Device [id number] 09/25/2022 9:17 PM PSYCHOLOGICAL AIDE [facility] Numerical Control Router Operator ID [id number] 09/25/2022 9:17 PM PSYCHOLOGICAL AIDE [facility] Blood BLOOD SPECIMEN / Unknown 09/25/2022 9:12 PM PSYCHOLOGICAL AIDE 09/25/2022 9:16 PM PSYCHOLOGICAL AIDE Jamee Roberts MD LAB - POINT OF CARE ORDERABLES [facility] [address] [place] [address], [facility] [phone] * CT BRAIN - Stroke (09/25/2022 9:07 PM PSYCHOLOGICAL AIDE) Only the most recent of2 resultswithin the time period is included. Anatomical Region Laterality Modality Head Computed Tomogra phy 09/25/2022 9:10 PM PSYCHOLOGICAL AIDE Impressions 09/25/2022 10:07 PM PSYCHOLOGICAL AIDE IMPRESSION: No intracranial hemorrhage or other acute [...] 09/25/2022 10:07 PM Narrative 09/25/2022 10:07 PM PSYCHOLOGICAL AIDE PROCEDURE: CT BRAIN STROKE, DATE/TIME OF EXAM: 09/25/2022 9:13 PM, LOCATION [facility] INDICATION: Code Stroke EXAMINATION: CT [...] DATE/TIME OF EXAM: 09/25/2022 9:13 PM, LOCATION [facility] INDICATION: Code Stroke EXAMINATION: CT [...] - POINT OF CARE (09/25/2022 9:06 PM PSYCHOLOGICAL AIDE) Only the most recent of2 resultswithin the time period is included. Glucose WB/POC 90 70 - 115 mg/dL 09/25/2022 9:07 PM [facility] Specimen Type Venous 09/25/2022 9:07 PM [facility] Blood BLOOD SPECIMEN / Unknown 09/25/2022 9:06 PM PSYCHOLOGICAL AIDE 09/25/2022 9:07 PM PSYCHOLOGICAL AIDE Provider Unknown LAB - POINT OF CARE ORDERABLES [address] [address], [facility] [phone] * (ABNORMAL) URINALYSIS W/MICROSCOPIC NO CULTURE (09/25/2022 6:17 PM PSYCHOLOGICAL AIDE) Color UA Yellow Straw, Yellow 09/25/2022 6:34 PM [facility] Clarity UA Clear Clear 09/25/2022 6:34 PM [facility] Specific Carey UA 1.018 1.005 - 1.030 09/25/2022 6:34 PM [facility] pH UA 6.0 5.0 - 8.0 pH 09/25/2022 6:34 PM [facility] Protein UA Negative Negative 09/25/2022 6:34 PM [facility] Glucose UA Negative Negative 09/25/2022 6:34 PM [facility] Ketone UA Negative Negative 09/25/2022 6:34 PM [facility] Bilirubin UA Negative Negative 09/25/2022 6:34 PM [facility] Blood UA Negative Negative 09/25/2022 6:34 PM [facility] Nitrite UA Negative Negative 09/25/2022 6:34 PM [facility] Leukocyte Esterase Negative Negative 09/25/2022 6:34 PM [facility] Urobilinogen UA 4.0(A) Negative mg/dL 09/25/2022 6:34 PM [facility] RBC UA 0-2 None Seen, 0-2, 3-5 /HPF 09/25/2022 6:34 PM [facility] WBC UA 0-5 None Seen, 0-5 /HPF 09/25/2022 6:34 PM [facility] Squamous Epithelial Cells UA 0-2 None Seen, 0-2, 3-5 /HPF 09/25/2022 6:34 PM [facility] Urine URINE SPECIMEN OBTAINED BY CLEAN CATCH PROCEDURE / Unknown Collection / Unknown 09/25/2022 6:17 PM PSYCHOLOGICAL AIDE 09/25/2022 6:22 PM PSYCHOLOGICAL AIDE [facility] - 09/25/2022 6:34 PM PSYCHOLOGICAL AIDE Danica Arriaza MD LAB - URINALYSI S ORDERABLES [facility] [address] [place] [address], [facility] [phone] * URINE DRUG SCREEN IMMUNOASSAY (09/25/2022 6:17 PM PSYCHOLOGICAL AIDE) Only the most recent of2 resultswithin the time period is included. Pathologist [facility] Amphetamines Screen Urine Negative Negative: < 1000 ng/mL 09/25/2022 6:48 PM [facility] Barbiturates Screen Urine Negative Negative: < 200 ng/mL 09/25/2022 6:48 PM [facility] Benzodiazepine Screen Urine Negative Negative: < 200 ng/mL 09/25/2022 6:48 PM [facility] Opiates Urine Negative Negative: < 300 ng/mL 09/25/2022 6:48 PM [facility] Cocaine Metabolites Urine Negative Negative: < 300 ng/mL 09/25/2022 6:48 PM [facility] Phencyclidine Screen Urine Negative Negative: < 25 ng/ml 09/25/2022 6:48 PM [facility] Cannabinoids Screen Urine Negative Negative: <50 ng/mL 09/25/2022 6:48 PM [facility] Methadone Screen Urine Negative Negative: < 300 ng/mL 09/25/2022 6:48 PM [facility] Fentanyl Screen Urine Negative Negative: <1.5 ng/mL 09/25/2022 6:48 PM [facility] Urine URINE / Unknown Collection / Unknown 09/25/2022 6:17 PM PSYCHOLOGICAL AIDE 09/25/2022 6:22 PM PSYCHOLOGICAL AIDE Narrative [facility] - 09/25/2022 6:48 PM PSYCHOLOGICAL AIDE The Urine Toxicology Screening Panel does not screen for Propoxyphene, Meprobamate, Carisoprodol, Trazodone, [id number] medications and/or volatiles (Acetone, Isopropanol, Methanol or Ethylene Glycol). Ethanol, Salicylate, Acetaminophen, Tricyclic Antidepressants and several therapeutic drugs may be individually assayed in serum or plasma specimen. Toxicology testing by the [facility] is an aid to medical diagnosis and treatment of patients. No documented chain of custody was maintained. Results are intended to be used for clinical purposes only. Danica Arriaza MD LAB - URINE ROBB BALA ORDERABLES Performing Organization Address City/[facility]/ZIP Co de Phone Number [address] [phone], [facility] [phone] * TROPONIN-I HIGH SENSITIVE (09/25/2022 5:46 PM PSYCHOLOGICAL AIDE) Troponin I High Sensitive 3 <=35 ng/L 09/25/2022 6:27 PM PSYCHOLOGICAL AIDE [facility] Blood BLOOD SPECIMEN / Unknown Venipuncture / Unknown 09/25/2022 5:46 PM PSYCHOLOGICAL AIDE 09/25/2022 5:57 PM PSYCHOLOGICAL AIDE Danica Arriaza MD LAB - CHEMISTRY ORDERABLES Performing Organization Address City/[facility]/ZIP Co de Phone Number [address] [address], [facility] [phone] * PTT [facility] (09/25/2022 5:46 PM PSYCHOLOGICAL AIDE) Only the most recent of2 resultswithin the time period is included. APTT 30.7 23.0 - 38.4 Seconds 09/25/2022 6:10 PM [facility] Comment:Suggested therapeuti c range for full dose I.V. unfractionated heparin therapy for venous thromboembolism is 71 to 109 seconds. Blood BLOOD SPECIMEN / Unknown Venipuncture / Unknown 09/25/2022 5:46 PM PSYCHOLOGICAL AIDE 09/25/2022 6:00 PM PSYCHOLOGICAL AIDE Danica Arriaza MD LAB - COAGULATI ON ORDERABLES [facility]ORATORY [facility] [address] [place] [address], [facility] [phone] * D-DIMER (09/25/2022 5:46 PM PSYCHOLOGICAL AIDE) Only the most recent of4 resultswithin the time period is included. D-Dimer Quantitative <0.27 <=0.50 mcg/mL FEU 09/25/2022 6:12 PM PSYCHOLOGICAL AIDE [facility] Comment: In the absence of clinical [...] Unknown Venipuncture / Unknown 09/25/2022 5:46 PM PSYCHOLOGICAL AIDE 09/25/2022 6:00 PM PSYCHOLOGICAL AIDE Danica Arriaza MD LAB - COAGULATI ON ORDERABLES Performing Organization Address City/[facility]/ZIP Co de Phone Number [address] [address], [facility] [phone] * PHOSPHORUS BLOOD (09/25/2022 5:46 PM PSYCHOLOGICAL AIDE) Only the most recent of2 resultswithin the time period is included. Phosphorus 2.9 2.8 - 5.1 mg/dL 09/25/2022 6:14 PM PSYCHOLOGICAL AIDE [facility] Blood BLOOD SPECIMEN / Unknown Venipuncture / Unknown 09/25/2022 5:46 PM PSYCHOLOGICAL AIDE 09/25/2022 6:01 PM PSYCHOLOGICAL AIDE Danica Arriaza MD LAB - CHEMISTRY ORDERABLES [address] [address], [facility] [phone] * MAGNESIUM BLOOD (09/25/2022 5:46 PM PSYCHOLOGICAL AIDE) Only the most recent of2 resultswithin the time period is included. Magnesium 2.0 1.6 - 2.6 mg/dL 09/25/2022 6:14 PM PSYCHOLOGICAL AIDE [facility] Blood BLOOD SPECIMEN / Unknown Venipuncture / Unknown 09/25/2022 5:46 PM PSYCHOLOGICAL AIDE 09/25/2022 6:01 PM PSYCHOLOGICAL AIDE Danica Arriaza MD LAB - CHEMISTRY ORDERABLES Performing Organization Address [facility] Co de Phone Number [address] [address], [facility] [phone] * ALCOHOL ETHYL BLOOD (09/25/2022 5:46 PM PSYCHOLOGICAL AIDE) Ethanol (mg/dL) <10 <=10 mg/dL 6:14 PM PSYCHOLOGICAL AIDE [facility] Ethanol Calculated (g/dL) <0.010 <0.010 g/dL 09/25/2022 6:14 PM [facility] Blood BLOOD SPECIMEN / Unknown Venipuncture / Unknown 09/25/2022 5:46 PM PSYCHOLOGICAL AIDE 09/25/2022 6:01 PM PSYCHOLOGICAL AIDE Narrative [facility] - 09/25/2022 6:14 PM PSYCHOLOGICAL AIDE Ethanol Interp <10: None Detected. Depression of DENTAL SCHEDULING COORDINATOR: >100 mg/dl Potentially Critical: >250 mg/dl Potentially [...] LAB - CHEMISTRY ORDERABLES Performing Organization Address City/[facility]/ZIP Co de Phone Number [address] [address], [facility] [phone] * CT HEAD WO CONTRAST (09/25/2022 5:38 PM PSYCHOLOGICAL AIDE) Only the most recent of3 resultswithin the time period is included. Anatomical Region Laterality Modality Head Computed Tomogra phy 09/26/2022 7:25 AM PSYCHOLOGICAL AIDE Impressions 09/26/2022 8:26 AM PSYCHOLOGICAL AIDE IMPRESSION: Diffuse cerebral volume loss, increased since [...] 1810 hours. > Dictated by Salomon Armas (Manager Clinical Services) 09/26/2022 7:37 AM I, Damaris Quezada MD have personally reviewed and interpreted this examination/study. > Interpreting Provider: Damaris Quezada MD on 09/26/2022 8:26 AM Narrative 09/26/2022 8:26 AM PSYCHOLOGICAL AIDE PROCEDURE: CT HEAD WO CONTRAST, DATE/TIME OF EXAM: 09/25/2022 5:38 PM, LOCATION [facility] INDICATION: R53.1: Weakness ADDITIONAL CLINICAL INFORMATION: Additional: [...] DATE/TIME OF EXAM: 09/25/2022 5:38 PM, LOCATION [facility] INDICATION: R53.1: Weakness ADDITIONAL CLINICAL INFORMATION: Additional: [...] 1810 hours. > Dictated by Salomon Armas (Manager Clinical Services) 09/26/2022 7:37 AM IDamaris MD have personally reviewed and interpreted this examination/study. > Interpreting Provider: Damaris Quezada MD on 09/26/2022 8:26 AM Danica Arriaza MD CT ORDERABLES * EKG 15-LEAD (09/25/2022 5:18 PM PSYCHOLOGICAL AIDE) Only the most recent of11 resultswithin the time period is included. Ventricular Rate 102 BPM CG MUSE Atrial Rate 102 BPM CG MUSE P-R Interval 128 ms CG MUSE QRS Duration ms 110 ms CG MUSE Q-T Interval ms 362 ms CG MUSE QTC Calculation (Bezet) 471 ms CG MUSE Calculated P [place] 45 degrees CG MUSE Calculated R [place] 179 degrees CG MUSE Calculated T [place] 14 degrees CG MUSE Interpretation EKG Sinus tachycardia Right axis deviation Right bundle branch block When compared with ECG of 06-OCT-2021 14:40, No significant change was found Confirmed by MD Ramón, [facility] ([id number]) on 09/27/2022 4:19:32 PM CG MUSE 09/25/2022 5:18 PM PSYCHOLOGICAL AIDE 09/27/2022 4:19 PM PSYCHOLOGICAL AIDE Danica Arriaza MD ECG ORDERABLES CG MUSE * Critical Care (09/25/2022 5:04 PM PSYCHOLOGICAL AIDE) Narrative Danica Arriaza MD - 09/25/2022 5:04 PM PSYCHOLOGICAL AIDE Danica Arriaza MD 09/25/2022 8:26 PM Critical [...] x 1.5 cm. 6. Unobstructed aortopulmonary anastomosis (Mzfgc-Fliz-Furevdl). 7. Mild neoaortic insufficiency. 8. The left [...] DATE/TIME OF EXAM: 01/26/2022 9:22 AM, LOCATION [facility] INDICATION: Z98.890: Other specified postprocedural states ADDITIONAL [...] channel body coil on a 1.5 T [email or web address] Signa, the following sequences were performed: Three [...] dilated, measuring 2.9 x 3.2 cm. The [place] aortic valve measures normal in size, and the [place] aortic root measures 2.7 x 2.7x 2.6 [...] aortic stenosis) s/p three stage palliation with Donnellson,Oswald, and extracardiac non-fenestrated Fontan procedure. S/p a 21 mm Roxanne stent in the aorta for re-coarctation of the aorta. 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 He had a suspected TIA. Indication: MRI was performed to evaluate collateral vessels. Sedation: No sedation was required. There were no adverse reactions. Comparison: None Technique: Using a 8 channel body coil on a 1.5 T [email or web address] Signa, the following sequences were performed: Three [...] dilated, measuring 2.9 x 3.2 cm. The [place] aortic valve measures normal insize, and the [place] aortic root measures 2.7 x 2.7x 2.6 [...] x 1.5 cm. 6. Unobstructed aortopulmonary anastomosis (Kmacd-Sneo-Rffiwey). 7. Mild neoaortic insufficiency. 8. The left [...] x 1.5 cm. 6. Unobstructed aortopulmonary anastomosis (Iyxwa-Gpvg-Lzccbtt). 7. Mild neoaortic insufficiency. 8. The left [...] DATE/TIME OF EXAM: 01/26/2022 9:22 AM, LOCATION [facility] INDICATION: Z98.890: Other specified postprocedural states ADDITIONAL [...] channel body coil on a 1.5 T [email or web address] Signa, the following sequences were performed: Three [...] dilated, measuring 2.9 x 3.2 cm. The [place] aortic valve measures normal in size, and the [place] aortic root measures 2.7 x 2.7x 2.6 [...] OF EXAM: 01/26/2022 9:22 AM, LOCATION [facility] INDICATION: Z98.890: Other specified postprocedural states ADDITIONAL [...] aortic stenosis) s/p three stage palliation with Donnellson,Oswald, and extracardiac non-fenestrated Fontan procedure. S/p a 21 mm Roxanne stent in the aorta for re-coarctation of the aorta. 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 He had a suspected TIA. Indication: MRI was performed to evaluate collateral vessels. Sedation: No sedation was required. There were no adverse reactions. Comparison: None Technique: Using a 8 channel body coil on a 1.5 T [email or web address] Signa, the following sequences were performed: Three [...] dilated, measuring 2.9 x 3.2 cm. The [place] aortic valve measures normal insize, and the [place] aortic root measures 2.7 x 2.7x 2.6 [...] left heart syndrome (mitral stenosis, aortic stenosis)s/p Donnellson with DKS anastomosis, s/p Oswald, s/p nonfenestrated [...] GALLOWAY * TROPONIN I (10/06/2021 11:51 PM PSYCHOLOGICAL AIDE) Only the most recent of7 resultswithin the time period is included. Troponin I <0.010 <0.032 ng/mL 10/07/2021 2:01 AM PSYCHOLOGICAL AIDE [facility] Blood BLOOD SPECIMEN / Unknown Lab Venipuncture / Unknown 10/06/2021 11:51 PM PSYCHOLOGICAL AIDE 10/07/2021 1:32 AM PSYCHOLOGICAL AIDE Sarah Schaefer PA-C LAB - CHEMISTRY ALIDA GALLOWAY [address] [address], [facility] [phone] * BLOOD TYPE VERIFICATION (10/06/2021 5:18 PM PSYCHOLOGICAL AIDE) ABO Rh A POS 10/06/2021 6:4 3 PM PSYCHOLOGICAL AIDE [facility] BLOOD BANK LAB Blood Bank BLOOD SPECIMEN / Unknown Lab Venipuncture / Unknown 10/06/2021 5:18 PM PSYCHOLOGICAL AIDE 10/06/2021 5:34 PM PSYCHOLOGICAL AIDE Provider Unknown LAB - BLOOD BANK ORD ERAGRACIELA [facility] BLOOD BANK LAB [address] [place] [address], [facility] [phone] * (ABNORMAL) URINALYSIS REFLEX TO MICROSCOPIC NO CULTURE (10/06/2021 4:49 PM PSYCHOLOGICAL AIDE) Only the most recent of3 resultswithin the time period is included. Color UA Yellow Straw, Yellow 10/06/2021 5:08 PM [facility] Clarity UA Slt Cloudy(A) Clear 10/06/2021 5:08 PM [facility] Specific Carey UA 1.031(H) 1.005 - 1.030 10/06/2021 5:08 PM [facility] pH UA 7.0 5.0 - 8.0 pH 10/06/2021 5:08 PM [facility] Protein UA Negative Negative 10/06/2021 5:08 PM [facility] Glucose UA Negative Negative 10/06/2021 5:08 PM [facility] Ketone UA Negative Negative 10/06/2021 5:08 PM [facility] Bilirubin UA Negative Negative 10/06/2021 5:08 PM [facility] Blood UA Negative Negative 10/06/2021 5:08 PM [facility] Nitrite UA Negative Negative 10/06/2021 5:08 PM [facility] Leukocyte Esterase Negative Negative 10/06/2021 5:08 PM [facility] Urobilinogen UA 4.0(A) Negative mg/dL 10/06/2021 5:08 PM [facility] RBC UA 0-2 None Seen, 0-2, 3-5 /HPF 10/06/2021 5:08 PM [facility] WBC UA 0-5 None Seen, 0-5 /HPF 10/06/2021 5:08 PM [facility] Squamous Epithelial Cells UA None Seen None Seen, 0-2, 3-5 /HPF 10/06/2021 5:08 PM [facility] Mucus UA 1+ /LPF 10/06/2021 5:08 PM [facility] Urine URINE SPECIMEN OBTAINED BY CLEAN CATCH PROCEDURE / Unknown Collection / Unknown 10/06/2021 4:49 PM PSYCHOLOGICAL AIDE 10/06/2021 4:53 PM PSYCHOLOGICAL AIDE Narrative [facility] - 10/06/2021 5:08 PM PSYCHOLOGICAL AIDE Danny Goel MD LAB - URINALYSIS ORD ERABLES Performing Organization Address [facility]/ZIP Co de Phone Number [address] [address], [facility] [phone] * CREATININE - POCT INTERFACED (10/06/2021 4:13 PM PSYCHOLOGICAL AIDE) Creatinine POCT 0.90 0.30 - 1.30 mg/dL 10/07/2021 6:40 AM PSYCHOLOGICAL AIDE [facility] eGFR >90 >90 mL/min/1.7 3 m2 10/07/2021 6:40 AM PSYCHOLOGICAL AIDE [facility] Blood BLOOD SPECIMEN / Unknown 10/06/2021 4:13 PM PSYCHOLOGICAL AIDE 10/07/2021 6:40 AM PSYCHOLOGICAL AIDE Danny Goel MD LAB - POINT OF CARE ORDERABLES Performing Organization Address [facility] Co de Phone Number [address] [address], [facility] [phone] * ECHO CONSULT - PEDIATRIC (08/06/2021 2:27 PM PSYCHOLOGICAL AIDE) Only the most recent of19 resultswithin the time period is included. 08/06/2021 2:27 PM PSYCHOLOGICAL AIDE Narrative Procedure Note Sharron Mendez MD - 08/07/2021 [facility] [place] [address] Fax Congenital Transthoracic Report Pat.Name: ARTHUR SIMBAArias Bee.ID: [id number] St.Date: 08/06/2021 Refer.MD: Sharron Mendez Exam Time: 2:27:00 PM Study Type:Congenital TTE Height: 166.8cm Weight: 55.9kg BSA: 1.62 m2 Age: 10 2000,21Y Sex: MALE BP: 102/74 Sonogrphr: Jade Flores [facility] Pat. 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 Re-coarctation of the aorta s/p stenting. 1. Unobstructed IVC and Fontan conduit. 2. Central pulmonary artery patent. Superior vena cava, Oswald shunt, right pulmonary artery and left pulmonary artery were not well seen. 3. Small atrial septal defect with tnpn-xx-jlaqb flow. 4. Small perimembranous VSD with wxql-sj-oqiiq flow. 5. Narrowed [place] left ventricular outflow tract 6. No neoaortic [...] There is small perimembranous VSD defect with lhep-ro-fpdmc flow shunting. Pulmonary Valve: This is the [...] MD Sharron Mendez MD ECHO OR DERABLES [facility] [address] [phone] * MRI ANGIO NECK W CONTRAST (05/11/2020 [...] enhancement within the major vessels of the [place]. Within limits of MRA, there [...] enhancement within the major vessels of the [place]. Within limits of MRA, there [...] enhancement within the major vessels of the [place]. Within limits of MRA, there [...] enhancement within the major vessels of the [place]. Within limits of MRA, there [...] detected Not detected 05/11/2020 8:03 PM CDT [facility] MICROBIOLOGY Microbiology SPECIMEN FROM NASOPHARYNGEAL STRUCTURE / Unknown Collection / Unknown 05/11/2020 12:09 AM CDT 05/11/2020 12:14 AM CDT Narrative [facility] MICROBI[facility] - 05/11/2020 8:03 PM CDT This nucleic acid amplification assay performance was validated by [facility]biology [facility]. This test has been authorized [...] Rendon DO LAB - MICROBIOL OGY ORDERABLES [facility] MICRO[facility] [address] [place] [address], [facility] [phone] * (ABNORMAL) URINALYSIS W/MICROSCOPIC REFLEX TO CULTURE (05/11/2020 12:00 AM T) Color UA Yellow Straw, Yellow 05/11/2020 12:22 AM [facility] Clarity UA Clear Clear 05/11/2020 12:22 AM [facility] Glucose UA Negative Negative 05/11/2020 12:22 AM [facility] Bilirubin UA Negative Negative 05/11/2020 12:22 AM [facility] Ketone UA Negative Negative 05/11/2020 12:22 AM [facility] Specific Carey UA 1.012 1.005 - 1.030 05/11/2020 12:22 AM [facility] Blood UA 2+(A) Negative 05/11/2020 12:22 AM [facility] pH UA 5.0 5.0 - 8.0 pH 05/11/2020 12:22 AM [facility] Protein UA 2+(A) Negative 05/11/2020 12:22 AM [facility] Urobilinogen UA 2.0(A) Negative mg/dL 05/11/2020 12:22 AM [facility] Nitrite UA Negative Negative 05/11/2020 12:22 AM [facility] Leukocyte UA Negative Negative 05/11/2020 12:22 AM [facility] RBC UA 0-2 None Seen, 0-2, 3-5 # /hpf 05/11/2020 12:22 AM [facility] WBC UA 0-5 None Seen, 0-5 # /hpf 05/11/2020 12:22 AM [facility] Bacteria UA None Seen None Seen 05/11/2020 12:22 AM T [facility] Squamous Epithelial Cells None Seen None Seen, 0-2, 3-5 /hpf 05/11/2020 12:22 AM T [facility] Mucus UA 1+ /LPF 05/11/2020 12:22 AM T [facility] Reflex Status Culture not indicated 05/11/2020 12:22 AM T [facility] Urine URINE SPECIMEN OBTAINED BY CLEAN CATCH PROCEDURE / Unknown Collection / Unknown 05/11/2020 12:00 AM CDT 05/11/2020 12:08 AM CDT Narrative [facility] - 05/11/2020 12:22 AM CDT Kristin Nicholson DO LAB - URINALYSIS ORD ERABLES Performing Organization Address [facility] Co de Phone Number [facility] [address] [place] [phone] * C-REACTIVE PROTEIN (05/11/2020 12:00 AM CDT) Only the most recent of2 resultswithin the time period is included. C-Reactive Protein <0.20 <=0.50 mg/dL 05/11/2020 12:33 AM T [facility] Blood BLOOD SPECIMEN / Unknown Venipuncture / Unknown 05/11/2020 12:00 AM CDT 05/11/2020 12:08 AM CDT Galileo Rendon DO LAB - CHEMISTRY ORDERABLES Performing Organization Address [facility] de Phone Number [facility] [address] [place] [phone] * (ABNORMAL) PT-INR (05/11/2020 12:00 AM CDT) PT 15.5(H) 12.1 - 14.8 sec 05/11/2020 12:40 AM T [facility] INR 1.2(H) 0.9 - 1.1 05/11/2020 12:40 AM T [facility] Blood BLOOD SPECIMEN / Unknown Venipuncture / Unknown 05/11/2020 12:00 AM CDT 05/11/2020 12:08 AM CDT Narrative [facility] - 05/11/2020 12:40 AM CDT Conventional Warfarin Anticoagulant Therapy: INR Reference Range: 2.0-3.0 Intensive Warfarin Anticoagulant Therapy: INR Reference Range: 2.5-3.5 Galileo Rendon DO LAB - COAGULATI ON ORDERABLES Performing Organization Address City/[facility]/ZIP Co de Phone Number [facility] [address] [place] [phone] * ERYTHROCYTE SEDIMENTATION RATE (05/11/2020 12:00 AM CDT) Only the most recent of3 resultswithin the time period is included. Erythrocyte Sedimentation Rate Automated <1 0 - 15 MM/HR 05/11/2020 12:23 AM CDT [facility] Blood BLOOD SPECIMEN / Unknown Venipuncture / Unknown 05/11/2020 12:00 AM CDT 05/11/2020 12:08 AM CDT Galileo Rendon DO LAB - HEMATOLOG Y ORDERABLES Performing Organization Address [facility] Co de Phone Number [facility] [address] [place] [phone] * LIPASE BLOOD (05/11/2020 12:00 AM CDT) Only the most recent of2 resultswithin the time period is included. Lipase 14 10 - 220 U/L 05/11/2020 12:33 AM CDT [facility] Blood BLOOD SPECIMEN / Unknown Venipuncture / Unknown 05/11/2020 12:00 AM CDT 05/11/2020 12:08 AM CDT Galileo Rendon DO LAB - CHEMISTRY ORDERABLES Performing Organization Address [facility] Co de Phone Number [facility] [address] [place] [phone] * XR RIBS BILAT 3VW (12/17/2019 2:25 [...] WBC Auto 7.0 x10E9/L 03/01/2019 11:20 AM [facility] WBC Corrected 4.5 - 11.0 x10E9/L 03/01/2019 11:20 AM [facility] nRBC /100 WBC 03/01/2019 11:20 AM [facility] Neutrophil % Manual 71 31 - 78 % 03/01/2019 11:20 AM [facility] Lymphocytes % Manual 12(L) 13 - 54 % 03/01/2019 11:20 AM [facility] Monocytes % Manual 12 4 - 13 % 03/01/2019 11:20 AM [facility] Eosinophils % Manual 1 0 - 8 % 03/01/2019 11:20 AM [facility] Basophils % Manual 1 % 03/01/2019 11:20 AM [facility] Band % Manual 1 % 03/01/2019 11:20 AM [facility] [place] Manual 1(H) <=0 % 03/01/2019 11:20 AM CDT [facility] Myelocytes % Manual 1(H) <=0 % 03/01/2019 11:20 AM T [facility] Cells Counted 100 # cells 03/01/2019 11:20 AM CDT [facility] RBC Morphology Normal 03/01/2019 11:20 AM CDT [facility] WBC Morph Normal 03/01/2019 11:20 AM T [facility] Platelet Estimation Normal 03/01/2019 11:20 AM CDT [facility] Blood BLOOD SPECIMEN / Unknown Lab Venipuncture / Unknown 03/01/2019 10:37 AM CDT 03/01/2019 10:47 AM CDT Tavon Sandoval MD LAB - HEMATOLOG Y ORDERABLES Performing Organization Address City/State/[facility] Co de Phone Number [facility] [address] [place] [address] * US ABDOMEN LIMITED (02/14/2019 9:16 AM [...] or Referring Physician: Nicolas Puentes MD Primary Inspector And Mender: Dr. Sandoval Supervising Inspector And Mender: Taye Richardson MD Date of study: 01/16/2019 [...] obtained for a Fontan cohort as per Mahaska et al, Pediatric Cardiology, 2015, 36:393-401): Work: [...] Electrophysiology Tavon Sandoval MD [facility] ORDERABLES * [place] LARYNGOSCOPY,FLEX FIBER,DIAGNOSTIC (05/13/2018 9:08 PM CDT) Narrative [...] CDT) Case Report Surgical Pathology Report Case: [id number] Authorizing Provider: Lin Mcginnis V., Collected: 10/25/2017 04:33 PM Ordering Location: [facility] Received: 10/26/2017 07:23 AM Pathologist: Alexandra Montoya MD Specimen: Cartilage, laryngeal cartilage 10/27/2017 11:45 AM [facility] Final Diagnosis LARYNGEAL CARTILAGE FROM ARYTENOIDECTOMY. SEE DESCRIPTION 10/27/2017 11:45 AM [facility] Clinical History The patient is a [...] cricoid musculature were removed. 10/27/2017 11:45 AM [facility] Gross Description Submitted fixed in formalin in one container for gross and microscopic examination labeled with the patient's name, Simba Guerrero, and laryngeal cartilage, are three irregularly-shaped fragments of purvis-johansen cartilage with an aggregate measurement of 1 x 0.3 x 0.3 cm. The specimen is submitted in toto as A1. (CT/me) 10/27/2017 11:45 AM [facility] Microscopic Description 1 HE Sections show mature cartilage and a small amount of adjacent connective tissue with no significant inflammation. 10/27/2017 11:45 AM [facility] Disclaimer The performance characteristics of all immunohistochemical and indirect immunofluorescence stains (if any) cited in this report were determined by the Histopathology Laboratory of [facility]. Some of these tests were developed by [...] attending (teaching) pathologist. 10/27/2017 11:45 AM CDT [facility] Embedded Images 10/27/2017 11:45 AM CDT [facility] Pathology/Cytolo gy CARTILAGE SPECIMEN / Unknown 10/25/2017 4:33 PM CDT 10/26/2017 7:23 AM CDT Lin Mcginnis MD LAB - PATHOLOG Y/CYTOLOGY ORDERABLES [facility] [address] [facility] [place] [address] * CT HEAD WWO CONTRAST (09/15/2017 8:39 AM PSYCHOLOGICAL AIDE) Anatomical Region Laterality Modality Head Computed Tomogra phy 09/15/2017 9:05 AM PSYCHOLOGICAL AIDE Impressions 09/15/2017 10:23 AM PSYCHOLOGICAL AIDE 1. No acute intracranial process or significant [...] with this report. Narrative 09/15/2017 10:23 AM PSYCHOLOGICAL AIDE EXAMINATION: COMPUTED TOMOGRAPHY (CT) OF THE HEAD [...] [facility] * TSH (06/29/2017 5:08 PM PSYCHOLOGICAL AIDE) Only the most recent of2 resultswithin the time period is included. TSH 1.23 0.35 - 4.95 uIU/mL 06/29/2017 6:26 PM PSYCHOLOGICAL AIDE [facility] Blood BLOOD SPECIMEN / Unknown Venipuncture / Unknown 06/29/2017 5:08 PM PSYCHOLOGICAL AIDE 06/29/2017 5:43 PM PSYCHOLOGICAL AIDE Trent Pearson MD LAB - ALUMINUM SHINGLE ROOFER RY ORDERABLES [facility] [place] [address] * MONONUCLEOSIS SCREEN (06/29/2017 3:01 PM PSYCHOLOGICAL AIDE) Pathologist [facility] Mononucleosis Screen Negative Negative 06/29/2017 3:28 PM PSYCHOLOGICAL AIDE [facility] Blood BLOOD SPECIMEN / Unknown Venipuncture / Unknown 06/29/2017 3:01 PM PSYCHOLOGICAL AIDE 06/29/2017 3:18 PM PSYCHOLOGICAL AIDE Trent Pearson MD LAB - ALUMINUM SHINGLE ROOFER RY ORDERABLES Performing Organization Address [facility] Center de Phone Number [facility] [address] [place] [phone] * (ABNORMAL) DIGOXIN LEVEL (06/29/2017 3:01 PM PSYCHOLOGICAL AIDE) Only the most recent of3 resultswithin the time period is included. [facility] Digoxin <0.3(L) 0.8 - 2.0 ng/mL 06/29/2017 4:12 PM PSYCHOLOGICAL AIDE [facility] Blood BLOOD SPECIMEN / Unknown Venipuncture / Unknown 06/29/2017 3:01 PM PSYCHOLOGICAL AIDE 06/29/2017 3:38 PM PSYCHOLOGICAL AIDE Trent Pearson MD LAB - ALUMINUM SHINGLE ROOFER RY ORDERABLES Performing Organization Address [facility] de Phone Number [facility] [address] [place] [phone] * IMAGING/RADIOLOGY/XRAY RESULTS ORDER (04/28/2017 5:49 PM [...] Comment: FECAL GLOBIN BY IMMUNOCHEMISTRY MICRO NUMBER: [id number] TEST STATUS: FINAL SPECIMEN SOURCE: INSURE () FOBT TEST CARD SPECIMEN QUALITY: ADEQUATE RESULT: Not Detected REPORT COMMENT: DOC #2:08/15/15 Test Performed at: [facility] [address] [place] [address] JOHN CAUSEY DO,MPH 08/10/2015 08/19/2015 11: 46 PM PSYCHOLOGICAL AIDE Purnima Inman MD LAB - BODY FLUID ORD ERABLES [facility] [address] [place] [address] * US LEVY DOPPLER LOWER EXTR LTD [...] - 11.6 sec 11/24/2014 3:07 PM CDT [facility] INR 1.2(H) 0.9 - 1.1 11/24/2014 3:07 PM CDT [facility] PTT 27.4 21.0 - 32.0 sec 11/24/2014 3:07 PM CDT [facility] Blood BLOOD SPECIMEN / Unknown 11/24/2014 2:36 PM CDT 11/24/2014 2:41 PM CDT Narrative [facility] - 11/24/2014 3:07 PM CDT Conventional Warfarin Anticoagulant Therapy INR Reference Range: 2.0-3.0 Intensive Warfarin Anticoagulant Therapy INR Reference Range: 2.5-3.5 Heparin Therapeutic Range for PTT: 44.4 - 78.3 seconds. Allison Herrera MD LAB - COAGUL ATION ORDERABLES Performing Organization Address City/[facility] Co de Phone Number [facility] [address] [place] [phone] * (ABNORMAL) CK + CKMB PANEL (11/24/2014 2:36 PM CDT) CK 215(H) 30 - 200 U/L 11/24/2014 3:36 PM CDT [facility] CK-MB 3.6 <6.6 ng/mL 11/24/2014 3:36 PM CDT [facility] CK Index % 1.7(L) 4.0 - 25.0 % 11/24/2014 3:36 PM CDT [facility] Blood BLOOD SPECIMEN / Unknown 11/24/2014 2:36 PM CDT 11/24/2014 2:57 PM CDT Allison Herrera MD LAB - CHEMIS TRY ORDERABLES Performing Organization Address City/[facility]/ZIP Co de Phone Number [facility] [address] [place] [address] * XR BONE AGE HAND AND WRIST (09/18/2014 9:13 AM PSYCHOLOGICAL AIDE) Only the most recent of2 resultswithin the time period is included. Anatomical Region Laterality Modality Upper Extremity, Wrist / Hand Ra diographic Imaging 09/18/2014 9:15 AM PSYCHOLOGICAL AIDE Impressions 09/18/2014 2:37 PM PSYCHOLOGICAL AIDE Bone age of 14 years, within normal limits. I, Patricia Jones, have personally reviewed the images and I agree with this report. Narrative 09/18/2014 2:37 PM PSYCHOLOGICAL AIDE EXAMINATION: Bone age Comparison: 03/21/2013 History: 14-year-old [...] or Yersinia KELLY 05/29/2014 10:32 AM CDT [facility] Culture Negative E. coli Shiga-like toxin (NM) KELLY 05/29/2014 10:32 AM CDT [facility] Stool STOOL SPECIMEN / Unknown 05/27/2014 12:52 PM CDT 05/27/2014 12:58 PM CDT Jamil Krishnamurthy MD LAB - MICROBIOLO GY ORDERABLES [facility] [address] [place], [place] [id number] [place] [address] * OCCULT BLOOD FECES (05/27/2014 12:30 PM CDT) Only the most recent of3 resultswithin the time period is included. Occult Blood Negative Negative 05/27/2014 12:45 PM CDT [facility] Stool STOOL SPECIMEN / Unknown 05/27/2014 12:30 PM CDT 05/27/2014 12:36 PM CDT Jamil Krishnamurthy MD LAB - BODY FLUID ORDERABLES Performing Organization Address City/[facility]/ZIP Co de Phone Number [facility] [address] [place] [address] * XR ABD OBSTR SERIES (05/26/2014 11:56 [...] URINE PANEL (01/03/2014 8:13 PM CDT) Pathologist [facility] Amphetamines Screen Urine Not Detected Not Detected 01/03/2014 8:45 PM CDT [facility] Barbiturates Screen Urine Not Detected Not Detected 01/03/2014 8:45 PM CDT [facility] Benzodiazepines Screen Urine Not Detected Not Detected 01/03/2014 8:45 PM CDT [facility] Cannabinoids Screen Urine Not Detected Not Detected 01/03/2014 8:45 PM CDT [facility] Cocaine Screen Urine Not Detected Not Detected 01/03/2014 8:45 PM CDT [facility] Opiate Screen Urine Detected(AA ) Not Detected 01/03/2014 8:45 PM CDT [facility] Phencyclidine Screen Urine Not Detected Not Detected 01/03/2014 8:45 PM T [facility] Urine URINE / Unknown 01/03/2014 8 :13 PM CDT 01/03/2014 8:21 PM CDT Narrative [facility] - 01/03/2014 8:45 PM CDT Medical [...] ng/ml Lidya Palmer MD LAB - URINE ALUMINUM SHINGLE ROOFER RY ORDERABLES [facility] [address] [place] [address] * (ABNORMAL) URINALYSIS MICROSCOPIC ONLY (01/03/2014 8:11 PM CDT) Only the most recent of2 resultswithin the time period is included. Pathologist [facility] RBC UA 5-10(A) 0-2, 2-5 # /hpf 01/03/2014 9:05 PM CDT [facility] WBC UA 0-2 0-2, 2-5 # /hpf 01/03/2014 9:05 PM CDT [facility] Bacteria UA None Seen None Seen, Trace 01/03/2014 9:05 PM CDT [facility] Epithelial Cell UA 0-2 0-2, 2-5 01/03/2014 9:05 PM CDT [facility] Mucus UA None Seen 01/03/2014 9:05 PM CDT [facility] Urine URINE SPECIMEN OBTAINED BY CLEAN CATCH PROCEDURE / Unknown 01/03/2014 8:11 PM CDT 01/03/2014 8:39 PM CDT Lidya Palmer MD LAB - URINALYSIS OR DERABLES Performing Organization Address City/State/[facility] Co de Phone Number [facility] [address] [place] [address] * CT FACIAL BONES NON CONTRAST(trauma) (01/03/2014 5:09 PM CDT) Anatomical Region Laterality Modality Head Computed Tomogra phy 01/04/2014 6:59 AM CDT Impressions 01/04/2014 7:12 AM CDT 1. No acute intracranial process. 2. No acute fracture or dislocation in the skull, face or cervical spine. The preliminary findings have been discussed with the clinical team and a preliminary note has been entered into [employer] system by the radiology automotive sales professional resident. Narrative 01/04/2014 7:12 AM CDT EXAMINATION: [...] entered into [employer] system by the radiology automotive sales professional resident. Lidya Palmer MD CT ORDERABLES * [...] a preliminary note has been entered into [employer] system by the radiology automotive sales professional resident. Narrative 01/04/2014 7:12 AM CDT EXAMINATION: [...] a preliminary note has been entered into [employer] system by the radiology automotive sales professional resident. Lidya Palmer MD CT ORDERABLES * [...] - 65 U/L 01/03/2014 4:44 PM CDT [facility] Blood BLOOD SPECIMEN / Unknown 01/03/2014 4:17 PM CDT 01/03/2014 4:30 PM CDT Lidya Palmer MD LAB - CHEMISTRY NEVAEH OAKES [facility] [address] [place] [address] * IGF BINDING PROTEIN 3 (07/25/2013 2:43 PM PSYCHOLOGICAL AIDE) [facility] Insulin-Like Growth Factor Binding Protein 3 3890 2134 - 6598 ng/mL 07/27/2013 8:03 AM PSYCHOLOGICAL AIDE [facility] Comment: Kuldeep Stage Reference Intervals Kuldeep Stage Male Female I 1180-2346 ng/mL 0994-3701 ng/mL II 0828-2242 ng/mL 4400-0541 ng/mL III 5381-5469 ng/mL 9800-3226 ng/mL IV-V 7137-5472 ng/mL 5728-3702 ng/mL Blood specimen (specimen) BLOOD SPECIMEN / Unknown Lab Venipuncture / Unknown 07/25/2013 2:43 PM PSYCHOLOGICAL AIDE 07/25/2013 2:53 PM PSYCHOLOGICAL AIDE Theo Amos MD LAB - CHEMISTRY ALIDA GALLOWAY [facility] [address] [place] [address] * GROWTH HORMONE TIMED OTHER (05/28/2013 12:09 PM CDT) Only the most recent of4 resultswithin the time period is included. [facility] Growth Hormone Other 2.54 ng/mL 05/29/2013 7:00 PM CDT [facility] Comment: INTERPRETIVE INFORMATION: Growth Hormone, Other Growth [...] Hormone Time 160 05/29/2013 7:00 PM CDT [employer] Blood specimen (specimen) BLOOD SPECIMEN / Unknown Venipuncture / Unknown 05/28/2013 12:09 PM CDT 05/28/2013 12:33 PM CDT Theo Amos MD LAB - CHEMISTRY ALIDA GALLOWAY Performing Organization Address [facility] de Phone Number [facility] [address] [place] [address] * GROWTH HORMONE 120 MINUTES (05/28/2013 11:27 AM CDT) Growth Hormone 120 Min 0.95 ng/mL 05/29/2013 7:00 PM CDT [facility] Comment: INTERPRETIVE INFORMATION: Growth Hormone 120 Minutes [...] - CHEMISTRY ALIDA GALLOWAY Performing Organization Address [facility] de Phone Number [facility] [address] [place] [address] * GROWTH HORMONE 90 MINUTES (05/28/2013 10:58 AM CDT) Growth Hormone 90 Min 3.21 ng/mL 05/29/2013 6:59 PM CDT [facility] Comment: INTERPRETIVE INFORMATION: Growth Hormone 90 Minutes [...] - CHEMISTRY ALIDA GALLOWAY Performing Organization Address [facility] de Phone Number [facility] [address] [place] [address] * GROWTH HORMONE 60 MINUTES (05/28/2013 10:30 AM CDT) Growth Hormone 60 Min 1.92 ng/mL 05/29/2013 7:00 PM CDT [facility] Comment: INTERPRETIVE INFORMATION: Growth Hormone 60 Minutes [...] - CHEMISTRY ALIDA GALLOWAY Performing Organization Address [facility] de Phone Number [facility] [address] [place] [address] * GROWTH HORMONE 0 MINUTES (05/28/2013 9:28 AM CDT) Growth Hormone 0 Min 6.58 0.05 - 11.00 ng/mL 05/29/2013 7:00 PM CDT [facility] [employer] Comment: INTERPRETIVE INFORMATION: Growth Hormone 0 Minutes [...] reference intervals for this test in the [facility] Laboratory Test Directory ([employer]). Blood specimen (specimen) BLOOD SPECIMEN / Unknown Venipuncture / Unknown 05/28/2013 9:28 AM CDT 05/28/2013 12:34 PM CDT Theo Amos MD LAB - CHEMISTRY ALIDA GALLOWAY [facility] Organization Address City/State/ZIP Co de Phone Number [facility] [address] [place] [address] * CROSSMATCH RBC (05/27/2013 1:07 PM CDT) Unit Donor # [id number] -I 05/29/2013 3:52 PM CDT [facility] Product Code E0420 05/29/2013 3:52 PM CDT [facility] Unit Description E0420 RBC, IRR, LR, -5 05/29/2013 3:52 PM CDT [facility] ABO Donor Type A 05/29/2013 3:52 PM CDT [facility] Rh Type Unit POS 05/29/2013 3:52 PM CDT [facility] Crossmatch Interpretation Compatible 05/29/2013 3:52 PM CDT [facility] Unit Status Returned 05/29/2013 3:52 PM CDT [facility] Blood Bank BLOOD SPECIMEN / Unknown 05/27/2013 1:07 PM CDT 05/27/2013 1:17 PM CDT Sydnie Renteria MD LAB - BLOOD BANK ORDERABLES [facility] * BLOOD TYPE ABO+ RH PANEL (05/27/2013 1:07 PM CDT) ABO A 05/27/2013 1:52 PM CDT [facility] Rh Type Positive 05/27/2013 1:52 PM CDT [facility] Blood Bank BLOOD SPECIMEN / Unknown 05/27/2013 1:07 PM CDT 05/27/2013 1:17 PM CDT Sydnie Renteria MD LAB - BLOOD BANK ORDERABLES [facility] * ANTIBODY SCREEN (05/27/2013 1:07 PM CDT) Antibody Screen Negative 05/27/2013 2:13 PM CDT [facility] Blood Bank BLOOD SPECIMEN / Unknown 05/27/2013 1:07 PM CDT 05/27/2013 1:17 PM CDT Sydnie Renteria MD LAB - BLOOD BANK ORDERABLES Performing Organization Address City/[facility]/ZIP Co de Phone Number [facility] * TISSUE TRANSGLUTAMINASE AB IGA (05/09/2013 12:47 PM CDT) Tissue Transglutaminase (tTG) Ab, IgA 4 0 - 19 Units 05/11/2013 2:57 PM CDT [facility] [employer] Comment: INTERPRETIVE INFORMATION: Tissue Transglutaminase (tTG) Antibody, [...] - SEROLOGY ORDER DUNIA Performing Organization Address [facility] Co de Phone Number [facility] [address] [place] [address] * T4 FREE DIRECT DIALYSIS (05/09/2013 12:47 PM CDT) Pathologist [facility] T4 Free Direct Dialysis 1.8 1.1 - 2.0 ng/dL 05/15/2013 10:51 AM CDT [facility] Comment: INTERPRETIVE INFORMATION: FT4 ED-TMS Test developed and characteristics determined by [employer] See Compliance Statement B: [employer] Blood specimen (specimen) BLOOD SPECIMEN / Unknown Lab Venipuncture / Unknown 05/09/2013 12:47 PM CDT 05/09/2013 12:58 PM CDT Theo Amos MD LAB - CHEMISTRY ORDE RABLES Performing Organization Address [facility] Co de Phone Number [facility] [address] [place] [address] * SOMATOMEDIN C (IGF-1) (05/09/2013 12:47 PM CDT) [facility] Insulin-Like Growth Factor-1 82 ng/mL 05/11/2013 8:30 AM CDT [facility] Comment: Kuldeep Stages I (8-15 yrs): 52-391 [...] reference intervals for this test in the [facility] Test Directory ([employer]). Blood specimen (specimen) BLOOD SPECIMEN / Unknown Lab Venipuncture / Unknown 05/09/2013 12:47 PM CDT 05/09/2013 12:58 PM CDT Theo Amos MD LAB - CHEMISTRY ALIDA GALLOWAY [facility] [address] [place] [address] * IGA BLOOD (05/09/2013 12:47 PM CDT) IgA 137 63 - 484 mg/dL 05/09/2013 1:32 PM CDT [facility] Blood BLOOD SPECIMEN / Unknown Lab Venipuncture / Unknown 05/09/2013 12:47 PM CDT 05/09/2013 12:55 PM CDT Theo Amos MD LAB - CHEMISTRY ALIDA GALLOWAY [facility] [address] [place] [address] * CT CHEST WITH AND WITHOUT CONTRAST (08/02/2010 1:04 PM PSYCHOLOGICAL AIDE) Anatomical Region Laterality Modality Chest Computed Tomogra phy 08/02/2010 2:19 PM PSYCHOLOGICAL AIDE Impressions 08/02/2010 4:15 PM PSYCHOLOGICAL AIDE 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, otherwise unremarkable CT chest Jason Olivarez MD Narrative 08/02/2010 4:15 PM PSYCHOLOGICAL AIDE Exam: CT scan Chest with and without [...] 7:30 AM CDT) ABO Rh A POS [facility] Antibody Screen NEG Negative [facility] Products Ready 1 [facility] BLOOD SPECIMEN / Unknown 05/18/2010 7:30 AM CDT 05/18/2010 7:46 AM CDT Margarito Fountain GARMENT TURNER-CLOTH FINISHER LAB - BLOOD BANK ORDERABLES Performing Organization Address City/State/[facility] Co de Phone Number [facility] [address] [place] [address] * CARDIAC CATH ORDER (05/18/2010) 05/18/2010 Narrative Procedure Note Sydnie Renteria MD - 05/18/2010 1:40 PM CDT[facility] Card[facility] Cath #: PROCEDURE: Cardiac catheterization and stent placement for coarctation. 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 PROCEDURE: The patient was brought to the syrup machine laborer where time out was taken toensure we [...] 1 cm markers advanced to the descendingaorta, [place] ascending aorta, and to the LV, and [...] [place] and lateral projection. 4. LV in [place] and lateral projection. 5. RV in AP and lateral projection. 6. Ascending aorta in [place] and lateral projection. 7. Injection via the long sheath after four positions of stentassessment. 8. Repeat ascending aorta angiogram in [place] and lateral projection afterplacement of the stent. [...] 8.5 mm and the descending aorta measured [id number] to 13 mm. Therefore, I decided to [...] 91 percent due to the presence of [id number] across the left SVC to the coronary [...] right atrium. 5. LV angiogram in slight SW[place] and lateral projection. The LV was smallbut [...] waswide open with good anastomosis between the [place] and the ascendingaorta. 7. Aortic root angiogram. [...] was no extravasationor complication. DIAGNOSES: Status post Donnellson and total cavopulmonary anastomosis for a form [...] By: SYDNIE DANIELSON MD YVONNE/real JOB ID: [id number] cc: YASSINE BROCK MD Sydnie Renteria MD CARDIAC RESEARCH CLERK ORDERABLES * AUDIOLOGY/TYMPANOMETRY ORDER (02/19/2010 2:03 PM CDT) Narrative 02/19/2010 2:03 PM CDT Ordered by an unspecified provider. Transcriptions Document, Scanned - 11/20/2009 12:00 AM CDT Scanned Document AUDIOLOGY SERVICES O RDERABLES * (ABNORMAL) CBC W MANUAL DIFFERENTIAL (08/22/2009 4:00 PM PSYCHOLOGICAL AIDE) WBC 14.26 4.5 - 14.5 K/cumm [facility] RBC 5.09 4.00 - 5.20 mill/cumm [facility] Hemoglobin 14.4 11.5 - 15.5 gm/dl [facility] Hematocrit 41.5 35.0 - 45.0 % [facility] MCV 81.5 77.0 - 95.0 cu microns [facility] MCH 28.3 25.0 - 33.0 uug [facility] MCHC 34.7 31.0 - 37.0 % [facility] RDW 13.3 % [facility] MPV 10.3 fl [facility] Platelet Count 242 100 - 400 K/cumm [facility] Comment Manual Diff Done [facility] Band % Manual 11 % [facility] Neutrophils % Manual 79(H) 24 - 66 % [facility] Lymphocytes % Manual 3(L) 22 - 61 % [facility] Monocytes % Manual 5 3 - 15 % [facility] Basophils % Manual 2(H) 0 - 1 % [facility] RBC Morphology Slight Anisocytosis, Poikylocytosis, Schistocytes [facility] BLOOD SPECIMEN / Unknown 08/22/2009 4:00 PM PSYCHOLOGICAL AIDE Jemima Wolf MD LAB - HEMATOLOGY ORDERABLES [facility] * (ABNORMAL) CALCIUM IONIZED BLOOD (08/22/2009 4:00 PM PSYCHOLOGICAL AIDE) pH 7.311(L) 7.35-7.45 (art) [facility] Calcium Ionized 1.29 mmol/L [facility] Calcium Ionized Adjusted 1.23 1.15 - 1.29 mmol/L [facility] Specimen Type/Condition Blood Gas Art/ABL [facility] BLOOD SPECIMEN / Unknown 08/22/2009 4:00 PM PSYCHOLOGICAL AIDE Jemima Wolf MD LAB - CHEMISTRY ORDERABLES [facility] * (ABNORMAL) BLOOD GASES + COOX ARTERIAL PANEL (08/22/2009 4:00 PM PSYCHOLOGICAL AIDE) pH 7.311(L) 7.35-7.45 (art) [facility] pCO2 iSTAT 37.5 35-48 (art) mm Hg [facility] pO2 iSTAT 39.2(L) 83-108 (art) mm Hg [facility] Hemoglobin Blood Gas 14.6 11.5 - 15.5 gm/dl [facility] O2 Saturation iSTAT 63.7(L) 95 - 99 % [facility] Oxyhemoglobin Coox 63.1(L) 94 - 98 % [facility] Carboxyhemoglobin 0.4 0.0 - 0.8 % [facility] Methemoglobin 0.6 0.2 - 0.6 % [facility] O2 Content 12.9(L) 15 - 23 % [facility] Base Excess -6.7 -2.0 - 2.0 mmol/L [facility] P50 Blood 32.04(H) 25.3 - 26.8 mm Hg [facility] Specimen Type/Condition Blood Gas Art/ABL [facility] BLOOD SPECIMEN / Unknown 08/22/2009 4:00 PM PSYCHOLOGICAL AIDE Jemima Wolf MD LAB - BLOOD GASE S ORDERABLES [facility] * GROSS + MICRO EXAM (07/28/2008 3:12 PM PSYCHOLOGICAL AIDE) Only the most recent of3 resultswithin the time period is included. Result CASE NUMBER [id number] [facility] PATH REPORT Comment: ORDERING PHYSICIAN PURNIMA [...] component. The specimen is serially sectioned, and new accounts representative sections are submitted in cassette C. [...] and interpreted by the attending (teaching) pathologist. Material Manager PINA MORRISON PATHOLOGIST Alexandra Montoya M.D. ELECTRONICALLY ALEXANDRA GRIFFITH MISCELLANEOUS SAMPLES / Unknown 07/28/2008 3:12 PM PSYCHOLOGICAL AIDE 07/29/2008 8:41 AM PSYCHOLOGICAL AIDE Historical Provider MD LAB - PATHOLOGY/C YTOLOGY ORDERABLES [facility] PATH REPORT * GROSS EXAM PATHOLOGY (2000 10:50 AM PSYCHOLOGICAL AIDE) Result CASE NUMBER [id number] [facility] PATH REPORT Comment: ORDERING PHYSICIAN NOLAN [...] cm. (CT/lw) GROSS DIAGNOSIS GROSS DIAGNOSIS WIRES. Material Manager Calin Carson PATHOLOGIST Paola Pelayo M.D. ELECTRONICALLY PAOLA MILELR MISCELLANEOUS SAMPLES / Unknown 2000 10:50 AM PSYCHOLOGICAL AIDE 2000 12:14 PM PSYCHOLOGICAL AIDE Historical Provider LAB - PATHOLOGY/C YTOLOGY ORDERABLES [facility] PATH REPORT Care Teams Tobacco Feeder Catcher Relationship Specialty Start Date End Date Labarge, Nicolas Delcid MD [address] [place] [address] PCP - General 11/18/21
== END 2024-10-06 14:30 | disposition home or self-care (01) ==
PROVIDERS: Emergency Provider Family Medicine
DX: S40.021A Contusion of right upper arm, initial encounter (principal); W20.8XXA Other cause of strike by thrown, projected or falling object, initial encounter
CPT/HCPCS: 73110; 99283